=== PATIENT | male | born 1955 | race Caucasian/White ===

== ENCOUNTER 2024-03-05 11:16 | Inpatient (IN) | payer OTHER, SELFPAY ==
[2024-03-05] VITALS (23 sets, daily range): BP systolic 133–186; BP diastolic 62–80; PULSE 64–80; TEMP 36.5–37.9; O2SAT 91–99; BMI 24.4
--- NOTE | 2024-03-05 11:49 | CT_ITS ---
[address] [address] Patient Name: ENZO VIEIRA MRN: [id number] date: 1955 Sex: M Assigned Patient Location: ER Current Patient Location: ER Accession/Order Number: [id number] Exam Date: 03/05/2024 13:08 Report Date: 03/05/2024 13:49 At the request of: ELSA TELLO Procedure: CT abdomen pelvis w con EXAMINATION: CT abdomen pelvis w con HISTORY: epigastric pain COMPARISON: No relevant comparison available. TECHNIQUE: CT images were created with IV contrast. Axial, Coronal, and Sagittal images. Dose reduction techniques were achieved by using automated exposure control and/or adjustment of mA and/or kV according to patient size and/or use of iterative reconstruction technique. FINDINGS: LUNG BASES: No visible pulmonary or pleural disease. LIVER: No enlargement, atrophy, abnormal density, or significant focal lesion. BILIARY: The gallbladder is contracted. Calcified gallbladder wall PANCREAS: Asymmetric enlargement of the pancreatic head with peripancreatic mesenteric stranding and free fluid with dilation of the common bile duct and air in the proximal pancreatic duct SPLEEN: No enlargement or focal lesion. ADRENALS: No mass or enlargement. KIDNEYS: No mass, obstruction, or calcification. BOWEL/MESENTERY: Nonobstructive bowel gas pattern. Normal appendix. Wall thickening of the duodenum adjacent to the pancreatic head AORTA/VASCULAR: No aortic aneurysm. Moderate soft and calcific atherosclerotic plaque RETROPERITONEUM: No mass or adenopathy. LYMPH NODES: No adenopathy. URINARY BLADDER: No visible focal wall thickening, lesion, or calculus. PELVIC ORGANS: The prostate gland is mildly enlarged measuring 5 cm transversely ABDOMINAL WALL: No mass or hernia. BONES: No bony lesion or fracture. OTHER: Negative. CT/CT abdomen pelvis w con IMPRESSION: Acute pancreatitis without evidence of pancreatic necrosis. Likely secondary inflammatory changes of the adjacent duodenum Small amount of air in the pancreatic duct Dilation of the common bile duct up to 8.8 mm Electronically authenticated by: DEDRICK CORTES Date: 03/05/2024 13:49
[2024-03-05] MEDS: DICYCLOMINE HCL 20 MG/2 ML VIAL IM (12:14)
[2024-03-05] MEDS: FAMOTIDINE/PF 20 MG/2 ML VIAL IV (12:14)
[2024-03-05] MEDS: ONDANSETRON PF 4 MG/2 ML VIAL IV (12:14)
[2024-03-05 12:17] LABS: Basophils Percent Auto 0.9 % (0.2-2.0); Hematocrit 43.8 % (42.0-54.0); Hemoglobin 15.1 g/dL (14.0-18.0); Lymphocytes Absolute Auto 0.9 10^3/uL (1.2-3.8); Lymphocytes Percent Auto 19.6 % (20.5-60.0); Mean Corpuscular HGB Conc 34.5 g/dL (29.9-35.2); Mean Corpuscular Hemoglobin 33.3 pg (25.9-34.0); Mean Corpuscular Volume 96.5 fL (80.0-94.0); Mean Platelet Volume 9.2 fL (9.5-13.5); Monocytes Absolute Auto 0.3 10^3/uL (0.3-0.8); Monocytes Percent Auto 5.9 % (1.7-12.0); Neutrophils Absolute Auto 3.2 10^3/uL (1.4-6.5); Neutrophils Percent Auto 73.6 % (43.0-75.0); Platelet Count 223 10^3/uL (150-450); Red Blood Count 4.54 10^6/uL (4.70-6.10); Red Cell Distribution Width 12.4 % (11.0-15.0); White Blood Count 4.4 10^3/uL (4.0-11.0)
--- NOTE | 2024-03-05 12:21 | ED_ITS ---
HPI HPI - General Adult General Chief complaint: Abdominal Pain Stated complaint: ABDOMINAL PAIN Time Seen by Provider: 03/05/24 11:18 Source: patient Mode of arrival: walk-in Limitations: no limitations History of Present Illness HPI narrative: 68-year-old male to the emergency department chief complaint of abdominal pain that began last evening. Patient reports that he [facility] [place] [facility] for dinner. He woke up in the night with cramping upper abdominal pain. Is now a sharp pain located in the epigastric region. He reports that it comes and goes. Is associate with nausea without vomiting. He has never had issues like this before. He denies any chest pain or shortness of breath. He denies any fever, sweats, chills. No diarrhea or blood in the stool. No dark tarry stools. He has a history of hernia surgery, no other intra-abdominal surgeries. Related Data Home Medications ?Medication ?Instructions ?Recorded ?Confirmed No Known Home Medications 03/05/24 03/05/24 Allergies Allergy/AdvReac Type Severity Reaction Status Date / Time No Known Drug Allergies Allergy Verified 03/05/24 11:30 Opioid HPI Opioid Management Most Recent Opioid Data: Last Pain Scale 5 03/05/24 15:14 03/05/24 Last ED Pain Assessment 03/05/24 15:14 Review of Systems ROS Status of ROS 10 or more systems reviewed and unremark able except as noted in history and below [facility] Surgical History (Updated 03/05/24 @ 11:32 by Chencho Murphy) Hx of hernia repair ?Z98.890 - Other specified postprocedural states (ICD-10) ?Z87.19 - Personal history of other diseases of the digestive system (ICD-10) Social History Little interest or pleasure in doing things: not at all Feeling down, depressed, or hopeless: not at all Exam Narrative Exam Narrative: VITALS: I have reviewed the triage vital signs. GENERAL: Well developed, well appearing adult in no acute distress. NEURO: Alert and oriented. Moves all extremities. Face is symmetric and expressive. EYES: PERRL. No scleral icterus or conjunctival injection. No discharge. HENT: Normocephalic, atraumatic. Hearing is grossly intact. Nares grossly patent and without discharge. Mucous membranes moist. NECK: No JVD. Patient moves neck without restriction. CARDIO: Rhythm regular. Normal rate. No murmur, rub, or gallop. Pulses equal bilaterally in the upper and lower extremity. No lower extremity edema. PULM: Lungs clear to auscultation in all moreno. No wheezes, rales, or rhonchi. No conversational dyspnea. No splinting, stridor, or accessory muscle use. GI/: Mild epigastric tenderness. Normoactive bowel sounds. EXTREMITIES: Symmetric muscle bulk. No joint swelling. No clubbing, cyanosis, or deformity. SKIN: Warm and dry. Normal turgor. No rash or lesions appreciated. PSYCH: Mood, affect, and interaction is appropriate to the setting. Constitutional Vital Signs, click to edit/add: Last Vital Signs Temp 97.7 F 03/05/24 11:21 Pulse 68 03/05/24 15:15 Resp 17 03/05/24 15:15 BP 178/80 H 03/05/24 13:25 Pulse Ox 95 03/05/24 14:15 O2 Del Method Room Air 03/05/24 13:25 Course Vital Signs Vital signs: Vital Signs Temperature 97.7 F 03/05/24 11:21 Pulse Rate 64 03/05/24 11:21 Respiratory Rate 20 03/05/24 11:21 Blood Pressure 180/70 H 03/05/24 11:21 Pulse Oximetry 96 03/05/24 11:21 Oxygen Delivery Method Room Air 03/05/24 11:21 Temperature 97.7 F 03/05/24 11:21 Pulse Rate 68 03/05/24 15:15 Respiratory Rate 17 03/05/24 15:15 Blood Pressure 178/80 H 03/05/24 13:25 Pulse Oximetry 95 03/05/24 14:15 Oxygen Delivery Method Room Air 03/05/24 13:25 Medical Decision Making [facility] Narrative Medical decision making narrative: Well-appearing 68-year-old male to the emergency department chief complaint of epigastric pain after eating [place] salad last night. Vital stable, the rigoberto ent is afebrile. He has some mild tenderness on exam. Will obtain basic labs, EKG, lipase, CT scan abdomen pelvis. Zofran, Pepcid, Bentyl for symptom control. Patient agrees with this plan. No leukocytosis. He does have an elevated lipase as well as liver enzymes and bilirubin. CT imaging reviewed as below. Question of dilated common bile duct. I discussed with Dr. Muñiz the on-call general surgeon. He recommended I given a dose of IV antibiotic, obtain an ultrasound and admit to the hospitalist. He reports he will see the patient tomorrow. I discussed with the hospitalist Dr. Green. He accepts the patient to his service. A dose of Zosyn was given. Ultrasound was ordered Medical Records Medical records reviewed: Yes I reviewed the patient's medical records Lab Data Lab results reviewed: Yes I reviewed the patient's lab results Labs: Lab Results 03/05/24 Range/Units 12:00 WBC 4.4 (4.0-11.0) 10^3/uL RBC 4.54 L (4.70-6.10) 10^6/uL Hgb 15.1 (14.0-18.0) g/dL Hct 43.8 (42.0-54.0) % MCV 96.5 H (80.0-94.0) fL MCH 33.3 (25.9-34.0) pg MCHC 34.5 (29.9-35.2) g/dL RDW 12.4 (11.0-15.0) % Plt Count 223 (150-450) 10^3/uL MPV 9.2 L (9.5-13.5) fL Neut % (Auto) 73.6 (43.0-75.0) % Lymph % (Auto) 19.6 L (20.5-60.0) % [place] % (Auto) 5.9 (1.7-12.0) % Eos % (Auto) 0.0 L (0.9-7.0) % Baso % (Auto) 0.9 (0.2-2.0) % Neut # (Auto) 3.2 (1.4-6.5) 10^3/uL Lymph # (Auto) 0.9 L (1.2-3.8) 10^3/uL [place] # (Auto) 0.3 (0.3-0.8) 10^3/uL Eos # (Auto) 0.0 (0.0-0.7) 10^3/uL Baso # (Auto) 0.0 (0.0-0.1) 10^3/uL Abs Immat Gran (auto) 0.00 (0.00-0.03) 10^3/uL Imm/Tot Granulo (auto) 0.0 (0.0-0.5) % Sodium 145 (136-145) mmol/L Potassium 4.3 (3.5-5.1) mmol/L Chloride 110 H (98-107) mmol/L Carbon Dioxide 25.7 (21.0-32.0) mmol/L Anion Gap 13.6 BUN 16.0 (7.0-18.0) mg/dL Creatinine 1.15 (0.70-1.30) mg/dL Est GFR ( Amer) >60 (>=60 mL/min/1.73m^2) Est GFR (Non-Af Amer) >60 (>=60 mL/min/1.73m^2) BUN/Creatinine Ratio 13.9 Glucose 113 H (74-106) mg/dL Calcium 9.5 (8.5-10.1) mg/dL Total Bilirubin 3.2 H (0.2-1.0) mg/dL AST 188 H (15-37) U/L ALT 177 H (16-63) U/L Alkaline Phosphatase 172 H (46-116) U/L Troponin I High Sens 9.6 (4.0-76.1) pg/mL Total Protein 7.3 (6.4-8.2) g/dL Albumin 3.5 (3.4-5.0) g/dL Globulin 3.8 g/dL Albumin/Globulin Ratio 0.9 Lipase 3549.0 H* (16.0-77.0) U/L ECG Data Attestation: ?I have reviewed the pertinent ECG results. Discharge Plan Discharge Chief Complaint: Abdominal Pain Clinical Impression: Pancreatitis Patient Disposition: Admitted As Inpatient Time of Disposition Decision: 15:37 Condition: Good
--- NOTE | 2024-03-05 12:22 | ECG_ITS ---
The 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
[2024-03-05 12:43] LABS: Alanine Aminotransferase 177 U/L (16-63); Albumin Globulin Ratio 0.9; Albumin Level 3.5 g/dL (3.4-5.0); Alkaline Phosphatase 172 U/L (46-116); Anion Gap 13.6; Aspartate Amino Transferase 188 U/L (15-37); BUN Creatinine Ratio 13.9; Bilirubin Total 3.2 mg/dL (0.2-1.0); Calcium 9.5 mg/dL (8.5-10.1); Carbon Dioxide 25.7 mmol/L (21.0-32.0); Chloride 110 mmol/L (98-107); Estimated GFR (African America >60 (>=60 mL/min/1.73m^2); Estimated GFR (Non-African Ame >60 (>=60 mL/min/1.73m^2); Globulin 3.8 g/dL; Glucose 113 mg/dL (74-106); Potassium 4.3 mmol/L (3.5-5.1); Sodium 145 mmol/L (136-145); Total Protein 7.3 g/dL (6.4-8.2)
[2024-03-05 12:46] LABS: Troponin I High Sensitivity 9.6 pg/mL (4.0-76.1)
[2024-03-05] MEDS: LACTATED RINGER'S SOLUTION 1,000 ML 1000 ML IV ×2 (13:23→15:41)
--- NOTE | 2024-03-05 14:26 | US_ITS ---
The [address] [address] Patient Name: ENZO VIEIRA MRN: [id number] date: 1955 Sex: M Assigned Patient Location: ED.MAIN Current Patient Location: ED.MAIN Accession/Order Number: [id number] Exam Date: 03/05/2024 14:30 Report Date: 03/05/2024 15:38 At the request of: ELSA TELLO Procedure: US right upper quadrant EXAM: US right upper quadrant HISTORY: abn ct, epigastric pain COMPARISON: None. TECHNIQUE: A scale, color and Doppler FINDINGS: The liver is normal in size, contour and echotexture measuring 13.1 cm in length. Identified in the right hepatic lobe is an area of hyperechogenicity measuring 1 cm. The visualized pancreas is mildly heterogeneous in echotexture. The pancreatic head is poorly visualized due to bowel gas. The gallbladder is contracted and poorly visualized. The gallbladder wall is thickened and calcified measuring up to 5.4 mm. The common bile duct measures 5.4 mm. Negative sonographic Hinojosa sign The right kidney is normal measuring 8.8 x 4.8 x 4.4 cm US/US right upper quadrant IMPRESSION: No bladder wall is thick, this could be related to nondistention Electronically authenticated by: DEDRICK CORTES Date: 03/05/2024 15:38
[2024-03-05] MEDS: PIPERACILLIN SODIUM/TAZOBACTAM 4.5 GM in 0.9 % SODIUM CHLORIDE 50 ML IV (15:07)
--- NOTE | 2024-03-05 17:05 | PM.HP ---
HPI H&P: HPI History of Present Illness Chief complaint: ABDOMINAL PAIN, PANCREATITIS Narrative: 68 y o male with no sig PMHX presented to ED with epigastric abdominal pain that woke him up from sleep around 2 am. He reports feeling nauseous and had few episodes of vomiting. Pain is sharp, epigastric, persistent since onset with periods of worsening pain. Pain at the time of evaluation had improved and was 5/10. Patient denies constipation, diarrhea, and has no urinary complaints. Work up in ED was c/w acute pancreatitis with epigastric pain, pancreatic inflammation on CT and elevated lipase> 3000. Patient also had dilated CBD, mild transaminitis, elevated bilirubin and ALPO4 but no definitive stones in hepatobiliary ducts. Case was discussed with general surgery receptionist telephone operator who recommended US Liver/GB and IV abx for suspected cholecystitis. Patient drinks alcohol occasionally and is currently not on any medications. Opioid HPI Opioid Management Most Recent Pain and Opioid Data: Last Pain Scale 5 03/05/24 15:14 03/05/24 Last Pain Assessment 03/05/24 16:00 Last ED Pain Assessment 03/05/24 15:14 Last ORT Total Score 0 03/05/24 16:05 03/05/24 Last ORT Risk Category Low Risk 03/05/24 16:05 03/05/24 Review of Systems ROS Status of ROS 10 or more systems reviewed and unremarkable except as noted in history and below [facility] Surgical History Hx of hernia repair ?Z98.890 - Other specified postprocedural states (ICD-10) ?Z87.19 - Personal history of other diseases of the digestive system (ICD-10) Social History Within the past year, how often did you have a drink containing alcohol: monthly or less Within the past year, how many standard drinks containing alcohol did you have on a typical day: 1 or 2 Within the past year, how often did you have six or more drinks on one occasion: never Total score: 0 Score interpretation: A score less than 4 is consistent with normal alcohol consumption. Smoking status: Current every day smoker Non-prescribed substance use: denies use Highest level of school completed/degree received: high school graduate Little interest or pleasure in doing things: not at all Feeling down, depressed, or hopeless: not at all Do you think of yourself as: straight/heterosexual Gender Identity: male Meds Home Medications and Allergies Home Medications ?Medication ?Instructions ?Recorded ?Confirmed ?Type No Known Home Medications 03/05/24 03/05/24 History Allergies Allergy/AdvReac Type Severity Reaction Status Date / Time No Known Drug Allergies Allergy Verified 03/05/24 11:30 Exam Constitutional Vital Signs, click to edit/add: Last Vital Signs Temp 98.0 F 03/05/24 16:05 Pulse 66 03/05/24 16:05 Resp 16 03/05/24 16:05 BP 186/76 H 03/05/24 16:05 Pulse Ox 93 L 03/05/24 16:05 O2 Del Method Room Air 03/05/24 16:05 Documenting provider has reviewed patient's vital signs: yes Common normals: no apparent distress and oriented x3 General appearance: cooperative HENMT Common normals: normocephalic and head/scalp atraumatic Head and scalp: normocephalic and atraumatic Eye Common normals: conjunctivae normal and no scleral icterus Conjunctiva: conjunctiva(e) normal Respiratory Common normals: normal respiratory effort and clear to auscultation bilaterally Effort & inspection: able to speak in complete sentences Auscultation: clear to auscultation bilaterally Cardio Common normals: regular rate, S1 normal heart sound and S2 normal heart sound Rate: regular rate Heart sounds: S1 normal and S2 normal GI Common normals: Normal to inspection, nondistended, normoactive bowel sounds present, soft to palpation, non-tender and no hepatosplenomegaly Palpation: soft and no hepatosplenomegaly Extremity Common normals: no clubbing, cyanosis or edema Neuro Common normals: oriented x3, moves all extremities and no focal motor deficits Psych Common normals: mental status grossly normal, denies hallucinations, denies homicidal ideation and denies suicidal ideation Results Labs Labs: Short CBC 03/05/24 Range/Units 12:00 WBC 4.4 (4.0-11.0) 10^3/uL Hgb 15.1 (14.0-18.0) g/dL Hct 43.8 (42.0-54.0) % Plt Count 223 (150-450) 10^3/uL BMP 03/05/24 12:00 Sodium 145 Potassium 4.3 Chloride 110 H Carbon Dioxide 25.7 BUN 16.0 Creatinine 1.15 Glucose 113 H Calcium 9.5 Liver Function 03/05/24 Range/Units 12:00 Total Bilirubin 3.2 H (0.2-1.0) mg/dL AST 188 H (15-37) U/L ALT 177 H (16-63) U/L Alkaline Phosphatase 172 H (46-116) U/L Albumin 3.5 (3.4-5.0) g/dL Assessment and Plan Assessment and Plan (1) Acute pancreatitis: Qualifiers: Pancreatitis type: biliary Acute pancreatitis complication: no infection or necrosis Qualified Code(s): K85.10 - Biliary acute pancreatitis without necrosis or infection (2) Transaminitis: (3) Hyperbilirubinemia: (4) Common bile duct dilatation: (5) Elevated blood pressure reading without diagnosis of hypertension: Plan Patient presented with acute pancreatitis. Likely due to GB pathology. On IV zosyn for suspect cholecystitis. Awaiting US - if unclear, will need MRCP. C/w supportive care, IV fluids, zofran as needed and combination of oral/IV narcotics. Full liquid diet. Advance as tolerated. Surgery on consult. BP elevated, no hx of HTN. Monitor for now as this could reactive due to pain/acute illness. IV hydralazine as needed. If persistent elevation, might require PO medications.
[2024-03-05] MEDS: HYDRALAZINE HCL 20 MG/ML VIAL 10 MG IVP (17:10)
[2024-03-05] MEDS: LACTATED RINGER'S SOLUTION 1,000 ML 999 ML IV (17:10)
[2024-03-05 17:12] LABS: Glucometer 86 mg/dL (74-106)
[2024-03-05] MEDS: PANTOPRAZOLE SODIUM 40 MG VIAL IV (18:04)
[2024-03-05] MEDS: OXYCODONE HCL 5 MG TABLET PO (18:10)
[2024-03-05] MEDS: 0.9 % SODIUM CHLORIDE 1,000 ML 200 ML IV (18:24)
[2024-03-05 19:27] LABS: Glucometer 105 mg/dL (74-106)
[2024-03-05] MEDS: ENOXAPARIN SODIUM 40 MG/0.4 ML SYRINGE SUBQ (21:10)
[2024-03-05] MEDS: ACETAMINOPHEN 325 MG TABLET 650 MG PO (21:12)
[2024-03-05] MEDS: PIPERACILLIN SODIUM/TAZOBACTAM 3.375 GM in 0.9 % SODIUM CHLORIDE 50 ML IV (21:15)
[2024-03-06] VITALS (22 sets, daily range): BP systolic 136–177; BP diastolic 68–92; PULSE 54–90; TEMP 36.7–37.2; O2SAT 90–94
[2024-03-06] MEDS: 0.9 % SODIUM CHLORIDE 1,000 ML 200 ML IV (03:34)
[2024-03-06] MEDS: ACETAMINOPHEN 325 MG TABLET 650 MG PO ×2 (05:28→12:35)
[2024-03-06] MEDS: PIPERACILLIN SODIUM/TAZOBACTAM 3.375 GM in 0.9 % SODIUM CHLORIDE 50 ML IV ×3 (05:29→21:11)
[2024-03-06 05:35] LABS: Basophils Absolute Auto 0.1 10^3/uL (0.0-0.1); Basophils Percent Auto 0.8 % (0.2-2.0); Hematocrit 36.4 % (42.0-54.0); Hemoglobin 12.2 g/dL (14.0-18.0); Immature Granulocytes Abs Auto 0.01 10^3/uL (0.00-0.03); Immature Granulocytes Pct Auto 0.2 % (0.0-0.5); Lymphocytes Absolute Auto 1.3 10^3/uL (1.2-3.8); Mean Corpuscular HGB Conc 33.5 g/dL (29.9-35.2); Mean Corpuscular Hemoglobin 33.1 pg (25.9-34.0); Mean Corpuscular Volume 98.6 fL (80.0-94.0); Monocytes Absolute Auto 0.3 10^3/uL (0.3-0.8); Neutrophils Absolute Auto 4.4 10^3/uL (1.4-6.5); Platelet Count 152 10^3/uL (150-450); Red Blood Count 3.69 10^6/uL (4.70-6.10); Red Cell Distribution Width 12.5 % (11.0-15.0)
[2024-03-06 05:59] LABS: Alanine Aminotransferase 97 U/L (16-63); Albumin Globulin Ratio 0.8; Albumin Level 2.5 g/dL (3.4-5.0); Alkaline Phosphatase 131 U/L (46-116); Anion Gap 11.7; Aspartate Amino Transferase 82 U/L (15-37); BUN Creatinine Ratio 9.8; Calcium 7.7 mg/dL (8.5-10.1); Carbon Dioxide 23.3 mmol/L (21.0-32.0); Chloride 110 mmol/L (98-107); Estimated GFR (African America >60 (>=60 mL/min/1.73m^2); Estimated GFR (Non-African Ame >60 (>=60 mL/min/1.73m^2); Globulin 3.1 g/dL; Glucose 76 mg/dL (74-106); Sodium 141 mmol/L (136-145); Total Protein 5.6 g/dL (6.4-8.2)
--- NOTE | 2024-03-06 06:55 | P.GSCN_ITS ---
History of Present Illness Consult details Consult date: 03/06/24 Reason for consult: other Requesting physician: Hernandez Valdez Narrative: Ludwin Reyes is a 68-year-old male who presented to the ED yesterday with complaints of epigastric abdominal pain associate with nausea and back pain. He was found to have acute pancreatitis by CT scan and blood testing. He had hyperbilirubinemia as well. His bilirubin is elevated at 3.2 and his lipase was over 3000. He rated his pain as an 8 out of 10 when he presented to the ED. The pain began again and abruptly at 2 AM waking him from sleep. He has never experienced this pain. He denies any melena hematochezia or any family history of cancer. 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 He smokes tobacco daily. He states he is going to quit. He denies any chest pain shortness of breath. CT scan of the abdomen and pelvis showed pancreatitis and slightly dilated common bile duct with no evidence of stone. Ultrasound of the gallbladder showed no stones but mild thickening of the gallbladder wall. He had negative Hinojosa sign denies any fevers chills jaundice or melvi colored stools. He drinks alcohol sparingly. Maybe 1-2 beers a month. He currently rates his pain as a 0 out of 10. He complains that he has chronic back pain. Review of Systems ROS Status of ROS 10 or more systems reviewed and unremark able except as noted in history and below [facility] History Hx of hernia repair ?Z98.890 - Other specified postprocedural states (ICD-10) ?Z87.19 - Personal history of other diseases of the digestive system (ICD-10) Family History Mother Family history of cancer Father Family history of hypertension Social History Within the past year, how often did you have a drink containing alcohol: monthly or less Within the past year, how many standard drinks containing alcohol did you have on a typical day: 1 or 2 Within the past year, how often did you have six or more drinks on one occasion: never Total score: 0 Score interpretation: A score less than 4 is consistent with normal alcohol consumption. 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 Known occupational exposures/hazards: No Highest level of school completed/degree received: high school graduate Do you want help with school or training: No Are you now , , , , never or living with a partner: In a typical week, how many times do you talk on the telephone with family, friends, or neighbors: 3 or more times per week How often do you get together with friends or relatives: 3 or more times per week How often do you attend congregational or congregational services: never Do you belong to any clubs or organizations such as congregational groups unions, fra[employer] or athletic groups, or school groups: no Total score: 2 Score interpretation: A score of greater than or equal to 2 indicates the lowest level of social isolation. Little interest or pleasure in doing things: not at all Feeling down, depressed, or hopeless: not at all Feel stressed/tense/nervous/anxious/difficulty sleeping: not at all Do you think of yourself as: straight/heterosexual Gender Identity: male Meds Home Medications and Allergies Home Medications ?Medication ?Instructions ?Recorded ?Confirmed ?Type No Known Home Medications 03/05/24 03/05/24 History Allergies Allergy/AdvReac Type Severity Reaction Status Date / Time No Known Drug Allergies Allergy Verified 03/05/24 11:30 Exam Constitutional Vital Signs, click to edit/add: Last Vital Signs Temp 98.9 F 03/06/24 03:43 Pulse 74 03/06/24 05:40 Resp 18 03/06/24 03:48 BP 148/72 H 03/06/24 03:43 Pulse Ox 92 L 03/06/24 03:43 O2 Del Method Room Air 03/06/24 03:43 Documenting provider has reviewed patient's vital signs: yes Common normals: no apparent distress, average body habitus, oriented x3, healthy appearing, alert and well nourished HENAL Common normals: head/scalp atraumatic Eye Common normals: no scleral icterus GI Common normals: Normal to inspection, nondistended, normoactive bowel sounds present, soft to palpation, non-tender, no hepatosplenomegaly and no masses Neuro Common normals: oriented x3, CN's II-XII intact bilaterally, moves all extremities, no focal motor deficits and no sensory deficits noted Results Labs Labs: Abnormal lab results 03/05/24 03/06/24 Range/Units 12:00 04:56 RBC 4.54 L 3.69 L (4.70-6.10) 10^6/uL Hgb 12.2 L (14.0-18.0) g/dL Hct 36.4 L (42.0-54.0) % MCV 96.5 H 98.6 H (80.0-94.0) fL MPV 9.2 L (9.5-13.5) fL Lymph % (Auto) 19.6 L (20.5-60.0) % Eos % (Auto) 0.0 L 0.0 L (0.9-7.0) % Lymph # (Auto) 0.9 L (1.2-3.8) 10^3/uL Chloride 110 H 110 H (98-107) mmol/L Glucose 113 H (74-106) mg/dL Calcium 7.7 L (8.5-10.1) mg/dL Total Bilirubin 3.2 H (0.2-1.0) mg/dL AST 188 H 82 H (15-37) U/L ALT 177 H 97 H (16-63) U/L Alkaline Phosphatase 172 H 131 H (46-116) U/L Total Protein 5.6 L (6.4-8.2) g/dL Albumin 2.5 L (3.4-5.0) g/dL Lipase 3549.0 H* 1102.0 H* (16.0-77.0) U/L Diabetes panel 03/05/24 03/06/24 Range/Units 12:00 04:56 Sodium 145 141 (136-145) mmol/L Potassium 4.3 4.0 (3.5-5.1) mmol/L Chloride 110 H 110 H (98-107) mmol/L Carbon Dioxide 25.7 23.3 (21.0-32.0) mmol/L BUN 16.0 9.0 (7.0-18.0) mg/dL Creatinine 1.15 0.92 (0.70-1.30) mg/dL Glucose 113 H 76 (74-106) mg/dL Calcium 9.5 7.7 L (8.5-10.1) mg/dL AST 188 H 82 H (15-37) U/L ALT 177 H 97 H (16-63) U/L Alkaline Phosphatase 172 H 131 H (46-116) U/L Total Protein 7.3 5.6 L (6.4-8.2) g/dL Albumin 3.5 2.5 L (3.4-5.0) g/dL Calcium panel 03/05/24 03/06/24 Range/Units 12:00 04:56 Calcium 9.5 7.7 L (8.5-10.1) mg/dL Albumin 3.5 2.5 L (3.4-5.0) g/dL Pituitary panel 03/05/24 03/06/24 Range/Units 12:00 04:56 Sodium 145 141 (136-145) mmol/L Potassium 4.3 4.0 (3.5-5.1) mmol/L Chloride 110 H 110 H (98-107) mmol/L Carbon Dioxide 25.7 23.3 (21.0-32.0) mmol/L BUN 16.0 9.0 (7.0-18.0) mg/dL Creatinine 1.15 0.92 (0.70-1.30) mg/dL Glucose 113 H 76 (74-106) mg/dL Calcium 9.5 7.7 L (8.5-10.1) mg/dL Adrenal panel 03/05/24 03/06/24 Range/Units 12:00 04:56 Sodium 145 141 (136-145) mmol/L Potassium 4.3 4.0 (3.5-5.1) mmol/L Chloride 110 H 110 H (98-107) mmol/L Carbon Dioxide 25.7 23.3 (21.0-32.0) mmol/L BUN 16.0 9.0 (7.0-18.0) mg/dL Creatinine 1.15 0.92 (0.70-1.30) mg/dL Glucose 113 H 76 (74-106) mg/dL Calcium 9.5 7.7 L (8.5-10.1) mg/dL Total Bilirubin 3.2 H 1.0 (0.2-1.0) mg/dL AST 188 H 82 H (15-37) U/L ALT 177 H 97 H (16-63) U/L Alkaline Phosphatase 172 H 131 H (46-116) U/L Total Protein 7.3 5.6 L (6.4-8.2) g/dL Albumin 3.5 2.5 L (3.4-5.0) g/dL All other labs normal. Imaging Abdomen CT scan report/results: report reviewed Abdominal ultrasound report/results: report reviewed Assessment and Plan Assessment and Plan (1) Acute pancreatitis: Qualifiers: Pancreatitis type: biliary Acute pancreatitis complication: no infection or necrosis Qualified Code(s): K85.10 - Biliary acute pancreatitis without necrosis or infection (2) Transaminitis: (3) Hyperbilirubinemia: (4) Common bile duct dilatation: (5) Elevated blood pressure reading without diagnosis of hypertension: Plan Clear liquid diet only; continue IV fluids and antibiotics and anticipate needing robotic cholecystectomy probably on Monday as long as serum lipase trends to normal. Serum bilirubin is normal today and LFTs are trending downward. Most likely he may have passed a small stone that is not appearing on CT scan or ultrasound. Risks benefits and alternatives to robotic cholecystectomy may include infection, bleeding, bile duct injury, blood clots to legs or lungs, pneumonia, heart attack, stroke, and/or . He voiced understanding and wished to proceed. We will check him on a day-to-day basis.
[2024-03-06] MEDS: PANTOPRAZOLE SODIUM 40 MG VIAL IV (08:42)
--- NOTE | 2024-03-06 09:08 | PM.IMPN1 ---
Progress Note: A&P Assessment and Plan (1) Acute pancreatitis: Qualifiers: Pancreatitis type: biliary Acute pancreatitis complication: no infection or necrosis Qualified Code(s): K85.10 - Biliary acute pancreatitis without necrosis or infection (2) Transaminitis: (3) Hyperbilirubinemia: (4) Common bile duct dilatation: (5) Elevated blood pressure reading without diagnosis of hypertension: Plan Acute biliary pancreatitis, improving clinically. Lipase, LFTs all trending down. Patient denies nausea, abdominal pain. Pain is well controlled. Change IVF ot 0.45 NS and decrease rate to 125 /hr. US RUQ - no stone/normal CBD, and no evidence of cholecystitis. likely passed the stone. C/w Zosyn. Clear liquid diet as per Surgery. Patient tentatively scheduled for Lap Chol on Monday provided he continues to improve clinically. BP is now better and at goal. Internal Medicine - PN: Subj Subjective Interval history: Seen and examined. Doing well. No events. Denies pain, nausea or vomiting. Patient seen by General Surgery. Exam Constitutional Vital Signs, click to edit/add: Last Vital Signs Temp 98.7 F 03/06/24 08:00 Pulse 79 03/06/24 08:49 Resp 16 03/06/24 08:00 BP 136/68 03/06/24 08:00 Pulse Ox 90 L 03/06/24 08:00 O2 Del Method Room Air 03/06/24 08:00 Documenting provider has reviewed patient's vital signs: yes Common normals: no apparent distress and oriented x3 General appearance: cooperative Respiratory Common normals: normal respiratory effort and clear to auscultation bilaterally Effort & inspection: able to speak in complete sentences Auscultation: clear to auscultation bilaterally Cardio Common normals: regular rate, S1 normal heart sound and S2 normal heart sound Rate: regular rate Heart sounds: S1 normal and S2 normal GI Common normals: Normal to inspection, nondistended, normoactive bowel sounds present, soft to palpation, non-tender and no hepatosplenomegaly Palpation: soft and no hepatosplenomegaly Internal Medicine - PN: Obj Da Labs Labs: Laboratory Results - last 24 hr 03/05/24 03/05/24 03/05/24 12:00 17:10 19:26 WBC 4.4 RBC 4.54 L Hgb 15.1 Hct 43.8 MCV 96.5 H MCH 33.3 MCHC 34.5 RDW 12.4 Plt Count 223 MPV 9.2 L Neut % (Auto) 73.6 Lymph % (Auto) 19.6 L [place] % (Auto) 5.9 Eos % (Auto) 0.0 L Baso % (Auto) 0.9 Neut # (Auto) 3.2 Lymph # (Auto) 0.9 L [place] # (Auto) 0.3 Eos # (Auto) 0.0 Baso # (Auto) 0.0 Abs Immat Gran (auto) 0.00 Imm/Tot Granulo (auto) 0.0 Sodium 145 Potassium 4.3 Chloride 110 H Carbon Dioxide 25.7 Anion Gap 13.6 BUN 16.0 Creatinine 1.15 Est GFR ( Amer) >60 Est GFR (Non-Af Amer) >60 BUN/Creatinine Ratio 13.9 Glucose 113 H Calcium 9.5 Total Bilirubin 3.2 H AST 188 H ALT 177 H Alkaline Phosphatase 172 H Troponin I High Sens 9.6 Total Protein 7.3 Albumin 3.5 Globulin 3.8 Albumin/Globulin Ratio 0.9 Lipase 3549.0 H* POC Glucose 86 105 03/06/24 04:56 WBC 6.0 RBC 3.69 L Hgb 12.2 L Hct 36.4 L MCV 98.6 H MCH 33.1 MCHC 33.5 RDW 12.5 Plt Count 152 MPV 10.0 Neut % (Auto) 73.0 Lymph % (Auto) 21.0 [place] % (Auto) 5.0 Eos % (Auto) 0.0 L Baso % (Auto) 0.8 Neut # (Auto) 4.4 Lymph # (Auto) 1.3 [place] # (Auto) 0.3 Eos # (Auto) 0.0 Baso # (Auto) 0.1 Abs Immat Gran (auto) 0.01 Imm/Tot Granulo (auto) 0.2 Sodium 141 Potassium 4.0 Chloride 110 H Carbon Dioxide 23.3 Anion Gap 11.7 BUN 9.0 Creatinine 0.92 Est GFR ( Amer) >60 Est GFR (Non-Af Amer) >60 BUN/Creatinine Ratio 9.8 Glucose 76 Calcium 7.7 L Total Bilirubin 1.0 AST 82 H ALT 97 H Alkaline Phosphatase 131 H Troponin I High Sens Total Protein 5.6 L Albumin 2.5 L Globulin 3.1 Albumin/Globulin Ratio 0.8 Lipase 1102.0 H* POC Glucose
[2024-03-06] MEDS: 0.9 % SODIUM CHLORIDE 1,000 ML 125 ML IV (09:10)
--- NOTE | 2024-03-06 09:33 | CM.NOTE ---
Rounds made with Dr. Green. Discussed findings and treatment plan. Mr. Reyes verbalizes understanding.
--- NOTE | 2024-03-06 13:09 | ECG_ITS ---
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
--- NOTE | 2024-03-06 14:15 | SWNOTE1 ---
SW met with pt to discuss dc needs. Pt lives at home with his . Pt is independent at home and has no concerns about discharge. No anticipated discharge needs. SW to follow as needed.
--- NOTE | 2024-03-06 14:16 | SWNOTE1 ---
Important Message from [employer] reviewed and discussed with patient. Pt. verbalized understanding and signed the form. Original given to patient and copy placed in patient?s chart.
[2024-03-06] MEDS: OXYCODONE HCL 5 MG TABLET PO ×2 (14:40→21:22)
[2024-03-06] MEDS: SODIUM CHLORIDE 0.45 % 1,000 ML 125 ML IV (17:13)
[2024-03-06] MEDS: ENOXAPARIN SODIUM 40 MG/0.4 ML SYRINGE SUBQ (21:10)
[2024-03-06] MEDS: LIDOCAINE 5% PATCH 1 PATCH TOPICAL (22:42)
[2024-03-07] VITALS (54 sets, daily range): BP systolic 139–179; BP diastolic 72–91; PULSE 57–110; TEMP 36.6–37.1; O2SAT 91–94
[2024-03-07] MEDS: SODIUM CHLORIDE 0.45 % 1,000 ML 125 ML IV ×2 (01:12→09:07)
[2024-03-07] MEDS: OXYCODONE HCL 5 MG TABLET PO ×2 (03:39→21:18)
[2024-03-07] MEDS: PIPERACILLIN SODIUM/TAZOBACTAM 3.375 GM in 0.9 % SODIUM CHLORIDE 50 ML IV ×3 (05:10→21:17)
[2024-03-07 06:37] LABS: Alanine Aminotransferase 70 U/L (16-63); Albumin Globulin Ratio 0.8; Albumin Level 2.8 g/dL (3.4-5.0); Alkaline Phosphatase 132 U/L (46-116); Anion Gap 14.8; Aspartate Amino Transferase 50 U/L (15-37); Bilirubin Direct 0.3 mg/dL (0.0-0.2); Bilirubin Total 0.9 mg/dL (0.2-1.0); Calcium 7.9 mg/dL (8.5-10.1); Carbon Dioxide 20.9 mmol/L (21.0-32.0); Chloride 104 mmol/L (98-107); Estimated GFR (African America >60 (>=60 mL/min/1.73m^2); Estimated GFR (Non-African Ame >60 (>=60 mL/min/1.73m^2); Globulin 3.5 g/dL; Glucose 75 mg/dL (74-106); Potassium 3.7 mmol/L (3.5-5.1); Sodium 136 mmol/L (136-145); Total Protein 6.3 g/dL (6.4-8.2)
[2024-03-07] MEDS: HYDRALAZINE HCL 20 MG/ML VIAL 10 MG IVP ×2 (07:59→13:13)
[2024-03-07] MEDS: PANTOPRAZOLE SODIUM 40 MG VIAL IV (08:02)
[2024-03-07 08:08] LABS: Basophils Percent Auto 0.6 % (0.2-2.0); Hematocrit 40.4 % (42.0-54.0); Hemoglobin 13.7 g/dL (14.0-18.0); Immature Granulocytes Abs Auto 0.02 10^3/uL (0.00-0.03); Immature Granulocytes Pct Auto 0.3 % (0.0-0.5); Lymphocytes Absolute Auto 1.4 10^3/uL (1.2-3.8); Lymphocytes Percent Auto 19.3 % (20.5-60.0); Mean Corpuscular HGB Conc 33.9 g/dL (29.9-35.2); Mean Corpuscular Hemoglobin 32.9 pg (25.9-34.0); Mean Corpuscular Volume 96.9 fL (80.0-94.0); Mean Platelet Volume 9.7 fL (9.5-13.5); Monocytes Absolute Auto 0.4 10^3/uL (0.3-0.8); Monocytes Percent Auto 5.1 % (1.7-12.0); Neutrophils Absolute Auto 5.4 10^3/uL (1.4-6.5); Neutrophils Percent Auto 74.7 % (43.0-75.0); Platelet Count 175 10^3/uL (150-450); Red Blood Count 4.17 10^6/uL (4.70-6.10); Red Cell Distribution Width 12.4 % (11.0-15.0); White Blood Count 7.3 10^3/uL (4.0-11.0)
--- NOTE | 2024-03-07 10:13 | P.IMPN_ITS ---
Progress Note: A&P Assessment and Plan (1) Acute pancreatitis: Qualifiers: Pancreatitis type: biliary Acute pancreatitis complication: no infection or necrosis Qualified Code(s): K85.10 - Biliary acute pancreatitis without necrosis or infection (2) Transaminitis: (3) Hyperbilirubinemia: (4) Common bile duct dilatation: (5) Elevated blood pressure reading without diagnosis of hypertension: Plan Clinically improving. No active symptoms to offer. LFTs, lipase trending down. C/w Zosyn and Clear liquid diet as per Surgery. BP consistently elevated, likely has undiagnosed HTN. Will start on Amlodipine. Already on IV hydralazine as neeed. NPO after MN for possibe lap raz tomorrow. Internal Medicine - PN: Subj Subjective Interval history: Seen and examined. Doing well. No acute events. Exam Constitutional Vital Signs, click to edit/add: Last Vital Signs Temp 98.2 F 03/07/24 07:29 Pulse 77 03/07/24 08:00 Resp 18 03/07/24 07:41 BP 169/75 H 03/07/24 09:54 Pulse Ox 93 L 03/07/24 07:29 O2 Del Method Room Air 03/07/24 07:29 Documenting provider has reviewed patient's vital signs: yes Common normals: no apparent distress and oriented x3 General appearance: cooperative Respiratory Common normals: normal respiratory effort and clear to auscultation bilaterally Effort & inspection: able to speak in complete sentences Auscultation: clear to auscultation bilaterally Cardio Common normals: regular rate, S1 normal heart sound and S2 normal heart sound Rate: regular rate Heart sounds: S1 normal and S2 normal GI Common normals: Normal to inspection, nondistended, normoactive bowel sounds present, soft to palpation, non-tender and no hepatosplenomegaly Palpation: soft and no hepatosplenomegaly Internal Medicine - PN: Obj Da Labs Labs: Laboratory Results - last 24 hr 03/07/24 03/07/24 05:50 07:40 WBC 7.3 RBC 4.17 L Hgb 13.7 L Hct 40.4 L MCV 96.9 H MCH 32.9 MCHC 33.9 RDW 12.4 Plt Count 175 MPV 9.7 Neut % (Auto) 74.7 Lymph % (Auto) 19.3 L [place] % (Auto) 5.1 Eos % (Auto) 0.0 L Baso % (Auto) 0.6 Neut # (Auto) 5.4 Lymph # (Auto) 1.4 [place] # (Auto) 0.4 Eos # (Auto) 0.0 Baso # (Auto) 0.0 Abs Immat Gran (auto) 0.02 Imm/Tot Granulo (auto) 0.3 Sodium 136 Potassium 3.7 Chloride 104 Carbon Dioxide 20.9 L Anion Gap 14.8 BUN 6.0 L Creatinine 0.86 Est GFR ( Amer) >60 Est GFR (Non-Af Amer) >60 BUN/Creatinine Ratio 7.0 Glucose 75 Calcium 7.9 L Total Bilirubin 0.9 Direct Bilirubin 0.3 H AST 50 H ALT 70 H Alkaline Phosphatase 132 H Total Protein 6.3 L Albumin 2.8 L Globulin 3.5 Albumin/Globulin Ratio 0.8 Lipase 90.0 H
--- NOTE | 2024-03-07 10:13 | CM.NOTE ---
Rounds made with Dr. Green, pt denies any abdominal pain today. Discussed with pt lab results this AM and possible OR tomorrow. Dr. Muñiz will follow pt for further recommendation.
[2024-03-07] MEDS: AMLODIPINE BESYLATE 5 MG TABLET 10 MG PO (11:02)
[2024-03-07] MEDS: SODIUM CHLORIDE 0.45 % 1,000 ML 75 ML IV (17:46)
[2024-03-07] MEDS: DOCUSATE SODIUM 100 MG CAPSULE PO (21:18)
[2024-03-07] MEDS: ENOXAPARIN SODIUM 40 MG/0.4 ML SYRINGE SUBQ (21:18)
[2024-03-07] MEDS: LIDOCAINE 5% PATCH 1 PATCH TOPICAL (21:19)
[2024-03-08] VITALS (16 sets, daily range): BP systolic 113–148; BP diastolic 54–87; PULSE 72–88; TEMP 36.3–36.6; O2SAT 85–97
[2024-03-08 06:14] LABS: Basophils Percent Auto 0.7 % (0.2-2.0); Eosinophils Percent Auto 0.2 % (0.9-7.0); Hematocrit 34.7 % (42.0-54.0); Hemoglobin 11.9 g/dL (14.0-18.0); Immature Granulocytes Abs Auto 0.02 10^3/uL (0.00-0.03); Immature Granulocytes Pct Auto 0.4 % (0.0-0.5); Lymphocytes Absolute Auto 1.2 10^3/uL (1.2-3.8); Lymphocytes Percent Auto 21.1 % (20.5-60.0); Mean Corpuscular HGB Conc 34.3 g/dL (29.9-35.2); Mean Corpuscular Hemoglobin 33.2 pg (25.9-34.0); Mean Corpuscular Volume 96.9 fL (80.0-94.0); Mean Platelet Volume 9.5 fL (9.5-13.5); Monocytes Absolute Auto 0.4 10^3/uL (0.3-0.8); Monocytes Percent Auto 6.5 % (1.7-12.0); Neutrophils Percent Auto 71.1 % (43.0-75.0); Platelet Count 159 10^3/uL (150-450); Red Blood Count 3.58 10^6/uL (4.70-6.10); Red Cell Distribution Width 12.4 % (11.0-15.0); White Blood Count 5.7 10^3/uL (4.0-11.0)
[2024-03-08 06:26] LABS: Alanine Aminotransferase 47 U/L (16-63); Albumin Globulin Ratio 0.7; Albumin Level 2.5 g/dL (3.4-5.0); Alkaline Phosphatase 106 U/L (46-116); Anion Gap 18.2; Aspartate Amino Transferase 29 U/L (15-37); BUN Creatinine Ratio 9.9; Calcium 8.2 mg/dL (8.5-10.1); Carbon Dioxide 19.4 mmol/L (21.0-32.0); Chloride 105 mmol/L (98-107); Estimated GFR (African America >60 (>=60 mL/min/1.73m^2); Estimated GFR (Non-African Ame >60 (>=60 mL/min/1.73m^2); Globulin 3.4 g/dL; Glucose 63 mg/dL (74-106); Potassium 3.6 mmol/L (3.5-5.1); Sodium 139 mmol/L (136-145); Total Protein 5.9 g/dL (6.4-8.2)
[2024-03-08] MEDS: LACTATED RINGER'S SOLUTION 1,000 ML 50 ML IV (06:34)
[2024-03-08] MEDS: PIPERACILLIN SODIUM/TAZOBACTAM 3.375 GM in 0.9 % SODIUM CHLORIDE 50 ML IV (06:38)
[2024-03-08] MEDS: DEXTROSE 50 %-WATER 25 GM/50 ML SYRINGE 25 ML IV (07:06)
[2024-03-08] MEDS: INDOCYANINE GREEN 25 MG VIAL INJ (07:17)
[2024-03-08 07:27] LABS: Glucometer 128 mg/dL (74-106)
--- NOTE | 2024-03-08 07:43 | P.GSPRC_ITS ---
Date of procedure: 03/08/24 Indications for Procedure: Gallstone pancreatitis Pre-op diagnosis: Gallstone pancreatitis Post-op diagnosis: same as pre-op Procedure: Da Surekha cholecystectomy with ICG Findings: Acute chronic cholecystitis with cholelithiasis Anesthesia: AMBER Surgeon: Gurmeet Muñiz Procedure Summary: After again explaining the risks and benefits of the procedure in the preoperative care unit consent was obtained. ?The patient was taken back to the operative room and placed on the operative room table. General endotracheal anesthesia was induced and preoperative antibiotics were given. ?Appropriate time-out was performed. ?Right arm was?tucked at the side. ?Then the bed was p ositioned appropriately. ?The abdomen was prepped and draped in normal sterile fashion. Veress needle was placed in the left upper quadrant at Damon's point to obtain a pneumoperitoneum due to previous umbilical hernia repair and not knowing if mesh was underneath to perform open Osorio technique. Upon entering the abdomen it did not there did not appear to be any mesh. A small incision was made below the previous umbilical incision to the left of the midline and an 8 mm port was placed through under direct visualization. The abdomen was insufflated to 15 mm carbon dioxide pressure. The scope and camera was brought in and then 3 more ports were placed. An 8?mm port was placed in the right lateral position. Two additional?8 mm Davinci ports were placed, 8 cm to the left and one to the right of the umbilicus. ?The patient was then placed in reverse Trendelenburg position and slightly turned to the left. The [employer] TVinci robot was docked. The 4th arm was used to grasp the dome of the gallbladder superiorly. ?The peritoneal attachments were taken down with meticulous dissection laterally and medially from the gallbladder. ?At this point the infundibular gallbladder was retracted laterally and a critical view was obtained. The gallbladder was taken down in retrograde fashion?with the cystic duct inferiorly cystic artery medially and the liver posteriorly. ?Two clips were placed on the patient side and 1 on the specimen side of both the cystic duct and the cystic artery. The cystic artery was taken down first which left only the cystic duct which was dil ated. ?The last structure that attached the gallbladder was the cystic duct. The gallbladder was then removed through the umbilical port using Endo-Catch bag. ?The gallbladder fossa was visualized again to confirm no bleeding and no leak from the cystic duct. The robot was undocked from the patient. The abdomen was deinsufflated.? The umbilical incision fascia was closed with a [id number] 0 Vicryl. The skin was closed at all the incisions with 4 0 Monocryl. All incisions and underlying muscle was anesthetized with local anesthetic. Steri-Strips were then placed o shiloh the incisions. The patient was extubated and had no immediate postoperative complications. Patient was taken to the PACU in stable condition. 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
[2024-03-08] MEDS: LACTATED RINGER'S SOLUTION 1,000 ML 1000 ML IV (08:45)
--- NOTE | 2024-03-08 09:00 | CM.NOTE ---
Rounds made with Dr. Green, pt in OR at this time. Dr. Green will see pt post-op.
[2024-03-08] MEDS: BUPIVACAINE HCL 0.5% PF 50 MG/10 ML VIAL 20 ML INJ (09:11)
[2024-03-08] MEDS: SODIUM CHLORIDE 0.45 % 1,000 ML 75 ML IV (10:18)
[2024-03-08] MEDS: PANTOPRAZOLE SODIUM 40 MG VIAL IV (10:19)
[2024-03-08] MEDS: AMLODIPINE BESYLATE 5 MG TABLET 10 MG PO (10:19)
--- NOTE | 2024-03-08 13:52 | PM.DS1 ---
DS: Providers Provider Date of admission: 03/05/24 15:45 Primary care physician: LUCIANO AMBROSE Admitting clinician: Shaikh Norma Attending physician on admission: Shaikh Norma Consults: 03/05/24 14:54 Consult to General Surgeon Routine Consulting Provider: Gurmeet Muñiz Reason for consultation: GB cholecystitis Physical Therapy Eval and Treat Routine Reason for consultation: Ambulatory dysfunction/weakness Attending physician on discharge: Shaikh Norma Discharging clinician: Shaikh Norma DS: Diagnosis Discharge Diagnosis (1) Acute pancreatitis: Qualifiers: Pancreatitis type: biliary Acute pancreatitis complication: no infection or necrosis Qualified Code(s): K85.10 - Biliary acute pancreatitis without necrosis or infection (2) Transaminitis: (3) Hyperbilirubinemia: (4) Common bile duct dilatation: (5) Elevated blood pressure reading without diagnosis of hypertension: DS: Summary Hospital Course Hospital Course: 68 y o male with no sig PMHX presented to ED with epigastric abdominal pain that woke him up from sleep around 2 am. Work up in ED was c/w acute pancreatitis with epigastric pain, pancreatic inflammation on CT and elevated lipase> 3000. Patient also had dilated CBD, mild transaminitis, elevated bilirubin and ALPO4 but no definitive stones in hepatobiliary ducts. US did not reveal any gallstones. Patient likely had passed gall stone resulting in transaminitis, acute pancreatitis. No evidence of cholecystitis. He was treated for Acute pancreatitis with IVF, anti emetics and kept on clear liquid. He was taken to OR for Lap Dulce on 03/08/24. Patient seen post op and has no complaints to offer. Pt has prior hx of HTN and had stopped taking his medications. He will be discharged on oral amlodipine for it. Patient educated on worrisome signs and symptoms, advised on low fat diet and instrcuted to come to ED if he developed any signs or symptoms concerning for post op infection or recurrence of acute pancreatitis. Patient is stable for discharge medically. Status at Discharge Functional status at discharge: independent ambulation Overall status at discharge: patient is back to baseline Time Spent with Patient Time attestation: Total time spent providing and/or coordinating discharge services: Time spent: greater than 30 minutes Exam Constitutional Vital Signs, click to edit/add: Last Vital Signs Temp 97.9 F 03/08/24 09:22 Pulse 76 03/08/24 11:09 Resp 16 03/08/24 11:09 BP 148/77 H 03/08/24 11:09 Pulse Ox 92 L 03/08/24 13:45 O2 Del Method Room Air 03/08/24 13:45 O2 Flow Rate 1 03/08/24 12:59 Documenting provider has reviewed patient's vital signs: yes Common normals: no apparent distress and oriented x3 General appearance: cooperative Respiratory Common normals: normal respiratory effort and clear to auscultation bilaterally Effort & inspection: able to speak in complete sentences Auscultation: clear to auscultation bilaterally Cardio Common normals: regular rate, S1 normal heart sound and S2 normal heart sound Rate: regular rate Heart sounds: S1 normal and S2 normal GI Common normals: Normal to inspection, nondistended, normoactive bowel sounds present, soft to palpation, non-tender and no hepatosplenomegaly Palpation: soft and no hepatosplenomegaly DS: Data Data Completed and Pending Labs on day of discharge: Labs from last 24 hours 03/08/24 03/08/24 07:26 06:00 WBC 5.7 RBC 3.58 L Hgb 11.9 L Hct 34.7 L MCV 96.9 H MCH 33.2 MCHC 34.3 RDW 12.4 Plt Count 159 MPV 9.5 Neut % (Auto) 71.1 Lymph % (Auto) 21.1 [place] % (Auto) 6.5 Eos % (Auto) 0.2 L Baso % (Auto) 0.7 Neut # (Auto) 4.0 Lymph # (Auto) 1.2 [place] # (Auto) 0.4 Eos # (Auto) 0.0 Baso # (Auto) 0.0 Abs Immat Gran (auto) 0.02 Imm/Tot Granulo (auto) 0.4 Sodium 139 Potassium 3.6 Chloride 105 Carbon Dioxide 19.4 L Anion Gap 18.2 BUN 9.0 Creatinine 0.91 Est GFR ( Amer) >60 Est GFR (Non-Af Amer) >60 BUN/Creatinine Ratio 9.9 Glucose 63 L Calcium 8.2 L Total Bilirubin 1.0 AST 29 ALT 47 Alkaline Phosphatase 106 Total Protein 5.9 L Albumin 2.5 L Globulin 3.4 Albumin/Globulin Ratio 0.7 Lipase 25.0 POC Glucose 128 H Discharge Plan Discharge Disposition: Home, Self-Care Condition: Good Discharge Medications: New amlodipine 10 mg tablet 10 mg PO DAILY Qty: 30 0RF oxycodone-acetaminophen [Percocet] 5-325 mg tablet 1 tab PO Q8H PRN (Reason: pain) 3 Days Qty: 9 0RF ondansetron 4 mg tablet,disintegrating 4 mg PO Q8H PRN (Reason: nausea and vomiting) 3 Days Qty: 9 0RF Activity: increase activity as tolerated Diet: low fat, low cholesterol Print Language: Uzbek Patient Instructions: Pancreatitis (DC), Laparoscopic Cholecystectomy (DC) Forms: Portal Instructions Follow Up Appointments: f/u with PCP in one week f/u with general surgery in 2 weeks
--- NOTE | 2024-03-11 16:16 | CM.DCFOLLOWU ---
Person spoke with:patient How are you feeling? well How is your pain? 2/3, taking it easy Did you understand your discharge instructions? yes Do you have any questions about your discharge instructions? yes Were you given any prescriptions at discharge?yes Were you able to get your prescriptions filled?yes Do you understand how to take your medications as ordered?yes Do you have any questions about your follow up appointment and do you plan to keep your follow up appointment? no questions, follow up reviewed Is there anything else that you would like to discuss?no Questions/Comments/Concerns/Other:n/a
== END 2024-03-08 14:28 | disposition home or self-care (01) | DRG 419 ==
LOC: ER 15:37 → MS 15:49
PROVIDERS: Surgery; Admitting Provider Internal Medicine; Emergency Provider Student in an Organized Health Care Education/Training Program; PCP Nurse Practitioner Family; Visit Provider Internal Medicine
PROC: 0FT44ZZ Resection of Gallbladder, Percutaneous Endoscopic Approach (ICD-10-PCS; principal; 2024-03-08 07:30)
DX: K85.10 Biliary acute pancreatitis without necrosis or infection (principal); R74.01 Elevation of levels of liver transaminase levels; E80.6 Other disorders of bilirubin metabolism; K83.8 Other specified diseases of biliary tract; I10 Essential (primary) hypertension; F17.200 Nicotine dependence, unspecified, uncomplicated; Z98.890 Other specified postprocedural states; Z87.19 Personal history of other diseases of the digestive system
CPT/HCPCS: 36415; 74177; 76705; 80053; 80076; 82248; 82948; 83690; 84484; 85025; 88304; 93005; 94761; 96365; 96372; 96375; 97162; 99285; J0360; J0500; J0665; J1100; J1290; J1650; J1885; J2250; J2405; J2543; J2704; J2710; J3010; Q9967

== ENCOUNTER 2024-03-18 12:54 | Outpatient (OUT) | payer OTHER, SELFPAY ==
--- NOTE | 2024-03-18 13:00 | CT_ITS ---
[address] [address] Patient Name: ENZO VIEIRA MRN: [id number] date: 1955 Sex: M Assigned Patient Location: CT Current Patient Location: Accession/Order Number: [id number] Exam Date: 03/18/2024 13:20 Report Date: 03/19/2024 06:45 At the request of: LUCIANO AMBROSE Procedure: CT lung screening low-dose EXAMINATION: CT lung screening low-dose HISTORY: Nicotine Dependence F17.210 COMPARISON: No relevant comparison available. TECHNIQUE: Axial, Coronal, and Sagittal images were created without the administration of IV contrast material. Dose reduction techniques were achieved by using automated exposure control and/or adjustment of mA and/or kV according to patient size and/or use of iterative reconstruction technique. FINDINGS: LUNGS: 10 x 10 x 6 mm irregular nodular opacity within posterior lateral right lung apex; mass versus pleural scarring. Thin opacity with adjacent fibrous stranding within the left posterior costophrenic angle; nonspecific but most likely representing scarring or atelectasis. Mild emphysematous changes. PLEURA: No mass, effusion, or pneumothorax. VASCULATURE: No abnormality. CELESTE: No mass or pathologic adenopathy. MEDIASTINUM: No mass or pathologic adenopathy. CARDIAC: No enlargement, pericardial thickening, or pericardial effusion. Coronary Artery calcifications: Coronary calcifications are mild. AORTA: No aneurysm or dissection. CHEST WALL: No mass or axillary adenopathy BONES: No bone lesion or fracture. LIMITED ABDOMEN: No suspicious findings. Limited images of the upper abdomen. OTHER: Negative. CT/CT lung screening low-dose IMPRESSION: 1. Lung-RADS Category 4A- Suspicious. Findings for which additional diagnostic testing and/ or tissue sampling is recommended. 3 month LDCT; PET/CT may be used when there is a >= 8 mm solid component. 2. PET imaging is recommended. Alternatively CT chest in 3 months to document stability. Electronically authenticated by: BRUNA FELICIANO Date: 03/19/2024 06:45
== END 2024-03-18 12:55 | disposition home or self-care (01) ==
LOC: CT 12:54
PROVIDERS: PCP Nurse Practitioner Family; Visit Provider Nurse Practitioner Family
DX: R91.8 Other nonspecific abnormal finding of lung field (principal); F17.210 Nicotine dependence, cigarettes, uncomplicated
CPT/HCPCS: 71271

== ENCOUNTER 2024-03-23 06:57 | Emergency (ER) | payer OTHER, SELFPAY ==
[2024-03-23] VITALS (52 sets, daily range): BP systolic 132–152; BP diastolic 72–75; PULSE 76–99; TEMP 36.6; O2SAT 91–96; BMI 23.7
--- NOTE | 2024-03-23 07:16 | ECG_ITS ---
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
--- NOTE | 2024-03-23 07:17 | CT_ITS ---
[address] [address] Patient Name: ENZO VIEIRA MRN: [id number] date: 1955 Sex: M Assigned Patient Location: ER Current Patient Location: Accession/Order Number: [id number] Exam Date: 03/23/2024 07:50 Report Date: 03/23/2024 08:17 At the request of: BIA FUENTES Procedure: CT abdomen pelvis w con EXAMINATION: CT abdomen pelvis w con HISTORY: RUQ abdominal pain, lap raz 2 weeks ago COMPARISON: CT abdomen pelvis 03/05/2024, CT Lung Screening 03/18/2024 TECHNIQUE: Axial, Coronal, and Sagittal images were obtained without and/or with IV contrast as indicated by examination type. Dose reduction techniques were achieved by using automated exposure control and/or adjustment of mA and/or kV according to patient size and/or use of iterative reconstruction technique. FINDINGS: LUNG BASES: Irregular strandy opacities within left lung base. LIVER: No enlargement, atrophy, suspicious density, or significant focal lesion. BILIARY: Abnormal gallbladder wall thickening and trace amount of free fluid. Abnormally dilated common bile duct with mild wall thickening. PANCREAS: No lesion, fluid collection, or abnormal duct dilatation. SPLEEN: No enlargement or focal lesion. ADRENALS: No mass or enlargement. KIDNEYS: No mass, obstruction, or calcification. BOWEL/MESENTERY: Poorly defined margins and edematous appearance of the wall. Mild edema and stranding of the adjacent fat. Mild superficial wall thickening of the hepatic flexure of the colon with mild adjacent edema. AORTA/VASCULAR: Marked atherosclerotic disease. RETROPERITONEUM: Numerous small retroperitoneal lymph nodes. LYMPH NODES: Increased number of small right upper quadrant lymph nodes. URINARY BLADDER: No visible focal wall thickening, lesion, or calculus. PELVIC ORGANS: No visible mass. Pelvic organs appropriate for patient age. ABDOMINAL WALL: Fat filled 2.4 cm periumbilical hernia just left of the umbilicus; no strangulation. BONES: No bony lesion or fracture. OTHER: Negative. CT/CT abdomen pelvis w con IMPRESSION: 1. Right upper quadrant inflammatory changes involving the gallbladder, common bile duct, hepatic flexure of the colon, and the duodenum. I suspect acute cholecystitis affecting the adjacent colon and duodenum. 2. Small fat filled periumbilical hernia without strangulation. 3. Mild lymphadenopathy, likely reactive. Electronically authenticated by: BRUNA FELICIANO Date: 03/23/2024 08:17
--- OUTSIDE RECORDS SUMMARY | 2024-03-23 07:17 | XMS_ITS | CCD ---
Author Organization [facility] Care Team Providers Care Business Computers Teacher Name Role Phone ANNALEE CHINO Attending Unavailable ANNALEE CHINO Consulting Unavailable ANNALEE CHINO Admitting Unavailable Margoth GLASS CUT OFF SUPERVISOR-HOME CARE SPECIALISTAudrey Primary Care [facility] ELIZABETH MARQUEZ Attending Unavailable AUDREY JUSTIN Primary Care Unavailable Gurmeet Muñiz DO Attending Provider NON STAFF Primary Care Unavailable Gurmeet Muñiz Attending Unavailable Gurmeet Muñiz Admitting Unavailable Medications Current Medications Medication Drug Class(es) Dates Sig (Normalized) Sig (Original) acetaminophen 325 mg / oxyCODONE hydrochloride 5 mg oral tablet (3 sources) Opioid Agonist Start: 03-08-2024 take 1 tablet by mouth every eight hours as needed oxyCODONE-acetamino phen (PERCOCET) 5-325 mg per tablet Take 1 tablet by mouth every 8 (eight) hours as needed. 03/08/2024 Active amLODIPine 10 mg oral tablet (4 sources) Dihydropyridine Calcium Channel Malcom Start: 03-08-2024 take 1 tablet by mouth in the morning amLODIPine (NORVASC) 10 mg tablet Take 1 tablet (10 mg total) by mouth in the morning. 03/08/2024 Active [id number] Hfg-Ofkv-Vix-Asb-C (2 sources) Osmotic Laxative, Vitamin C Start: 02-14-2024 [id number] Ccp-Nuaq-Cgf-Asb-C (Plenvu) 140-9-5.2 gram powder in packet, sequential Active 140 ML PO .COMPLEX 1 1 February 13, 2024 11:00pm First does at 4pm the day before the colonoscopy; second dose at 11pm the night before the colonoscopy. 24 hr nicotine 0.875 mg/hr transdermal system (2 sources) Cholinergic Nicotinic Agonist Start: 02-12-2024 apply 1 dose transdermal route every twenty-four hours Nicotine 21 mg/24 hr patch 24 hour Active 1 PATCH TRANSDERML Daily February 11, 2024 11:00pm ondansetron 4 mg disintegrating oral tablet (3 sources) Serotonin-3 Receptor Antagonist Start: 03-08-2024 take 1 tablet by mouth every eight hours as needed ondansetron ODT (ZOFRAN ODT) 4 mg disintegrating tablet Dissolve 1 tablet (4 mg total) on tongue every 8 (eight) hours as needed. 03/08/2024 Active Problems Problem Classification Problem Date Documented Date Episodic/Chronic Administrative/social admission (4 sources) Patient encounter status; Translations: [Tobacco abuse counseling] 02-12-2024 Episodic Biliary tract disease (1 source) Calculus of gallbladder without cholecystitis without obstruction; Translations: [Calculus of gallbladder without cholecystitis without obstruction] Onset: 03-08-2024 Episodic Other screening for suspected conditions (not mental disorders or infectious disease) (20 sources) Encounter for screening for malignant neoplasm of prostate; Translations: [Patient encounter status] Onset: 03-20-2020 02-12-2024 Episodic Pancreatic disorders (not diabetes) (2 sources) Pancreatitis; Translations: [Acute pancreatitis without necrosis or infection, unspecified] 03-12-2024 Episodic Residual codes; unclassified (2 sources) Acquired absence of other specified parts of digestive tract; Translations: [Other postprocedural status] Onset: 03-13-2024 03-12-2024 Episodic Unclassified (1 source) POST-OP VISIT Onset: 03-13-2024 Results Test Name Value Interpretation Reference Range Facility Pathology study report docum entOrdered By: Miguel Beltrán on 03-11-2024 Pathology study Other Basophils Auto (Bld) [#/Vol] on 03-08-2024 Basophils (Bld) [#/Vol] Automated basoph il count 0.0-0.1 Basophils/100 WBC Auto (Bld) on 03-08-2024 Basophils/100 WBC (Bld) Automated basoph il % 0.2-2.0 Eosinophils/100 WBC Auto (Bl d)on 03-08-2024 Eosinophils/100 WBC (Bld) Automated eosinophil % Low 0.9-7.0 Erythrocyte distribution wid th Auto (RBC) [Ratio]on 03-08-2024 Erythrocyte distribution width (RBC) [Ratio] Erythrocyte distribution width [Ratio] by Automated count 11.0-15.0 Estimated glomerular filtrat ion rate (GFR) non- Americanon 03-08-2024 GFR/1.73 sq M.predicted among non-blacks MDRD (S/P/Bld) [Vol rate/Area] Estimated glomerular filtration rate (GFR) non- >=60 mL/min/1.73m 2 Globulin Calc (S) [Mass/Vol] on 03-08-2024 Globulin (S) [Mass/Vol] Serum globulin measurement by calculation (mass/volume) Hematocrit Auto (Bld) [Volum e fraction]on 03-08-2024 Hematocrit (Bld) [Volume fraction] Hematocrit [Volume Fraction] of Blood by Automated count Low 42.0-54.0 Hemoglobin [Mass/volume] in Bloodon 03-08-2024 Hemoglobin (Bld) [Mass/Vol] Hemoglobin [Mass/volume] in Blood Low 14.0-18.0 Elias 03-08-2024 L Specimen: [id number] Received: 03/08/24 Status: CARLOS Johnston Num: [id number] Spec Type: Surgical Subm Dr: Gurmeet Muñiz,DO Tissues: A Gallbladder (GALLBLADDER) Procedures: ALONSO, Gross/Micro L3 Age/ Patient Sex Location Account Attending Physician Guru Reyes 68/M OR [id number] Gurmeet Muñiz DO SPEC NUM: [id number] RECD: 03/08/24 STATUS: CARLOS JOHNSTON NUM: [id number] MISTY: 03/08/[address] [facility] [address]: Gurmeet Muñiz DO ENTERED: 03/08/[address] [facility] [address]: David,Lab SPEC TYPE: Surgical DEPT: STEPHANIE RAVI ENTERED BY: [id number] RECV BY: [id number] ORDERED: HE, Gross/Micro L3 ORDERED: HE, Gross/Micro L3 Pathological Diagnosis Gallbladder, cholecystectomy: - Chronic cholecystitis. - Mucosal erosion with dystrophic calcification deposits consistent with cholelithiasis. Clinical Information Gallstones pancreatitis Gross Description A. Received in formalin labeled gallbladder is a disrupted gallbladder, 4.5 x 2 x 1.5 cm with 0.3 cm cystic duct closed by a white clamp. The serosa is phillip-pink, focally erythematous, smooth and glistening with focal adhesions; the hepatic bed is roughened irregular with three 0.3, 0.5 and 1.5 cm transmural defects. The specimen is opened to reveal mills-phillip to pink and trabecular mucosa with an adherent, thick, mills-phillip material. The wall of the gallbladder ranges from 0.1 to 0.3 cm in thickness with overlying adipose tissue, up to 0.4 cm in thickness. The contents of the specimen jar filtered and no calculi are identified. Disposition Clerk sections are submitted in a single cassette. (1, , BS24- 909 A) GIL Specimen: [id number] Received: 03/08/24 Status: CARLOS Johnston Num: [id number] Spec Type: Surgical Subm Dr: Gurmeet Muñiz,DO Tissues: A Gallbladder (GALLBLADDER) Procedures: Ning GUPTA/Mague L3 Patient: Guru Reyes [id number] (Continued) Specimen: [id number] Received: 03/08/24 (Continued) Signed (signatur e on file) Miguel Beltrán MD 03/11/24 1469 Specimen: [id number] Received: 03/08/24 Status: CARLOS Johnston Num: [id number] Spec Type: Surgical Subm Dr: Gurmeet Muñiz DO Tissues: A Gallbladder (GALLBLADDER) Procedures: Ning GUPTA/Mague L3 Patient: Guru Reyes [id number] (Continued) Specimen: [id number] Received: 03/08/24 (Continued) Microscopic Description Microscopic examination is performed. CPT Codes 24260 Specimen: [id number] Received: 03/08/24 Status: CARLOS Johnston Num: [id number] Spec Type: Surgical Subm Dr: Gurmeet Muñiz,DO Tissues: A Gallbladder (GALLBLADDER) Procedures: ALONSO, Gross/Mague L3 Patient: Guru Reyes [id number] (Continued) Signed (signatur e on file) Miguel Beltrán MD 03/11/241718 Normal [facility] Laboratory - Chemistry and C hemistry - challengeon 03-08-2024 Albumin [Mass/Vol] 2.5 g/dL Low 3.4-5.0 [facility] ALP [Catalytic activity/Vol] 106 U/L 46-116 ALT [Catalytic activity/Vol] 47 U/L 16-63 AST [Catalytic activity/Vol] 29 U/L 15-37 Bilirubin [Mass/Vol] 1.0 mg/dL 0.2-1.0 [facility] Calcium [Mass/Vol] 8.2 mg/dL Low 8.5-10.1 [facility] Chloride [Moles/Vol] 105 mmol/L 98-107 [facility] CO2 [Moles/Vol] 19.4 mmol/L Low 21.0-32.0 [facility] Creatinine [Mass/Vol] 0.91 mg/dL 0.70-1.[address] [facility] GFR/1.73 sq M.predicted MDRD (S/P/Bld) [Vol rate/Area] mL/min/{1.73_m2} >=60 mL/min/1.73m 2 Glucose [Mass/Vol] 63 mg/dL Low 74-106 [facility] Lipase [Catalytic activity/Vol] 25.0 U/L 16.0-77.0 Potassium [Moles/Vol] 3.6 mmol/L 3.5-5.[address] [facility] Protein [Mass/Vol] 5.9 g/dL Low 6.4-8.2 [facility] Sodium [Moles/Vol] 139 mmol/L 136-145 [facility] Urea nitrogen [Mass/Vol] 9.0 mg/dL 7.0-18.0 Urea nitrogen/Creatinine [Mass ratio] 9.9 mg/mg Laboratory - Hematology and Cell countson 03-08-2024 Immature granulocytes/100 WBC (Bld) 0.4 % 0.0-0.5 Leukocytes [#/volume] correc julio for nucleated erythrocytes in Blood by Automated counon 03-08-2024 WBC corrected for nucl RBC Auto (Bld) [#/Vol] Leukocytes [#/volume] corrected for nucleated erythrocytes in Blood by Automated coun 4.0-11.0 Lymphocytes Auto (Bld) [#/Vo l]on 03-08-2024 Lymphocytes (Bld) [#/Vol] Lymphocytes [#/volume] in Blood by Automated count 1.2-3.8 Lymphocytes/100 WBC Auto (Bl d)on 03-08-2024 Lymphocytes/100 WBC (Bld) Lymphocytes/100 leukocytes in Blood by Automated count 20.5-60.0 MCH Auto (RBC) [Entitic mass ]on 03-08-2024 MCH (RBC) [Entitic mass] MCH [Entitic mass] by Automated count 25.9-34.0 MCHC Auto (RBC) [Mass/Vol]on 03-08-2024 MCHC (RBC) [Mass/Vol] MCHC [Mass/volume] by Automated count 29.9-35.2 MCV Auto (RBC) [Entitic vol] on 03-08-2024 MCV (RBC) [Entitic vol] MCV [Entitic volume] by Automated count High 80.0-94.0 Monocytes Auto (Bld) [#/Vol] on 03-08-2024 Monocytes (Bld) [#/Vol] Automated blood monocyte count 0.3-0.8 Monocytes/100 WBC Auto (Bld) on 03-08-2024 Monocytes/100 WBC (Bld) Automated monocy te % 1.7-12.0 Neutrophils Auto (Bld) [#/Vo l]on 03-08-2024 Neutrophils (Bld) [#/Vol] Neutrophils [#/volume] in Blood by Automated count 1.4-6.5 Neutrophils/100 WBC Auto (Bl d)on 03-08-2024 Neutrophils/100 WBC (Bld) Automated neutrophil % 43.0-75.0 No Panel InformationOrdered By: Chloe Gipson on 03-08-2024 [facility] Information[facility]-08 Eosinophils # (Auto) 0.0 10 3/uL 0.0-0.[address] [facility] Immature Granulocyte # (Auto) 0.02 10 3/uL 0.00-0.03 Platelet mean volume Auto (B ld) [Entitic vol]on 03-08-2024 Platelet mean volume (Bld) [Entitic vol] Platelet mean volume [Entitic volume] in Blood by Automated count 9.5-13.5 Platelets Auto (Bld) [#/Vol] on 03-08-2024 Platelets (Bld) [#/Vol] Platelets [#/volume] in Blood by Automated count 150-450 RBC Auto (Bld) [#/Vol]on RBC (Bld) [#/Vol] Erythrocytes [#/volume] in Blood by Automated count Low 4.70-6.10 Serum or plasma albumin/glob ulin mass ratioon 03-08-2024 Albumin/Globulin [Mass ratio] Serum or plasma albumin/globulin mass ratio Serum or plasma anion gap de terminationon 03-08-2024 Anion gap [Moles/Vol] Serum or plasma anion gap determination Basophils Auto (Bld) [#/Vol] on 03-07-2024 Basophils (Bld) [#/Vol] Automated basoph il count 0.0-0.1 Basophils/100 WBC Auto (Bld) on 03-07-2024 Basophils/100 WBC (Bld) Automated basoph il % 0.2-2.0 Eosinophils/100 WBC Auto (Bl d)on 03-07-2024 Eosinophils/100 WBC (Bld) Automated eosinophil % Low 0.9-7.0 Erythrocyte distribution wid th Auto (RBC) [Ratio]on 03-07-2024 Erythrocyte distribution width (RBC) [Ratio] Erythrocyte distribution width [Ratio] by Automated count 11.0-15.0 Estimated glomerular filtrat ion rate (GFR) non- Americanon 03-07-2024 GFR/1.73 sq M.predicted among non-blacks MDRD (S/P/Bld) [Vol rate/Area] Estimated glomerular filtration rate (GFR) non- >=60 mL/min/1.73m 2 Globulin Calc (S) [Mass/Vol] on 03-07-2024 Globulin (S) [Mass/Vol] Serum globulin measurement by calculation (mass/volume) Hematocrit Auto (Bld) [Volum e fraction]on 03-07-2024 Hematocrit (Bld) [Volume fraction] Hematocrit [Volume Fraction] of Blood by Automated count Low 42.0-54.0 Hemoglobin [Mass/volume] in Bloodon 03-07-2024 Hemoglobin (Bld) [Mass/Vol] Hemoglobin [Mass/volume] in Blood Low 14.0-18.0 Laboratory - Chemistry and C hemistry - challengeon 03-07-2024 Albumin [Mass/Vol] 2.8 g/dL Low 3.4-5.0 [facility] ALP [Catalytic activity/Vol] 132 U/L High 46-116 ALT [Catalytic activity/Vol] 70 U/L High 16-63 AST [Catalytic activity/Vol] 50 U/L High 15-37 Bilirubin [Mass/Vol] 0.9 mg/dL 0.2-1.0 [facility] Bilirubin.direct [Mass/Vol] 0.3 mg/dL High 0.0-0.2 Calcium [Mass/Vol] 7.9 mg/dL Low 8.5-10.1 [facility] Chloride [Moles/Vol] 104 mmol/L 98-107 [facility] CO2 [Moles/Vol] 20.9 mmol/L Low 21.0-32.0 [facility] Creatinine [Mass/Vol] 0.86 mg/dL 0.70-1.[address] [facility] GFR/1.73 sq M.predicted MDRD (S/P/Bld) [Vol rate/Area] mL/min/{1.73_m2} >=60 mL/min/1.73m 2 Glucose [Mass/Vol] 75 mg/dL 74-106 [facility] Lipase [Catalytic activity/Vol] 90.0 U/L High 16.0-77.0 Potassium [Moles/Vol] 3.7 mmol/L 3.5-5.[address] [facility] Protein [Mass/Vol] 6.3 g/dL Low 6.4-8.2 [facility] Sodium [Moles/Vol] 136 mmol/L 136-145 [facility] Urea nitrogen [Mass/Vol] 6.0 mg/dL Low 7.0-18.0 Urea nitrogen/Creatinine [Mass ratio] 7.0 mg/mg Laboratory - Hematology and Cell countson 03-07-2024 Immature granulocytes/100 WBC (Bld) 0.3 % 0.0-0.5 Leukocytes [#/volume] correc julio for nucleated erythrocytes in Blood by Automated counon 03-07-2024 WBC corrected for nucl RBC Auto (Bld) [#/Vol] Leukocytes [#/volume] corrected for nucleated erythrocytes in Blood by Automated coun 4.0-11.0 Lymphocytes Auto (Bld) [#/Vo l]on 03-07-2024 Lymphocytes (Bld) [#/Vol] Lymphocytes [#/volume] in Blood by Automated count 1.2-3.8 Lymphocytes/100 WBC Auto (Bl d)on 03-07-2024 Lymphocytes/100 WBC (Bld) Lymphocytes/100 leukocytes in Blood by Automated count Low 20.5-60.0 MCH Auto (RBC) [Entitic mass ]on 03-07-2024 MCH (RBC) [Entitic mass] MCH [Entitic mass] by Automated count 25.9-34.0 MCHC Auto (RBC) [Mass/Vol]on 03-07-2024 MCHC (RBC) [Mass/Vol] MCHC [Mass/volume] by Automated count 29.9-35.2 MCV Auto (RBC) [Entitic vol] on 03-07-2024 MCV (RBC) [Entitic vol] MCV [Entitic volume] by Automated count High 80.0-94.0 Monocytes Auto (Bld) [#/Vol] on 03-07-2024 Monocytes (Bld) [#/Vol] Automated blood monocyte count 0.3-0.8 Monocytes/100 WBC Auto (Bld) on 03-07-2024 Monocytes/100 WBC (Bld) Automated monocy te % 1.7-12.0 Neutrophils Auto (Bld) [#/Vo l]on 03-07-2024 Neutrophils (Bld) [#/Vol] Neutrophils [#/volume] in Blood by Automated count 1.4-6.5 Neutrophils/100 WBC Auto (Bl d)on 03-07-2024 Neutrophils/100 WBC (Bld) Automated neutrophil % 43.0-75.0 No Panel Informationon 03-07 Eosinophils # (Auto) 0.0 10 3/uL 0.0-0.7 [facility] Immature Granulocyte # (Auto) 0.02 10 3/uL 0.00-0.03 Platelet mean volume Auto (B ld) [Entitic vol]on 03-07-2024 Platelet mean volume (Bld) [Entitic vol] Platelet mean volume [Entitic volume] in Blood by Automated count 9.5-13.5 Platelets Auto (Bld) [#/Vol] on 03-07-2024 Platelets (Bld) [#/Vol] Platelets [#/volume] in Blood by Automated count 150-450 RBC Auto (Bld) [#/Vol]on RBC (Bld) [#/Vol] Erythrocytes [#/volume] in Blood by Automated count Low 4.70-6.10 Serum or plasma albumin/glob ulin mass ratioon 03-07-2024 Albumin/Globulin [Mass ratio] Serum or plasma albumin/globulin mass ratio Serum or plasma anion gap de terminationon 03-07-2024 Anion gap [Moles/Vol] Serum or plasma anion gap determination Basophils Auto (Bld) [#/Vol] on 03-06-2024 Basophils (Bld) [#/Vol] Automated basoph il count 0.0-0.1 Basophils/100 WBC Auto (Bld) on 03-06-2024 Basophils/100 WBC (Bld) Automated basoph il % 0.2-2.0 Eosinophils/100 WBC Auto (Bl d)on 03-06-2024 Eosinophils/100 WBC (Bld) Automated eosinophil % Low 0.9-7.0 Erythrocyte distribution wid th Auto (RBC) [Ratio]on 03-06-2024 Erythrocyte distribution width (RBC) [Ratio] Erythrocyte distribution width [Ratio] by Automated count 11.0-15.0 Estimated glomerular filtrat ion rate (GFR) non- Americanon 03-06-2024 GFR/1.73 sq M.predicted among non-blacks MDRD (S/P/Bld) [Vol rate/Area] Estimated glomerular filtration rate (GFR) non- >=60 mL/min/1.73m 2 Globulin Calc (S) [Mass/Vol] on 03-06-2024 Globulin (S) [Mass/Vol] Serum globulin measurement by calculation (mass/volume) Hematocrit Auto (Bld) [Volum e fraction]on 03-06-2024 Hematocrit (Bld) [Volume fraction] Hematocrit [Volume Fraction] of Blood by Automated count Low 42.0-54.0 Hemoglobin [Mass/volume] in Bloodon 03-06-2024 Hemoglobin (Bld) [Mass/Vol] Hemoglobin [Mass/volume] in Blood Low 14.0-18.0 Laboratory - Chemistry and C hemistry - challengeon 03-06-2024 Albumin [Mass/Vol] 2.5 g/dL Low 3.4-5.0 [facility] ALP [Catalytic activity/Vol] 131 U/L High 46-116 ALT [Catalytic activity/Vol] 97 U/L High 16-63 AST [Catalytic activity/Vol] 82 U/L High 15-37 Bilirubin [Mass/Vol] 1.0 mg/dL 0.2-1.0 [facility] Calcium [Mass/Vol] 7.7 mg/dL Low 8.5-10.1 [facility] Chloride [Moles/Vol] 110 mmol/L High 98-107 [facility] CO2 [Moles/Vol] 23.3 mmol/L 21.0-32.0 [facility] Creatinine [Mass/Vol] 0.92 mg/dL 0.70-1.[address] [facility] GFR/1.73 sq M.predicted MDRD (S/P/Bld) [Vol rate/Area] mL/min/{1.73_m2} >=60 mL/min/1.73m 2 Glucose [Mass/Vol] 76 mg/dL 74-106 [facility] Lipase [Catalytic activity/Vol] 1102.0 U/L Critically high 16.0-77.0 Comment on above: RESULTS CALLED TO SAEED VICENTE RN @BY Thea Headley at 0634 Potassium [Moles/Vol] 4.0 mmol/L 3.5-5.[address] [facility] Protein [Mass/Vol] 5.6 g/dL Low 6.4-8.2 [facility] Sodium [Moles/Vol] 141 mmol/L 136-145 [facility] Urea nitrogen [Mass/Vol] 9.0 mg/dL 7.0-18.0 Urea nitrogen/Creatinine [Mass ratio] 9.8 mg/mg Laboratory - Hematology and Cell countson 03-06-2024 Immature granulocytes/100 WBC (Bld) 0.2 % 0.0-0.5 Leukocytes [#/volume] correc julio for nucleated erythrocytes in Blood by Automated counon 03-06-2024 WBC corrected for nucl RBC Auto (Bld) [#/Vol] Leukocytes [#/volume] corrected for nucleated erythrocytes in Blood by Automated coun 4.0-11.0 Lymphocytes Auto (Bld) [#/Vo l]on 03-06-2024 Lymphocytes (Bld) [#/Vol] Lymphocytes [#/volume] in Blood by Automated count 1.2-3.8 Lymphocytes/100 WBC Auto (Bl d)on 03-06-2024 Lymphocytes/100 WBC (Bld) Lymphocytes/100 leukocytes in Blood by Automated count 20.5-60.0 MCH Auto (RBC) [Entitic mass ]on 03-06-2024 MCH (RBC) [Entitic mass] MCH [Entitic mass] by Automated count 25.9-34.0 MCHC Auto (RBC) [Mass/Vol]on 03-06-2024 MCHC (RBC) [Mass/Vol] MCHC [Mass/volume] by Automated count 29.9-35.2 MCV Auto (RBC) [Entitic vol] on 03-06-2024 MCV (RBC) [Entitic vol] MCV [Entitic volume] by Automated count High 80.0-94.0 Monocytes Auto (Bld) [#/Vol] on 03-06-2024 Monocytes (Bld) [#/Vol] Automated blood monocyte count 0.3-0.8 Monocytes/100 WBC Auto (Bld) on 03-06-2024 Monocytes/100 WBC (Bld) Automated monocy te % 1.7-12.0 Neutrophils Auto (Bld) [#/Vo l]on 03-06-2024 Neutrophils (Bld) [#/Vol] Neutrophils [#/volume] in Blood by Automated count 1.4-6.5 Neutrophils/100 WBC Auto (Bl d)on 03-06-2024 Neutrophils/100 WBC (Bld) Automated neutrophil % 43.0-75.0 No Panel Informationon 03-06 Eosinophils # (Auto) 0.0 10 3/uL 0.0-0.[address] [facility] Immature Granulocyte # (Auto) 0.01 10 3/uL 0.00-0.03 Platelet mean volume Auto (B ld) [Entitic vol]on 03-06-2024 Platelet mean volume (Bld) [Entitic vol] Platelet mean volume [Entitic volume] in Blood by Automated count 9.5-13.5 Platelets Auto (Bld) [#/Vol] on 03-06-2024 Platelets (Bld) [#/Vol] Platelets [#/volume] in Blood by Automated count 150-450 RBC Auto (Bld) [#/Vol]on RBC (Bld) [#/Vol] Erythrocytes [#/volume] in Blood by Automated count Low 4.70-6.10 Serum or plasma albumin/glob ulin mass ratioon 03-06-2024 Albumin/Globulin [Mass ratio] Serum or plasma albumin/globulin mass ratio Serum or plasma anion gap de terminationon 03-06-2024 Anion gap [Moles/Vol] Serum or plasma anion gap determination Basophils Auto (Bld) [#/Vol] on 03-05-2024 Basophils (Bld) [#/Vol] Automated basoph il count 0.0-0.1 Basophils/100 WBC Auto (Bld) on 03-05-2024 Basophils/100 WBC (Bld) Automated basoph il % 0.2-2.0 Eosinophils/100 WBC Auto (Bl d)on 03-05-2024 Eosinophils/100 WBC (Bld) Automated eosinophil % Low 0.9-7.0 Erythrocyte distribution wid th Auto (RBC) [Ratio]on 03-05-2024 Erythrocyte distribution width (RBC) [Ratio] Erythrocyte distribution width [Ratio] by Automated count 11.0-15.0 Estimated glomerular filtrat ion rate (GFR) non- Americanon 03-05-2024 GFR/1.73 sq M.predicted among non-blacks MDRD (S/P/Bld) [Vol rate/Area] Estimated glomerular filtration rate (GFR) non- >=60 mL/min/1.73m 2 Globulin Calc (S) [Mass/Vol] on 03-05-2024 Globulin (S) [Mass/Vol] Serum globulin measurement by calculation (mass/volume) Hematocrit Auto (Bld) [Volum e fraction]on 03-05-2024 Hematocrit (Bld) [Volume fraction] Hematocrit [Volume Fraction] of Blood by Automated count 42.0-54.0 Hemoglobin [Mass/volume] in Bloodon 03-05-2024 Hemoglobin (Bld) [Mass/Vol] Hemoglobin [Mass/volume] in Blood 14.0-18.0 Laboratory - Chemistry and C hemistry - challengeon 03-05-2024 Albumin [Mass/Vol] 3.5 g/dL 3.4-5.0 [facility] ALP [Catalytic activity/Vol] 172 U/L High 46-116 ALT [Catalytic activity/Vol] 177 U/L High 16-63 AST [Catalytic activity/Vol] 188 U/L High 15-37 Bilirubin [Mass/Vol] 3.2 mg/dL High 0.2-1.0 [facility] Calcium [Mass/Vol] 9.5 mg/dL 8.5-10.1 [facility] Chloride [Moles/Vol] 110 mmol/L High 98-107 [facility] CO2 [Moles/Vol] 25.7 mmol/L 21.0-32.0 [facility] Creatinine [Mass/Vol] 1.15 mg/dL 0.70-1.[address] [facility] GFR/1.73 sq M.predicted MDRD (S/P/Bld) [Vol rate/Area] mL/min/{1.73_m2} >=60 mL/min/1.73m 2 Glucose [Mass/Vol] 113 mg/dL High 74-106 [facility] Potassium [Moles/Vol] 4.3 mmol/L 3.5-5.[address] [facility] Protein [Mass/Vol] 7.3 g/dL 6.4-8.2 [facility] Sodium [Moles/Vol] 145 mmol/L 136-145 [facility] Urea nitrogen [Mass/Vol] 16.0 mg/dL 7.0-18.0 Urea nitrogen/Creatinine [Mass ratio] 13.9 mg/mg Laboratory - Hematology and Cell countson 03-05-2024 Immature granulocytes/100 WBC (Bld) 0.0 % 0.0-0.5 Leukocytes [#/volume] correc julio for nucleated erythrocytes in Blood by Automated counon 03-05-2024 WBC corrected for nucl RBC Auto (Bld) [#/Vol] Leukocytes [#/volume] corrected for nucleated erythrocytes in Blood by Automated coun 4.0-11.0 Lymphocytes Auto (Bld) [#/Vo l]on 03-05-2024 Lymphocytes (Bld) [#/Vol] Lymphocytes [#/volume] in Blood by Automated count Low 1.2-3.8 Lymphocytes/100 WBC Auto (Bl d)on 03-05-2024 Lymphocytes/100 WBC (Bld) Lymphocytes/100 leukocytes in Blood by Automated count Low 20.5-60.0 MCH Auto (RBC) [Entitic mass ]on 03-05-2024 MCH (RBC) [Entitic mass] MCH [Entitic mass] by Automated count 25.9-34.0 MCHC Auto (RBC) [Mass/Vol]on 03-05-2024 MCHC (RBC) [Mass/Vol] MCHC [Mass/volume] by Automated count 29.9-35.2 MCV Auto (RBC) [Entitic vol] on 03-05-2024 MCV (RBC) [Entitic vol] MCV [Entitic volume] by Automated count High 80.0-94.0 Monocytes Auto (Bld) [#/Vol] on 03-05-2024 Monocytes (Bld) [#/Vol] Automated blood monocyte count 0.3-0.8 Monocytes/100 WBC Auto (Bld) on 03-05-2024 Monocytes/100 WBC (Bld) Automated monocy te % 1.7-12.0 Neutrophils Auto (Bld) [#/Vo l]on 03-05-2024 Neutrophils (Bld) [#/Vol] Neutrophils [#/volume] in Blood by Automated count 1.4-6.5 Neutrophils/100 WBC Auto (Bl d)on 03-05-2024 Neutrophils/100 WBC (Bld) Automated neutrophil % 43.0-75.0 No Panel Informationon 03-05 Eosinophils # (Auto) 0.0 10 3/uL 0.0-0.[address] [facility] Immature Granulocyte # (Auto) 0.00 10 3/uL 0.00-0.03 Platelet mean volume Auto (B ld) [Entitic vol]on 03-05-2024 Platelet mean volume (Bld) [Entitic vol] Platelet mean volume [Entitic volume] in Blood by Automated count Low 9.5-13.5 Platelets Auto (Bld) [#/Vol] on 03-05-2024 Platelets (Bld) [#/Vol] Platelets [#/volume] in Blood by Automated count 150-450 RBC Auto (Bld) [#/Vol]on RBC (Bld) [#/Vol] Erythrocytes [#/volume] in Blood by Automated count Low 4.70-6.10 Serum or plasma albumin/glob ulin mass ratioon 03-05-2024 Albumin/Globulin [Mass ratio] Serum or plasma albumin/globulin mass ratio Serum or plasma anion gap de terminationon 03-05-2024 Anion gap [Moles/Vol] Serum or plasma anion gap determination LIPID PROFILEon 03-14-2020 CHOL-HDL RATIO NORM SEE BELOW Normal [facility] Comment on above: Result Comment: 3.3 - 4.4 LOW RISK 4.4 - 7.1 AVERAGE RISK 7.1 - 11.0 MODERATE RISK >11.0 HIGH RISK Performed By: #### L IPID, PSASC, CMP #### [facility] [address] [place] [address] Lynne Lynn Cholesterol [Mass/Vol] 186 mg/dL Normal <=200 Th [facility] Comment on above: Performed By: #### L IPID, PSASC, CMP #### [facility] [address] [place] [address] Lynne Lynn Cholesterol in HDL [Mass/Vol] 56 mg/dL Normal [facility] Comment on above: Performed By: #### L IPID, PSASC, CMP #### [facility] [address] [place], [place] [id number] Lynne Lynn Cholesterol in HDL [Mass/Vol] > or = 60 mg/dl - LOW CARDIOVASCULAR RISK <40 mg/dl - HIGH CARDIOVASCULAR RISK Normal [facility] Comment on above: Performed By: #### L IPID, PSASC, CMP #### [facility] [address] [place], [place] [id number] Lynne Lynn Cholesterol in LDL [Mass/Vol] 119.8 mg/dL Normal [facility] Comment on above: Performed By: #### L IPID, PSASC, CMP #### [facility] [address] [place], [place] [id number] Lynne Lynn Cholesterol in LDL [Mass/Vol] SEE BELOW Normal [facility] Comment on above: Result Comment: <100 mg/dl OPTIMAL 100 - 129 mg/dl NEAR OR ABOVE OPTIMAL 130 - 159 mg/dl BORDERLINE HIGH 160 - 189 mg/dl HIGH >190 mg/dl VERY HIGH Performed By: #### L IPID, PSASC, CMP #### [facility] [address] [id number] Lynne Lynn Cholesterol.total/Dulce sterol in HDL [Mass ratio] 3.3 {ratio} Normal [facility] Comment on above: Performed By: #### L IPID, PSASC, CMP #### [facility] [address] [id number] Lynne Lynn Triglyceride [Mass/Vol] 51 mg/dL Normal <=150 T [facility] Comment on above: Performed By: #### L IPID, PSASC, CMP #### [facility] [address] [address] Lynne Lynn VLDL CALC 10.2 mg/dL Normal [facility] Comment on above: Performed By: #### L IPID, PSASC, CMP #### [facility] [address] [address] Lynne Bailey PROF 14(COMP METB)on 020 Albumin [Mass/Vol] 3.8 g/dL Normal 3.5-5.0 [facility] Comment on above: Performed By: #### L IPSTELLA, PSASC, CMP #### [facility] [address] [place], [place] [id number] Lynne Lynn Albumin/Globulin [Mass ratio] 0.9 {ratio} Normal [facility] Comment on above: Performed By: #### L IPID, PSASC, CMP #### [facility] [address] [address] Lynne Lynn ALP [Catalytic activity/Vol] 67 U/L Normal 38-126 [facility] Comment on above: Performed By: #### L IPID, PSASC, CMP #### [facility] [address] [address] Lynne Lynn ALT [Catalytic activity/Vol] 29 U/L Normal 21-72 [facility] Comment on above: Performed By: #### L IPID, PSASC, CMP #### [facility] [address] [place], [place] [address] Lynne Lynn Anion gap [Moles/Vol] 11.9 mmol/L Normal Th [facility] Comment on above: Performed By: #### L IPSTELLA PSASC, CMP #### [facility] [address] [address] Lynne Lynn AST [Catalytic activity/Vol] 19 U/L Normal 17-59 [facility] Comment on above: Performed By: #### L IPSTELLA PSASC, CMP #### [facility] [address] [address] Lynne Lynn Bilirubin Ql (U) 0.6 mg/dL Normal 0.2-1.3 [facility] Comment on above: Performed By: #### L IPSTELLA PSASC, CMP #### [facility] [address] [place] [address] Lynne Lynn Calcium [Mass/Vol] 9.3 mg/dL Normal 8.4-10.2 [facility] Comment on above: Performed By: #### L IPSTELLA PSASC, CMP #### [facility] [address] [place] [address] Lynne Lynn Chloride [Moles/Vol] 105 mmol/L Normal 98-107 [facility] Comment on above: Performed By: #### L IPSTELLA PSASC, CMP #### [facility] [address] [place] [address] Lynne Lynn CO2 [Moles/Vol] 28.6 mmol/L Normal 22.0-30.0 [facility] Comment on above: Performed By: #### L IPID PSASC, CMP #### [facility] [address] [place] [address] Lynne Lynn Creatinine [Mass/Vol] 0.87 mg/dL Normal 0.66-1.25 [facility] Comment on above: Performed By: #### L IPID PSASC, CMP #### [facility] [address] [id number] Lynne Lynn EGFR-AF ZIMBABWEAN 107 mL/min/1.73m2 Normal >=60 T [facility] Comment on above: Performed By: #### L IPID PSASC, CMP #### [facility] [address] [address] Lynne Lynn EGFR-NON AF ZIMBABWEAN 88 mL/min/1.73m2 Normal >=60 [facility] Comment on above: Performed By: #### L IPID, PSASC, CMP #### [facility] [address] [address] Lynne Lynn Globulin (S) [Mass/Vol] 3.9 g/dL Normal T [facility] Comment on above: Performed By: #### L IPID, PSASC, CMP #### [facility] [address] [place] [address] Lynne Lynn Glucose [Mass/Vol] 86 mg/dL Normal 74-106 [facility] Comment on above: Performed By: #### L IPID, PSASC, CMP #### [facility] [address] [place] [address] Lynne Lynn Potassium [Moles/Vol] 4.7 mmol/L Normal 3.4-5.0 [facility] Comment on above: Performed By: #### L IPID, PSASC, CMP #### [facility] [address] [place] [address] Lynne Lynn Protein [Mass/Vol] 7.7 g/dL Normal 6.1-8.2 [facility] Comment on above: Performed By: #### L IPID, PSASC, CMP #### [facility] [address] [place] [address] Lynne Lynn Sodium [Moles/Vol] 141 mmol/L Normal 137-145 [facility] Comment on above: Performed By: #### L IPID, PSASC, CMP #### [facility] [address] [place] [address] Lynne Lynn Urea nitrogen [Mass/Vol] 17.0 mg/dL Normal 9.0-20.0 [facility] Comment on above: Performed By: #### L IPID, PSASC, CMP #### [facility] [address] [address] Lynne Lynn Urea nitrogen/Creatinine [Mass ratio] 19.5 mg/mg Normal [facility] Comment on above: Performed By: #### L IPID, PSASC, CMP #### [facility] [address] [place], [place] [address] Lynne Bailey Vital Signs Date Time Vital Sign Value Performing Clinician Lisa niño 03-13-2024 11:59-0500 Body height 177.8 cm Elizabeth Wardoll [employer] SUPERVISOR[employer] PR[employer] CONSULTANT [facility] 03-13-2024 11:59-0500 Body mass index (BMI) [Ratio] 23.76 kg/m2 Elizabethluis Marquez [employer] SUPERVISOR[employer] PR[employer] CONSULTANT Work Phone: [facility] 03-13-2024 11:59-0500 Body weight 75.12 kg Elizabeth Marquez [employer] SUPERVISOR[employer] PR[employer] CONSULTANT Work Phone: [facility] 03-12-2024 09:13-0500 Body height 177.8 cm Gurmeet Muñiz DO Work Phone: 03-12-2024 09:13-0500 Body mass index (BMI) [Ratio] 24.3 kg/m2 Gurmeet Muñiz DO Work Phone: 03-12-2024 09:13-0500 Body temperature 97.3 [degF] Gurmeet Muñiz DO Work Phone: 03-12-2024 09:13-0500 Body weight 76.88 kg Gurmeet Muñiz DO Work Phone: 03-12-2024 09:13-0500 Diastolic blood pressure 74 mm[Hg] Gurmeet Muñiz DO Work Phone: 03-12-2024 09:13-0500 Heart rate 76 /min Gurmeet Muñiz DO Work Phone: 03-12-2024 09:13-0500 SaO2% (BldA) [Mass fraction] 98 % Gurmeet Muñiz DO Work Phone: 03-12-2024 09:13-0500 Systolic blood pressure 122 mm[Hg] Gurmeet Muñiz DO Work Phone: 02-12-2024 11:22-0400 Body height 177.8 cm [facility] 02-12-2024 11:22-0400 Body mass index (BMI) [Ratio] 24 kg/m2 02-12-2024 11:22-0400 Body temperature 96.9 [degF] [facility] 02-12-2024 11:22-0400 Body weight 76.2 kg [facility] 02-12-2024 11:22-0400 Diastolic blood pressure 72 mm[Hg] 02-12-2024 11:22-0400 Heart rate 60 /min [facility] 02-12-2024 11:22-0400 SaO2% (BldA) [Mass fraction] 98 % 02-12-2024 11:22-0400 Systolic blood pressure 124 mm[Hg] Encounters Encounter Date Encounter Type Care Provider Facility Start: 03-18-2024 End: 03-18-2024 Orders Only Not In System Ref Prov [facility] Start: 03-13-2024 End: 03-13-2024 Postop follow up visit related to original px Elizabeth Marquez [employer] SUPERVISOR[employer] PRODUCT CONSULTANT Work Phone: [facility] Comment on above: Status post laparosc opic cholecystectomy (Primary Dx) Start: 03-13-2024 End: 03-13-2024 Orders Only Not In System Ref Prov [facility] Start: 03-12-2024 End: 03-12-2024 ambulatory Gurmeet Muñiz DO Work Phone: [facility] Work Phone: Start: 03-12-2024 End: 03-12-2024 Patient encounter procedure Gurmeet Muñiz DO Work Phone: [facility] Work Phone: Start: 03-08-2024 End: 03-08-2024 ambulatory NON STAFF [facility] Work Phone: Start: 03-08-2024 End: 03-08-2024 Departed Referred Gurmeet Muñiz DO Work Phone: [facility] Work Phone: Start: 03-08-2024 Non-patient / Non-visit Ventura Muñiz DO Work Phone: [facility] Work Phone: Start: 03-07-2024 Non-patient / Non-visit Ventura Muñiz DO Work Phone: [facility] Work Phone: Start: 03-06-2024 Non-patient / Non-visit Ventura Muñiz DO Work Phone: [facility] Work Phone: Start: 03-05-2024 Non-patient / Non-visit Ventura Muñiz DO Work Phone: [facility] Work Phone: Start: 02-12-2024 End: 02-12-2024 ambulatory [facility] Work Phone: Start: 02-12-2024 End: 02-12-2024 Patient encounter procedure [facility] Work Phone: Start: 03-20-2020 Encounter for genera l adult medical examination without abnormal findings ANNALEE CHINO [facility] Start: 03-14-2020 End: 03-15-2020 Patient encounter procedure ANNALEE CHINO Facility:[facility]1 Encounter for genera l adult medical examination without abnormal findings ANNALEE HCINO [facility] Procedures Date Procedure Procedure Detail Performing Clinician Start: 03-08-2024 Level i surg patholo gy gross examination only Not In System Ref Prov Start: 03-08-2024 MULTIPLE LABS Not In Sy stem Ref Prov Start: 03-14-2020 [object Object] CIRO CHINO Comment on above: Performed By: #### L IPID, PSASC, CMP #### [facility] [address] [address] Lynne Bailey History of cholecystectomy Status post laparoscopic cholecystectomy Elizabeth Marquez [employer] SUPERVISOR-[employer] PR[employer] CONSULTANT Work Phone: History of cholecystectomy Hx laparoscopic cholecystectomy Gurmeet Muñiz DO Work Phone: Plan of Treatment Date Care Activity Detail Author Start: 03-13-2025 Adult BMI Screening Adult BMI Screening [facility] Start: 03-13-2025 Tobacco Screening Tobacco Screening [facility] Start: 04-15-2024 End: 04-15-2024 Patient encounter procedure 04/15/2024 12:00 PM EST Office Visit [facility] [address] [place] [id number] Elizabeth Marquez, GL[employer] SUPERVISOR-[employer] PRODUCT CONSULTANT [address], [place] [id number] [facility] Start: 02-12-2024 Patient referral [facility] Work Phone: Start: 12-31-2023 Influenza vaccination Influenza Vaccine [facility] Start: 10-01-2020 Abdominal aortic aneurysm screening Abdominal Aortic Aneurysm (AAA) Screen [facility] Start: 10-01-2020 Fall Risk Screening Fall Risk Screening [facility] Start: 10-01-2005 Administration of varicella zoster vaccine Zoster (Shingles) Vaccine (1 of 2) [facility] Start: 10-01-1974 DTaP,Tdap and Td Vaccines (1 - Tdap) DTaP,Tdap and Td Vaccines (1 - Tdap) [facility] Start: 1967 Depression Screening Depression Screening [facility] Comprehensive metabo lic 2000 panel - Serum or Plasma Patient referral [facility] Work Phone: [facility] Payers Date Payer Category Payer Self-pay [id number] 2022 Medicare HMO [facility] [id number] 2022 Medicare [id number] 1959 Unknown [id number] 1955 Unknown [id number] 1955 Unknown [id number] Unknown [id number] Social History Date Type Detail Facility Start: 02-12-2024 End: 02-12-2024 Tobacco smoking status [facility] Current Heavy tobacco smoker Start: 1955 Sex Assigned At Male F [facility] Start: 03-13-2024 Tobacco smoking stat us [facility] Ex-smoker [facility] History of tobacco use Current smoker [facility] History of tobacco use Cigarette Smoker P [facility] Start: 03-13-2024 Alcoholic beverage intake Not Asked [facility] Start: 10-10-2018 End: 03-13-2024 History of Social function [facility] Start: 10-10-2018 End: 03-13-2024 Tobacco use panel [facility] Childcare Unknown [facility] Start: 03-13-2024 Alcohol Comment [facility] Start: 06-03-1956 Sex assigned at Not on file P [facility] Start: 12-04-2014 End: 03-12-2024 Sex Male (finding) [facility] History of Present illness Narrative 03-13-2024 RAMIN Link - 03/13/2024 12:15 PM EST Note Date & Type Note Facility 03-13-2024 History of Present illness Narrative Images from the original note were not included. Subjective Ludwin Reyes is a 68 y.o. male status post robotic assisted laparoscopic cholecystectomy on 03/08/2024. He is doing well. He denies any further right upper quadrant pain. He reports a little bit of pain that started today at his lower incision site. He denies any fever or chills. He is tolerating oral intake. He has not had a bowel movement since surgery. He is asking about returning to work. 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 He does not have to do any heavy lifting. Objective There were no vitals filed for this visit. Physical Exam Constitutional: General: He is not in acute distress. Appearance: Normal appearance. He is not ill-appearing. Abdominal: General: There is no distension. Palpations: Abdomen is soft. Tenderness: There is no abdominal tenderness. Skin: General: Skin is warm and dry. Coloration: Skin is not jaundiced. Findings: Bruising present. No erythema. Comments: Lap sites clean, dry and intact. Bruising present just below umbilicus around laparoscopic site with small seroma/hematoma. No signs of infection. Assessment Ludwin Reyes is a 68 y.o.male postop laparoscopic cholecystectomy. Plan Light activity until cleared by physician. Recommend adequate water intake and MiraLax once daily until he is having regular bowel movements. Follow-up in 1 month. Status post laparoscopic cholecystectomy [Z90.49] RAMIN LINK [facility] [place] This note was created with the assistance of a speech recognition program. While intending to generate a timely document that accurately reflects the content of the visit, no guarantee can be provided that every grammatical or spelling mistake has been or will be identified or corrected. Thank you for your understanding. RAMIN Link 03/13/24 1232 documented in this encounter [facility] Evaluation note 02-12-2024 Note Date & Type Note Facility 02-12-2024 Evaluation note Diagnosis Onset Date Resolution Encounter for smoking cessation counseling acute January 11:01am Medicare annual wellness visit, initial acute February 11 11:01am Screening for colon cancer acute February 11 11:01am Screening for deficiency anemia acute February 11 11:01am Screening for lung cancer acute February 11 11:01am Screening for metabolic disorder acute February 11 11:01am Screening for other and unspecified cardiovascular conditions acute February 11 11:01am Screening for prostate cancer acute February 11 11:01am [facility] Work Phone: Evaluation note 02-12-2024 Note Date & Type Note Facility 02-12-2024 Evaluation note Diagnosis Onset Date Resolution Encounter for smoking cessation counseling acute January 11:01am Medicare annual wellness visit, initial acute February 11 11:01am Screening for colon cancer acute February 11 11:01am Screening for deficiency anemia acute February 11 11:01am Screening for lung cancer acute February 12, 2024 11:01am Screening for metabolic disorder acute February 11 11:01am Screening for other and unspecified cardiovascular conditions acute r 2023 11:01am Screening for prostate cancer acute February 11 11:01am Hx laparoscopic cholecystectomy acute March 12, 2 024 9:02am Pancreatitis acute March 9:02am [facility] Work Phone: Evaluation note Note Date & Type Note Facility Evaluation note Diagnosis Onset Date Medicare annual wellness visit, initial acute Screening for colon cancer a cute Screening for deficiency anemia acute Screening for metabolic disorder acute Screening for other and unsp ecified cardiovascular conditions acute Screening for prostate cancer acute [facility] Work Phone: Evaluation note Note Date & Type Note Facility Evaluation note Diagnosis Status post laparoscopic cholecystectomy- Primary Other postprocedural status documented in this encounter [facility] Discharge instructions Note Date & Type Note Facility Hospital Discharge instructions Ambulatory OrdersReferral to Gastroenterology Time Frame: 02/12/24, Location: None [facility] Work Phone: Instructions Note Date & Type Note Facility Instructions Not on filedocumented in this en counter [facility] Instructions Note Date & Type Note Facility Instructions Not on filedocumented in this en counter [facility] Summary Purpose Family History No Family History Records Found Relationship Condition Age at Onset Recorded Date/T gabriela mother Malignant neoplasm of colon Unknown father Multiple myeloma Unknown brother Muscular dystrophy Unknown Advance Directives No Advanced Directives Records Found Advance Directive Response Recorded Date/ Time Advance Directives No February 12, 2024 10:59am Advance Directive Response Recorded Date/ Time Advance Directives No February 12, 2024 9:59am Chief Complaint and Reason for Visit Chief Complaint Establish Care/WELLN ESS Reason for Visit Medicare annual well ness visit, initial Screening for colon cancer Screening for deficiency anemia Screening for metabolic disorder Screening for other and unspecified cardiovascular conditions Screening for prostate cancer Chief Complaint Admit Date Establish Care/WELLNESS February 11 11:01am Amb Documentation March 08, 2024 2 :11pm CC Adult Risk Stratification March 2:21pm Reason for Visit Admit Date Encounter for smoking cessation counselniya [place] February 12, 2024 11:01am Medicare annual wellness visit, initial February 12, 2024 11:01am Screening for colon cancer February 12, 2024 11:01am Screening for deficiency anemia February 12, 2024 11:01am Screening for lung cancer February 12, 2024 11:01am Screening for metabolic disorder February 12, 2024 11:01am Screening for other and unsp ecified cardiovascular conditions February 12, 2024 11:01am Screening for prostate cancer February [id number] 11:01am Chief Complaint Admit Date Establish Care/WELLNESS February 11 11:01am Amb Documentation March 08, 2024 2 :11pm CC Adult Risk Stratification March 2:21pm hospital follow up March 12 9:02am Reason for Visit Admit Date Encounter for smoking cessation counseli ludwig February 12, 2024 11:01am Medicare annual wellness visit, initial February 12, 2024 11:01am Screening for colon cancer February 12, 2024 11:01am Screening for deficiency anemia February 12, 2024 11:01am Screening for lung cancer February 12, 2024 11:01am Screening for metabolic disorder February 12, 2024 11:01am Screening for other and unsp ecified cardiovascular conditions February 12, 2024 11:01am Screening for prostate cancer February [id number] 11:01am Hx laparoscopic cholecystectomy March 12, 2024 9:02am Pancreatitis March 12, 2024 9:02am Additional Source Comments (unrecognized sect ion and content) No Status Records FoundNo Status Records FoundNo Status Records Found INFORMATION SOURCE (unrecogn ized section and content) DATE CREATED AUTHOR 03/20/2020 [facility] DATE CREATED AUTHOR AUTHOR'S ORGANIZ ATION 03/15/2024 [facility] DATE CREATED AUTHOR AUTHOR'S ORGANIZ ATION 03/20/2024 [facility] Care Teams (unrecognized sec tion and content) Team Status: Active Member Role Status Dates Audrey Justin APRN HOME CARE SPECIALIST-C Primary Care Provider Active Team Status: Inactive Member Role Status Dates Audrey Justin APRN HOME CARE SPECIALIST-C Primary Care Provider, Attending Provider Active Start: February 12, 2024 End: February 12, 2024 Business Computers Teacher Relationship Specialty Start Date End Date Audrey Justin APRN-NP [address] [place] [id number] PCP - General Nurse Practitioner 03/12/24 [employer] Teacher Relationship Specialty Start Date End Date Audrey Justin APRN-NP [address] [place] [address] PCP - General Nurse Practitioner 03/12/24 Team Status: Active Member Role Status Dates Audrey Justin APRN HOME CARE SPECIALIST-C Primary Care Provider, Attending Provider Active Start: March 05, 2024 Team Status: Active Member Role Status Dates Audrey Justin APRN HOME CARE SPECIALIST-C Primary Care Provider Active Start: March Shaikh Norma MD Attending Provider Active Sta rt: March 06, 2024 Team Status: Active Member Role Status Dates Audrey Justin APRN HOME CARE SPECIALIST-C Primary Care Provider Active Start: March Shaikh Norma MD Attending Provider Active Sta rt: March 07, 2024 Team Status: Active Member Role Status Dates Audrey Justin APRN HOME CARE SPECIALIST-C Primary Care Provider Active Start: March Shaikh Norma MD Attending Provider Active Sta rt: March 08, 2024 Team Status: Inactive Member Role Status Dates Gurmeet Muñiz DO Attending Provider Active Start: March 08, 2024 End: March 08, 2024 Team Status: Active Member Role Status Dates Ana Valdez CMA Attending Provider Active Start: March 08, 2024 Team Status: Active Member Role Status Dates Audrey Justin APRN HOME CARE SPECIALIST-C Attending Provider Act shaan Start: March 08, 2024 Team Status: Inactive Member Role Status Dates Audrey Justin APRN HOME CARE SPECIALIST-C Primary Care Provider, Attending Provider Active Start: March 12, 2024 End: March 12, 2024 Goals (unrecognized section and content) Goals may be documented in a n alternate sectionNot on filedocumented as of this encounterNot on filedocumented as of this encounterGoals may be documented in an alternate sectionGoals may be documented in an alternate sectionNot on filedocumented as of this encounter Reason for Visit (unrecogniz ed section and content) Reason Comments POST-OP VISIT [facility] 05/08/23, PT ASKED TO BE SEEN SOONER IN HOPES OF BEING RELEASED BACK TO WORK FOR RECORDS PERTAINING TO PATIENTS WHO ARE OR HAVE BEEN ENROLLED IN A CHEMICAL DEPENDENCY/SUBSTANCEABUSE PROGRAM, SOME INFORMATION MAY BE OMITTED. This clinical summary was aggregated from multiple sources. Caution should be exercised in using it in the provision of clinical care. This summary normalizes information from multiple sources, and as a consequence, information in this document may materially change the coding, format and clinical context of patient data. In addition, data may be omitted in some cases. CLINICAL DECISIONS SHOULD BE BASED ON THE PRIMARY CLINICAL RECORDS. [facility] provides no warranty or guarantee of the accuracy or completeness of information in this document.
--- NOTE | 2024-03-23 07:18 | ED_ITS ---
HPI - Abdominal Pain General Chief Complaint: Abdominal Pain Stated Complaint: ABDOMINAL PAIN, BACK PAIN, Time Seen by Provider: 03/23/24 07:05 Source: patient Mode of arrival: walk-in History of Present Illness HPI narrative: 68-year-old male presents to the emergency department for abdominal pain. 2 weeks ago he had a laparoscopic cholecystectomy and yesterday he started to develop right upper quadrant pain. It was worse today. No fever vomiting constipation or diarrhea. It appears that he had pancreatitis prior to his cholecystectomy. The pain is moderate to severe and continuous. He took a Percocet and it seems to have helped. Related Data Previous Rx's ?Medication ?Instructions ?Recorded amlodipine 10 mg tablet 10 mg PO DAILY #30 tabs 03/08/24 ondansetron 4 mg disintegrating 4 mg PO Q8H PRN nausea and 03/08/24 tablet vomiting 3 days #9 tabs oxycodone-acetaminophen 5 mg-325 1 tab PO Q8H PRN pain 3 days #9 03/08/24 mg tablet (Percocet) tabs Allergies Allergy/AdvReac Type Severity Reaction Status Date / Time No Known Drug Allergies Allergy Verified 03/08/24 06:55 Review of Systems ROS Narrative A ten point review of systems is negative except as noted above. [facility] Medical History (Updated 03/23/24 @ 12:12 by Guru Johnson MD) Elevated blood pressure reading without diagnosis of hypertension ?R03.0 - Elevated blood-pressure reading, without diagnosis of hypertension (ICD-10) Surgical History Hx of hernia repair ?Z98.890 - Other specified postprocedural states (ICD-10) ?Z87.19 - Personal history of other diseases of the digestive system (ICD-10) Family History Mother Family history of cancer Father Family history of hypertension Social History Within the past year, how often did you have a drink containing alcohol: monthly or less Within the past year, how many standard drinks containing alcohol did you have on a typical day: 1 or 2 Within the past year, how often did you have six or more drinks on one occasion: never Total score: 0 Score interpretation: A score less than 4 is consistent with normal alcohol consumption. 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 Known occupational exposures/hazards: No Highest level of school completed/degree received: high school graduate Do you want help with school or training: No Are you now , , , , never or living with a partner: In a typical week, how many times do you talk on the telephone with family, friends, or neighbors: 3 or more times per week How often do you get together with friends or relatives: 3 or more times per week How often do you attend spiritism or druze services: never Do you belong to any clubs or organizations such as spiritism groups unions, fraternal or athletic groups, or school groups: no Total score: 2 Score interpretation: A score of greater than or equal to 2 indicates the lowest level of social isolation. Little interest or pleasure in doing things: not at all Feeling down, depressed, or hopeless: not at all Feel stressed/tense/nervous/anxious/difficulty sleeping: not at all Do you think of yourself as: straight/heterosexual Gender Identity: male Exam Narrative Exam Narrative: Nurses note and vital signs reviewed and patient is not hypoxic. General: The patient appears in no apparent distress. Patient is resting on cart. Skin: Warm, dry, no pallor noted. There is no rash noted. Head: Normocephalic, atraumatic Eye: Normal conjunctiva, no drainage Ears, Nose, Mouth, and Throat: oral mucosa is moist. Nares patent. Cardiovascular: Regular Rate and Rhythm Respiratory: Patient is in no distress, no accessory muscle use, lungs are clear to auscultation, no wheezing, rales or rhonchi Back: non-tender GI: Normal bowel sounds, diffusely tender to palpation, more tenderness in the right upper quadrant. No mass or distention. Musculoskeletal: The patient has no evidence of calf tenderness, no pitting edema, symmetrical pulses noted bilaterally Neurological: A&O, normal speech Psychiatric: Cooperative Constitutional Vital Signs, click to edit/add: Last Vital Signs Temp 98 F 03/23/24 07:00 Pulse 99 H 03/23/24 07:00 Resp 18 03/23/24 07:00 BP 143/72 H 03/23/24 07:00 Pulse Ox 96 03/23/24 07:00 O2 Del Method Room Air 03/23/24 07:00 Course Vital Signs Vital signs: Vital Signs Temperature 98 F 03/23/24 07:00 Pulse Rate 99 H 03/23/24 07:00 Respiratory Rate 18 03/23/24 07:00 Blood Pressure 143/72 H 03/23/24 07:00 Pulse Oximetry 96 03/23/24 07:00 Oxygen Delivery Method Room Air 03/23/24 07:00 Temperature 98 F 03/23/24 07:00 Pulse Rate 99 H 03/23/24 07:00 Respiratory Rate 18 03/23/24 07:00 Blood Pressure 143/72 H 03/23/24 07:00 Pulse Oximetry 96 03/23/24 07:00 Oxygen Delivery Method Room Air 03/23/24 07:00 MDM - Abdominal Pain MDM Narrative Medical decision making narrative: The patient has amylase and lipase quite elevated at 3530 700. Total bilirubin is 2.7. WBC normal. CAT scan read by radiologist suspects that he has acute cholecystitis but the patient had his gallbladder taken out 15 days ago. He has inflammatory changes in the area of the gallbladder and my concern is for a retained stone. I have spoken to the hospitalist and magazine repairer at [facility] and they accept the patient. The patient is agreeable and stable for transfer. Treatment diagnosis and disposition were discussed thoroughly with the patient. Differential Diagnosis Differential diagnosis: Likely abdominal pain, calculus of kidney, constipation, gastroenteritis, pancreatitis and small bowel obstruction Medical Records Attestation: I reviewed the patient's medical records. Lab Data Attestation: I reviewed the patient's lab results. Labs: Lab Results 03/23/24 Range/Units 07:30 WBC 7.6 (4.0-11.0) 10^3/uL RBC 3.87 L (4.70-6.10) 10^6/uL Hgb 12.8 L (14.0-18.0) g/dL Hct 37.9 L (42.0-54.0) % MCV 97.9 H (80.0-94.0) fL MCH 33.1 (25.9-34.0) pg MCHC 33.8 (29.9-35.2) g/dL RDW 12.6 (11.0-15.0) % Plt Count 474 H (150-450) 10^3/uL MPV 9.2 L (9.5-13.5) fL Seg Neuts % (Manual) 90.0 H (43.0-75.0) Lymphocytes % (Manual) 6.0 L (20.5-60.0) % Monocytes % (Manual) 1.0 L (1.7-12.0) % Eosinophils % (Manual) 1.0 (0.9-7.0) % Basophils % (Manual) 2.0 (0.2-2.0) % Neutrophils # (Manual) 6.84 H (1.4-6.5) 10^3/uL Lymphocytes # (Manual) 0.45 L (1.20-3.80) 10^3/uL Monocytes # (Manual) 0.07 L (0.30-0.80) 10^3/uL Eosinophils # (Manual) 0.07 (0.00-0.70) 10^3/uL Basophils # (Manual) 0.15 H (0.00-0.10) 10^3/uL Anisocytosis 1+ Sodium 138 (136-145) mmol/L Potassium 3.8 (3.5-5.1) mmol/L Chloride 104 (98-107) mmol/L Carbon Dioxide 23.8 (21.0-32.0) mmol/L Anion Gap 14.0 BUN 14.0 (7.0-18.0) mg/dL Creatinine 0.90 (0.70-1.30) mg/dL Est GFR ( Amer) >60 (>=60 mL/min/1.73m^2) Est GFR (Non-Af Amer) >60 (>=60 mL/min/1.73m^2) BUN/Creatinine Ratio 15.6 Glucose 143 H (74-106) mg/dL Calcium 9.2 (8.5-10.1) mg/dL Total Bilirubin 2.7 H (0.2-1.0) mg/dL Direct Bilirubin 2.4 H* (0.0-0.2) mg/dL AST 237 H (15-37) U/L ALT 157 H (16-63) U/L Alkaline Phosphatase 885 H (46-116) U/L Total Protein 7.1 (6.4-8.2) g/dL Albumin 2.4 L (3.4-5.0) g/dL Globulin 4.7 g/dL Albumin/Globulin Ratio 0.5 Amylase 3548 H* (25-115) U/L Lipase 3680.0 H* (16.0-77.0) U/L Imaging Data CT scan - abdomen: Radiologist's impression: ITS Impressions Abdomen/Pelvis CT 03/23/24 07:17 IMPRESSION: 1. Right upper quadrant inflammatory changes involving the gallbladder, common bile duct, hepatic flexure of the colon, and the duodenum. I suspect acute cholecystitis affecting the adjacent colon and duodenum. 2. Small fat filled periumbilical hernia without strangulation. 3. Mild lymphadenopathy, likely reactive. Electronically authenticated by: BRUNA FELICIANO Date: 03/23/2024 08:17 ECG Data Attestation: I personally reviewed and interpreted this ECG as follows: (EKG on my interpretation shows bigeminy) Discharge Plan Discharge Chief Complaint: Abdominal Pain Clinical Impression: Pancreatitis, Elevated bilirubin, Abdominal pain Patient Disposition: [facility] Time of Disposition Decision: 12:12 Discharge Location: [facility] Condition: Fair Mode of Transportation: EMS
[2024-03-23 07:40] LABS: Hematocrit 37.9 % (42.0-54.0); Hemoglobin 12.8 g/dL (14.0-18.0); Mean Corpuscular HGB Conc 33.8 g/dL (29.9-35.2); Mean Corpuscular Hemoglobin 33.1 pg (25.9-34.0); Mean Corpuscular Volume 97.9 fL (80.0-94.0); Mean Platelet Volume 9.2 fL (9.5-13.5); Platelet Count 474 10^3/uL (150-450); Red Blood Count 3.87 10^6/uL (4.70-6.10); Red Cell Distribution Width 12.6 % (11.0-15.0); White Blood Count 7.6 10^3/uL (4.0-11.0)
[2024-03-23 07:46] LABS: BUN Creatinine Ratio 15.6; Calcium 9.2 mg/dL (8.5-10.1); Carbon Dioxide 23.8 mmol/L (21.0-32.0); Chloride 104 mmol/L (98-107); Estimated GFR (African America >60 (>=60 mL/min/1.73m^2); Estimated GFR (Non-African Ame >60 (>=60 mL/min/1.73m^2); Glucose 143 mg/dL (74-106); Potassium 3.8 mmol/L (3.5-5.1); Sodium 138 mmol/L (136-145)
[2024-03-23 07:56] LABS: Alanine Aminotransferase 157 U/L (16-63); Albumin Globulin Ratio 0.5; Albumin Level 2.4 g/dL (3.4-5.0); Alkaline Phosphatase 885 U/L (46-116); Aspartate Amino Transferase 237 U/L (15-37); Bilirubin Total 2.7 mg/dL (0.2-1.0); Globulin 4.7 g/dL; Total Protein 7.1 g/dL (6.4-8.2)
[2024-03-23 08:11] LABS: Anisocytosis 1+; Basophils Abs Manual 0.15 10^3/uL (0.00-0.10); Eosinophils Absolute Manual 0.07 10^3/uL (0.00-0.70); Lymphocytes Absolute Manual 0.45 10^3/uL (1.20-3.80); Monocytes Absolute Manual 0.07 10^3/uL (0.30-0.80); Segmented Neut Absolute Manual 6.84 10^3/uL (1.4-6.5)
[2024-03-23 08:22] LABS: Amylase 3548 U/L (25-115); Bilirubin Direct 2.4 mg/dL (0.0-0.2)
[2024-03-23] MEDS: MORPHINE SULFATE 4 MG/ML VIAL IV ×3 (08:30→15:46)
[2024-03-23] MEDS: 0.9 % SODIUM CHLORIDE 1,000 ML 125 ML IV (12:08)
== END 2024-03-23 16:35 | disposition short-term general hospital (02) ==
PROVIDERS: Emergency Provider Emergency Medicine; PCP Nurse Practitioner Family
DX: K85.90 Acute pancreatitis without necrosis or infection, unspecified (principal); R10.11 Right upper quadrant pain; Z90.49 Acquired absence of other specified parts of digestive tract; F17.200 Nicotine dependence, unspecified, uncomplicated; K42.9 Umbilical hernia without obstruction or gangrene; R79.89 Other specified abnormal findings of blood chemistry
CPT/HCPCS: 36415; 74177; 80048; 80076; 82150; 83690; 85007; 85027; 93005; 96374; 96376; 99285; J2270; Q9967

== ENCOUNTER 2025-02-17 09:25 | Outpatient (OUT) | payer OTHER, SELFPAY ==
--- OUTSIDE RECORDS SUMMARY | 2025-02-17 09:43 | XMS_ITS | CCD ---
Author Organization [facility] CliniSynj Care Team Providers Care [employer] Manager Name Role Phone ANNALEE CHINO Attending Unavailable ANNALEE CHINO Consulting Unavailable ANNALEE CIHNO Admitting Unavailable CHRISTIANA MARQUEZ Attending Unavailable AUDREY JUSTIN Primary Care Unavailable Gurmeet Muñiz DO Attending Provider NON STAFF Primary Care Provider UnavailAudrey Rendon APRN Primary Care Provider Audrey Justin APRN Attending Provider Emma Mcdermott MD Attending Provider EVA NINO Referring Unavailable DEANGELO MONTERO Attending Unavailable ENIX, NEDA Referring Unavailable ENIX, NEDA Referring Unavailable PIRKL, DAYO Referring Unavailable SHERLEY, PINEDA Admitting Unavailable BIA FUENTES Referring Unavailable DYLON GUZMAN Attending Unavailable CHRISTOFER CROOKS Referring Unavailable Margoth LARA-NAVAL AIRCREWMAN MECHANICALAudrey Primary Care [facility] er Audrey Justin APRN Primary Care Provider Audrey Justin APRN Attending Provider [phone] Emma Mcdermott MD Attending Provider Gallito Kern DO Attending Provider [phone] Audrey Justin APRN Primary Care Provider Emma Mcdermott MD Attending Provider Emma Mcdermott MD Other Provider Audrey Justin Primary Care Unavailable [place], Gallito P Admitting Unavailable Samsa, Gallito P Attending Unavailable NON STAFF Primary Care Unavailable Gurmeet Muñiz Admitting Unavailable Gurmeet Muñiz Attending Unavailable Audrey Justin Admitting Unavailable Audrey Justin Primary Care Unavailable Audrey Justin Attending Unavailable Audrey Justin Primary Care Unavailable Asaad, Imad Admitting Unavailable Asaad, Imad Attending Unavailable Audrey Justin Primary Care Unavailable Asaad, Imad Admitting Unavailable Asaad, Imad Attending Unavailable Ethel Torres CMA Attending Provider UnavailAudrey Rendon APRN Attending Provider Medications Current Medications Medication Drug Class(es) Dates Sig (Normalized) Sig (Original) acetaminophen 325 mg / oxyCODONE hydrochloride 5 mg oral tablet (3 sources) Opioid Agonist Start: 03-08-2024 take 1 tablet by mouth every eight hours as needed oxyCODONE-acetami nophen (PERCOCET) 5-325 mg per tablet Take 1 tablet by mouth every 8 (eight) hours as needed. 03/08/2024 Active Nicotine 14 mg/24 hr patch 24 hour (4 sources) Start: 07-29-2024 apply 1 dose transdermal route every twenty-four hours at bedtime Nicotine 14 mg/24 hr patch 24 hour Active 1 PATCH TRANSDERML Daily July 29, 2024 12:00am On in AM, off @ HS Start: 05-13-2024 End: 07-29-2024 apply 1 dose transdermal route every twenty-four hours Nicotine 14 mg/24 hr patch 24 hour Discontinued 1 PATCH TRANSDERML Daily May 13, 2024 1:00am July 29, 2024 11:48am Start: 05-13-2024 apply 1 dose transde rmal route every twenty-four hours Nicotine 14 mg/24 hr patch 24 hour Active 1 PATCH TRANSDERML Daily May 13, 2024 1:00am Start: 05-13-2024 apply 1 dose transde rmal route every twenty-four hours Nicotine 14 mg/24 hr patch 24 hour Active 1 PATCH TRANSDERML Daily May 13, 2024 12:00am ondansetron 4 mg disintegrating oral tablet (3 sources) Serotonin-3 Receptor Antagonist Start: 03-08-2024 take 1 tablet by mouth every eight hours as needed ondansetron ODT (ZOFRAN ODT) 4 mg disintegrating tablet Dissolve 1 tablet (4 mg total) on tongue every 8 (eight) hours as needed. 03/08/2024 Active Completed/Discontinued Medications Medication Drug Class(es) Dates Sig (Normalized) Sig (Original) amLODIPine 10 mg oral tablet (20 sources) Dihydropyridine Calcium Channel Malcom Start: 03-08-2024 End: 02-17-2025 take 1 tablet by mouth once daily Amlodipine 10 mg tablet Discontinued 10 MG PO Daily 90 90 1 April 05, 2024 12:45pm November 18, 2024 2:57pm Hypertension Essential (primary) hypertension [id number] Fpr-Ebby-Mup-Asb- C (9 sources) Osmotic Laxative, Vitamin C Start: 02-14-2024 End: 04-11-2024 [id number] Fhh-Qqmi-Ijw-Asb-C (Plenvu) 140-9-5.2 gram powder in packet, sequential Discontinued 140 ML PO .COMPLEX 1 February 14, 2024 12:00am April 11, 2024 4:11pm Bowel prep First does at 4pm the day before the colonoscopy; second dose at 11pm the night before the colonoscopy. Start: 02-14-2024 End: 04-11-2024 [id number] Fjc-Dwuw-Guz-Asb -C (Plenvu) 140-9-5.2 gram powder in packet, sequential Discontinued 140 ML PO .COMPLEX 1 February 14, 2024 12:00am April 11, 2024 4:11pm First does at 4pm the day before the colonoscopy; second dose at 11pm the night before the colonoscopy. Start: 02-14-2024 End: 04-11-2024 [id number] Mrf-Xilu-Hdm-Asb -C (Plenvu) 140-9-5.2 gram powder in packet, sequential Discontinued 140 ML PO .COMPLEX 1 February 13, 2024 11:00pm April 11, 2024 3:11pm First does at 4pm the day before the colonoscopy; second dose at 11pm the night before the colonoscopy. Start: 02-14-2024 [id number] Torres y-Vzpu-Zyy-Asb-C (Plenvu) 140-9-5.2 gram powder in packet, sequential Active 140 ML PO .COMPLEX 1 February 13, 2024 11:00pm First does at 4pm the day before the colonoscopy; second dose at 11pm the night before the colonoscopy. 24 hr nicotine 0.292 mg/hr transdermal system (16 sources) Cholinergic Nicotinic Agonist Start: 07-29-2024 End: 11-25-2024 Nicotine 7 mg/24 hr patch 24 hour Discontinued 1 PATCH TRANSDERML Daily July 29, 2024 12:00am November 25, 2024 11:50am Cigarette nicotine dependence without complication Nicotine dependence, cigarettes, uncomplicated On in AM, off @ HS; Begin after completing 14mg patches Start: 05-13-2024 End: 11-25-2024 apply 1 dose transdermal route every twenty-four hours at bedtime Nicotine 14 mg/24 hr patch 24 hour Discontinued 1 PATCH TRANSDERML Daily July 29, 2024 12:00am November 25, 2024 11:50am Cigarette nicotine dependence without complication Nicotine dependence, cigarettes, uncomplicated On in AM, off @ HS Start: 02-12-2024 End: 05-13-2024 apply 1 dose transdermal route every twenty-four hours Nicotine 21 mg/24 hr patch 24 hour Discontinued 1 PATCH TRANSDERML Daily February 12, 2024 12:00am May 13, 2024 11:39am Encounter for smoking cessation counseling Tobacco abuse counseling Problems Active Problems Problem Classification Problem Date Documented Date Episodic/Chronic Abdominal pain (2 sources) Unspecified abdominal pain; Translations: [Unspecified abdominal pain] Onset: 03-23-2024 Episodic Administrative/social admission (13 sources) Patient encounter status; Translations: [Tobacco abuse counseling] 02-12-2024 Episodic Biliary tract disease (15 sources) Gallstone; Translations: [Calculus of gallbladder without cholecystitis without obstruction] Onset: 03-08-2024 04-07-2024 Episodic Chronic obstructive pulmonary disease and bronchiectasis (16 sources) Paraseptal emphysema; Translations: [Other emphysema] 04-11-2024 Chronic Essential hypertension (15 sources) Hypertensive disorder; Translations: [Essential (primary) hypertension] 03-12-2024 Chronic Other ear and sense organ disorders (3 sources) Decreased hearing ; Translations: [Unspecified hearing loss, bilateral] Chronic Other lower respiratory disease (17 sources) Solitary nodule of lung; Translations: [Solitary pulmonary nodule] 03-21-2024 Episodic Other screening for suspected conditions (not mental disorders or infectious disease) (20 sources) Encounter for screening for malignant neoplasm of prostate; Translations: [Patient encounter status] Onset: 03-20-2020 02-12-2024 Episodic Pancreatic disorders (not diabetes) (14 sources) Pancreatitis; Translations: [Acute pancreatitis without necrosis or infection, unspecified] Onset: 03-23-2024 03-12-2024 Episodic Residual codes; unclassified (5 sources) Acquired absence of other specified parts of digestive tract; Translations: [Other postprocedural status] Onset: 03-13-2024 03-12-2024 Episodic Substance-related disorders (15 sources) Tobacco dependence caused by cigarettes; Translations: [Nicotine dependence, cigarettes, uncomplicated] 04-11-2024 Chronic Unclassified (1 source) POST-OP VISIT Onset: 03-13-2024 Unclassified (2 sources) H91.93 - Unspecified hearing loss, bilateral Unclassified (2 sources) J43.8 - Other emphysema,R91.1 - Solitary pulmonary nodule Past or Other Problems Problem Classification Problem Date Documented Da te Episodic/Chronic Other lower respiratory disease (11 sources) Solitary pulmonary nodule; Translations: [Solitary pulmonary nodule] Onset: 07-25-2024 04-05-2024 Episodic Results Test Name Value Interpretation Reference Range Facility CT chest wo ammyon 07-25-2024 CT chest wo [facility] [place] [address] CT Scan Report Signed Patient: Ludwin Reyes MR#: [id number] : 1955 Acct:[id number] Age/Sex: 68 / M ADM Date: 07/25/24 Loc: [facility] Room: Type: [facility] Attending Dr: Gallito Kern DO Copies to: Gallito Kern DO Ordering Provider: Gallito Kern DO Date of Service: 07/25/24 CT/CT chest wo con: 3 month F/U for 1cm RUL nodule CT CHEST WITHOUT CONTRAST COMPARISON: 03/18/[address] 05/06/2024 CLINICAL DATA: Follow-up right upper lobe nodule. Current smoker with over 50 years of tobacco use. Spiral axial unenhanced images were obtained through the chest. Images were reviewed using both narrow and wide window settings. This CT exam was performed using one or more following dose reduction techniques: Automated exposure control, adjustment of the mA and/or kV according to patient size, or use of iterative reconstruction technique. The heart is within normal limits for size. No pericardial effusion is present. There is minimal coronary disease. There is a small amount of plaque at the thoracic aorta and proximal great vessels. No aneurysm is noted. Similar small mediastinal lymph nodes are seen. There is mild endplate spurring at the spine. Scarring is again visualized at the lung apices. There is also minor scarring or atelectasis at the lung bases, greater on the left. There is no additional consolidation, pleural effusion or pneumothorax. The tiny somewhat nodular focus the paramediastinal right apex adjacent to the right subclavian artery is unchanged. The elongate pleural based density at the lateral right apex (axial image 13) is also stable. There is an additional potential tiny nodular density at the posterior right upper lobe (axial image 24) which is also similar. No developing pulmonary nodularity is seen. Limited imaging through the upper abdomen shows no contributory findings. CT/CT chest wo con IMPRESSION: SCARRING AND/OR ATELECTASIS. TINY RIGHT UPPER LOBE NODULAR DENSITIES, SIMILAR TO THE PREVIOUS EXAMS. Impression dictated by: Lynn Ca M.D.07/25/2024 1:44 PM Dictation Location: [place] [address] Transcribed By: [facility] 07/25/24 1344 Dictated By: Lynn Ca MD 07/25/24 1333 Signed By: 07/25/24 1344 Normal [facility] Elias 05-10-2024 L -- ---- Specimen: [id number] Received: 05/10/24 Status: CARLOS Johnston Num: [id number] Spec Type: Surgical Subm Dr: Emma Mcdermott MD Tissues: A Colon Biopsy (CECAL POLYP) B Colon Biopsy (ASCENDING COLON POLYP) C Colon Biopsy (DESCENDING COLON POLYP) Procedures: , Gross/Micro L4/3 ---- Age/ Patient Sex Location Account Attending Physician ---- Ludwin Reyes /[facility] [id number] Emma Mcdermott MD ---- SPEC NUM: [id number] RECD: 05/10/24 STATUS: CARLOS JOHNSTON NUM: [id number] MISTY: 05/10/241204 [facility] DR: Emma Mcdermott MD ENTERED: 05/10/[address] [facility] [address]: YIMI TYPE: Surgical DEPT: S ENTERED BY: [id number] RECV BY: [id number] ORDERED: , Gross/Micro L4/3 ORDERED: , Gross/Micro L4/3 Pathological Diagnosis A. Colon, cecum, polypectomy: - Tubular adenoma. B. Colon, ascending, polypectomy: - Fragments of tubular adenoma. C. Colon, descending, polypectomy: - Fragments of tubulovillous adenoma. Clinical Information Screen, colon polyps. Gross Description Part A is received in formalin labeled with the patients name, date of , and cecal polyp is a phillip-mills, focally erythematous, friable, 0.5 cm in greatest dimension polypoid fragment. The specimen is inked black at the apparent point of attachment, bisected, and entirely submitted in a single cassette. (1, ns, [id number] A) Part B is received in formalin labeled with the patients name, date of , and ascending polyp are phillip-mills, focally erythematous, friable polypoid fragments, 1.8 x 1 x 0.3 cm in aggregate. The specimen is filtered and entirely submitted in a single cassette. (1, ns, ---- Specimen: [id number] Received: 05/10/24 Status: CARLOS Johnston Num: [id number] Spec Type: Surgical Subm Dr: Emma Mcdermott MD Tissues: A Colon Biopsy (CECAL POLYP) B Colon Biopsy (ASCENDING COLON POLYP) C Colon Biopsy (DESCENDING COLON POLYP) Procedures: HE/6, Gross/Micro L4/3 ---- Patient: Ludwin Reyes [id number] ([facility]) ---- Specimen: Received: 05/10/24 (Continued) Gross Description (Continued) Signed (signature on file) Miguel Beltrán MD 05/13/24 1343 ---- Specimen: Received: 05/10/24 Status: CARLOS Johnston Num: [id number] Spec Type: Surgical Subm Dr: Emma Mcdermott MD Tissues: A Colon Biopsy (CECAL POLYP) B Colon Biopsy (ASCENDING COLON POLYP) C Colon Biopsy (DESCENDING COLON POLYP) Procedures: HE/6, Gross/Micro L4/3 ---- Patient: Ludwin Reyes [id number] (Continued) ---- Specimen: Received: 05/10/24 (Continued) Gross Description (Continued) B) Part C is received in formalin labeled with the patients name, date of , and descending polyp are phillip-mills, focally erythematous, friable polypoid fragments, 1 x 0.6 x 0.2 cm in aggregate. The specimen is filtered and entirely submitted in a single cassette. (1, ns, [id number] C) Microscopic Description A-C: Microscopic examination is performed. CPT Codes 28752 x3 ---- ---- Specimen: [id number] Received: 05/10/24 Status: CARLOS Johnston Num: [id number] Spec Type: Surgical Subm Dr: Emma Mcdermott MD Tissues: A Colon Biopsy (CECAL POLYP) B Colon Biopsy (ASCENDING COLON POLYP) C Colon Biopsy (DESCENDING COLON POLYP) Procedures: HE/Gallito, Gross/Micro L4/3 ---- Patient: Ludwin Reyes [id number] (Continued) ---- Signed (signature on file) Miguel Beltrán MD 05/13/24 1343 Normal [facility] Follow-Upon 05-08-2024 Follow-Up [id number] Ludwin Reyes 1955 M Date Provider Department Center 05/08/20241946-MIGUEL VILLAGOMEZ MP GI Medical Pavi No family history on file Level of Service:NOCHG RI NO CHARGE PLACEHOLDER Normal [facility] HEPATIC FUNCTION PANELon Albumin [Mass/Vol] 4.2 g/dL Normal 3.5-5.7 [facility] Comment on above: Performed By: #### L AB20 #### [facility] ([facility]) [address] [place] [address] ALP [Catalytic activity/Vol] 82 U/L Normal 34-104 [facility] Comment on above: Performed By: #### L AB20 #### [facility] ([facility]) [address] [place] [address] ALT [Catalytic activity/Vol] 11 U/L Normal 7-52 [facility] Comment on above: Performed By: #### L AB20 #### [facility] ([facility]) [address] [place] [address] AST [Catalytic activity/Vol] 16 U/L Normal 13-39 [facility] Comment on above: Performed By: #### L AB20 #### [facility] ([facility]) [address] [place] [address] Bilirubin [Mass/Vol] 0.6 mg/dL Normal 0.3-1.0 [facility] Comment on above: Performed By: #### L AB20 #### [facility] [address] [place] [address] Magnesium [Mass/Vol] 0.1 mg/dL Normal 0-0.2 [facility] Comment on above: Performed By: #### L AB20 #### [facility] ([facility]) [address] [place] [address] Protein [Mass/Vol] 7.6 g/dL Normal 6.0-8.3 [facility] Comment on above: Performed By: #### L AB20 #### [facility] ([facility]) [address] [place] [address] Labon 05-08-2024 Lab [id number] Ludwin Reyes 1955 M Date Provider Department Center 05/08/2024 2244-[facility] MP LAB RESOURCE MP DRAW Medical Pavi No family history on file Normal [facility] Orders Onlyon 05-08-2024 Orders Only [id number] Ludwin Reyes 1955 M Date Provider Department Center 05/08/2024 1947-MIGUEL VILLAGOMEZ MP GI Medical Pavi No family history on file Normal [facility] Glucose Glucometer (BldC) [M ass/Vol]Ordered By: Audrey Justin on 05-06-2024 Glucose [Mass/Vol] Capillary blood glucose measurement by glucometer (mass/volume) [facility] Comment on above: Random Glucose Refer ence Range is dependent on time and content of last meal. Glucose of more than 200 mg/dL in a nonstressed, ambulatory subject supports the diagnosis of Diabetes Mellitus. Glucose Poct Glucometerson 0 05-06-2024 Glucose [Mass/Vol] 93 mg/dL Normal [facility] Comment on above: Result Comment: [place] Glucose Reference Range is dependent on time and content of last meal. Glucose of more than 200 mg/dL in a nonstressed, ambulatory subject supports the diagnosis of Diabetes Mellitus. PERFORMED BY: [facility] [address] [place] [address] PATHOLOGIST [employer] RG CHENG M.D. Performed By: #### G LUPAVITHRA #### Point of Care testing , PET tumor init tx strat sb-m ton 05-06-2024 PET tumor init tx strat sb-mt [facility] [place] [address] [place] [address] Nuclear Medicine Report Signed Patient: Ludwin Reyes MR#: [id number] : 1955 Acct:[id number] Age/Sex: 68 / M ADM Date: 05/06/24 Loc: Room: Type: [facility] Attending Dr: Audrey Justin APRN, [employer] MECHANICAL-C Copies to: Audrey Justin APRN, CNP Mark A Buehler, II, MD Ordering Provider: Audrey Justin APRN, CNP Date of Service: 05/06/24 PET/PET tumor init tx strat sb-mt: R91.1 - Solitary pulmonary nodule PET tumor init tx strat sb-mt 05/06/2024 11:00 AM SIGNS AND SYMPTOMS: Pulmonary nodule, follow-up PROTOCOL: PET images were obtained from skull base to mid thigh after intravenous radiotracer administration. Low-dose CT images were performed from skull base to mid thigh. After attenuation correction of PET images, fused PET CT images were generated and reconstructed in axial, sagittal, and coronal planes. COMPARISON: 03/18/2024 RADIOPHARMACEUTICAL: 12.87 mCi of intravenous fluorine 18 FDG. BLOOD GLUCOSE: 93 mg/dL. FINDINGS: There is a 4 mm mildly FDG avid pleural-based nodule medially and inferiorly in the right upper lobe near the apex with a maximum SUV of 1.7. This is nonspecific possibly representing a subcentimeter metastatic focus or inflammatory process. An area of pleural-based scarring is noted in the right lung apex without significant radiotracer accumulation. There is pleural-based scarring in the left posterior costophrenic sulcus without significant radiotracer accumulation. This is similar to the prior exam. No additional foci of abnormal radiotracer accumulation noted to suggest malignancy. Physiologic radiotracer accumulation is noted in the brain, myocardium, liver, spleen, kidneys, bladder, and bowel. PET/PET tumor init tx strat sb-mt IMPRESSION: There is a 4 mm mildly FDG avid pleural-based nodule medially and inferiorly in the right upper lobe near the apex with a maximum SUV of 1.7. This is nonspecific possibly representing a subcentimeter metastatic focus or inflammatory process. An area of pleural-based scarring is noted in the right lung apex without significant radiotracer accumulation. There is pleural-based scarring in the left posterior costophrenic sulcus without significant radiotracer accumulation. This is similar to the prior exam. Impression dictated by: Crow Muir M.D.05/06/2024 4:28 PM Dictation Location: [facility]-23 Transcribed By: MATTY 05/06/24 162 Dictated By: Crow Muir II, MD 05/06/241621 Signed By: 05/06/241627 Normal [facility] CBCon 03-26-2024 Erythrocyte distribution width (RBC) [Ratio] 12.3 % Normal 11.5-15.0 [facility] Comment on above: Performed By: #### L AB99 #### [facility] ([facility]) [address] [place] [address] ERYTHROCYTE MEAN CORPUSCULAR HEMOGLOBIN CONCENTRATION (G/DL) BY AUTOMATED 33.6 g/dL Normal 32.0-35.0 [facility] Comment on above: Performed By: #### L AB99 #### [facility] ([facility]) [address] [place] [address] Hematocrit (Bld) [Volume fraction] 36.3 % Low 39.0-55.0 [facility] Comment on above: Performed By: #### L [id number] #### [facility] ([facility]) [address] [place] [address] Hemoglobin (Bld) [Mass/Vol] 12.2 g/dL Low 13.0-17.0 [facility] Comment on above: Performed By: #### L [id number] #### [facility] ([facility]) [address] [place] [address] MCH (RBC) [Entitic mass] 32.3 pg Normal 27.0-33.0 [facility] Comment on above: Performed By: #### L [id number] #### [facility] ([facility]) [address] [place] [address] MCV (RBC) [Entitic vol] 96.0 fL Normal 82.0-98.0 [facility] Comment on above: Performed By: #### L [id number] #### [facility] ([facility]) [address] [place] [address] PLATELETS (10*3/UL) IN BLOOD AUTOMATED COUNT 439 10*3/uL High 150-400 [facility] Comment on above: Performed By: #### L AB99 #### [facility] ([facility]) [address] [place] [address] RBC (Bld) [#/Vol] 3.78 10*6/uL Low 4.20-5.70 [facility] Comment on above: Performed By: #### L AB99 #### [facility] ([facility]) [address] [place] [address] WBC (Bld) [#/Vol] 4.94 10*3/uL Normal 4.00-10.60 [facility] Comment on above: Performed By: #### L AB99 #### [facility] ([facility]) [address] [place] [address] COMPREHENSIVE METABOLIC PANE Elias 03-26-2024 Albumin [Mass/Vol] 3.1 g/dL Low 3.5-5.7 [facility] Comment on above: Performed By: #### L AB99 #### [facility] ([facility]) [address] [place] [address] ALP [Catalytic activity/Vol] 535 U/L High 34-104 [facility] Comment on above: Performed By: #### L [id number] #### [facility] ([facility]) [address] [place] [address] ALT [Catalytic activity/Vol] 42 U/L Normal 7-52 [facility] Comment on above: Performed By: #### L AB99 #### [facility] [address] [place] [address] Anion gap [Moles/Vol] 12 mmol/L Normal 7-20 [facility] Comment on above: Performed By: #### L AB99 #### [facility] ([facility]) [address] [place] [address] AST [Catalytic activity/Vol] 27 U/L Normal 13-39 [facility] Comment on above: Performed By: #### L AB99 #### [facility] ([facility]) [address] [place] [address] Bilirubin [Mass/Vol] 0.9 mg/dL Normal 0.3-1.0 [facility] Comment on above: Performed By: #### L AB99 #### [facility] ([facility]) [address] [place] [address] Calcium [Mass/Vol] 8.6 mg/dL Normal 8.6-10.3 [facility] Comment on above: Performed By: #### L AB99 #### [facility] ([facility]) [address] [place] [address] Chloride [Moles/Vol] 102 mmol/L Normal 98-107 [facility] Comment on above: Performed By: #### L [id number] #### [facility] ([facility]) [address] [place] [address] CO2 [Moles/Vol] 24 mmol/L Normal 21-31 [facility] Comment on above: Performed By: #### L [id number] #### [facility] ([facility]) [address] [place] [address] Creatinine [Mass/Vol] 0.65 mg/dL Low 0.70-1.30 [facility] Comment on above: Performed By: #### L [id number] #### [facility] ([facility]) [address] [place] [address] GLOMERULAR FILTRATION RATE ML/MIN/1.73 SQ M.PREDICTED 102.6 mL/min/1.73m*2 Normal >60.0 [facility] Comment on above: Result Comment: The [facility]???s estimated glomerular filtration rate (eGFR) will no longer include consideration of race in its calculation. The National Kidney Foundation???s eGFR Task Force developed new recommendations for the estimation of the glomerular filtration rate in the [place] They recommend immediate implementation of the new equation refit without the race variable in all laboratories because the calculation does not include race. In addition to not including race in the calculation and reporting, it included diversity in its development, and has acceptable performance characteristics and potential consequences that do not disproportionately affect any one group of individuals. Performed By: #### L [id number] #### [facility] ([facility]) [address] [place] [address] Glucose [Mass/Vol] 117 mg/dL High 70-100 [facility] Comment on above: Performed By: #### L [id number] #### [facility] ([facility]) [address] [place] [address] Potassium [Moles/Vol] 4.3 mmol/L Normal 3.5-5.1 [facility] Comment on above: Performed By: #### L [id number] #### [facility] ([facility]) [address] [place] [address] Protein [Mass/Vol] 6.8 g/dL Normal 6.0-8.3 [facility] Comment on above: Performed By: #### L [id number] #### [facility] ([facility] [address] [place] [address] Sodium [Moles/Vol] 134 mmol/L Low 136-145 [facility] Comment on above: Performed By: #### L [id number] #### [facility] ([facility]) [address] [place] [address] Urea nitrogen [Mass/Vol] 12 mg/dL Normal 7-25 [facility] Comment on above: Performed By: #### L [id number] #### [facility] ([facility]) [address] [place] [address] UREA NITROGEN/CREATININE (MASS RATIO) IN SER/PLAS 18.5 Normal [facility] Comment on above: Performed By: #### L [id number] #### [facility] ([facility]) [address] [place] [address] 30on 03-25-2024 30 Daily Case Managemen t Update Multidisciplinary rounds have been completed. Barriers to Discharge: Per GI, plan for ERCP today for assessment of choledocholithiasis. NPO. IVF, pain management. Patient is from home with . Diet: Dietary Orders (From admission, onward) Start Ordered 03/25/24 0001 Diet NPO Diet effective midnight Comments: Sips with medications Question: Reason for NPO: Answer: Operation/Procedure 03/24/24 1144 Physician Expected Discharge Date: 03/26/2024 Discharge Delays: PT Six Click Score: 24 OT Six Click Score: PT Recommendations: OT Recommendations: Is expected discharge disposition appropriate for patient?: Yes New Consults: Normal [facility] BASIC METABOLIC PANELon 03-02 Anion gap [Moles/Vol] 13 mmol/L Normal 7-20 [facility] Comment on above: Performed By: #### L [id number] ####[facility] ([facility])[address] [place] [address] Calcium [Mass/Vol] 8.3 mg/dL Low 8.6-10.3 [facility] Comment on above: Performed By: #### L [id number] ####[facility] ([facility])[address] [place] [address] Chloride [Moles/Vol] 101 mmol/L Normal 98-107 [facility] Comment on above: Performed By: #### L [id number] ####[facility] ([facility]AKER)[address] [place] [address] CO2 [Moles/Vol] 22 mmol/L Normal 21-31 [facility] Comment on above: Performed By: #### L [id number] ####[facility] ([facility]ER)[address] [place] [address] Creatinine [Mass/Vol] 0.61 mg/dL Low 0.70-1.30 [facility] Comment on above: Performed By: #### L [id number] ####[facility] ([facility] [place] [address] GLOMERULAR FILTRATION RATE ML/MIN/1.73 SQ M.PREDICTED 104.6 mL/min/1.73m*2 Normal >60.0 [facility] Comment on above: Result Comment: The [facility]???s estimated glomerular filtration rate (eGFR) will no longer include consideration of race in its calculation. The National Kidney Foundation???s eGFR Task Force developed new recommendations for the estimation of the glomerular filtration rate in the [place] They recommend immediate implementation of the new equation refit without the race variable in all laboratories because the calculation does not include race. In addition to not including race in the calculation and reporting, it included diversity in its development, and has acceptable performance characteristics and potential consequences that do not disproportionately affect any one group of individuals. Performed By: #### L [id number] ####[facility] ([facility])[address] [place] [address] Glucose [Mass/Vol] 133 mg/dL High 70-100 [facility] Comment on above: Performed By: #### L [id number] ####[facility] ([facility])[address] [place] [address] Potassium [Moles/Vol] 4.3 mmol/L Normal 3.5-5.1 [facility] Comment on above: Performed By: #### L [id number] ####[facility] ([facility])[address] [place] [address] Sodium [Moles/Vol] 132 mmol/L Low 136-145 [facility] Comment on above: Performed By: #### L [id number] ####[facility] ([facility]ER)[address] [place] [address] Urea nitrogen [Mass/Vol] 10 mg/dL Normal 7-25 [facility] Comment on above: Performed By: #### L [id number] ####[facility] ([facility])[address] [place] [address] UREA NITROGEN/CREATININE (MASS RATIO) IN SER/PLAS 16.4 Normal [facility] Comment on above: Performed By: #### L [id number] ####[facility] ([facility] [place] [address] BILIRUBIN, DIRECTon 03-25-20 Magnesium [Mass/Vol] 0.3 mg/dL High 0-0.2 [facility] Comment on above: Performed By: #### L [id number] ####[facility] ([facility])[address] [place] [address] CBCon 03-25-2024 Erythrocyte distribution width (RBC) [Ratio] 12.6 % Normal 11.5-15.0 [facility] Comment on above: Performed By: #### L [id number] #### [facility] ([facility]) [address] [place] [address] ERYTHROCYTE MEAN CORPUSCULAR HEMOGLOBIN CONCENTRATION (G/DL) BY AUTOMATED 33.3 g/dL Normal 32.0-35.0 [facility] Comment on above: Performed By: #### L [id number] #### [facility] ([facility]) [address] [place] [address] Hematocrit (Bld) [Volume fraction] 33.0 % Low 39.0-55.0 [facility] Comment on above: Performed By: #### L [id number] #### [facility] ([facility] [address] [place] [address] Hemoglobin (Bld) [Mass/Vol] 11.0 g/dL Low 13.0-17.0 [facility] Comment on above: Performed By: #### L [id number] #### [facility] ([facility]) [address] [place] [address] MCH (RBC) [Entitic mass] 32.1 pg Normal 27.0-33.0 [facility] Comment on above: Performed By: #### L [id number] #### [facility] ([facility]) [address] [place] [address] MCV (RBC) [Entitic vol] 96.2 fL Normal 82.0-98.0 [facility] Comment on above: Performed By: #### L [id number] #### [facility] ([facility]) [address] [place] [address] PLATELETS (10*3/UL) IN BLOOD AUTOMATED COUNT 368 10*3/uL Normal 150-400 [facility] Comment on above: Performed By: #### L [id number] #### [facility] ([facility]) [address] [place] [address] RBC (Bld) [#/Vol] 3.43 10*6/uL Low 4.20-5.70 [facility] Comment on above: Performed By: #### L [id number] #### [facility] ([facility]) [address] [place] [address] WBC (Bld) [#/Vol] 3.88 10*3/uL Low 4.00-10.60 [facility] Comment on above: Performed By: #### L [id number] #### [facility] ([facility]) [address] [place] [address] COMPREHENSIVE METABOLIC PANE Elias 03-25-2024 Albumin [Mass/Vol] 2.9 g/dL Low 3.5-5.7 [facility] Comment on above: Performed By: #### L [id number] ####[facility] ([facility])[address] [place] [address] ALP [Catalytic activity/Vol] 532 U/L High 34-104 [facility] Comment on above: Performed By: #### L [id number] ####[facility] ([facility])[address] [place] [address] ALT [Catalytic activity/Vol] 49 U/L Normal 7-52 [facility] Comment on above: Performed By: #### L [id number] ####[facility] ([facility])[address] [place] [address] Anion gap [Moles/Vol] 11 mmol/L Normal 7-20 [facility] Comment on above: Performed By: #### L [id number] ####[facility] ([facility] [place] [address] AST [Catalytic activity/Vol] 40 U/L High 13-39 [facility] Comment on above: Performed By: #### L [id number] ####[facility] ([facility] [place] [address] Bilirubin [Mass/Vol] 1.0 mg/dL Normal 0.3-1.0 [facility] Comment on above: Performed By: #### L [id number] ####[facility] ([facility] [place] [address] Calcium [Mass/Vol] 8.0 mg/dL Low 8.6-10.3 [facility] Comment on above: Performed By: #### L [id number] ####[facility] ([facility] [place] [address] Chloride [Moles/Vol] 106 mmol/L Normal 98-107 [facility] Comment on above: Performed By: #### L [id number] ####[facility] ([facility] [place] [address] CO2 [Moles/Vol] 23 mmol/L Normal 21-31 [facility] Comment on above: Performed By: #### L [id number] ####[facility] ([facility] [place] [address] Creatinine [Mass/Vol] 0.59 mg/dL Low 0.70-1.30 [facility] Comment on above: Performed By: #### L [id number] ####[facility] ([facility])[address] [place] [address] GLOMERULAR FILTRATION RATE ML/MIN/1.73 SQ M.PREDICTED 105.7 mL/min/1.73m*2 Normal >60.0 [facility] Comment on above: Result Comment: The [facility]???s estimated glomerular filtration rate (eGFR) will no longer include consideration of race in its calculation. The National Kidney Foundation???s eGFR Task Force developed new recommendations for the estimation of the glomerular filtration rate in the [place] They recommend immediate implementation of the new equation refit without the race variable in all laboratories because the calculation does not include race. In addition to not including race in the calculation and reporting, it included diversity in its development, and has acceptable performance characteristics and potential consequences that do not disproportionately affect any one group of individuals. Performed By: #### L [id number] ####[facility] ([facility])[address] [place] [address] Glucose [Mass/Vol] 89 mg/dL Normal 70-100 [facility] Comment on above: Performed By: #### L [id number] ####[facility] ([facility])[address] [place] [address] Potassium [Moles/Vol] 3.8 mmol/L Normal 3.5-5.1 [facility] Comment on above: Performed By: #### L [id number] ####[facility] ([facility])[address] [place] [address] Protein [Mass/Vol] 6.0 g/dL Normal 6.0-8.3 [facility] Comment on above: Performed By: #### L [id number] ####[facility] ([facility])[address] [place] [address] Sodium [Moles/Vol] 136 mmol/L Normal 136-145 [facility] Comment on above: Performed By: #### L [id number] ####[facility] ([facility])[address] [place] [address] Urea nitrogen [Mass/Vol] 8 mg/dL Normal 7-25 [facility] Comment on above: Performed By: #### L [id number] ####[facility] ([facility])[address] [place] [address] UREA NITROGEN/CREATININE (MASS RATIO) IN SER/PLAS 13.6 Normal [facility] Comment on above: Performed By: #### L [id number] ####[facility] ([facility])[address] [place] [address] HPon 03-25-2024 HP H&P reviewed. The patient was examined and there are no changes to the H&P. The patient with abnormal liver function test concern for choledocholithiasis. CT scan of abdomen revealed acute pancreatitis and inflammatory changes involving the common bile duct with plans for endoscopic ultrasound to assess the common bile duct for possible ERCP for common bile duct stone removal. Normal [facility] LIPASEon 03-25-2024 LIPASE (U/L) IN SER/PLAS 48 U/L Normal [facility] Comment on above: Performed By: #### L [id number] #### [facility] ([facility]) [address] [place] [address] MAGNESIUMon 03-25-2024 Magnesium [Mass/Vol] 2.0 mg/dL Normal 1.9-2.7 [facility] Comment on above: Performed By: #### L [id number] ####[facility] ([facility])[address] [place] [address] Magnesium [Mass/Vol] 1.7 mg/dL Low 1.9-2.7 [facility] Comment on above: Performed By: #### L [id number] ####[facility] ([facility])[address] [place] [address] NURSNOTEon 03-25-2024 NURSNOTE Cbd stone, diverticulum Normal [facility] PROTIME-INRon 03-25-2024 INR IN PPP BY COAGULATION ASSAY 1.07 Normal 0.90-1.10 [facility] Comment on above: Result Comment: ACCC P RECOMMENDED INR FOR WARFARIN THERAPY CONDITION INR PROPHYLAXIS OF VENOUS THROMBOSIS 2-3 (HIGH-RISK SURGERY) TREATMENT OF VENOUS THROMBOSIS 2-3 TREATMENT OF PULMONARY EMBOLISM 2-3 PREVENTION OF SYSTEMIC EMBOLISM: 2-3 ACUTE MYOCARDIAL INFARCTION TISSUE HEART VALVES VALVULAR HEART DISEASE ATRIAL FIBRILLATION RECURRENT SYSTEMIC EMBOLISM MECHANICAL HEART VALVE 2.5-3.5 FROM: ORAL ANTICOAGULANTS. MECHANISM OF ACTION, CLINICAL EFFECTIVENESS, AND OPTIMAL THERAPEUTIC RANGE. CHEST 1995;108:231S-246S. Performed By: #### L [id number] #### [facility] [address] [place] [address] PROTHROMBIN TIME (PT) IN PPP BY COAGULATION ASSAY 13.9 Seconds Normal 12.3-14.8 [facility] Comment on above: Performed By: #### L [id number] #### [facility] ([facility]) [address] [place] [address] 30on 03-24-2024 30 The patient is Moderately Stable - Low risk of patient condition declining or worsening The patient's goals for the shift include comfort The clinical goals for the shift include comfort Problem: Pain - Adult Goal: Verbalizes/displays adequate comfort level or baseline comfort level Outcome: Progressing Problem: Safety - Adult Goal: Free from fall injury Outcome: Progressing Problem: Discharge Planning Goal: Discharge to home or other facility with appropriate resources Outcome: Progressing Problem: Chronic Conditions and Co-morbidities Goal: Patient's chronic conditions and co-morbidity symptoms are monitored and maintained or improved Outcome: Progressing Normal [facility] CBCon 03-24-2024 Erythrocyte distribution width (RBC) [Ratio] 12.9 % Normal 11.5-15.0 [facility] Comment on above: Performed By: #### L [id number] #### [facility] ([facility] [address] [place] [address] ERYTHROCYTE MEAN CORPUSCULAR HEMOGLOBIN CONCENTRATION (G/DL) BY AUTOMATED 32.6 g/dL Normal 32.0-35.0 [facility] Comment on above: Performed By: #### L [id number] #### [facility] ([employer]) [address] [place] [address] Hematocrit (Bld) [Volume fraction] 31.9 % Low 39.0-55.0 [facility] Comment on above: Performed By: #### L [id number] #### [facility] ([facility]) [address] [place] [address] Hemoglobin (Bld) [Mass/Vol] 10.4 g/dL Low 13.0-17.0 [facility] Comment on above: Performed By: #### L [id number] #### [facility] ([facility]) [address] [place] [address] MCH (RBC) [Entitic mass] 32.7 pg Normal 27.0-33.0 [facility] Comment on above: Performed By: #### L [id number] #### [facility] ([facility]) [address] [place] [address] MCV (RBC) [Entitic vol] 100.3 fL High 82.0-98.0 [facility] Comment on above: Performed By: #### L [id number] #### [facility] ([facility]) [address] [place] [address] PLATELETS (10*3/UL) IN BLOOD AUTOMATED COUNT 349 10*3/uL Normal 150-400 [facility] Comment on above: Performed By: #### L [id number] #### [facility] ([facility]) [address] [place] [address] RBC (Bld) [#/Vol] 3.18 10*6/uL Low 4.20-5.70 [facility] Comment on above: Performed By: #### L [id number] #### [facility] ([facility]) [address] [place] [address] WBC (Bld) [#/Vol] 5.65 10*3/uL Normal 4.00-10.60 [facility] Comment on above: Performed By: #### L [id number] #### [facility] ([facility]) [address] [place] [address] COMPREHENSIVE METABOLIC PANE Elias 03-24-2024 Albumin [Mass/Vol] 2.8 g/dL Low 3.5-5.7 [facility] Comment on above: Performed By: #### L [id number] ####[facility] ([facility]ER)[address] [place] [address] ALP [Catalytic activity/Vol] 566 U/L High 34-104 [facility] Comment on above: Performed By: #### L [id number] ####[facility] ([facility]ER)[address] [place] [address] ALT [Catalytic activity/Vol] 72 U/L High 7-52 [facility] Comment on above: Performed By: #### L [id number] ####[facility] ([facility]ER)[address] [place] [address] Anion gap [Moles/Vol] 9 mmol/L Normal 7-20 [facility] Comment on above: Performed By: #### L [id number] ####[facility] ([facility]ER)[address] [place] [address] AST [Catalytic activity/Vol] 75 U/L High 13-39 [facility] Comment on above: Performed By: #### L [id number] ####[facility] ([facility]ER)[address] [place] [address] Bilirubin [Mass/Vol] 1.6 mg/dL High 0.3-1.0 [facility] Comment on above: Performed By: #### L [id number] ####[facility] ([facility]ER)[address] [place] [address] Calcium [Mass/Vol] 8.0 mg/dL Low 8.6-10.3 [facility] Comment on above: Performed By: #### L [id number] ####[facility] ([facility]ER)[address] [place] [address] Chloride [Moles/Vol] 106 mmol/L Normal 98-107 [facility] Comment on above: Performed By: #### L [id number] ####[facility] ([facility]ER)[address] [place] [address] CO2 [Moles/Vol] 23 mmol/L Normal 21-31 [facility] Comment on above: Performed By: #### L [id number] ####[facility] ([facility])[address] [place] [address] Creatinine [Mass/Vol] 0.61 mg/dL Low 0.70-1.30 [facility] Comment on above: Performed By: #### L [id number] ####[facility] ([facility])[address] [place] [address] GLOMERULAR FILTRATION RATE ML/MIN/1.73 SQ M.PREDICTED 104.6 mL/min/1.73m*2 Normal >60.0 [facility] Comment on above: Result Comment: The [facility]???s estimated glomerular filtration rate (eGFR) will no longer include consideration of race in its calculation. The National Kidney Foundation???s eGFR Task Force developed new recommendations for the estimation of the glomerular filtration rate in the [place] They recommend immediate implementation of the new equation refit without the race variable in all laboratories because the calculation does not include race. In addition to not including race in the calculation and reporting, it included diversity in its development, and has acceptable performance characteristics and potential consequences that do not disproportionately affect any one group of individuals. Performed By: #### L [id number] ####[facility] ([facility])[address] [place] [address] Glucose [Mass/Vol] 82 mg/dL Normal 70-100 [facility] Comment on above: Performed By: #### L [id number] ####[facility] ([facility])[address] [place] [address] Potassium [Moles/Vol] 4.0 mmol/L Normal 3.5-5.1 [facility] Comment on above: Performed By: #### L [id number] ####[facility] ([facility])[address] [place] [address] Protein [Mass/Vol] 5.9 g/dL Low 6.0-8.3 [facility] Comment on above: Performed By: #### L [id number] ####[facility] ([facility])[address] [place] [address] Sodium [Moles/Vol] 134 mmol/L Low 136-145 [facility] Comment on above: Performed By: #### L [id number] ####[facility] ([facility])[address] [place] [address] Urea nitrogen [Mass/Vol] 13 mg/dL Normal - [facility] Comment on above: Performed By: #### L [id number] ####[facility] ([facility])[address] [place] [address] UREA NITROGEN/CREATININE (MASS RATIO) IN SER/PLAS 21.3 Normal [facility] Comment on above: Performed By: #### L [id number] ####[facility] ([facility])[address] [place] [address] LIPASEon 03-24-2024 LIPASE (U/L) IN SER/PLAS 168 U/L High [facility] Comment on above: Performed By: #### L [id number] #### [facility] ([facility]) [address] [place] [address] 30on 03-23-2024 30 The patient is Moderately Stable - Low risk of patient condition declining or worsening The patient's goals for the shift include comfort The clinical goals for the shift include vss, comfort Problem: Pain - Adult Goal: Verbalizes/displays adequate comfort level or baseline comfort level Outcome: Progressing Problem: Safety - Adult Goal: Free from fall injury Outcome: Progressing Problem: Discharge Planning Goal: Discharge to home or other facility with appropriate resources Outcome: Progressing Problem: Chronic Conditions and Co-morbidities Goal: Patient's chronic conditions and co-morbidity symptoms are monitored and maintained or improved Outcome: Progressing Normal [facility] 30 The patient is Moderately Stable - Low risk of patient condition declining or worsening The patient's goals for the shift include The clinical goals for the shift include Normal [facility] Anisocytosis LM Ql (Bld)on 05-23-2023 Anisocytosis Ql (Bld) Anisocytosis [Presence] in Blood by Light microscopy [facility] BASIC METABOLIC PANELon 03-02 Anion gap [Moles/Vol] 11 mmol/L Normal 7-20 [facility] Comment on above: Performed By: #### L [id number] #### [facility] ([facility]) [address] [place] [address] Calcium [Mass/Vol] 8.5 mg/dL Low 8.6-10.3 [facility] Comment on above: Performed By: #### L [id number] #### [facility] ([facility]) [address] [place] [address] Chloride [Moles/Vol] 107 mmol/L Normal 98-107 [facility] Comment on above: Performed By: #### L [id number] #### [facility] ([facility]) [address] [place] [address] CO2 [Moles/Vol] 23 mmol/L Normal 21-31 [facility] Comment on above: Performed By: #### L [id number] #### [facility] ([facility]) [address] [place] [address] Creatinine [Mass/Vol] 0.69 mg/dL Low 0.70-1.30 [facility] Comment on above: Performed By: #### L [id number] #### [facility] ([facility]) [address] [place] [address] GLOMERULAR FILTRATION RATE ML/MIN/1.73 SQ M.PREDICTED 100.8 mL/min/1.73m*2 Normal >60.0 [facility] Comment on above: Result Comment: The [facility]???s estimated glomerular filtration rate (eGFR) will no longer include consideration of race in its calculation. The National Kidney Foundation???s eGFR Task Force developed new recommendations for the estimation of the glomerular filtration rate in the [place] They recommend immediate implementation of the new equation refit without the race variable in all laboratories because the calculation does not include race. In addition to not including race in the calculation and reporting, it included diversity in its development, and has acceptable performance characteristics and potential consequences that do not disproportionately affect any one group of individuals. Performed By: #### L [id number] #### [facility] ([facility]) [address] [place] [address] Glucose [Mass/Vol] 89 mg/dL Normal 70-100 [facility] Comment on above: Performed By: #### L [id number] #### [facility] ([facility]) [address] [place] [address] Potassium [Moles/Vol] 4.0 mmol/L Normal 3.5-5.1 [facility] Comment on above: Performed By: #### L [id number] #### [facility] ([facility]) [address] [place] [address] Sodium [Moles/Vol] 137 mmol/L Normal 136-145 [facility] Comment on above: Performed By: #### L [id number] #### [facility] ([facility]) [address] [place] [address] Urea nitrogen [Mass/Vol] 14 mg/dL Normal 7-25 [facility] Comment on above: Performed By: #### L [id number] #### [facility] ([facility]) [address] [place] [address] UREA NITROGEN/CREATININE (MASS RATIO) IN SER/PLAS 20.3 [facility] Comment on above: Performed By: #### L [id number] #### [facility] ([facility]) [address] [place] [address] BLOOD CULTUREon 03-23-2024 Bacteria identified Cx Nom (Bld) No growth at 5 days [facility] Comment on above: Performed By: #### L [id number] ####[facility] ([facility])[address] [place] [address] Order Comment: From a different site than #1., Blood Basophils/100 WBC Manual cnt (Bld)on 03-23-2024 Basophils/100 WBC (Bld) Basophils/100 leukocytes in Blood by Manual count 0.2-2.0 [facility] CBC WITH AUTO DIFFERENTIALon 03-23-2024 Basophils (Bld) [#/Vol] 0.04 10*3/uL Normal 0.00-0.20 [facility] Comment on above: Performed By: #### L [id number] #### [facility] ([facility]) [address] [place] [address] Basophils/100 WBC (Bld) 0.6 % Normal 0.0-1.0 [facility] Comment on above: Performed By: #### L [id number] #### [facility] ([facility]) [address] [place] [address] Eosinophils (Bld) [#/Vol] 0.02 10*3/uL Normal 0.00-0.50 [facility] Comment on above: Performed By: #### L [id number] #### [facility] ([facility]) [address] [place] [address] Eosinophils/100 WBC (Bld) 0.3 % Normal 0.0-6.0 [facility] Comment on above: Performed By: #### L [id number] #### [facility] ([facility]) [address] [place] [address] Erythrocyte distribution width (RBC) [Ratio] 12.9 % Normal 11.5-15.0 [facility] Comment on above: Performed By: #### L [id number] #### [facility] [address] [place] [address] ERYTHROCYTE MEAN CORPUSCULAR HEMOGLOBIN CONCENTRATION (G/DL) BY AUTOMATED 32.9 g/dL Normal 32.0-35.0 [facility] Comment on above: Performed By: #### L [id number] #### [facility] ([facility]) [address] [place] [address] Hematocrit (Bld) [Volume fraction] 38.3 % Low 39.0-55.0 [facility] Comment on above: Performed By: #### L [id number] #### [facility] ([facility]) [address] [place] [address] Hemoglobin (Bld) [Mass/Vol] 12.6 g/dL Low 13.0-17.0 [facility] Comment on above: Performed By: #### L [id number] #### [facility] ([facility]) [address] [place] [address] Immature granulocytes (Bld) [#/Vol] 0.03 10*3/uL Normal 0.00-0.20 [facility] Comment on above: Performed By: #### L [id number] #### [facility] [address] [place] [address] Immature granulocytes/100 WBC (Bld) 0.5 % Normal 0.0-1.0 [facility] Comment on above: Performed By: #### L [id number] #### [facility] ([facility]) [address] [place] [address] Lymphocytes (Bld) [#/Vol] 1.09 10*3/uL Low 1.20-4.00 [facility] Comment on above: Performed By: #### L [id number] #### [facility] ([facility]) [address] [place] [address] Lymphocytes/100 WBC (Bld) 16.9 % Low 20.0-45.0 [facility] Comment on above: Performed By: #### L [id number] #### [facility] ([facility]) [address] [place] [address] MCH (RBC) [Entitic mass] 33.0 pg Normal 27.0-33.0 [facility] Comment on above: Performed By: #### L [id number] #### [facility] [address] [place] [address] MCV (RBC) [Entitic vol] 100.3 fL High 82.0-98.0 [facility] Comment on above: Performed By: #### L [id number] #### [facility] [address] [place] [address] Monocytes (Bld) [#/Vol] 0.33 10*3/uL Normal 0.10-1.00 [facility] Comment on above: Performed By: #### L [id number] #### [facility] [address] [place] [address] Monocytes/100 WBC (Bld) 5.1 % Normal 5.0-12.0 [facility] Comment on above: Performed By: #### L [id number] #### [facility] ([facility]) [address] [place] [address] Neutrophils (Bld) [#/Vol] 4.94 10*3/uL Normal 1.60-7.60 [facility] Comment on above: Performed By: #### L [id number] #### [facility] ([facility]) [address] [place] [address] Neutrophils/100 WBC (Bld) 76.6 % High 40.0-72.0 [facility] Comment on above: Performed By: #### L [id number] #### [facility] ([facility]) [address] [place] [address] NRBC (PER 100 WBCS) BY AUTOMATED COUNT 0.0 % Normal 0 [facility] Comment on above: Performed By: #### L [id number] #### [facility] ([facility]) [address] [place] [address] PLATELETS (10*3/UL) IN BLOOD AUTOMATED COUNT 419 10*3/uL High 150-400 [facility] Comment on above: Performed By: #### L [id number] #### [facility] ([facility]) [address] [place] [address] RBC (Bld) [#/Vol] 3.82 10*6/uL Low 4.20-5.70 [facility] Comment on above: Performed By: #### L [id number] #### [facility] ([facility]) [address] [place] [address] WBC (Bld) [#/Vol] 6.45 10*3/uL Normal 4.00-10.60 [facility] Comment on above: Performed By: #### L [id number] #### [facility] ([facility]) [address] [place] [address] Eosinophils/100 WBC Manual c nt (Bld)on 03-23-2024 Eosinophils/100 WBC (Bld) Eosinophils/100 leukocytes in Blood by Manual count 0.9-7.0 [facility] Erythrocyte distribution wid th Auto (RBC) [Ratio]on 03-23-2024 Erythrocyte distribution width (RBC) [Ratio] Erythrocyte distribution width [Ratio] by Automated count 11.0-15.0 [facility] Estimated glomerular filtrat ion rate (GFR) non- Americanon 03-23-2024 GFR/1.73 sq M.predicted among non-blacks MDRD (S/P/Bld) [Vol rate/Area] Estimated glomerular filtration rate (GFR) non- >=60 mL/min/1.73m 2 [facility] Globulin Calc (S) [Mass/Vol] on 03-23-2024 Globulin (S) [Mass/Vol] Serum globulin measurement by calculation (mass/volume) [facility] HEPATIC FUNCTION PANELon Albumin [Mass/Vol] 3.1 g/dL Low 3.5-5.7 [facility] Comment on above: Performed By: #### L [id number] #### [facility] ([facility]) [address] [place] [address] ALP [Catalytic activity/Vol] 721 U/L High 34-104 [facility] Comment on above: Performed By: #### L [id number] #### [facility] ([facility]) [address] [place] [address] ALT [Catalytic activity/Vol] 106 U/L High 7-52 [facility] Comment on above: Performed By: #### L [id number] #### [facility] ([facility]) [address] [place] [address] AST [Catalytic activity/Vol] 132 U/L High 13-39 [facility] Comment on above: Performed By: #### L [id number] #### [facility] ([facility]) [address] [place] [address] Bilirubin [Mass/Vol] 2.9 mg/dL High 0.3-1.0 [facility] Comment on above: Performed By: #### L [id number] #### [facility] ([facility]) [address] [place] [address] Magnesium [Mass/Vol] 2.0 mg/dL High 0-0.2 [facility] Comment on above: Performed By: #### L [id number] #### [facility] ([facility]) [address] [place] [address] Protein [Mass/Vol] 6.5 g/dL Normal 6.0-8.3 [facility] Comment on above: Performed By: #### L [id number] #### [facility] ([facility]) [address] [place] [address] Hematocrit Auto (Bld) [Volum e fraction]on 03-23-2024 Hematocrit (Bld) [Volume fraction] Hematocrit [Volume Fraction] of Blood by Automated count Low 42.0-54.0 [facility] Hemoglobin [Mass/volume] in Bloodon 03-23-2024 Hemoglobin (Bld) [Mass/Vol] Hemoglobin [Mass/volume] in Blood Low 14.0-18.0 [facility] LACTIC ACID, PLASMAon 2023 LACTATE (MMOL/L) IN SER/PLAS 0.6 mmol/L Normal 0.5-2.2 [facility] Comment on above: Performed By: #### L [id number] #### [facility] ([facility]) [address] [place] [address] LIPASEon 03-23-2024 LIPASE (U/L) IN SER/PLAS 587 U/L High 11-82 [facility] Comment on above: Performed By: #### L [id number] #### [facility] ([facility]) [address] [place] [address] Laboratory - Chemistry and C hemistry - challengeon 03-23-2024 Albumin [Mass/Vol] 2.4 g/dL Low 3.4-5.0 [facility] ALP [Catalytic activity/Vol] 885 U/L High 46-116 [facility] ALT [Catalytic activity/Vol] 157 U/L High 16-63 [facility] Amylase [Catalytic activity/Vol] 3548 U/L Critically high 25-115 [facility] Comment on above: RESULTS CALLED TO WILLIAM WILD RN AT 0821 AST [Catalytic activity/Vol] 237 U/L High 15-37 [facility] Bilirubin [Mass/Vol] 2.7 mg/dL High 0.2-1.0 [facility] Bilirubin.direct [Mass/Vol] 2.4 mg/dL Critically high 0.0-0.2 [facility] Comment on above: RESULTS CALLED TO WILLIAM WILD RN AT 0821 Calcium [Mass/Vol] 9.2 mg/dL 8.5-10.1 [facility] Chloride [Moles/Vol] 104 mmol/L 98-107 [facility] CO2 [Moles/Vol] 23.8 mmol/L 21.0-32.0 [facility] Creatinine [Mass/Vol] 0.90 mg/dL 0.70-1.30 [facility] GFR/1.73 sq M.predicted MDRD (S/P/Bld) [Vol rate/Area] mL/min/{1.73_m2} >=60 mL/min/1.73m 2 [facility] Glucose [Mass/Vol] 143 mg/dL High 74-106 [facility] Lipase [Catalytic activity/Vol] 3680.0 U/L Critically high 16.0-77.0 [facility] Comment on above: RESULTS CALLED TO WILLIAM WILD RN AT 0821 Potassium [Moles/Vol] 3.8 mmol/L 3.5-5.1 [facility] Protein [Mass/Vol] 7.1 g/dL 6.4-8.2 [facility] Sodium [Moles/Vol] 138 mmol/L 136-145 [facility] Urea nitrogen [Mass/Vol] 14.0 mg/dL 7.0-18.0 [facility] Urea nitrogen/Creatinine [Mass ratio] 15.6 mg/mg [facility] Laboratory - Hematology and Cell countson 03-23-2024 Lymphocytes/100 WBC (Bld) 6.0 % Low 20.5-60.0 [facility] Monocytes/100 WBC (Bld) 1.0 % Low 1.7-12.0 [facility] Leukocytes [#/volume] correc julio for nucleated erythrocytes in Blood by Automated counon 03-23-2024 WBC corrected for nucl RBC Auto (Bld) [#/Vol] Leukocytes [#/volume] corrected for nucleated erythrocytes in Blood by Automated coun 4.0-11.0 [facility] MAGNESIUMon 03-23-2024 Magnesium [Mass/Vol] 1.9 mg/dL Normal 1.9-2.7 [facility] Comment on above: Performed By: #### L [id number] #### [facility] ([facility]) [address] [place] [address] MCH Auto (RBC) [Entitic mass ]on 03-23-2024 MCH (RBC) [Entitic mass] MCH [Entitic mass] by Automated count 25.9-34.0 [facility] MCHC Auto (RBC) [Mass/Vol]on 03-23-2024 MCHC (RBC) [Mass/Vol] MCHC [Mass/volume] by Automated count 29.9-35.2 [facility] MCV Auto (RBC) [Entitic vol] on 03-23-2024 MCV (RBC) [Entitic vol] MCV [Entitic volume] by Automated count High 80.0-94.0 [facility] No Panel Informationon 03-23 Absolute Basophils (Manual) 0.15 10 3/uL High 0.00-0.10 [facility] Eosinophils # (Manual) 0.07 10 3/uL 0.00-0.70 [facility] Lymphocytes # (Manual) 0.45 10 3/uL Low 1.20-3.80 [facility] Monocytes # (Manual) 0.07 10 3/uL Low 0.30-0.80 [facility] Segmented Neutrophils # (Manual) 6.84 10 3/uL High 1.4-6.5 [facility] PHOSPHORUSon 03-23-2024 Magnesium [Mass/Vol] 3.9 mg/dL Normal 2.5-5.0 [facility] Comment on above: Performed By: #### L [id number] #### [facility] ([facility]) [address] [place] [address] PROTIME-INRon 03-23-2024 INR IN PPP BY COAGULATION ASSAY 1.07 Normal 0.90-1.10 [facility] Comment on above: Result Comment: ACCC P RECOMMENDED INR FOR WARFARIN THERAPY CONDITION INR PROPHYLAXIS OF VENOUS THROMBOSIS 2-3 (HIGH-RISK SURGERY) TREATMENT OF VENOUS THROMBOSIS 2-3 TREATMENT OF PULMONARY EMBOLISM 2-3 PREVENTION OF SYSTEMIC EMBOLISM: 2-3 ACUTE MYOCARDIAL INFARCTION TISSUE HEART VALVES VALVULAR HEART DISEASE ATRIAL FIBRILLATION RECURRENT SYSTEMIC EMBOLISM MECHANICAL HEART VALVE 2.5-3.5 FROM: ORAL ANTICOAGULANTS. MECHANISM OF ACTION, CLINICAL EFFECTIVENESS, AND OPTIMAL THERAPEUTIC RANGE. CHEST 1995;108:231S-246S. Performed By: #### L [id number] ####[facility] ([facility])[address] [place] [address] PROTHROMBIN TIME (PT) IN PPP BY COAGULATION ASSAY 13.9 Seconds Normal 12.3-14.8 [facility] Comment on above: Performed By: #### L [id number] ####[facility] ([facility])[address] [place] [address] Platelet mean volume Auto (B ld) [Entitic vol]on 03-23-2024 Platelet mean volume (Bld) [Entitic vol] Platelet mean volume [Entitic volume] in Blood by Automated count Low 9.5-13.5 [facility] Platelets Auto (Bld) [#/Vol] on 03-23-2024 Platelets (Bld) [#/Vol] Platelets [#/volume] in Blood by Automated count High 150-450 [facility] RBC Auto (Bld) [#/Vol]on RBC (Bld) [#/Vol] Erythrocytes [#/volume] in Blood by Automated count Low 4.70-6.10 [facility] Segmented neutrophils/100 WB C Manual cnt (Bld)on 03-23-2024 Segmented neutrophils/100 WBC (Bld) Manual blood segmented neutrophils/100 leukocytes High 43.0-75.0 [facility] Serum or plasma albumin/glob ulin mass ratioon 03-23-2024 Albumin/Globulin [Mass ratio] Serum or plasma albumin/globulin mass ratio [facility] Serum or plasma anion gap de terminationon 03-23-2024 Anion gap [Moles/Vol] Serum or plasma an ion gap determination [facility] TROPONIN Ion 03-23-2024 Troponin I.cardiac [Mass/Vol] 0.02 ng/mL Normal 0.00-0.04 [facility] Comment on above: Performed By: #### L [id number] #### [facility] ([facility]) [address] [place] [address] Pathology study report docum entOrdered By: iMguel Beltrán on 03-11-2024 Pathology study [facility] Other Basophils Auto (Bld) [#/Vol] on 03-08-2024 Basophils (Bld) [#/Vol] Automated basophil count 0.0-0.1 [facility] Basophils/100 WBC Auto (Bld) on 03-08-2024 Basophils/100 WBC (Bld) Automated basophil % 0.2-2.0 [facility] Eosinophils/100 WBC Auto (Bl d)on 03-08-2024 Eosinophils/100 WBC (Bld) Automated eosinophil % Low 0.9-7.0 [facility] Erythrocyte distribution wid th Auto (RBC) [Ratio]on 03-08-2024 Erythrocyte distribution width (RBC) [Ratio] Erythrocyte distribution width [Ratio] by Automated count 11.0-15.0 [facility] Estimated glomerular filtrat ion rate (GFR) non- Americanon 03-08-2024 GFR/1.73 sq M.predicted among non-blacks MDRD (S/P/Bld) [Vol rate/Area] Estimated glomerular filtration rate (GFR) non- >=60 mL/min/1.73m 2 [facility] Globulin Calc (S) [Mass/Vol] on 03-08-2024 Globulin (S) [Mass/Vol] Serum globulin measurement by calculation (mass/volume) [facility] Hematocrit Auto (Bld) [Volum e fraction]on 03-08-2024 Hematocrit (Bld) [Volume fraction] Hematocrit [Volume Fraction] of Blood by Automated count Low 42.0-54.0 [facility] Hemoglobin [Mass/volume] in Bloodon 03-08-2024 Hemoglobin (Bld) [Mass/Vol] Hemoglobin [Mass/volume] in Blood Low 14.0-18.0 [facility] Elias 03-08-2024 L -- ---- Specimen: [id number] Received: 03/08/24 Status: CARLOS Johnston Num: [id number] Spec Type: Surgical Subm Dr: Gurmeet Muñiz DO Tissues: A Gallbladder (GALLBLADDER) Procedures: Ning GUPTA/Mague L3 ---- Age/ Patient Sex Location Account Attending Physician ---- Bia Reyes 68/M [place] [id number] Gurmeet Muñiz DO ---- SPEC NUM: [id number] RECD: 03/08/24 STATUS: CARLOS JOHNSTON NUM: [id number] MISTY: 03/08/[address] [facility] DR: Gurmeet Muñiz DO ENTERED: 03/08/[address]: David,Lab SPEC TYPE: Surgical DEPT: STEPHANIE RAVI ENTERED BY: [id number] RECV BY: [id number] ORDERED: HE, Gross/Micro L3 ORDERED: HE, Gross/Micro [...] jar filtered and no calculi are identified. Fisheries Inspector sections are submitted in a single cassette. (1, , [id number]) GIL ---- Specimen: [id number] Received: 03/08/24 Status: CARLOS Johnston Num: [id number] Spec Type: Surgical Subm Dr: Gurmeet Muñiz DO Tissues: A Gallbladder (GALLBLADDER) Procedures: Ning GUPTA/Mague L3 ---- Patient: Bia Reyes [id number] (Continued) ---- Specimen: [id number] Received: 03/08/24 (Continued) Signed (signature on file) Miguel Beltrán MD 03/11/24 1719 ---- Specimen: [id number] Received: 03/08/24 Status: CARLOS Johnston Num: [id number] Spec Type: Surgical Subm Dr: Gurmeet Muñiz DO Tissues: A Gallbladder (GALLBLADDER) Procedures: Diamond GUPTA L3 ---- Patient: Bia Reyes [id number] (Continued) ---- Specimen: [id number] Received: 03/08/24 (Continued) Microscopic Description Microscopic examination is performed. CPT Codes 46722 ---- ---- Specimen: [id number] Received: 03/08/24 Status: CARLOS Johnston Num: [id number] Spec Type: Surgical Subm Dr: Gurmeet Muñiz DO Tissues: A Gallbladder (GALLBLADDER) Procedures: Diamond GUPTA ---- Patient: Bia Reyes [id number] (Continued) ---- Signed (signature on file) Miguel Beltrán MD 03/11/24 0939 Normal [facility] Laboratory - Chemistry and C hemistry - challengeon 03-08-2024 Albumin [Mass/Vol] 2.5 g/dL Low 3.4-5.0 [facility] ALP [Catalytic activity/Vol] 106 U/L 46-116 [facility] ALT [Catalytic activity/Vol] 47 U/L 16-63 [facility] AST [Catalytic activity/Vol] 29 U/L 15-37 [facility] Bilirubin [Mass/Vol] 1.0 mg/dL 0.2-1.0 [facility] Calcium [Mass/Vol] 8.2 mg/dL Low 8.5-10.1 [facility] Chloride [Moles/Vol] 105 mmol/L 98-107 [facility] CO2 [Moles/Vol] 19.4 mmol/L Low 21.0-32.0 [facility] Creatinine [Mass/Vol] 0.91 mg/dL 0.70-1.30 [facility] GFR/1.73 sq M.predicted MDRD (S/P/Bld) [Vol rate/Area] mL/min/{1.73_m2} >=60 mL/min/1.73m 2 [facility] Glucose [Mass/Vol] 63 mg/dL Low 74-106 [facility] Lipase [Catalytic activity/Vol] 25.0 U/L 16.0-77.0 [facility] Potassium [Moles/Vol] 3.6 mmol/L 3.5-5.1 [facility] Protein [Mass/Vol] 5.9 g/dL Low 6.4-8.2 [facility] Sodium [Moles/Vol] 139 mmol/L 136-145 [facility] Urea nitrogen [Mass/Vol] 9.0 mg/dL 7.0-18.0 [facility] Urea nitrogen/Creatinine [Mass ratio] 9.9 mg/mg [facility] Laboratory - Hematology and Cell countson 03-08-2024 Immature granulocytes/100 WBC (Bld) 0.4 % 0.0-0.5 [facility] Leukocytes [#/volume] correc julio for nucleated erythrocytes in Blood by Automated counon 03-08-2024 WBC corrected for nucl RBC Auto (Bld) [#/Vol] Leukocytes [#/volume] corrected for nucleated erythrocytes in Blood by Automated coun 4.0-11.0 [facility] Lymphocytes Auto (Bld) [#/Vo l]on 03-08-2024 Lymphocytes (Bld) [#/Vol] Lymphocytes [#/volume] in Blood by Automated count 1.2-3.8 [facility] Lymphocytes/100 WBC Auto (Bl d)on 03-08-2024 Lymphocytes/100 WBC (Bld) Lymphocytes/100 leukocytes in Blood by Automated count 20.5-60.0 [facility] MCH Auto (RBC) [Entitic mass ]on 03-08-2024 MCH (RBC) [Entitic mass] MCH [Entitic mass] by Automated count 25.9-34.0 [facility] MCHC Auto (RBC) [Mass/Vol]on 03-08-2024 MCHC (RBC) [Mass/Vol] MCHC [Mass/volume] by Automated count 29.9-35.2 [facility] MCV Auto (RBC) [Entitic vol] on 03-08-2024 MCV (RBC) [Entitic vol] MCV [Entitic volume] by Automated count High 80.0-94.0 [facility] Monocytes Auto (Bld) [#/Vol] on 03-08-2024 Monocytes (Bld) [#/Vol] Automated blood monocyte count 0.3-0.8 [facility] Monocytes/100 WBC Auto (Bld) on 03-08-2024 Monocytes/100 WBC (Bld) Automated monocyte % 1.7-12.0 [facility] Neutrophils Auto (Bld) [#/Vo l]on 03-08-2024 Neutrophils (Bld) [#/Vol] Neutrophils [#/volume] in Blood by Automated count 1.4-6.5 [facility] Neutrophils/100 WBC Auto (Bl d)on 03-08-2024 Neutrophils/100 WBC (Bld) Automated neutrophil % 43.0-75.0 [facility] No Panel InformationOrdered By: Chloe Gipson on 03-08-2024 [employer] No Panel Informationon 03-08 Eosinophils # (Auto) 0.0 10 3/uL 0.0-0.7 [facility] Immature Granulocyte # (Auto) 0.02 10 3/uL 0.00-0.03 [facility] Platelet mean volume Auto (B ld) [Entitic vol]on 03-08-2024 Platelet mean volume (Bld) [Entitic vol] Platelet mean volume [Entitic volume] in Blood by Automated count 9.5-13.5 [facility] Platelets Auto (Bld) [#/Vol] on 03-08-2024 Platelets (Bld) [#/Vol] Platelets [#/volume] in Blood by Automated count 150-450 [facility] RBC Auto (Bld) [#/Vol]on RBC (Bld) [#/Vol] Erythrocytes [#/volume] in Blood by Automated count Low 4.70-6.10 [facility] Serum or plasma albumin/glob ulin mass ratioon 03-08-2024 Albumin/Globulin [Mass ratio] Serum or plasma albumin/globulin mass ratio [facility] Serum or plasma anion gap de terminationon 03-08-2024 Anion gap [Moles/Vol] Serum or plasma an ion gap determination [facility] Basophils Auto (Bld) [#/Vol] on 03-07-2024 Basophils (Bld) [#/Vol] Automated basophil count 0.0-0.1 [facility] Basophils/100 WBC Auto (Bld) on 03-07-2024 Basophils/100 WBC (Bld) Automated basophil % 0.2-2.0 [facility] Eosinophils/100 WBC Auto (Bl d)on 03-07-2024 Eosinophils/100 WBC (Bld) Automated eosinophil % Low 0.9-7.0 [facility] Erythrocyte distribution wid th Auto (RBC) [Ratio]on 03-07-2024 Erythrocyte distribution width (RBC) [Ratio] Erythrocyte distribution width [Ratio] by Automated count 11.0-15.0 [facility] Estimated glomerular filtrat ion rate (GFR) non- Americanon 03-07-2024 GFR/1.73 sq M.predicted among non-blacks MDRD (S/P/Bld) [Vol rate/Area] Estimated glomerular filtration rate (GFR) non- >=60 mL/min/1.73m 2 [facility] Globulin Calc (S) [Mass/Vol] on 03-07-2024 Globulin (S) [Mass/Vol] Serum globulin measurement by calculation (mass/volume) [facility] Hematocrit Auto (Bld) [Volum e fraction]on 03-07-2024 Hematocrit (Bld) [Volume fraction] Hematocrit [Volume Fraction] of Blood by Automated count Low 42.0-54.0 [facility] Hemoglobin [Mass/volume] in Bloodon 03-07-2024 Hemoglobin (Bld) [Mass/Vol] Hemoglobin [Mass/volume] in Blood Low 14.0-18.0 [facility] Laboratory - Chemistry and C hemistry - challengeon 03-07-2024 Albumin [Mass/Vol] 2.8 g/dL Low 3.4-5.0 [facility] ALP [Catalytic activity/Vol] 132 U/L High 46-116 [facility] ALT [Catalytic activity/Vol] 70 U/L High 16-63 [facility] AST [Catalytic activity/Vol] 50 U/L High 15-37 [facility] Bilirubin [Mass/Vol] 0.9 mg/dL 0.2-1.0 [facility] Bilirubin.direct [Mass/Vol] 0.3 mg/dL High 0.0-0.2 [facility] Calcium [Mass/Vol] 7.9 mg/dL Low 8.5-10.1 [facility] Chloride [Moles/Vol] 104 mmol/L 98-107 [facility] CO2 [Moles/Vol] 20.9 mmol/L Low 21.0-32.0 [facility] Creatinine [Mass/Vol] 0.86 mg/dL 0.70-1.30 [facility] GFR/1.73 sq M.predicted MDRD (S/P/Bld) [Vol rate/Area] mL/min/{1.73_m2} >=60 mL/min/1.73m 2 [facility] Glucose [Mass/Vol] 75 mg/dL 74-106 [facility] Lipase [Catalytic activity/Vol] 90.0 U/L High 16.0-77.0 [facility] Potassium [Moles/Vol] 3.7 mmol/L 3.5-5.1 [facility] Protein [Mass/Vol] 6.3 g/dL Low 6.4-8.2 [facility] Sodium [Moles/Vol] 136 mmol/L 136-145 [facility] Urea nitrogen [Mass/Vol] 6.0 mg/dL Low 7.0-18.0 [facility] Urea nitrogen/Creatinine [Mass ratio] 7.0 mg/mg [facility] Laboratory - Hematology and Cell countson 03-07-2024 Immature granulocytes/100 WBC (Bld) 0.3 % 0.0-0.5 [facility] Leukocytes [#/volume] correc julio for nucleated erythrocytes in Blood by Automated counon 03-07-2024 WBC corrected for nucl RBC Auto (Bld) [#/Vol] Leukocytes [#/volume] corrected for nucleated erythrocytes in Blood by Automated coun 4.0-11.0 [facility] Lymphocytes Auto (Bld) [#/Vo l]on 03-07-2024 Lymphocytes (Bld) [#/Vol] Lymphocytes [#/volume] in Blood by Automated count 1.2-3.8 [facility] Lymphocytes/100 WBC Auto (Bl d)on 03-07-2024 Lymphocytes/100 WBC (Bld) Lymphocytes/100 leukocytes in Blood by Automated count Low 20.5-60.0 [facility] MCH Auto (RBC) [Entitic mass ]on 03-07-2024 MCH (RBC) [Entitic mass] MCH [Entitic mass] by Automated count 25.9-34.0 [facility] MCHC Auto (RBC) [Mass/Vol]on 03-07-2024 MCHC (RBC) [Mass/Vol] MCHC [Mass/volume] by Automated count 29.9-35.2 [facility] MCV Auto (RBC) [Entitic vol] on 03-07-2024 MCV (RBC) [Entitic vol] MCV [Entitic volume] by Automated count High 80.0-94.0 [facility] Monocytes Auto (Bld) [#/Vol] on 03-07-2024 Monocytes (Bld) [#/Vol] Automated blood monocyte count 0.3-0.8 [facility] Monocytes/100 WBC Auto (Bld) on 03-07-2024 Monocytes/100 WBC (Bld) Automated monocyte % 1.7-12.0 [facility] Neutrophils Auto (Bld) [#/Vo l]on 03-07-2024 Neutrophils (Bld) [#/Vol] Neutrophils [#/volume] in Blood by Automated count 1.4-6.5 [facility] Neutrophils/100 WBC Auto (Bl d)on 03-07-2024 Neutrophils/100 WBC (Bld) Automated neutrophil % 43.0-75.0 [facility] No Panel Informationon 03-07 Eosinophils # (Auto) 0.0 10 3/uL 0.0-0.7 [facility] Immature Granulocyte # (Auto) 0.02 10 3/uL 0.00-0.03 [facility] Platelet mean volume Auto (B ld) [Entitic vol]on 03-07-2024 Platelet mean volume (Bld) [Entitic vol] Platelet mean volume [Entitic volume] in Blood by Automated count 9.5-13.5 [facility] Platelets Auto (Bld) [#/Vol] on 03-07-2024 Platelets (Bld) [#/Vol] Platelets [#/volume] in Blood by Automated count 150-450 [facility] RBC Auto (Bld) [#/Vol]on RBC (Bld) [#/Vol] Erythrocytes [#/volume] in Blood by Automated count Low 4.70-6.10 [facility] Serum or plasma albumin/glob ulin mass ratioon 03-07-2024 Albumin/Globulin [Mass ratio] Serum or plasma albumin/globulin mass ratio [facility] Serum or plasma anion gap de terminationon 03-07-2024 Anion gap [Moles/Vol] Serum or plasma an ion gap determination [facility] Basophils Auto (Bld) [#/Vol] on 03-06-2024 Basophils (Bld) [#/Vol] Automated basophil count 0.0-0.1 [facility] Basophils/100 WBC Auto (Bld) on 03-06-2024 Basophils/100 WBC (Bld) Automated basophil % 0.2-2.0 [facility] Eosinophils/100 WBC Auto (Bl d)on 03-06-2024 Eosinophils/100 WBC (Bld) Automated eosinophil % Low 0.9-7.0 [facility] Erythrocyte distribution wid th Auto (RBC) [Ratio]on 03-06-2024 Erythrocyte distribution width (RBC) [Ratio] Erythrocyte distribution width [Ratio] by Automated count 11.0-15.0 [facility] Estimated glomerular filtrat ion rate (GFR) non- Americanon 03-06-2024 GFR/1.73 sq M.predicted among non-blacks MDRD (S/P/Bld) [Vol rate/Area] Estimated glomerular filtration rate (GFR) non- >=60 mL/min/1.73m 2 [facility] Globulin Calc (S) [Mass/Vol] on 03-06-2024 Globulin (S) [Mass/Vol] Serum globulin measurement by calculation (mass/volume) [facility] Hematocrit Auto (Bld) [Volum e fraction]on 03-06-2024 Hematocrit (Bld) [Volume fraction] Hematocrit [Volume Fraction] of Blood by Automated count Low 42.0-54.0 [facility] Hemoglobin [Mass/volume] in Bloodon 03-06-2024 Hemoglobin (Bld) [Mass/Vol] Hemoglobin [Mass/volume] in Blood Low 14.0-18.0 [facility] Laboratory - Chemistry and C hemistry - challengeon 03-06-2024 Albumin [Mass/Vol] 2.5 g/dL Low 3.4-5.0 [facility] ALP [Catalytic activity/Vol] 131 U/L High 46-116 [facility] ALT [Catalytic activity/Vol] 97 U/L High 16-63 [facility] AST [Catalytic activity/Vol] 82 U/L High 15-37 [facility] Bilirubin [Mass/Vol] 1.0 mg/dL 0.2-1.0 [facility] Calcium [Mass/Vol] 7.7 mg/dL Low 8.5-10.1 [facility] Chloride [Moles/Vol] 110 mmol/L High 98-107 [facility] CO2 [Moles/Vol] 23.3 mmol/L 21.0-32.0 [facility] Creatinine [Mass/Vol] 0.92 mg/dL 0.70-1.30 [facility] GFR/1.73 sq M.predicted MDRD (S/P/Bld) [Vol rate/Area] mL/min/{1.73_m2} >=60 mL/min/1.73m 2 [facility] Glucose [Mass/Vol] 76 mg/dL 74-106 [facility] Lipase [Catalytic activity/Vol] 1102.0 U/L Critically high 16.0-77.0 [facility] Comment on above: RESULTS CALLED TO SAEED VICENTE RN @BY Thea Headley at 0634 Potassium [Moles/Vol] 4.0 mmol/L 3.5-5.1 [facility] Protein [Mass/Vol] 5.6 g/dL Low 6.4-8.2 [facility] Sodium [Moles/Vol] 141 mmol/L 136-145 [facility] Urea nitrogen [Mass/Vol] 9.0 mg/dL 7.0-18.0 [facility] Urea nitrogen/Creatinine [Mass ratio] 9.8 mg/mg [facility] Laboratory - Hematology and Cell countson 03-06-2024 Immature granulocytes/100 WBC (Bld) 0.2 % 0.0-0.5 [facility] Leukocytes [#/volume] correc julio for nucleated erythrocytes in Blood by Automated counon 03-06-2024 WBC corrected for nucl RBC Auto (Bld) [#/Vol] Leukocytes [#/volume] corrected for nucleated erythrocytes in Blood by Automated coun 4.0-11.0 [facility] Lymphocytes Auto (Bld) [#/Vo l]on 03-06-2024 Lymphocytes (Bld) [#/Vol] Lymphocytes [#/volume] in Blood by Automated count 1.2-3.8 [facility] Lymphocytes/100 WBC Auto (Bl d)on 03-06-2024 Lymphocytes/100 WBC (Bld) Lymphocytes/100 leukocytes in Blood by Automated count 20.5-60.0 [facility] MCH Auto (RBC) [Entitic mass ]on 03-06-2024 MCH (RBC) [Entitic mass] MCH [Entitic mass] by Automated count 25.9-34.0 [facility] MCHC Auto (RBC) [Mass/Vol]on 03-06-2024 MCHC (RBC) [Mass/Vol] MCHC [Mass/volume] by Automated count 29.9-35.2 [facility] MCV Auto (RBC) [Entitic vol] on 03-06-2024 MCV (RBC) [Entitic vol] MCV [Entitic volume] by Automated count High 80.0-94.0 [facility] Monocytes Auto (Bld) [#/Vol] on 03-06-2024 Monocytes (Bld) [#/Vol] Automated blood monocyte count 0.3-0.8 [facility] Monocytes/100 WBC Auto (Bld) on 03-06-2024 Monocytes/100 WBC (Bld) Automated monocyte % 1.7-12.0 [facility] Neutrophils Auto (Bld) [#/Vo l]on 03-06-2024 Neutrophils (Bld) [#/Vol] Neutrophils [#/volume] in Blood by Automated count 1.4-6.5 [facility] Neutrophils/100 WBC Auto (Bl d)on 03-06-2024 Neutrophils/100 WBC (Bld) Automated neutrophil % 43.0-75.0 [facility] No Panel Informationon 03-06 Eosinophils # (Auto) 0.0 10 3/uL 0.0-0.7 [facility] Immature Granulocyte # (Auto) 0.01 10 3/uL 0.00-0.03 [facility] Platelet mean volume Auto (B ld) [Entitic vol]on 03-06-2024 Platelet mean volume (Bld) [Entitic vol] Platelet mean volume [Entitic volume] in Blood by Automated count 9.5-13.5 [facility] Platelets Auto (Bld) [#/Vol] on 03-06-2024 Platelets (Bld) [#/Vol] Platelets [#/volume] in Blood by Automated count 150-450 [facility] RBC Auto (Bld) [#/Vol]on RBC (Bld) [#/Vol] Erythrocytes [#/volume] in Blood by Automated count Low 4.70-6.10 [facility] Serum or plasma albumin/glob ulin mass ratioon 03-06-2024 Albumin/Globulin [Mass ratio] Serum or plasma albumin/globulin mass ratio [facility] Serum or plasma anion gap de terminationon 03-06-2024 Anion gap [Moles/Vol] Serum or plasma an ion gap determination [facility] Basophils Auto (Bld) [#/Vol] on 03-05-2024 Basophils (Bld) [#/Vol] Automated basophil count 0.0-0.1 [facility] Basophils/100 WBC Auto (Bld) on 03-05-2024 Basophils/100 WBC (Bld) Automated basophil % 0.2-2.0 [facility] Eosinophils/100 WBC Auto (Bl d)on 03-05-2024 Eosinophils/100 WBC (Bld) Automated eosinophil % Low 0.9-7.0 [facility] Erythrocyte distribution wid th Auto (RBC) [Ratio]on 03-05-2024 Erythrocyte distribution width (RBC) [Ratio] Erythrocyte distribution width [Ratio] by Automated count 11.0-15.0 [facility] Estimated glomerular filtrat ion rate (GFR) non- Americanon 03-05-2024 GFR/1.73 sq M.predicted among non-blacks MDRD (S/P/Bld) [Vol rate/Area] Estimated glomerular filtration rate (GFR) non- >=60 mL/min/1.73m 2 [facility] Globulin Calc (S) [Mass/Vol] on 03-05-2024 Globulin (S) [Mass/Vol] Serum globulin measurement by calculation (mass/volume) [facility] Hematocrit Auto (Bld) [Volum e fraction]on 03-05-2024 Hematocrit (Bld) [Volume fraction] Hematocrit [Volume Fraction] of Blood by Automated count 42.0-54.0 [facility] Hemoglobin [Mass/volume] in Bloodon 03-05-2024 Hemoglobin (Bld) [Mass/Vol] Hemoglobin [Mass/volume] in Blood 14.0-18.0 [facility] Laboratory - Chemistry and C hemistry - challengeon 03-05-2024 Albumin [Mass/Vol] 3.5 g/dL 3.4-5.0 [facility] ALP [Catalytic activity/Vol] 172 U/L High 46-116 [facility] ALT [Catalytic activity/Vol] 177 U/L High 16-63 [facility] AST [Catalytic activity/Vol] 188 U/L High 15-37 [facility] Bilirubin [Mass/Vol] 3.2 mg/dL High 0.2-1.0 [facility] Calcium [Mass/Vol] 9.5 mg/dL 8.5-10.1 [facility] Chloride [Moles/Vol] 110 mmol/L High 98-107 [facility] CO2 [Moles/Vol] 25.7 mmol/L 21.0-32.0 [facility] Creatinine [Mass/Vol] 1.15 mg/dL 0.70-1.30 [facility] GFR/1.73 sq M.predicted MDRD (S/P/Bld) [Vol rate/Area] mL/min/{1.73_m2} >=60 mL/min/1.73m 2 [facility] Glucose [Mass/Vol] 113 mg/dL High 74-106 [facility] Lipase [Catalytic activity/Vol] 3549.0 U/L Critically high 16.0-77.0 [facility] Comment on above: RESULTS CALLED TO HERB ADORNORN)-ER Potassium [Moles/Vol] 4.3 mmol/L 3.5-5.1 [facility] Protein [Mass/Vol] 7.3 g/dL 6.4-8.2 [facility] Sodium [Moles/Vol] 145 mmol/L 136-145 [facility] Urea nitrogen [Mass/Vol] 16.0 mg/dL 7.0-18.0 [facility] Urea nitrogen/Creatinine [Mass ratio] 13.9 mg/mg [facility] Laboratory - Hematology and Cell countson 03-05-2024 Immature granulocytes/100 WBC (Bld) 0.0 % 0.0-0.5 [facility] Leukocytes [#/volume] correc julio for nucleated erythrocytes in Blood by Automated counon 03-05-2024 WBC corrected for nucl RBC Auto (Bld) [#/Vol] Leukocytes [#/volume] corrected for nucleated erythrocytes in Blood by Automated coun 4.0-11.0 [facility] Lymphocytes Auto (Bld) [#/Vo l]on 03-05-2024 Lymphocytes (Bld) [#/Vol] Lymphocytes [#/volume] in Blood by Automated count Low 1.2-3.8 [facility] Lymphocytes/100 WBC Auto (Bl d)on 03-05-2024 Lymphocytes/100 WBC (Bld) Lymphocytes/100 leukocytes in Blood by Automated count Low 20.5-60.0 [facility] MCH Auto (RBC) [Entitic mass ]on 03-05-2024 MCH (RBC) [Entitic mass] MCH [Entitic mass] by Automated count 25.9-34.0 [facility] MCHC Auto (RBC) [Mass/Vol]on 03-05-2024 MCHC (RBC) [Mass/Vol] MCHC [Mass/volume] by Automated count 29.9-35.2 [facility] MCV Auto (RBC) [Entitic vol] on 03-05-2024 MCV (RBC) [Entitic vol] MCV [Entitic volume] by Automated count High 80.0-94.0 [facility] Monocytes Auto (Bld) [#/Vol] on 03-05-2024 Monocytes (Bld) [#/Vol] Automated blood monocyte count 0.3-0.8 [facility] Monocytes/100 WBC Auto (Bld) on 03-05-2024 Monocytes/100 WBC (Bld) Automated monocyte % 1.7-12.0 [facility] Neutrophils Auto (Bld) [#/Vo l]on 03-05-2024 Neutrophils (Bld) [#/Vol] Neutrophils [#/volume] in Blood by Automated count 1.4-6.5 [facility] Neutrophils/100 WBC Auto (Bl d)on 03-05-2024 Neutrophils/100 WBC (Bld) Automated neutrophil % 43.0-75.0 [facility] No Panel Informationon 03-05 Eosinophils # (Auto) 0.0 10 3/uL 0.0-0.7 [facility] Immature Granulocyte # (Auto) 0.00 10 3/uL 0.00-0.03 [facility] Troponin I High Sensitivity 9.6 pg/mL 4.0-76.1 [facility] Comment on above: CUT-OFF POINTS HAVE BEEN ESTABLISHED BASED ON THE FOURTHUNIVERSAL DEFINITION OF MYOCARDIAL INFARCTION. THE UPPERREFERENCE LIMIT (URL) OF TROPONIN, DEFINED THE 99THPERCENTILE OF cTnI DISTRIBUTION IN A REFERENCE POPULATION,HAS BEEN CONFIRMED THE DECISION THRESHOLD FOR MIDIAGNOSIS.99TH PERCENTILE = 76.2 PG/MLNOTE: HIGH-SENSITIVITY TROPONIN ASSAY IS NOT INTENDED TO BEUSED IN ISOLATION BUT SHOULD BE INTERPRETED IN CONJUNCTIONWITH OTHER DIAGNOSTIC AND CLINICAL INFORMATION. Platelet mean volume Auto (B ld) [Entitic vol]on 03-05-2024 Platelet mean volume (Bld) [Entitic vol] Platelet mean volume [Entitic volume] in Blood by Automated count Low 9.5-13.5 [facility] Platelets Auto (Bld) [#/Vol] on 03-05-2024 Platelets (Bld) [#/Vol] Platelets [#/volume] in Blood by Automated count 150-450 [facility] RBC Auto (Bld) [#/Vol]on RBC (Bld) [#/Vol] Erythrocytes [#/volume] in Blood by Automated count Low 4.70-6.10 [facility] Serum or plasma albumin/glob ulin mass ratioon 03-05-2024 Albumin/Globulin [Mass ratio] Serum or plasma albumin/globulin mass ratio [facility] Serum or plasma anion gap de terminationon 03-05-2024 Anion gap [Moles/Vol] Serum or plasma an ion gap determination [facility] LIPID PROFILEon 03-14-2020 CHOL-HDL RATIO NORM SEE BELOW Normal [facility] Comment on above: Result Comment: 3.3 - 4.4 LOW RISK 4.4 - 7.1 AVERAGE RISK 7.1 - 11.0 MODERATE RISK >11.0 HIGH RISK Performed By: #### L IPID, PSASC, CMP #### [facility] [address] [place], [place] [address] Lynne Lynn Cholesterol [Mass/Vol] 186 mg/dL Normal <=200 [facility] Comment on above: Performed By: #### L IPID, PSASC, CMP #### [facility] [address] [place] [id number] Lynne Lynn Cholesterol in HDL [Mass/Vol] 56 mg/dL Normal [facility] Comment on above: Performed By: #### L IPID, PSASC, CMP #### [facility] [address] [place], [place] [address] Lynne Lynn Cholesterol in HDL [Mass/Vol] > or = 60 mg/dl - LOW CARDIOVASCULAR RISK <40 mg/dl - HIGH CARDIOVASCULAR RISK Normal [facility] Comment on above: Performed By: #### L IPID, PSASC, CMP #### [facility] [address] [place], [place] [address] Lynne Lynn Cholesterol in LDL [Mass/Vol] 119.8 mg/dL Normal [facility] Comment on above: Performed By: #### L IPID, PSASC, CMP #### [facility] [address] [place], [place] [address] Lynne Lynn Cholesterol in LDL [Mass/Vol] SEE BELOW Normal [facility] Comment on above: Result Comment: <100 mg/dl OPTIMAL 100 - 129 mg/dl NEAR OR ABOVE OPTIMAL 130 - 159 mg/dl BORDERLINE HIGH 160 - 189 mg/dl HIGH >190 mg/dl VERY HIGH Performed By: #### L ROBERTO TORRES, CMP #### [facility] [address] [place], [place] [address] Lynne Lynn Cholesterol.total/Chol esterol in HDL [Mass ratio] 3.3 {ratio} Normal [facility] Comment on above: Performed By: #### L MELISSA PSASC, CMP #### [facility] [address] [place], [place] [address] Lynne Lynn Triglyceride [Mass/Vol] 51 mg/dL Normal <=150 [facility] Comment on above: Performed By: #### L MELISSA PSASC, CMP #### [facility] [address] [place], [place] [phone] Lynne Lynn VLDL CALC 10.2 mg/dL Normal [facility] Comment on above: Performed By: #### L MELISSA PSASC, CMP #### [facility] [address] [place] [id number] Lynne Lynn PROF 14(COMP METB)on 020 Albumin [Mass/Vol] 3.8 g/dL Normal 3.5-5.0 [facility] Comment on above: Performed By: #### L MELISSA PSASC, CMP #### [facility] [address] [place], [place] [phone] Lynne Lynn Albumin/Globulin [Mass ratio] 0.9 {ratio} Normal [facility] Comment on above: Performed By: #### L IPSTELLA PSASC, CMP #### [facility] [address] [place], [place] [address] Lynne Lynn ALP [Catalytic activity/Vol] 67 U/L Normal 38-126 [facility] Comment on above: Performed By: #### L IPSTELLA, PSASC, CMP #### [facility] [address] [place] [id number] Lynne Lynn ALT [Catalytic activity/Vol] 29 U/L Normal 21-72 [facility] Comment on above: Performed By: #### L IPID, PSASC, CMP #### [facility] [address] [place] [address] Lynne Lynn Anion gap [Moles/Vol] 11.9 mmol/L Normal [facility] Comment on above: Performed By: #### L IPID, PSASC, CMP #### [facility] [address] [place] [address] Lynne Lynn AST [Catalytic activity/Vol] 19 U/L Normal 17-59 [facility] Comment on above: Performed By: #### L IPID, PSASC, CMP #### [facility] [address] [place] [address] Lynne Lynn Bilirubin Ql (U) 0.6 mg/dL Normal 0.2-1.3 [facility] Comment on above: Performed By: #### L IPID, PSASC, CMP #### [facility] [address] [place] [address] Lynne Lynn Calcium [Mass/Vol] 9.3 mg/dL Normal 8.4-10.2 [facility] Comment on above: Performed By: #### L IPID, PSASC, CMP #### [facility] [address] [place] [address] Lynne Lynn Chloride [Moles/Vol] 105 mmol/L Normal 98-107 [facility] Comment on above: Performed By: #### L IPID, PSASC, CMP #### [facility] [address] [place] [address] Lynne Lynn CO2 [Moles/Vol] 28.6 mmol/L Normal 22.0-30.0 [facility] Comment on above: Performed By: #### L IPID, PSASC, CMP #### [facility] [address] [place] [address] Lynne Lynn Creatinine [Mass/Vol] 0.87 mg/dL Normal 0.66-1.25 [facility] Comment on above: Performed By: #### L IPID, PSASC, CMP #### [facility] [address] [place], [place] [phone] Lynne Lynn EGFR-AF MONGOLIAN 107 mL/min/1.73m2 Normal >=60 [facility] Comment on above: Performed By: #### L MELISSA PSASC, CMP #### [facility] [address] [place] [address] Lynne Lynn EGFR-NON AF MONGOLIAN 88 mL/min/1.73m2 Normal >=60 [facility] Comment on above: Performed By: #### L IPSTELLA PSASC, CMP #### [facility] [address] [place] [address] Lynne Lynn Globulin (S) [Mass/Vol] 3.9 g/dL Normal [facility] Comment on above: Performed By: #### L MELISSA PSASC, CMP #### [facility] [address] [place] [address] Lynne Lynn Glucose [Mass/Vol] 86 mg/dL Normal 74-106 [facility] Comment on above: Performed By: #### L IPSTELLA PSASC, CMP #### [facility] [address] [place] [address] Lynne Lynn Potassium [Moles/Vol] 4.7 mmol/L Normal 3.4-5.0 [facility] Comment on above: Performed By: #### L MELSISA PSASC, CMP #### [facility] [address] [place] [address] Lynne Lynn Protein [Mass/Vol] 7.7 g/dL Normal 6.1-8.2 [facility] Comment on above: Performed By: #### L IPSTELLA PSASC, CMP #### [facility] [address] [place] [address] Lynne Lynn Sodium [Moles/Vol] 141 mmol/L Normal 137-145 [facility] Comment on above: Performed By: #### L IPSTELLA PSASC, CMP #### [facility] [address] [place] [address] Lynne Lynn Urea nitrogen [Mass/Vol] 17.0 mg/dL Normal 9.0-20.0 [facility] Comment on above: Performed By: #### L IPID PSASC, CMP #### [facility] [address] [place], [place] [address] Lynne Bailey Urea nitrogen/Creatinine [Mass ratio] 19.5 mg/mg Normal [facility] Comment on above: Performed By: #### L IPID, PSASC, CMP #### [facility] [address] [place], [place] [address] Lynne Bailey Vital Signs Date Time Vital Sign Value Performing Clinician Lisa niño 02-17-2025 08:25-0400 Body height 177.8 cm Audrey Justin APRN Work Phone: [facility] 02-17-2025 08:25-0400 Body mass index (BMI) [Ratio] 24.8 kg/m2 Audrey Justin APRN Work Phone: [facility] 02-17-2025 08:25-0400 Body temperature 96.8 [degF] Audrey Justin APRN Work Phone: [facility] 02-17-2025 08:25-0400 Body weight 78.64 kg Audrey Justin APRN Work Phone: [facility] 02-17-2025 08:25-0400 Diastolic blood pressure 82 mm[Hg] Audrey Justin APRN Work Phone: [facility] 02-17-2025 08:25-0400 Heart rate 68 /min Audrey Justin APRN Work Phone: [facility] 02-17-2025 08:25-0400 SaO2% (BldA) [Mass fraction] 95 % Audrey Justin APRN Work Phone: [facility] 02-17-2025 08:25-0400 Systolic blood pressure 122 mm[Hg] Audrey Justin APRN Work Phone: [facility] 11-25-2024 12:47-0400 Diastolic blood pressure 79 mm[Hg] Audrey Justin APRN Work Phone: [facility] 11-25-2024 12:47-0400 Heart rate 60 /min Audrey Leonisachelenar APPLICATION SUPPORT ADMINISTRATOR Work Phone: [facility] 11-25-2024 12:47-0400 Respiratory rate 16 /min Audrey Leonisacacher APPLICATION SUPPORT ADMINISTRATOR Work Phone: [facility] 11-25-2024 12:47-0400 SaO2% (BldA) [Mass fraction] 98 % Audrey Leonisacacher APPLICATION SUPPORT ADMINISTRATOR Work Phone: [facility] 11-25-2024 12:47-0400 Systolic blood pressure 129 mm[Hg] Audrey Kayleyacher APPLICATION SUPPORT ADMINISTRATOR Work Phone: [facility] 11-25-2024 12:17-0400 Diastolic blood pressure 50 mm[Hg] Audrey Kayleyacher APPLICATION SUPPORT ADMINISTRATOR Work Phone: [facility] 11-25-2024 12:17-0400 Heart rate 64 /min Audrey Leonisachelenar APPLICATION SUPPORT ADMINISTRATOR Work Phone: [facility] 11-25-2024 12:17-0400 Respiratory rate 16 /min Audrey Leonisacacher APPLICATION SUPPORT ADMINISTRATOR Work Phone: [facility] 11-25-2024 12:17-0400 SaO2% (BldA) [Mass fraction] 97 % Audrey Leonclintonr APPLICATION SUPPORT ADMINISTRATOR Work Phone: [facility] 11-25-2024 12:17-0400 Systolic blood pressure 91 mm[Hg] Audrey Leonisacacher APPLICATION SUPPORT ADMINISTRATOR Work Phone: [facility] 11-25-2024 11:45-0400 Body height 177.8 cm Audrey Margoth APPLICATION SUPPORT ADMINISTRATOR Work Phone: [facility] 11-25-2024 11:45-0400 Body weight 76.65 kg Adurey Leonisachelenaflower APPLICATION SUPPORT ADMINISTRATOR Work Phone: [facility] 07-29-2024 11:36-0400 Body height 177.8 cm Audrey Leonani LARA Work Phone: [facility] 07-29-2024 11:36-0400 Body mass index (BMI) [Ratio] 25.2 kg/m2 Audrey Teresaflower APPLICATION SUPPORT ADMINISTRATOR Work Phone: [facility] 07-29-2024 11:36-0400 Body weight 79.83 kg Audrey Leonisachelenaflower APPLICATION SUPPORT ADMINISTRATOR Work Phone: [facility] 07-29-2024 11:36-0400 Diastolic blood pressure 74 mm[Hg] Audrey Teresaflower MEDINAN Work Phone: [facility] 07-29-2024 11:36-0400 Heart rate 62 /min Audrey Leonani LARA Work Phone: [facility] 07-29-2024 11:36-0400 Respiratory rate 20 /min Audrey Leonisachelenaflower APPLICATION SUPPORT ADMINISTRATOR Work Phone: [facility] 07-29-2024 11:36-0400 SaO2% (BldA) [Mass fraction] 97 % Audrey Zaldivarleandra MEDINAN Work Phone: [facility] 07-29-2024 11:36-0400 Systolic blood pressure 166 mm[Hg] Audrey Leonani LARA Work Phone: [facility] 05-16-2024 09:56-0500 Body height 177.8 cm Gurmeet Muñiz DO Work Phone: [facility] 05-16-2024 09:56-0500 Body mass index (BMI) [Ratio] 24 kg/m2 Gurmeet Muñiz DO Work Phone: [facility] 05-16-2024 09:56-0500 Body temperature 97.6 [degF] Gurmeet Muñiz DO Work Phone: [facility] 05-16-2024 09:56-0500 Body weight 76.2 kg Gurmeet Zunigaillis DO Work Phone: [facility] 05-16-2024 09:56-0500 Diastolic blood pressure 71 mm[Hg] Gurmeet Grillis DO Work Phone: [facility] 05-16-2024 09:56-0500 Heart rate 64 /min Gurmeet Efrainillis DO Work Phone: [facility] 05-16-2024 09:56-0500 Respiratory rate 20 /min Gurmeet Efrainillis DO Work Phone: [facility] 05-16-2024 09:56-0500 SaO2% (BldA) [Mass fraction] 97 % Gurmeet Zunigaillis DO Work Phone: [facility] 05-16-2024 09:56-0500 Systolic blood pressure 150 mm[Hg] Gurmeet Zunigaillis DO Work Phone: [facility] 05-10-2024 12:52-0500 Diastolic blood pressure 83 mm[Hg] Gurmeet Zunigaillis DO Work Phone: [facility] 05-10-2024 12:52-0500 Heart rate 78 /min Gurmeet Zunigaillis DO Work Phone: [facility] 05-10-2024 12:52-0500 Respiratory rate 18 /min Gurmeet Zunigaillis DO Work Phone: [facility] 05-10-2024 12:52-0500 SaO2% (BldA) [Mass fraction] 98 % Gurmeet Zunigaillis DO Work Phone: [facility] 05-10-2024 12:52-0500 Systolic blood pressure 148 mm[Hg] Gurmeet Efrainillis DO Work Phone: [facility] 05-10-2024 10:35-0500 Body height 177.8 cm Gurmeet Zunigaillis DO Work Phone: [facility] 05-10-2024 10:35-0500 Body weight 74.84 kg Gurmeet Coulters DO Work Phone: [facility] 04-11-2024 15:08-0500 Body height 177.8 cm Gurmeet Coulters DO Work Phone: [facility] 04-11-2024 15:08-0500 Body mass index (BMI) [Ratio] 22.5 kg/m2 Gurmeet Coulters DO Work Phone: [facility] 04-11-2024 15:08-0500 Body weight 71.21 kg Gurmeet Coulters DO Work Phone: [facility] 04-11-2024 15:08-0500 Diastolic blood pressure 72 mm[Hg] Gurmeet Coulters DO Work Phone: [facility] 04-11-2024 15:08-0500 Heart rate 78 /min Gurmeet Coulters DO Work Phone: [facility] 04-11-2024 15:08-0500 Respiratory rate 20 /min Gurmeet Zunigabryns DO Work Phone: [facility] 04-11-2024 15:08-0500 SaO2% (BldA) [Mass fraction] 96 % Gurmeet Coulters DO Work Phone: [facility] 04-11-2024 15:08-0500 Systolic blood pressure 112 mm[Hg] Gurmeet Coulters DO Work Phone: [facility] 04-05-2024 11:34-0500 Body height 177.8 cm Gurmeet Coulters DO Work Phone: [facility] 04-05-2024 11:34-0500 Body mass index (BMI) [Ratio] 23 kg/m2 Gurmeet Coulters DO Work Phone: [facility] 04-05-2024 11:34-0500 Body temperature 97.5 [degF] Gurmeet Coulters DO Work Phone: [facility] 04-05-2024 11:34-0500 Body weight 72.74 kg Gurmeet Grillis DO Work Phone: [facility] 04-05-2024 11:34-0500 Diastolic blood pressure 66 mm[Hg] Gurmeet Muñiz DO Work Phone: [facility] 04-05-2024 11:34-0500 Heart rate 97 /min Gurmeet Muñiz DO Work Phone: [facility] 04-05-2024 11:34-0500 SaO2% (BldA) [Mass fraction] 100 % Gurmeet Muñiz DO Work Phone: [facility] 04-05-2024 11:34-0500 Systolic blood pressure 114 mm[Hg] Gurmeet Muñzi DO Work Phone: [facility] 03-13-2024 11:59-0500 Body height 177.8 cm Christiana Marquez APPLICATION SUPPORT ADMINISTRATOR-DATA ENTRY MANAGER Work Phone: [facility] 03-13-2024 11:59-0500 Body mass index (BMI) [Ratio] 23.76 kg/m2 Christiana Marquez APPLICATION SUPPORT ADMINISTRATOR-DATA ENTRY MANAGER [facility] 03-13-2024 11:59-0500 Body weight 75.12 kg Christiana Marquez APPLICATION SUPPORT ADMINISTRATOR-DATA ENTRY MANAGER [facility] [employer] [facility] 03-12-2024 09:13-0500 Body height 177.8 cm Gurmeet Muñiz DO Work Phone: [facility] 03-12-2024 09:13-0500 Body mass index (BMI) [Ratio] 24.3 kg/m2 Gurmeet Muñiz DO Work Phone: [facility] 03-12-2024 09:13-0500 Body temperature 97.3 [degF] Gurmeet Zunigaamelia DO Work Phone: [facility] 03-12-2024 09:13-0500 Body weight 76.88 kg Gurmeet Coultermarty DO Work Phone: [facility] 03-12-2024 09:13-0500 Diastolic blood pressure 74 mm[Hg] Gurmeet Muñiz DO Work Phone: [facility] 03-12-2024 09:13-0500 Heart rate 76 /min Gurmeet Muñiz DO Work Phone: [facility] 03-12-2024 09:13-0500 SaO2% (BldA) [Mass fraction] 98 % Gurmeet Muñiz DO Work Phone: [facility] 03-12-2024 09:13-0500 Systolic blood pressure 122 mm[Hg] Gurmeet Muñiz DO Work Phone: [facility] 02-12-2024 11:22-0400 Body height 177.8 cm [facility] 02-12-2024 11:22-0400 Body mass index (BMI) [Ratio] 24 kg/m2 [facility] 02-12-2024 11:22-0400 Body temperature 96.9 [degF] [facility] 02-12-2024 11:22-0400 Body weight 76.2 kg [facility] 02-12-2024 11:22-0400 Diastolic blood pressure 72 mm[Hg] [facility] 02-12-2024 11:22-0400 Heart rate 60 /min [facility] 02-12-2024 11:22-0400 SaO2% (BldA) [Mass fraction] 98 % [facility] 02-12-2024 11:22-0400 Systolic blood pressure 124 mm[Hg] [facility] Encounters Encounter Date Encounter Type Care Provider Facility Start: 02-17-2025 End: 02-17-2025 ambulatory Audrey Justin APRN Work Phone: -[facility] Start: 02-17-2025 End: 02-17-2025 Patient encounter procedure Audrey Justin APRN [facility] Work Phone: Start: 11-25-2024 Non-patient / Non-visit Ethel crenshaw [facility] Work Phone: Start: 11-25-2024 End: 11-25-2024 ambulatory Audrey Justin Facility:[facility] Start: 11-25-2024 Non-patient / Non-visit Emma Sheridan [facility] Work Phone: Start: 07-29-2024 End: 07-29-2024 ambulatory Audrey Margoth APPLICATION SUPPORT ADMINISTRATOR Work Phone: [facility] Work Phone: Start: 07-29-2024 End: 07-29-2024 Patient encounter procedure Audrey Margoth APPLICATION SUPPORT ADMINISTRATOR Work Phone: [facility] Work Phone: Start: 07-25-2024 End: 07-25-2024 Patient encounter procedure Audrey Margoth APPLICATION SUPPORT ADMINISTRATOR Work Phone: [facility] [address] Work Phone: Start: 07-25-2024 End: 07-25-2024 ambulatory Audrey Margoth APPLICATION SUPPORT ADMINISTRATOR Work Phone: [facility] Work Phone: Start: 05-16-2024 End: 05-16-2024 ambulatory NON STAFF [facility] Work Phone: Start: 05-16-2024 End: 05-16-2024 Patient encounter procedure Gurmeet Muñiz DO Work Phone: [facility] Work Phone: Start: 05-10-2024 Non-patient / Non-visit Ventura Muñiz DO Work Phone: [facility] Gastroenterol Work Phone: Start: 05-10-2024 End: 05-10-2024 Admission to same day surgery center Gurmeet Muñiz DO Work Phone: [facility] Work Phone: Start: 05-10-2024 End: 05-10-2024 ambulatory NON STAFF [facility] Work Phone: Start: 05-08-2024 ambulatory EVA [facility] Start: 05-06-2024 End: 05-06-2024 Patient encounter procedure Gurmeet Muñiz DO Work Phone: [facility] Work Phone: Start: 05-06-2024 End: 05-06-2024 ambulatory NON STAFF [facility] Work Phone: Start: 04-11-2024 End: 04-11-2024 Patient encounter procedure Gurmeet Muñiz DO Work Phone[facility] Work Phone: Start: 04-05-2024 End: 04-05-2024 Patient encounter procedure Gurmeet Muñiz DO Work Phone[facility] Work Phone: Start: 04-02-2024 Non-patient / Non-visit Ventura Coulters DO Work Phone: [facility] Work Phone: Start: 04-01-2024 Non-patient / Non-visit Ventura Coulters DO Work Phone: [facility] Work Phone: Start: 03-25-2024 Evaluation and manag ement of inpatient DAYO RAYMONDKL [facility] Start: 03-25-2024 Evaluation and manag ement of inpatient NEDACAROLYN FERNANDEZIX [facility] Start: 03-25-2024 Evaluation and manag ement of inpatient EVA [facility] Start: 03-25-2024 Evaluation and manag ement of inpatient CHRISTOFER VALERIY [facility] Start: 03-24-2024 Non-patient / Non-visit Ventura Coulters DO Work Phone: [facility] Work Phone: Start: 03-23-2024 End: 03-26-2024 Evaluation and management of inpatient PINEDA [facility] Start: 03-23-2024 Non-patient / Non-visit Ventura Muñiz DO Work Phone: [facility] Work Phone: Start: 03-18-2024 End: 03-18-2024 Orders Only Not In System Ref Prov [facility] Start: 03-13-2024 End: 03-13-2024 Postop follow up visit related to original px Christiana Marquez APPLICATION SUPPORT ADMINISTRATOR-DATA ENTRY MANAGER Work Phone: [facility] General Surgery Comment on above: Status post laparosc opic cholecystectomy (Primary Dx) Start: 03-13-2024 End: 03-13-2024 ambulatory CHRISTIANA MARQUEZ [facility] Start: 03-12-2024 End: 03-12-2024 ambulatory Gurmeet Muñiz DO Work Phone: [facility] Work Phone: Start: 03-12-2024 End: 03-12-2024 Patient encounter procedure Gurmeet Muñiz DO Work Phone: [facility] Work Phone: Start: 03-08-2024 End: 03-08-2024 ambulatory NON STAFF [facility] Work Phone: Start: 03-08-2024 End: 03-08-2024 Departed Referred Gurmeet Muñiz DO Work Phone: [facility] [place] Work Phone: Start: 03-08-2024 Non-patient / Non-visit Ventura Muñiz DO Work Phone: [facility] Work Phone: Start: 03-07-2024 Non-patient / Non-visit Ventura Muñiz DO Work Phone: [facility] Work Phone: Start: 03-06-2024 Non-patient / Non-visit Ventura Muñiz DO Work Phone: [facility] Work Phone: Start: 03-05-2024 Non-patient / Non-visit Ventura Muñiz DO Work Phone: [facility] Work Phone: Start: 02-12-2024 End: 02-12-2024 ambulatory [facility] Work Phone: Start: 02-12-2024 End: 02-12-2024 Patient encounter procedure [facility] Work Phone: Start: 03-20-2020 Encounter for genera l adult medical examination without abnormal findings ANNALEE CHINO [facility] Start: 03-14-2020 End: 03-15-2020 Patient encounter procedure ANNALEE CHINO Facility: Encounter for genera l adult medical examination without abnormal findings ANNALEE [facility] Procedures Date Procedure Procedure Detail Performing Clinician Start: 07-25-2024 CT of chest without contrast Audrey Justin APRN Work Phone: Start: 05-10-2024 Screening colonoscopy Jeromy raj Muñiz DO Work Phone: Start: 05-06-2024 Positron emission tomography with computed tomography Gurmeet Muñiz DO Work Phone: Start: 03-08-2024 Level i surg patholo gy gross examination only Not In System Ref Prov Start: 03-08-2024 MULTIPLE LABS Not In Sy stem Ref Prov Start: 03-14-2020 [object Object] CIRO CHINO Comment on above: Performed By: #### L IPID, PSASC, CMP #### [facility] [address] [address] Lynne Bailey History of cholecystectomy Hx laparoscopic cholecystectomy Gurmeet Grillis DO Work Phone: History of cholecystectomy Status post laparoscopic cholecystectomy Christiana Marquez APPLICATION SUPPORT ADMINISTRATOR-DATA ENTRY MANAGER Work Phone: Plan of Treatment Date Care Activity Detail Author Start: 03-13-2025 Adult BMI Screening Adult BMI Screening [facility] Start: 03-13-2025 Tobacco Screening Tobacco Screening [facility] Start: 11-25-2024 [facility] Start: 05-10-2024 [facility] Start: 04-15-2024 End: 04-15-2024 Patient encounter procedure 04/15/2024 12:00 PM EST Office Visit [facility] General Surgery [address] [place] [id number] Christiana Marquez, APPLICATION SUPPORT ADMINISTRATOR-DATA ENTRY MANAGER [address] [facility] [place] [address] [facility] General Surgery Start: 02-12-2024 Patient referral [facility] Work Phone: Start: 12-31-2023 Influenza vaccination Influenza Vaccine [facility] Start: 10-01-2020 Abdominal aortic aneurysm screening Abdominal Aortic Aneurysm (AAA) Screen [facility] Start: 10-01-2020 Fall Risk Screening Fall Risk Screening [facility] Start: 10-01-2005 Administration of varicella zoster vaccine Zoster (Shingles) Vaccine (1 of 2) [facility] Start: 10-01-1974 DTaP,Tdap and Td Vaccines (1 - Tdap) DTaP,Tdap and Td Vaccines (1 - Tdap) [facility] Start: 1967 Depression Screening Depression Screening [facility] Comprehensive metabo lic 2000 panel - Serum or Plasma [facility] Comprehensive metabo lic 2000 panel - Serum or Plasma [facility] CT Chest WO contrast [facility] Chest WO contrast [facility] CT Unspecified body region [facility] Patient Education [facility] Work Phone: Patient referral [facility] Work Phone: [facility] Payers Date Payer Category Payer Self-pay [id number] [address] [facility] [id number] 2022 Medicare [id number] 1959 Unknown [id number] 1955 Unknown [id number] 3 1955 Unknown [id number] 86 Unknown [id number] 1 Unknown [id number] 1 Unknown [id number] 1 Unknown [id number] 1 Unknown [id number] 1 Social History Date Type Detail Facility Start: 02-12-2024 End: 02-12-2024 Tobacco smoking status NHIS Current Heavy tobacco smoker [facility] Start: 1955 Sex Assigned At Male [facility] Start: 03-09-2024 End: 07-29-2024 Sex Male (finding) [facility] Start: 04-11-2024 End: 11-25-2024 Tobacco smoking status TNIS Current some day smoker [facility] Start: 05-16-2024 End: 05-16-2024 Tobacco smoking status NHIS Ex-smoker (finding) [facility] History of tobacco use Current smoker [employer] [facility] History of tobacco use Cigarette Smoker [facility] [employer] [facility] Start: 03-13-2024 Alcoholic beverage intake Not Asked [employer] [facility] Start: 10-10-2018 End: 03-13-2024 History of Social function [employer] [facility] Start: 10-10-2018 End: 03-13-2024 Tobacco use panel [employer] [facility] Childcare Unknown [facility] [facility] Start: 03-13-2024 Alcohol Comment [facility] Start: 1955 Sex assigned at Not on file [facility] [employer] [facility] Goals Date Patient Goal Desired Activity /State Clinical Notes 02-12-2024 to 07-25-2024 Note Date & Type Note Facility 07-25-2024 Radiology Diagnostic study note [facility] [place] [address] CT Scan Report Signed Patient: Ludwin Reyes MR#: [id number] : 1955 Acct:[id number] Age/Sex: 68 / M ADM Date: 5 Loc: [facility] Room: Type: [facility] Attending Dr: Gallito Kern DO Copies to: Gallito Kern DO~ Ordering Provider: Gallito Kern DO Date of Service: 07/25/24 CT/CT chest wo con: 3 month F/U for 1cm RUL nodule CT CHEST WITHOUT CONTRAST COMPARISON: 03/18/[address] 05/06/2024 CLINICAL DATA: Follow-up right upper lobe nodule. Current smoker with over 50 years of tobacco use. Spiral axial unenhanced images were obtained through the chest. Images were reviewed using both narrow and wide window settings. This CT exam was performedusing one or more following dose reduction techniques: Automated exposure control, adjustment of the mA and/or kV according to patient size, or use of iterative reconstruction technique. The heart is within normal limits for size. No pericardial effusion is present. There is minimal coronary disease. There is a small amount of plaque at the thoracic aorta and proximal great vessels. No aneurysm is noted. Similar smallmediastinal lymph nodes are seen. There is mild endplate spurring at the spine. Scarring is again visualized at the lung apices. There is also minor scarring or atelectasis at the lung bases, greater on the left. There is no additional consolidation, pleural effusion or pneumothorax. The tiny somewhat nodular focus the paramediastinal right apex adjacent to the right subclavian artery is unchanged. The elongate pleural based density at the lateral right apex (axial image 13) is also stable. There is an additional potential tiny nodular densityat the posterior right upper lobe (axial image 24) which is also similar. No developing pulmonary nodularity is seen. Limited imaging through the upper abdomen shows no contributory findings. CT/CT chest wo con IMPRESSION: SCARRING AND/OR ATELECTASIS. TINY RIGHT UPPER LOBE NODULAR DENSITIES, SIMILAR TO THE PREVIOUS EXAMS. Impression dictated by: Lynn Ca M.D.07/25/2024 1:44 PM Dictation Location: [place] [address] Transcribed By: [facility] 07/25/24 1344 Dictated By: Lynn Ca MD 07/25/24 1333 Signed By: 07/25/24 1344 [facility] Work Phone: 05-16-2024 Evaluation note Diagnosis Onset Date Resolution Cigarette nicotine dependence without complication acute May 16 9:53am Paraseptal emphysema acute 2024 9:53am Solitary pulmonary nodule acute May 16 9:53am [facility] Work Phone: 1(348) 754-559401-16-2025 Evaluation note* Diagnosis Onset Date Resolution Status Admit Date Cigarette nicotine dependenc e without complication acute May 9:53am Paraseptal emphysema acute 2024 9:53am Solitary pulmonary nodule acute May 16, 2024 9:53am Cigarette nicotine dependenc e without complication acute July 29, 2024 11:31am Paraseptal emphysema acute 2024 11:31am Solitary pulmonary nodule acute July 29, 2024 11:31am [facility] Work Phone: 1(831) 525-452501-10-[address] [address] Colonoscopy Procedure Report Signed Patient: Ludwin Reyes MR#: [id number] : 1955 Acct:[id number] Age/Sex: 68 / M Adm Date: 5 Loc: Room: Type: [facility] Attending Dr: Emma Mcdermott MD Copies to: MD Audrey Triana, APPLICATION SUPPORT ADMINISTRATOR, DATA ENTRY MANAGER~ Colonoscopy Date/Provider 05/10/2024 Emma Mcdermott MD Colonoscopy Findings: Procedure: Colonoscopy with endoscopic mucosal resection with tattoo injection Indication: 68-year-old man with family history of colon cancer(mother) here forscreening colonoscopy Pre-operative diagnosis: family history of colon cancer(mother) Post-operative diagnosis: Colonic polyps s/p EMR Sedation: propofol per anesthesia dept O2 oximetry, hemodynamic monitoring was performed pre, during, and post procedure. Patient was identified, H&P completed, patient was given full explanation of the procedure as well as associatedrisks and written consent wasobtained prior to procedure. Patient expressed complete understanding of the procedure as well as alternatives to the procedure and to anesthesia and agreed to proceed with the procedure as indicated. Patient was immediately reassessed prior to IV sedation. Under IV sedation, patient was placed in the left lateral decubitus position. Digital rectal exam was performed and normal. Colonoscope was inserted and passed proximally to the cecum, which was identified by the ileocecal valve, appendiceal orifice and cecal floor. Colonoscope was slowly withdrawnwith the findings as below. [place] bowel prep score was good. Findings: Cecum: A 5 mm polyp removed using cold snare Ascending colon: A 3 cm polyp raised using blue eye submucosal injection the removed piecemeal using hot snare then 3 clips were placed at the polypectomy site to prevent post polypectomy bleeding then the area on the opposite wall of the polypectomy site was tattooed using black eye submucosal injection Hepatic flexure: Normal. Transverse colon: Normal. Splenic flexure: Normal. Descending colon: An 8 mm polyp removed using cold snare Sigmoid colon: Normal. Rectum: Normal. Retroflexed views: Rectum did not show internal hemorrhoids. Biopsy taken: No Complications: None EBL: None Recommendations: -Repeat colonoscopy in 6 months -Follow up pathology Following a period of recovery, patient was seen and given full explanation of the procedure. Patient tolerated the procedure well and will be discharged in satisfactory, stable condition. Emma Mcdermott M.D. Documented By: Emma Mcdermott MD 05/10/24 1151 Signed By: 05/10/24 1221 [facility]01-10-2025 [place] [address] Gastroenterology H&P Signed Patient: Ludwin Reyes MR#: [id number] : 1955 Acct:[id number] Age/Sex: 68 / M Adm Date: Loc: Room: Type: [facility] Attending Dr: Emma Mcdermott MD Copies to: MD Audrey Triana APRN, DATA ENTRY MANAGER~ Date of Service: 05/10/2024 HISTORY & PHYSICAL: Patient's history with special attention to the cardiovascular, pulmonary systems and the current problem was reviewed with the patient immediately prior to the procedure. Present medications and doses reviewed in the EMR. Allergies and pertinent laboratory tests were also re viewedat this time in the EMR. The physical examination, as below, was then performed. Indication, assessment and HPI: 68-year-old man with family history of colon cancer(mother) here for screening colonoscopy Family history of GI malignancy? Yes PHYSICAL EXAMINATION General appearance: NAD Skin: No jaundice Head: NC/AT Eyes: Anicteric Neck: Supple Lungs: Normal respiratory effort, no use of accessory muscles Abdomen: nondistended Neuro: Ox3. REVIEW OF SYSTEMS Constitutional: Denies malaise, fevers Cardiovascular: Denies chest pain, palpitations Respiratory: Denies shortness of breath, wheezing Gastrointestinal: As per HPI Genitourinary: Denies dysuria, polyuria Musculoskeletal: Denies joint swelling, joint stiffness Neurological: Denies confusion, numbness, tingling Endocrine: Denies fatigue Written informed consent obtained from the patient. Risks (including but not limited to perforation, infection, bloating, bleeding, need for emergent surgeryand loss of life), benefits and alternatives explained and questions answered. The patient verbalized understanding. Based on history patient is an appropriate candidate for the procedure. Emma Mcdermott M.D. Documented By: Emma Mcdermott MD 05/10/24 115 Signed By: 05/10/24 1151 [facility]01-06-2025 Nuclear medicine Diagnostic study [facility] [place] [address] [place] [address] Nuclear Medicine Report Signed Patient: Ludwin Reyes MR#: [id number] : 1955 Acct:[id number] Age/Sex: 68 / M ADM Date: 5 Loc: Room: Type: [facility] Attending Dr: Audrey Justin APRN [employer]C Copies to: Audrey Justin APRN, CNP Mark A Buehler, II, MD~ Ordering Provider: Audrey Justin APRN, CNP Date of Service: 05/06/24 PET/PET tumor init tx strat sb-mt: R91.1 - Solitary pulmonary nodule PET tumor init tx strat sb-mt 05/06/2024 11:00 AM SIGNS AND SYMPTOMS: Pulmonary nodule, follow-up PROTOCOL: PET images were obtained from skull base to mid thigh after intravenous radiotracer administration. Low-dose CT images were performed from skull base to mid thigh. After attenuation correction of PET images, fused PET CT images were generated and reconstructed in axial, sagittal, and coronal planes. COMPARISON: 03/18/2024 RADIOPHARMACEUTICAL: 12.87 mCi of intravenous fluorine 18 FDG. BLOOD GLUCOSE: 93 mg/dL. FINDINGS: There is a 4 mm mildly FDG avid pleural-based nodule medially and inferiorly in the right upper lobe near the apex with a maximum SUV of 1.7. This is nonspecific possibly representing a subcentimetermetastatic focus or inflammatory process. An area of pleural-based scarring is noted in the right lung apex without significant radiotracer accumulation. There is pleural-based scarring in the left posterior costophrenic sulcus without significant radiotracer accumulation. This is similar to the prior exam. No additional foci of abnormal radiotracer accumulation noted to suggest malignancy. Physiologic radiotracer accumulation is noted in the brain, myocardium, liver, spleen, kidneys, bladder, and bowel. PET/PET tumor init tx strat sb-mt IMPRESSION: There is a 4 mm mildly FDG avid pleural-based nodule medially and inferiorly in the right upper lobe near the apex with a maximum SUV of 1.7. This is nonspecific possibly representing a subcentimetermetastatic focus or inflammatory process. An area of pleural-based scarring is noted in the right lung apex without significant radiotracer accumulation. There is pleural-based scarring in the left posterior costophrenic sulcus without significant radiotracer accumulation. This is similar to the prior exam. Impression dictated by: Crow Muir M.D.05/06/2024 4:28 PM Dictation Location: [place] [address] Transcribed By: MATTY 05/06/24 162 Dictated By: Crow Muir II, MD 05/06/24 162 Signed By: 05/06/24 1628 [facility] Work Phone: [phone] 759-391611-26-2024 NoteHospital Medicine Discharge Summary Final Discharge Diagnosis: Acute pancreatitis Transaminitis-improving Hyperbilirubinemia Hypertension Nicotine use Recent cholecystectomy x 2 weeks ago Admission Diagnosis: Calculus of common bile duct with obstruction [K80.51] Abdominal pain [R10.9] Hospital course: 68 y.o. male who came from home with past medical history of hypertension and nicotine use presents as a direct admission from [facility] with a chief complaint of right upper quadrant abdominal pain. Patient reports that he had his gallbladder taken out 2 weeks ago and was feeling great after the procedure. Reports that last night he was at a football game when he started to feel some indigestion. He states that he went to bed last night and woke up with excruciating right upper quadrant abdominal pain. He states associated diaphoresis but denies nausea, vomiting, diarrhea, chest pain, shortness of breath. At [place], labs were completed showing WBC 7.6, RBC 3.87, hemoglobin 12.8, hematocrit 37.9, sodium 138, potassium 3.8, chloride 104, BUN 14, creatinine 0.9, total bilirubin 2.7, direct bilirubin 2.4, AST 237, ALT 157, alkaline phosphatase 85, lipase 3680. CT abdomen/pelvis was completed showing right upper quadrant inflammatory changes involving the common bile duct, small fat filled periumbilical hernia without strangulation, mild lymphadenopathy, likely reactive. Patient thought to have a retained stone after cholecystectomy so GI team was contacted to [facility] for further evaluation. GI was consulted and the patient underwent ERCP on 03/25 with removal of single CBD stone with balloon sweep following biliary sphincterotomy. The patient tolerated this well and was able to advance his diet to regular without N/V or abdominal pain. He was cleared for discharge with instructions to follow up with PCP and GI outpatient. Surgical, Invasive or Diagnostic Procedures Done During Admission: ERCP Consultations During Admission: Gastroenterology Dear Dr. Charles primary care provider on file., Ludwin is advised to follow up with you within 1-2 weeks. Items to follow up in ambulatory setting: Follow-up serial BMPs and Follow-up serial LFTs Follow-up with: Gastroenterology Scheduled appointments: No future appointments. Your medication list CONTINUE taking these medications Instructions Last Dose Given Next Dose Due amLODIPine 10 mg tablet Commonly known as: Norvasc Ludwin has No Known Allergies. Disposition: Home or Self Care () Discharge Condition: Stable Code Status: Full Code Diagnostic Results Hematology: Results from last 7 days Lab Units 03/26/24 0546 03/25/24 0559 03/24/24 0543 03/23/24 1825 WBC AUTO 10*3/uL 4.94 3.88* < > 6.45 HEMOGLOBIN g/dL 12.2* 11.0* < > 12.6* HEMATOCRIT % 36.3* 33.0* < > 38.3* MCV fL 96.0 96.2 < > 100.3* PLATELETS AUTO 10*3/uL 439* 368 < > 419* INR -- 1.07 -- 1.07 < > = values in this interval not displayed. Chemistry: Results from last 7 days Lab Units 03/26/24 0546 03/25/24 2328 03/25/24 0559 03/24/24 0543 03/23/24 1825 SODIUM mmol/L 134* 132* 136 < > 137 POTASSIUM mmol/L 4.3 4.3 3.8 < > 4.0 CHLORIDE mmol/L 102 101 106 < > 107 CO2 mmol/L 24 22 23 < > 23 BUN mg/dL 12 10 8 < > 14 CREATININE mg/dL 0.65* 0.61* 0.59* < > 0.69* GLUCOSE mg/dL 117* 133* 89 < > 89 MAGNESIUM mg/dL -- 2.0 1.7* -- 1.9 CALCIUM mg/dL 8.6 8.3* 8.0* < > 8.5* PHOSPHORUS mg/dL -- -- -- -- 3.9 < > = values in this interval not displayed. Results from last 7 days Lab Units 03/26/24 0546 03/25/24 0559 03/24/24 0543 03/23/24 1825 AST U/L 27 40* 75* 132* ALT U/L 42 49 72* 106* ALK PHOS U/L 535* 532* 566* 721* BILIRUBIN TOTAL mg/dL 0.9 1.0 1.6* 2.9* BILIRUBIN DIRECT mg/dL -- 0.3* -- 2.0* LIPASE U/L -- 48 168* 587* Test Results Pending At Discharge: Pending Labs Order Current Status Blood culture, peripheral #1 Preliminary result Blood culture, peripheral #2 Preliminary result Diet at the time of discharge: low fat, low cholesterol diet Nutrition Screen Activity: Patient currently has no discharge activity orders Objective Blood pressure 133/70, pulse 77, temperature 36.3 ???C (97.3 ???F), temperature source Oral, resp. rate 17, height 1.778 m (5' 10 ), weight 72.7 kg (160 lb 4.4 oz), SpO2 93%. General: Alert and oriented x3. Cardiology: Normal rate, regular rhythm. Lungs: Clear to auscultation, no wheezes, rales or rhonchi, symmetric air entry. Abdomen: Soft, non tender, non distended. Extremities: No pitting edema. Total time for discharge - review of data, exam, discussion with providers and care-team, med-rec and orders, arranging follow up, counseling of patient and/or family and documentation was 30 minutes. Signed Dylon Guzman MD [facility] Medicine 03/26/2024 1:48 PM CC: No primary care provider on file.[facility] 03-26-2024 NoteGastroenterology/Hepatology Progress Note IDENTIFYING DATA PATIENT: Ludwin Reyes ADMIT DATE: 03/23/2024 TIME OF EVALUATION: 03/26/2024 10:37 AM Reason for Consult: CBD obstruction, needs ERCP Admitting Physician: Dylon Guzman MD SUBJECTIVE/INTERVAL HISTORY Ludwin Reyes's overnight events were reviewed. ERCP was performed yesterday with removal of one CBD stone with balloon sweep after biliary sphincterotomy was performed. Today patient reports resolution of abdominal pain. Denies nausea and vomiting, remains NPO. LFTs are stable with AST 27, ALT 42, TB 0.9, and ALP 535 from 532. OBJECTIVE MEDICATIONS SCHEDULED: amLODIPine, 10 mg, oral, Daily metoprolol tartrate, 5 mg, intravenous, Once nicotine, 1 patch, transdermal, Daily PRNs: ondansetron ODT, 4 mg, q8h PRN Or ondansetron, 4 mg, q6h PRN oxyCODONE, 10 mg, q6h PRN oxyCODONE, 5 mg, q6h PRN sennosides-docusate sodium, 1 tablet, Daily PRN sodium chloride, 10 mL, q8h PRN Physical VITALS: BP 133/70 (BP Location: Left arm, Patient Position: Lying) Pulse 77 Temp 36.3 ???C (97.3 ???F) (Oral) Resp 17 Ht 1.778 m (5' 10 ) Wt 72.7 kg (160 lb 4.4 oz) SpO2 93% BMI 23.00 kg/m??? GEN: Alert and oriented x3, NAD CV: Regular rate and rhythm PULM: Breathing comfortably ABD: Soft, non-tender, non-distended NEURO: Moves all visualized extremities spontaneously LABS AND IMAGING CBC: Results from last 7 days Lab Units 03/26/24 0546 03/25/24 0559 03/24/24 0543 WBC AUTO 10*3/uL 4.94 3.88* 5.65 RBC AUTO 10*6/uL 3.78* 3.43* 3.18* HEMOGLOBIN g/dL 12.2* 11.0* 10.4* HEMATOCRIT % 36.3* 33.0* 31.9* MCV fL 96.0 96.2 100.3* RDW % 12.3 12.6 12.9 PLATELETS AUTO 10*3/uL 439* 368 349 PT/INR Results from last 7 days Lab Units 03/25/24 0559 03/23/24 1825 PROTIME Seconds 13.9 13.9 INR 1.07 1.07 BMP: Results from last 7 days Lab Units 03/26/24 0546 03/25/248 03/25/24 0559 SODIUM mmol/L 134* 132* 136 POTASSIUM mmol/L 4.3 4.3 3.8 CHLORIDE mmol/L 102 101 106 BUN mg/dL 12 10 8 CREATININE mg/dL 0.65* 0.61* 0.59* EGFR mL/min/1.73m*2 102.6 104.6 105.7 GLUCOSE mg/dL 117* 133* 89 LFTs: Results from last 7 days Lab Units 03/26/24 0546 03/25/24 0559 03/24/24 0543 03/23/24 1825 BILIRUBIN TOTAL mg/dL 0.9 1.0 1.6* 2.9* BILIRUBIN DIRECT mg/dL -- 0.3* -- 2.0* ALK PHOS U/L 535* 532* 566* 721* AST U/L 27 40* 75* 132* ALT U/L 42 49 72* 106* ALBUMIN g/dL 3.1* 2.9* 2.8* 3.1* TOTAL PROTEIN g/dL 6.8 6.0 5.9* 6.5 B12/Folate/Iron studies: No results found for: VOGESIOB18 , FOLATE , IRON , TIBC , UIBC , IRONSAT , FERRITIN Viral Hepatitis No results found for: HEPAIGM , HAV , HEPBSAG , HEPBSAB , HEPBEAB , HEPBIGM , HEPBCAB , HEPBCOREAB , HBVNAT , HCVSCR , HEPCAB , HCVNAT , HCVPCR , HCVTMA Liver workup No results found for: SALBADOR , SMOOTHMUSCAB , CERULOPLSM , [id number] , TTGA , IGA , TSH , FREET4 , AFP Pancreatitis Lab Results Component Value Date LIPASE 48 03/25/2024 CALCIUM 8.6 03/26/2024 IMAGING: CT imaging of the abdomen and pelvis revealed inflammatory changes involving the common bile duct, a small fat-filled periumbilical hernia without evidence of strangulation, and mild lymphadenopathy likely reactive in nature. ASSESSMENT AND PLAN Ludwin Reyes is a 68 y.o. male with a past medical history of hypertension and nicotine use presents as a direct admission from [facility] with a chief complaint of right upper quadrant abdominal pain. The patient reports that he underwent a cholecystectomy two weeks ago and initially felt well after the procedure. He describes the onset of symptoms last night while attending a football game, where he experienced indigestion that he initially attributed to dietary causes. He went to bed but woke up with excruciating right upper quadrant abdominal pain and dark colored urine. He denies nausea, vomiting, diarrhea, chest pain, fever, chills or shortness of breath. At [place], laboratory studies showed WBC 7.6, RBC 3.87, hemoglobin 12.8, hematocrit 37.9, sodium 138, potassium 3.8, chloride 104, BUN 14, creatinine 0.9, total bilirubin 2.7, direct bilirubin 2.4, AST 237, ALT 157, alkaline phosphatase 85, and lipase 3680. CT imaging of the abdomen and pelvis revealed inflammatory changes involving the common bile duct, a small fat-filled periumbilical hernia without evidence of strangulation, and mild lymphadenopathy likely reactive in nature. GI was consulted due to concerns about pancreatitis and potential choledocholithiasis. On admission to [facility], the patient's liver function tests (LFTs) showed a decrease in AST (75 from 132), ALT (72 from 106), and alkaline phosphatase (566 from 721). The total bilirubin improved from 2.9 to 1.6. Lipase was elevated at 587. The patient reports some improvement in pain, describing it as dull in the right upper quadrant (RUQ) with (more content not included)... [facility]11-25-2024 NotePatient: Ludwin Reyes Procedure Summary Date: 03/25/24 Room / Location: [facility] Endoscopy Anesthesia Start: 1421 Anesthesia Stop: 1533 Procedure: ENDOSCOPIC RETROGRADE CHOLANGIOPANCREATOGRAPHY Diagnosis: Calculus of common bile duct with obstruction Scheduled Providers: Deangelo Montero MD; NEERAJ Knox; Eva Nino MD Responsible Provider: Deangelo Montero MD Anesthesia Type: general ASA Status: 3 Anesthesia Type: general Vitals Value Taken Time BP 133/62 03/25/24 1535 Temp 36.1 ???C (97 ???F) 03/25/24 1535 Pulse 93 03/25/24 1535 Resp 94 03/25/24 1535 SpO2 96 03/25/24 1551 Anesthesia Post Evaluation Patient location during evaluation: PACU Patient participation: complete - patient participated Level of consciousness: awake Pain score: 1 Pain management: adequate Airway patency: patent Cardiovascular status: acceptable Respiratory status: acceptable Patient is hemodynamically stable and is able to be discharged from PACU per anesthesia protocol. No notable events documented.[facility]11-25-2024 Note Patient: Ludwin Reyes Procedure Summary Date: 03/25/24 Room / Location: [facility] Endoscopy Anesthesia Start: 1421 Anesthesia Stop: 1533 Procedure: ENDOSCOPIC RETROGRADE CHOLANGIOPANCREATOGRAPHY Diagnosis: Calculus of common bile duct with obstruction Scheduled Providers: Deangelo Montero MD; NEERAJ Knox; Eva Nino MD Responsible Provider: Deangelo Montero MD Anesthesia Type: general ASA Status: 3 Anesthesia Post [facility] Patient Monitor: direct observation Transport: uneventful Patient condition is: stable Comments: Patient arousable, VSS, SV well, report to RN, pants/underwear at [facility]UnWilson [facility]11-25-2024 NoteAirway Date/Time: 03/25/2024 2:32 PM Urgency: elective Airway not difficult General Information and Staff Patient location during procedure: OR Anesthesiologist: Deangelo Montero MD Resident/TEACHER MUSIC/CAA: NEERAJ Stovall Performed: other anesthesia staff Learner assisted: Jesu Cade Divorce Mediator Student Indications and Patient Condition Indications for airway management: anesthesia Spontaneous Ventilation: absent Sedation level: deep Preoxygenated: yes Patient position: sniffing Mask difficulty assessment: 1 - vent by mask Final Airway Details Final airway type: endotracheal airway Successful airway: ETT Cuffed: yes Successful intubation technique: video laryngoscopy Facilitating devices/methods: intubating stylet Endotracheal tube insertion site: oral Blade: Arriaga Blade size: #3 ETT size (mm): 7.5 Cormack-Lehane Classification: grade I - full view of glottis Placement verified by: chest auscultation and capnometry Measured from: lips Number of attempts at approach: 1 Number of other approaches attempted: 0 Additional Comments Edentulous, hard bite block placedPro[facility]ica [facility]11-25-2024 NotePatient: Ludwin Reyes Procedure Information Date/Time: 03/25/24 1430 Scheduled providers: Deangelo Montero MD; NEERAJ Knox; Eva Nino MD Procedure: ENDOSCOPIC RETROGRADE CHOLANGIOPANCREATOGRAPHY Location: [facility] Endoscopy Relevant Problems Anesthesia (within normal limits) Cardio > 4 METS denies chest pain/SOB (+) Primary hypertension Endo (within normal limits) /Renal (within normal limits) Neuro/Psych (within normal limits) Pulmonary Long standing nicotine use, COPD Clinical information reviewed: Tobacco Allergies Meds Med Hx Surg Hx Fam Hx Soc Hx Physical Exam Airway Mallampati: II TM distance: >3 FB Neck ROM: full Cardiovascular - normal exam Dental (+) edentulous Pulmonary (+) rhonchi Abdominal Anesthesia Plan ASA 3 general The patient is a current smoker. Patient was previously instructed to abstain from smoking on day of procedure. Patient did not smoke on day of procedure. intravenous induction Anesthetic plan and risks discussed with patient. Plan discussed with NEERAJ. Additional [facility]sPro[facility]11-[facility]-2024 Note Hospital Medicine Daily Progress Note - 03/25/2024 10:13 AM; Room: [address] [place] [address] Admission: 03/23/2024 5:11 PM; Length of stay: 2 days THE HOSPITALIST TEAM PREFERS TO USE Mtime CHAT FOR NON-URGENT COMMUNICATION 7AM-7PM. IF I DO NOT RESPOND WITHIN 20 MINUTES OR URGENT MATTERS, PLEASE CALL THROUGH THE RENTAL SALES AGENT. FROM 7PM-7AM, PLEASE PAGE [phone](COVR). Code Status: Full Code Barriers to Discharge: ERCP today Expected Discharge Date: 03/26 Discharge Destination: home Overview Patient is seen for evaluation and management of abdominal pain . Subjective Patient resting in chair, he states his pain is less frequent, tolerated oral liquid diet yesterday. No nausea or vomiting. Physical Exam Visit Vitals BP 139/71 Pulse 81 Temp 36.7 ???C (98.1 ???F) Resp 18 Intake/Output Summary (Last 24 hours) at 03/25/2024 1013 Last data filed at 03/25/2024 0900 Gross per 24 hour Intake 800 ml Output -- Net 800 ml Physical Exam Vitals and nursing note reviewed. HENT: Nose: Nose normal. Mouth/Throat: Mouth: Mucous membranes are moist. Eyes: Pupils: Pupils are equal, round, and reactive to light. Cardiovascular: Rate and Rhythm: Normal rate and regular rhythm. Pulses: Normal pulses. Pulmonary: Effort: Pulmonary effort is normal. Abdominal: Palpations: Abdomen is soft. Tenderness: There is abdominal tenderness (RUQ). Musculoskeletal: General: Normal range of motion. Cervical back: Normal range of motion. Skin: General: Skin is warm. Capillary Refill: Capillary refill takes less than 2 seconds. Neurological: Mental Status: He is alert and oriented to person, place, and time. Estimated body mass index is 24.04 kg/m??? as calculated from the following: Height as of this encounter: 1.778 m (5' 10 ). Weight as of this encounter: 76 kg (167 lb 8.8 oz). Active Inpatient Problems Principal Problem: Calculus of common bile duct with obstruction Active Problems: Pancreatitis Transaminitis Hyperbilirubinemia Primary hypertension Nicotine use Assessment and Plan Acute pancreatitis Transaminitis-improving Hyperbilirubinemia Hypertension Nicotine use Recent cholecystectomy x [address] abdomen/pelvis completed at [facility] shows right upper quadrant inflammatory changes involving the common bile duct, small fat filled periumbilical hernia without strangulation, mild lymphadenopathy, likely reactive. -Patient s/p cholecystectomy 2 weeks ago at [facility] -Concerned for retained stone causing transaminiti, hyperbilirubinemia and pancreatitis -IV fluids -Pain management -Continue ABX as ordered -okay for clear liquid diet today -N.p.o. afor ERCP today -Hold DVT prophylaxis until after procedure -Continue home medications -Nicotine patch -GI following Malnutrition Attestation: Comment: VTE Prophylaxis: Will start AFTER PROCEDURE Scheduled Meds amLODIPine, 10 mg, oral, Daily cefTRIAXone, 1 g, intravenous, q24h magnesium sulfate, 1 g, intravenous, q1h nicotine, 1 patch, transdermal, Daily sodium chloride, 100 mL/hr, Last Rate: 100 mL/hr (03/25/24 0501) Pertinent Investigations Hematology: Results from last 7 days Lab Units 03/25/24 0559 03/24/24 0543 03/23/24 1825 WBC AUTO 10*3/uL 3.88* 5.65 6.45 HEMOGLOBIN g/dL 11.0* 10.4* 12.6* HEMATOCRIT % 33.0* 31.9* 38.3* MCV fL 96.2 100.3* 100.3* PLATELETS AUTO 10*3/uL 368 349 419* INR 1.07 -- 1.07 Chemistry: Results from last 7 days Lab Units 03/25/24 0559 03/24/24 0543 03/23/24 1825 SODIUM mmol/L 136 134* 137 POTASSIUM mmol/L 3.8 4.0 4.0 CHLORIDE mmol/L 106 106 107 CO2 mmol/L 23 23 23 BUN mg/dL 8 13 14 CREATININE mg/dL 0.59* 0.61* 0.69* GLUCOSE mg/dL 89 82 89 MAGNESIUM mg/dL 1.7* -- 1.9 CALCIUM mg/dL 8.0* 8.0* 8.5* PHOSPHORUS mg/dL -- -- 3.9 Results from last 7 days Lab Units 03/25/24 0559 03/24/24 0543 03/23/24 1825 AST U/L 40* 75* 132* ALT U/L 49 72* 106* ALK PHOS U/L 532* 566* 721* BILIRUBIN TOTAL mg/dL 1.0 1.6* 2.9* BILIRUBIN DIRECT mg/dL 0.3* -- 2.0* LIPASE U/L 48 168* 587* Historical Values: (Includes values prior to this admission) No results found for: PREALBUMIN , TSH , T3FREE , FREET4 , CORTISOL , FEV1 , LVV1LLI , DLCO , RVSP , HDL , LDL No results found for: [id number] , IRON , TIBC , C3 , C4 , SALBADOR , CANCA , ASO , PSA , CEA , CA125 , CA199 , AFP , CA153 Imaging CT transfer of outside films This order has been auto-finalized and does not contain a result. ECG 12 lead Sinus rhythm with frequent Premature ventricular complexes Otherwise normal ECG No previous ECGs available Confirmed by Maksim De La Cruz ([id number]) on 03/25/2024 7:11:34 AM Discharge Planning Expected Discharge Disposition: Home or Self Care (01) Signed TANNA CARCAMO [facility] Medicine 03/25/2024 10:13 [facility]11-25-2024 Note03/25/24 0946 Admission Assessment Questions Verify insurance with patient Yes Do you understand medical disease or what brought you into the hospital? Yes Who is your current PCP? Audrey Justin Can I schedule a follow up appointment for you at the time of discharge? Yes Do you understand why you are taking your current medications? Yes Are you taking your medications as prescribed? Yes Did patient provide teach back? No Pharmacy Bedside Delivery Status Not Interested (Uses [facility] in [place]) Does the patient have a caser assigned to them through their insurance? No Living Arrangement (Current/Prior to Hospitalization) Home self care (From home with ) Does the patient have history of HHC or SNF? No Assistive Device Not applicable Patient's goal for discharge Plan is to discharge home Was patient reminded that goal for discharge is 11am? Yes Does the patient have transportation at discharge? Yes () Type of Residence Private residence Is PT/OT appropriate? No Is PT/OT ordered? No Is SW consult appropriate? No Is SW consult ordered? No Do you understand the benefits of MyChart? Yes Were you able to send link and activate MyChart? [facility]11-24-2024 NoteHospital Medicine Daily Progress Note - 03/24/2024 9:42 AM; Room: [address] [place] [address] Admission: 03/23/2024 5:11 PM; Length of stay: 1 days THE HOSPITALIST TEAM PREFERS TO USE Mtime CHAT FOR NON-URGENT COMMUNICATION 7AM-7PM. IF I DO NOT RESPOND WITHIN 20 MINUTES OR URGENT MATTERS, PLEASE CALL THROUGH THE RENTAL SALES AGENT. FROM 7PM-7AM, PLEASE PAGE [phone](COVR). Code Status: Full Code Barriers to Discharge: GI plan pancreatitis Expected Discharge Date: pending clinical progress Discharge Destination: home Overview Patient is seen for evaluation and management of abdominal pain . Subjective Patient resting in bed he remains with RUQ abdominal pain, no n/v/d fever or chills. Physical Exam Visit Vitals BP 120/66 Pulse 89 Temp 36.7 ???C (98.1 ???F) Resp 14 Intake/Output Summary (Last 24 hours) at 03/24/2024 0942 Last data filed at 03/23/2024 1908 Gross per 24 hour Intake 50 ml Output -- Net 50 ml Physical Exam Vitals and nursing note reviewed. HENT: Nose: Nose normal. Mouth/Throat: Mouth: Mucous membranes are moist. Eyes: Pupils: Pupils are equal, round, and reactive to light. Cardiovascular: Rate and Rhythm: Normal rate and regular rhythm. Pulses: Normal pulses. Pulmonary: Effort: Pulmonary effort is normal. Abdominal: Palpations: Abdomen is soft. Tenderness: There is abdominal tenderness (RUQ). Musculoskeletal: General: Normal range of motion. Cervical back: Normal range of motion. Skin: General: Skin is warm. Capillary Refill: Capillary refill takes less than 2 seconds. Neurological: Mental Status: He is alert and oriented to person, place, and time. Estimated body mass index is 24.23 kg/m??? as calculated from the following: Height as of this encounter: 1.778 m (5' 10 ). Weight as of this encounter: 76.6 kg (168 lb 14 oz). Active Inpatient Problems Principal Problem: Calculus of common bile duct with obstruction Active Problems: Pancreatitis Transaminitis Hyperbilirubinemia Primary hypertension Nicotine use Assessment and Plan Acute pancreatitis Transaminitis-improving Hyperbilirubinemia Hypertension Nicotine use Recent cholecystectomy x [address] abdomen/pelvis completed at [facility] shows right upper quadrant inflammatory changes involving the common bile duct, small fat filled periumbilical hernia without strangulation, mild lymphadenopathy, likely reactive. -Patient s/p cholecystectomy 2 weeks ago at [facility] -Concerned for retained stone causing transaminiti, hyperbilirubinemia and pancreatitis -IV fluids -Pain management -Continue ABX as ordered -okay for clear liquid diet today -N.p.o. at midnight for ERCP tomorrow -Hold DVT prophylaxis until after procedure -Continue home medications -Nicotine patch -GI following Malnutrition Attestation: Comment: VTE Prophylaxis: Will start AFTER PROCEDURE Scheduled Meds amLODIPine, 10 mg, oral, Daily cefTRIAXone, 1 g, intravenous, q24h nicotine, 1 patch, transdermal, Daily sodium chloride, 100 mL/hr, Last Rate: 100 mL/hr (03/24/24 0632) Pertinent Investigations Hematology: Results from last 7 days Lab Units 03/24/24 0543 03/23/24 1825 WBC AUTO 10*3/uL 5.65 6.45 HEMOGLOBIN g/dL 10.4* 12.6* HEMATOCRIT % 31.9* 38.3* MCV fL 100.3* 100.3* PLATELETS AUTO 10*3/uL 349 419* INR -- 1.07 Chemistry: Results from last 7 days Lab Units 03/24/24 0543 03/23/24 1825 SODIUM mmol/L 134* 137 POTASSIUM mmol/L 4.0 4.0 CHLORIDE mmol/L 106 107 CO2 mmol/L 23 23 BUN mg/dL 13 14 CREATININE mg/dL 0.61* 0.69* GLUCOSE mg/dL 82 89 MAGNESIUM mg/dL -- 1.9 CALCIUM mg/dL 8.0* 8.5* PHOSPHORUS mg/dL -- 3.9 Results from last 7 days Lab Units 03/24/24 0543 03/23/24 1825 AST U/L 75* 132* ALT U/L 72* 106* ALK PHOS U/L 566* 721* BILIRUBIN TOTAL mg/dL 1.6* 2.9* BILIRUBIN DIRECT mg/dL -- 2.0* LIPASE U/L -- 587* Historical Values: (Includes values prior to this admission) No results found for: PREALBUMIN , TSH , T3FREE , FREET4 , CORTISOL , FEV1 , BJE8RIE , DLCO , RVSP , HDL , LDL No results found for: KXNXJLRE01 , IRON , TIBC , C3 , C4 , [place] , CANCA , ASO , PSA , CEA , CA125 , CA199 , AFP , CA153 Imaging No image results found. Discharge Planning Expected Discharge Disposition: Home or Self Care (01) Signed TANNA CARCAMO [facility] Medicine 03/24/2024 9:42 [facility]11[facility]24-[facility] Initial Gastroenterology/Hepatology Consultation Note IDENTIFYING DATA PATIENT: Ludwin Reyes ADMIT DATE: 03/23/2024 TIME OF EVALUATION: 03/24/2024 8:34 AM Reason for Consult: CBD obstruction, needs ERCP, accepted by Dr. Nino HISTORY OF PRESENT ILLNESS Ludwin Reyes is a 68 y.o. male with a past medical history of hypertension and nicotine use presents as a direct admission from [facility] with a chief complaint of right upper quadrant abdominal pain. The patient reports that he underwent a cholecystectomy two weeks ago and initially felt well after the procedure. He describes the onset of symptoms last night while attending a football game, where he experienced indigestion that he initially attributed to dietary causes. He went to bed but woke up with excruciating right upper quadrant abdominal pain and dark colored urine. He denies nausea, vomiting, diarrhea, chest pain, fever, chills or shortness of breath. At [place], laboratory studies showed WBC 7.6, RBC 3.87, hemoglobin 12.8, hematocrit 37.9, sodium 138, potassium 3.8, chloride 104, BUN 14, creatinine 0.9, total bilirubin 2.7, direct bilirubin 2.4, AST 237, ALT 157, alkaline phosphatase 85, and lipase 3680. CT imaging of the abdomen and pelvis revealed inflammatory changes involving the common bile duct, a small fat-filled periumbilical hernia without evidence of strangulation, and mild lymphadenopathy likely reactive in nature. GI was consulted due to concerns about pancreatitis and potential choledocholithiasis. On admission to [facility], the patient's liver function tests (LFTs) showed a decrease in AST (75 from 132), ALT (72 from 106), and alkaline phosphatase (566 from 721). The total bilirubin improved from 2.9 to 1.6, and lipase was elevated at 587. The patient reports some improvement in pain, describing it as dull in the right upper quadrant (RUQ) with a pain score of 3. The pain is worsened by movement. The patient smokes cigarettes but denies alcohol use. PAST MEDICAL, SURGICAL, FAMILY, and SOCIAL HISTORY Past Medical History: Diagnosis Date Hypertension History reviewed. No pertinent surgical history. No family history on file. Social History: Social History Tobacco Use Smoking status: Some Days Current packs/day: 0.25 Average packs/day: 0.3 packs/day for 0.1 years Types: Cigarettes Start date: 03/02/2024 Smokeless tobacco: Never Vaping Use Vaping status: Never Used Substance Use Topics Alcohol use: Not Currently Drug use: Never MEDICATIONS Allergies: No Known Allergies Home Medications: Prior to Admission medications Not on File Current Medications: amLODIPine, 10 mg, oral, Daily cefTRIAXone, 1 g, intravenous, q24h nicotine, 1 patch, transdermal, Daily PRNs: naloxone, 0.2 mg, PRN Or naloxone, 0.2 mg, PRN Or naloxone, 0.2 mg, PRN ondansetron ODT, 4 mg, q8h PRN Or ondansetron, 4 mg, q6h PRN oxyCODONE, 10 mg, q6h PRN oxyCODONE, 5 mg, q6h PRN sennosides-docusate sodium, 1 tablet, Daily PRN sodium chloride, 10 mL, q8h PRN REVIEW OF SYSTEMS See HPI, otherwise ROS negative as below CONSTITUTIONAL: negative HEENT: negative RESPIRATORY: negative CARDIOVASCULAR: negative GASTROINTESTINAL: as in HPI GENITOURINARY: negative INTEGUMENT/BREAST: negative HEMATOLOGIC/LYMPHATIC: negative ALLERGIC/IMMUNOLOGIC: negative ENDOCRINE: negative MUSCULOSKELETAL: negative NEUROLOGICAL: negative BEHAVIOR/PSYCH: negative OBJECTIVE DATA Vitals: BP 120/66 Pulse 89 Temp 36.7 ???C (98.1 ???F) Resp 14 Ht 1.778 m (5' 10 ) Wt 76.6 kg (168 lb 14 oz) SpO2 94% BMI 24.23 kg/m??? GEN: Alert and oriented x3, NAD HEENT: Atraumatic, normocephalic, no jaundice CV: No edema visualized PULM: Respirations even and unlabored ABD: Soft, non-distended, generalized pain to palpation, no rigidity or guarding NEURO: Moves all 4 extremities spontaneously, answers questions appropriately LABS AND IMAGING CBC: Lab Results Component Value Date WBC 5.65 03/24/2024 RBC 3.18 (L) 03/24/2024 HGB 10.4 (L) 03/24/2024 HCT 31.9 (L) 03/24/2024 MCV 100.3 (H) 03/24/2024 RDW 12.9 03/24/2024 PLT 349 03/24/2024 CMP: Lab Results Component Value Date NA 134 (L) 03/24/2024 K 4.0 03/24/2024 CL 106 03/24/2024 CO2 23 03/24/2024 BUN 13 03/24/2024 PROT 5.9 (L) 03/24/2024 Lipase: No components found for: LIP Amylase: No components found for: ETHEL Ionized Calcium: No components found for: IONCA Magnesium: Lab Results Component Value Date MG 1.9 03/23/2024 Phosphorus: No components found for: PO4 PT/INR: Lab Results Component Value Date INR 1.07 03/23/2024 TSH: No results found for: TSH VITAMIN B12: No components found for: B12 FOLATE: No results found for: FOLATE IRON: No components found for: FE Iron Saturation: No components found for: PERCENTFESAT TIBC: No results foun (more content not included)...[facility]11-24-2024 [facility] Teaching GI Service Initial Gastroenterology/Hepatology Consultation Note IDENTIFYING DATA PATIENT: Ludwin Reyes ADMIT DATE: 03/23/2024 TIME OF EVALUATION: 03/24/2024 8:34 AM Reason for Consult: CBD obstruction, needs ERCP, accepted by Dr. Nino HISTORY OF PRESENT ILLNESS Ludwin Reyes is a 68 y.o. male with a past medical history of hypertension and nicotine use presents as a direct admission from [facility] with a chief complaint of right upper quadrant abdominal pain. The patient reports that he underwent a cholecystectomy two weeks ago and initially felt well after the procedure. He describes the onset of symptoms last night while attending a football game, where he experienced indigestion that he initially attributed to dietary causes. He went to bed but woke up with excruciating right upper quadrant abdominal pain and dark colored urine. He denies nausea, vomiting, diarrhea, chest pain, fever, chills or shortness of breath. At [place], laboratory studies showed WBC 7.6, RBC 3.87, hemoglobin 12.8, hematocrit 37.9, sodium 138, potassium 3.8, chloride 104, BUN 14, creatinine 0.9, total bilirubin 2.7, direct bilirubin 2.4, AST 237, ALT 157, alkaline phosphatase 85, and lipase 3680. CT imaging of the abdomen and pelvis revealed inflammatory changes involving the common bile duct, a small fat-filled periumbilical hernia without evidence of strangulation, and mild lymphadenopathy likely reactive in nature. GI was consulted due to concerns about pancreatitis and potential choledocholithiasis. On admission to [facility], the patient's liver function tests (LFTs) showed a decrease in AST (75 from 132), ALT (72 from 106), and alkaline phosphatase (566 from 721). The total bilirubin improved from 2.9 to 1.6, and lipase was elevated at 587. The patient reports some improvement in pain, describing it as dull in the right upper quadrant (RUQ) with a pain score of 3. The pain is worsened by movement. The patient smokes cigarettes but denies alcohol use. PAST MEDICAL, SURGICAL, FAMILY, and SOCIAL HISTORY Past Medical History: Diagnosis Date Hypertension History reviewed. No pertinent surgical history. No family history on file. Social History: Social History Tobacco Use Smoking status: Some Days Current packs/day: 0.25 Average packs/day: 0.3 packs/day for 0.1 years Types: Cigarettes Start date: 03/02/2024 Smokeless tobacco: Never Vaping Use Vaping status: Never Used Substance Use Topics Alcohol use: Not Currently Drug use: Never MEDICATIONS Allergies: No Known Allergies Home Medications: Prior to Admission medications Not on File Current Medications: amLODIPine, 10 mg, oral, Daily cefTRIAXone, 1 g, intravenous, q24h nicotine, 1 patch, transdermal, Daily PRNs: naloxone, 0.2 mg, PRN Or naloxone, 0.2 mg, PRN Or naloxone, 0.2 mg, PRN ondansetron ODT, 4 mg, q8h PRN Or ondansetron, 4 mg, q6h PRN oxyCODONE, 10 mg, q6h PRN oxyCODONE, 5 mg, q6h PRN sennosides-docusate sodium, 1 tablet, Daily PRN sodium chloride, 10 mL, q8h PRN REVIEW OF SYSTEMS See HPI, otherwise ROS negative as below CONSTITUTIONAL: negative HEENT: negative RESPIRATORY: negative CARDIOVASCULAR: negative GASTROINTESTINAL: as in HPI GENITOURINARY: negative INTEGUMENT/BREAST: negative HEMATOLOGIC/LYMPHATIC: negative ALLERGIC/IMMUNOLOGIC: negative ENDOCRINE: negative MUSCULOSKELETAL: negative NEUROLOGICAL: negative BEHAVIOR/PSYCH: negative OBJECTIVE DATA Vitals: BP 120/66 Pulse 89 Temp 36.7 ???C (98.1 ???F) Resp 14 Ht 1.778 m (5' 10 ) Wt 76.6 kg (168 lb 14 oz) SpO2 94% BMI 24.23 kg/m??? GEN: Alert and oriented x3, NAD HEENT: Atraumatic, normocephalic, no jaundice CV: No edema visualized PULM: Respirations even and unlabored ABD: Soft, non-distended, generalized pain to palpation, no rigidity or guarding NEURO: Moves all 4 extremities spontaneously, answers questions appropriately LABS AND IMAGING CBC: Lab Results Component Value Date WBC 5.65 03/24/2024 RBC 3.18 (L) 03/24/2024 HGB 10.4 (L) 03/24/2024 HCT 31.9 (L) 03/24/2024 MCV 100.3 (H) 03/24/2024 RDW 12.9 03/24/2024 PLT 349 03/24/2024 CMP: Lab Results Component Value Date NA 134 (L) 03/24/2024 K 4.0 03/24/2024 CL 106 03/24/2024 CO2 23 03/24/2024 BUN 13 03/24/2024 PROT 5.9 (L) 03/24/2024 Lipase: No components found for: LIP Amylase: No components found for: ETHEL Ionized Calcium: No components found for: IONCA Magnesium: Lab Results Component Value Date MG 1.9 03/23/2024 Phosphorus: No components found for: PO4 PT/INR: Lab Results Component Value Date INR 1.07 03/23/2024 TSH: No results found for: TSH VITAMIN B12: No components found for: B12 FOLATE: No results found for: FOLATE IRON: No components found for: FE Iron Saturation: No components found for: PERCENTFESAT TIBC: No results foun (more content not included)...[facility]11-23-2024 NoteCase was discussed with the JAN on 03/23/2024. I agree with the history, physical, assessment, and plan of care. I discussed the findings and therapeutic plan. I agree with the documentation, except for any updates below. Pineda Lakhani [facility]-23-2024 NoteHospital Medicine History and Physical 03/23/2024 7:49 PM THE HOSPITALIST TEAM PREFERS TO USE Mtime CHAT FOR NON-URGENT COMMUNICATION 7AM-7PM. IF I DO NOT RESPOND WITHIN 20 MINUTES OR URGENT MATTERS, PLEASE CALL THROUGH THE RENTAL SALES AGENT. FROM 7PM-7AM, PLEASE PAGE [phone](COVR). Chief Complaint Direct admission from [facility] with abdominal pain History of Present Illness Ludwin Reyes is an 68 y.o. male who came from home with past medical history of hypertension and nicotine use presents as a direct admission from [facility] with a chief complaint of right upper quadrant abdominal pain. Patient reports that he had his gallbladder taken out 2 weeks ago and was feeling great after the procedure. Reports that last night he was at a football game when he started to feel some indigestion. He states that he went to bed last night and woke up with excruciating right upper quadrant abdominal pain. He states associated diaphoresis but denies nausea, vomiting, diarrhea, chest pain, shortness of breath. At [place], labs were completed showing WBC 7.6, RBC 3.87, hemoglobin 12.8, hematocrit 37.9, sodium 138, potassium 3.8, chloride 104, BUN 14, creatinine 0.9, total bilirubin 2.7, direct bilirubin 2.4, AST 237, ALT 157, alkaline phosphatase 85, lipase 3680. CT abdomen/pelvis was completed showing right upper quadrant inflammatory changes involving the common bile duct, small fat filled periumbilical hernia without strangulation, mild lymphadenopathy, likely reactive. Patient thought to have a retained stone after cholecystectomy so GI team was contacted to [facility] for further evaluation and they would like patient brought over for possible MRCP/ERCP. Review of System and Physical Exam Temp: [36.6 ???C (97.9 ???F)-36.7 ???C (98.1 ???F)] 36.6 ???C (97.9 ???F) Heart Rate: [81-88] 81 Resp: [14-18] 14 BP: (135-140)/(60-70) 140/70 Physical Exam Vitals reviewed. Constitutional: Appearance: He is normal weight. HENT: Head: Normocephalic. Mouth/Throat: Pharynx: Oropharynx is clear. Eyes: Conjunctiva/sclera: Conjunctivae normal. Cardiovascular: Rate and Rhythm: Normal rate and regular rhythm. Pulses: Normal pulses. Heart sounds: Normal heart sounds. Pulmonary: Effort: Pulmonary effort is normal. Breath sounds: Normal breath sounds. Abdominal: General: Abdomen is flat. Tenderness: There is abdominal tenderness. There is guarding. Musculoskeletal: General: Normal range of motion. Cervical back: Normal range of motion. Skin: General: Skin is warm and dry. Capillary Refill: Capillary refill takes less than 2 seconds. Neurological: General: No focal deficit present. Mental Status: He is alert. Psychiatric: Mood and Affect: Mood normal. Review of Systems Constitutional: Positive for diaphoresis. Negative for appetite change, chills, fatigue and fever. HENT: Negative for congestion and dental problem. Eyes: Negative for pain and itching. Gastrointestinal: Positive for abdominal pain. Negative for constipation, diarrhea, nausea and vomiting. Endocrine: Negative for cold intolerance. Genitourinary: Negative for difficulty urinating and dysuria. Musculoskeletal: Negative for arthralgias and back pain. Skin: Negative for color change and pallor. Neurological: Negative for dizziness, tremors, syncope, facial asymmetry, speech difficulty and weakness. Psychiatric/Behavioral: Negative for agitation and behavioral problems. Problem List Principal Problem: Calculus of common bile duct with obstruction Active Problems: Pancreatitis Transaminitis Hyperbilirubinemia Primary hypertension Nicotine use Assessment and Plan Ludwin Reyes is an 68 y.o. male who came from home with past medical history of hypertension and nicotine use presents as a direct admission from [facility] with a chief complaint of right upper quadrant abdominal pain. #Acute pancreatitis #Transaminitis #Hyperbilirubinemia #Hypertension #Nicotine use -CT abdomen/pelvis completed at [facility] shows right upper quadrant inflammatory changes involving the common bile duct, small fat filled periumbilical hernia without strangulation, mild lymphadenopathy, likely reactive. -Patient s/p cholecystectomy 2 weeks ago at [facility] -Concerned for retained stone causing transaminiti, hyperbilirubinemia and pancreatitis -IV fluids -Pain management -Continue ABX as ordered -N.p.o. at midnight for possible ERCP -Hold DVT prophylaxis until after procedure -Continue home medications -Nicotine patch -GI consult VTE Prophylaxis: Will start AFTER PROCEDURE ----- Focus of this inpatient stay will remain on problems that need acute care setting for care. We will review available studies and will order additional labs, imaging and other studies as appropriate. As needed medicines are ordered as appropr (more content not included)... [facility]11-13-2024 History of Present illness Narrative* Christiana Marquez, MARCO-DATA ENTRY MANAGER - 03/13/2024 12:15 PM EST Images from the original note were not included. Subjective Ludwin Reyes is a 68 y.o. male status post robotic assisted laparoscopic cholecystectomyon 03/08/2024. He is doing well. He denies any further right upper quadrant pain. He reports a little bit of pain that started today at his lower incision site. He denies any fever or chills. He is gabe erating oral intake. He has not had a [...] Status post laparoscopic cholecystectomy [Z90.49] RAMIN LINK [facility] [place] This note was created with the assistance of a speech recognition program. While intending to generate a timely document that accurately reflects the content of the visit, no guarantee can be provided that every grammatical or spelling mistake has been or will be identified or corrected. Thank you for your understanding. RAMIN Link 03/13/24 1232 [facility]* Diagnosis Onset Date Resolution Status Admit Date Hx laparoscopic cholecystectomy acut e March 12, 2024 9:02am Hypertension acute March 9:02am Pancreatitis acute March 9:02am Gallstone acute April 05, 2024 11:31am Hypertension acute March 11:31am Solitary pulmonary nodule on lung CT acute April 05 11:31am Cigarette nicotine dependenc e without complication acute April 112023 3:00pm Paraseptal emphysema acute Dece mber 2023 3:00pm Solitary pulmonary nodule acute April 11, 2024 3:00pm Cigarette nicotine dependenc e without complication acute May 9:53am Paraseptal emphysema acute Lazaro beatris 2024 9:53am Solitary pulmonary nodule acute May 16, 2024 9:53am [facility] Work Phone: 1(735) 242-977210-14-2024 Evaluation note* Diagnosis Onset Date Resolution Status Admit Date Encounter for smoking cessat ion counseling acute February 11 11:01am Medicare annual wellness vis it, initial acute February 11 11:01am Screening for colon cancer acute February 12, 2024 11:01am Screening for deficiency anemia acut e February 12, 2024 11:01am Screening for lung cancer acute February 12, 2024 11:01am Screening for metabolic disorder acu te February 12, 2024 11:01am Screening for other and unspecified cardiovascular conditions acute February 11 11:01am Screening for prostate cancer acute February 12, 2024 11:01am [facility] Work Phone: 1(204) 483-853010-14-2024 Evaluation note* Diagnosis Onset Date Resolution Status Admit Date Encounter for smoking cessat ion counseling acute February 11 11:01am Medicare annual wellness vis it, initial acute February 11 11:01am Screening for colon cancer acute February 12, 2024 11:01am Screening for deficiency anemia acut e February 12, 2024 11:01am Screening for lung cancer acute February 12, 2024 11:01am Screening for metabolic disorder acu te February 12, 2024 11:01am Screening for other and unspecified cardiovascular conditions acute February 11 11:01am Screening for prostate cancer acute February 12, 2024 11:01am Hx laparoscopic cholecystectomy acut e March 12, 2024 9:02am Pancreatitis acute March 9:02am [facility] Work Phone: 1(590) 885-470910-14-2024 Evaluation note* Diagnosis Onset Date Resolution Status Admit Date Encounter for smoking cessat ion counseling acute February 11 11:01am Medicare annual wellness vis it, initial acute February 11 11:01am Screening for colon cancer acute February 12, 2024 11:01am Screening for deficiency anemia acut e February 12, 2024 11:01am Screening for lung cancer acute February 12, 2024 11:01am Screening for metabolic disorder acu te February 12, 2024 11:01am Screening for other and unspecified cardiovascular conditions acute February 11 11:01am Screening for prostate cancer acute February 12, 2024 11:01am Hx laparoscopic cholecystectomy acut e March 12, 2024 9:02am Hypertension acute March 9:02am Pancreatitis acute March 9:02am Gallstone acute April 05, 2024 11:31am Hypertension acute March 11:31am Solitary pulmonary nodule on lung CT acute April 05 11:31am Cigarette nicotine dependenc e without complication acute April 112023 3:00pm Paraseptal emphysema acute Dece mb2023 3:00pm Solitary pulmonary nodule acute April 11, 2024 3:00pm [facility] Work Phone: Evaluation note* Diagnosis Onset Date Resolution Status Medicare annual wellness visit, initial acute Screening for colon cancer a cute Screening for deficiency anemia acute Screening for metabolic disorder acute Screening for other and unsp ecified cardiovascular conditions acute Screening for prostate cancer acute [facility] Work Phone: Evaluation note* Diagnosis Status post laparoscopic cholecystectomy- Primary Other postprocedural status documented [facility] this [facility] assessment information available [facility] Work Phone: Evaluation note* Diagnosis Onset Date Resolution Status Admit Date Cigarette nicotine dependenc e without complication acute January 8:19am Decreased hearing of both ears acute February 17, 2025 8:19am Hypertension acute January 8:19am Paraseptal emphysema acute 2024 8:19am Screening for lung cancer acute February 17, 2025 8:19am Screening for prostate cancer acute February 17, 2025 8:19am Solitary pulmonary nodule acute February 17, 2025 8:19am Solitary pulmonary nodule on lung CT acute February 17 8:19am [facility] Work Phone: History and physical note Author Emma Mcdermott [facility] Note Date/Time May 10, 2024 1 1:51am [facility] [address] [place] [address] Gastroenterology H&P Signed Patient: Ludwin Reyes MR#: [id number] : 1955 Acct:[id number] Age/Sex: 68 / M Adm Date: 5 Loc: Room: Type: [facility] Attending Dr: Emma Mcdermott MD Copies to: MD Audrey Triana APRN, DATA ENTRY MANAGER~ Date of Service: 05/10/2024 HISTORY & PHYSICAL: Patient's history with special attention to the cardiovascular, pulmonary systems and the current problem was reviewed with the patient immediately prior to the procedure. Present medications and doses reviewed in the EMR. Allergies and pertinent laboratory tests were also reviewedat this time in the EMR. The physical examination, as below, was then performed. Indication, assessment and HPI: 68-year-old man with family history of colon cancer(mother) here for screening colonoscopy Family history of GI malignancy? Yes PHYSICAL EXAMINATION General appearance: NAD Skin: No jaundice Head: NC/AT Eyes: Anicteric Neck: Supple Lungs: Normal respiratory effort, no use of accessory muscles Abdomen: nondistended Neuro: Ox3. REVIEW OF SYSTEMS Constitutional: Denies malaise, fevers Cardiovascular: Denies chest pain, palpitations Respiratory: Denies shortness of breath, wheezing Gastrointestinal: As per HPI Genitourinary: Denies dysuria, polyuria Musculoskeletal: Denies joint swelling, joint stiffness Neurological: Denies confusion, numbness, tingling Endocrine: Denies fatigue Written informed consent obtained from the patient. Risks (including but not limited to perforation, infection, bloating, bleeding, need for emergent surgeryand loss of life), benefits and alternatives explained and questions answered. The patient verbalized understanding. Based on history patient is an appropriate candidate for the procedure. Emma Mcdermott M.D. Documented By: Emma Mcdermott MD 05/10/24 1150 Signed By: <Electronically signed by Emma Mcdermott MD> 05/10/24 1151 [facility] Work Phone: Hospital Discharge instructionsAmbulatory Orders* Referral to Gastroenterology Time Frame: 02/12/24, Location: None Selected [facility] Work Phone: Hospital Discharge instructions Additional Instructions DISCHARGE INSTRUCTIONS FOR COLONOSCOPY WHAT TO EXPECT: - You may feel full, gassy or cramping after your procedure. In some cases, this may be from a few hours to a day. Walking may help relieve the discomfort. - If you have polyp(s) removed you may note some minor bloody discharge after your first bowel movements. - You should begin to recover from anesthesia within 1 hour of the procedure, however may feel groggy for the next 24 hours. DO's AND DON'Ts: - Call your doctor right away if you have a hard abdomen, severe pain, are passing lots of bright red blood or clots. - Call your doctor if you develop any rashes, hives or difficulty breathing. - Let your doctor know if you have not had a bowel movement by 3 days after your procedure. - If you take 81 mg aspirin for your heart it is safe to resume this medication. - If you take other blood thinner medications your doctor will instruct you when these can safely be resumed. - Do NOT drive for 24 hours. - Do NOT operate machinery such as power tools, [employer] mowers, [employer], sewing machines, etc. for 24 hours. - Avoid alcoholic beverages and drugs for allergies, nerves, or sleep. - Do NOT stay alone. Do NOT leave your child unattended. - Do NOT make important personal or business decisions or sign any legal documents. - Eat solid foods and drink liquids in smaller amounts than usual until normal appetite returns. If you should experience an upset stomach, liquids high in sugar content (soda, Rick-Aid, non-acid juices) are recommended. - You can resume normal activities tomorrow. FOLLOW UP & RECOMMENDATIONS: -Notify the doctor if you have any problems. -Repeat colonoscopy in 3 years. -Follow up with PCP. -Office number [phone]. [facility] Work Phone: Hospital Discharge instructionsAmbulatory Orders* Referral to Audiology Time Frame: 02/17/25, Location: None Selected * Referral to Pulmonology Time Frame: 02/17/25, Location: None Selected [facility] Work Phone: InstructionsNot on filedocumented in this encounter [facility] SystemInstructionsNot on filedocumented in this encounter [facility] SystemReason for referral (narrative)No reason for referral [facility]: Summary Purpose Family History Relationship Condition Age at Onset Recorded Date/T gabriela mother Malignant neoplasm of colon Unknown father Multiple myeloma Unknown brother Muscular dystrophy Unknown Advance Directives Advance Directive Response Recorded Date/ Time Advance Directives No February 12, 2024 10:59am Advance Directive Response Recorded Date/ Time Advance Directives No February 12, 2024 9:59am Advance Directive Response Recorded Date/ Time Advance Directives No March 7:46am Advance Directive Response Recorded Date/ Time Advance Directives No March 8:46am Chief Complaint and Reason for Visit Chief [...] Admit Date Encounter for smoking cessation counseli ng February 12, 2024 11:01am Medicare annual wellness [...] 2024 9:02am Pancreatitis March 12, 2024 9:02am Chief Complaint Admit Date Establish Care/WELLNESS February 11 11:01am gall stones March 08, 2024 9 :12am Amb Documentation March 08, 2024 2 :11pm CC Adult Risk Stratification March 2:21pm hospital follow up March 12 9:02am Amb Documentation April 01, 2024 9 :37am CC Adult Risk Stratification March 3:17pm [facility] f/u April 05, 2024 1 1:31am Ref: Rohrbacher- Abnormal finding of kendall g April 11, 2024 3:00pm [email or web address] May 06, 2024 10 :30am Reason for Visit Admit Date Encounter for [...] Hx laparoscopic cholecystectomy March 12, 2024 9:02am Hypertension March 12, 2024 9:02am Pancreatitis March 12, 2024 9:02am Gallstone April 05, 2024 1 1:31am Hypertension April 05, 2024 1 1:31am Solitary pulmonary nodule on lung CT Dec emb2023 11:31am Cigarette nicotine dependence without co mplication April 11, 2024 3:00pm Paraseptal emphysema April 11, 2024 3:00pm Solitary pulmonary nodule April 11, 2024 3:00pm Chief Complaint Admit Date Establish Care/WELLNESS February 11 11:01am gall stones March 08, 2024 9 :12am Amb Documentation March 08, 2024 2 :11pm CC Adult Risk Stratification March 2:21pm hospital follow up March 12 9:02am Amb Documentation April 01, 2024 9 :37am CC Adult Risk Stratification March 3:17pm [facility] f/u April 05, 2024 1 1:31am Ref: Kayleyacher- Abnormal finding of kendall g April 11, 2024 3:00pm [email or web address] May 06, 2024 10 :30am Screening May 10, 2024 9 :52am Screening May 10, 2024 1 1:50am Chief Complaint Admit Date gall stones March 08, 2024 9 :12am Amb Documentation March 08, 2024 2 :11pm CC Adult Risk Stratification March 2:21pm hospital follow up March 12 9:02am Amb Documentation April 01, 2024 9 :37am CC Adult Risk Stratification March 3:17pm [facility] f/u April 05, 2024 1 1:31am Ref: Kayleyacher- Abnormal finding of kendall g April 11, 2024 3:00pm [email or web address] May 06, 2024 10 :30am Screening May 10, 2024 9 :52am Screening May 10, 2024 1 1:50am DIRECT RESPONSE CONSULTANT: 3 wk f/u PET Results May 16, 2024 9:53am Reason for Visit Admit Date Hx laparoscopic cholecystectomy March 12, 2024 9:02am Hypertension March 12, 2024 9:02am Pancreatitis March 12, 2024 9:02am Gallstone April 05, 2024 1 1:31am Hypertension April 05, 2024 1 1:31am Solitary pulmonary nodule on lung CT Dec ember 6th, 2024 11:31am Cigarette nicotine dependence without co mplication April 11, 2024 3:00pm Paraseptal emphysema April 11, 2024 3:00pm Solitary pulmonary nodule April 11, 2024 3:00pm Cigarette nicotine dependence without co mplication May 16, 2024 9:53am Paraseptal emphysema May 16, 2024 9:53am Solitary pulmonary nodule May 16, 2024 9:53am Chief Complaint Admit Date [email or web address] May 06, 2024 10 :30am Screening May 10, 2024 9 :52am Screening May 10, 2024 1 1:50am DIRECT RESPONSE CONSULTANT: 3 wk f/u PET Results May 16, 2024 9:53am [email or web address] July 25, 2024 1:0 2pm Reason for Visit Admit Date Cigarette nicotine dependence without co mplication May 16, 2024 9:53am Paraseptal emphysema May 16, 2024 9:53am Solitary pulmonary nodule May 16, 2024 9:53am Chief Complaint Admit Date [email or web address] May 06, 2024 10 :30am Screening May 10, 2024 9 :52am Screening May 10, 2024 1 1:50am DIRECT RESPONSE CONSULTANT: 3 wk f/u PET Results May 16, 2024 9:53am [email or web address] July 25, 2024 1:0 2pm DIRECT RESPONSE CONSULTANT: 3 mo f/u SPN July 29, 2024 11: 31am Reason for Visit Admit Date Cigarette nicotine dependence without co mplication May 16, 2024 9:53am Paraseptal emphysema May 16, 2024 9:53am Solitary pulmonary nodule May 16, 2024 9:53am Cigarette nicotine dependence without co mplication July 29, 2024 11:31am Paraseptal emphysema July 29, 2024 11 :31am Solitary pulmonary nodule July 29 11:31am Chief Complaint Admit Date hx of colon polyps November 25, 2024 11:2 8am Chief Complaint Admit Date hx of colon polyps November 25, 2024 11:2 8am Amb Documentation November 25, 2024 1:07 pm Wellness/Med Refills February 17, 2025 8:19am Reason for Visit Admit Date Cigarette nicotine dependence without co mplication February 17, 2025 8:19am Decreased hearing of both ears January 302024 8:19am Hypertension February 17, 2025 8 :19am Paraseptal emphysema February 17, 2025 8:19am Screening for lung cancer February 17, 2025 8:19am Screening for prostate cancer February 172024 8:19am Solitary pulmonary nodule February 17, 2025 8:19am Solitary pulmonary nodule on lung CT Oct sherry 2024 8:19am Additional Source Comments (unrecognized sect ion and content) No Status Records FoundNo Status Records FoundNo Status Records FoundNo Status Records Found INFORMATION SOURCE (unrecogn ized section and content) DATE CREATED AUTHOR 03/20/2020 [facility] DATE CREATED AUTHOR AUTHOR'S ORGANIZ ATION 03/15/2024 [facility] DATE CREATED AUTHOR AUTHOR'S ORGANIZ ATION 05/14/2024 [facility] DATE CREATED AUTHOR AUTHOR'S ORGANIZ ATION 12/07/2024 [facility] Care Teams (unrecognized sec tion and content) Team Status: Active Member Role Status Dates Audrey Justin APRN [employer]C Primary Care Provider Active Team Status: Inactive Member Role Status Dates Audrey Justin APRN [employer] Primary Care Provider, Attending Provider Active Start: February 12, 2024 End: February 12, 2024 Team Status: Active Member Role Status Dates Audrey Justin APRN [employer] Primary Care Provider, Attending Provider Active Start: March 05, 2024 Team Status: Active Member Role Status Dates Audrey Justin APRN [employer]C Primary Care Provider Active Start: March Shaikh Norma MD Attending Provider Active Sta rt: March 06, 2024 Team Status: Active Member Role Status Dates Audrey Justin APRN [employer] Primary Care Provider Active Start: March Shaikh Norma MD Attending Provider Active Sta rt: March 07, 2024 Team Status: Active Member Role Status Dates Audrey Justin APRN [employer]C Primary Care Provider Active Start: March h2023 Shaikh Norma MD Attending Provider Active Sta rt: March 08, 2024 Team Status: Inactive Member Role Status Dates Gurmeet Muñiz DO Attending Provider Active Start: March 08, 2024 End: March 08, 2024 Team Status: Active Member Role Status Dates Ana Valdez CMA Attending Provider Active Start: March 08, 2024 Team Status: Active Member Role Status Dates Audrey Justin APRN [employer]C Attending Provider Act shaan Start: March 08, 2024 Team Status: Inactive Member Role Status Dates Audrey Justin APRN [employer] Primary Care Provider, Attending Provider Active Start: March 12, 2024 End: March 12, 2024 Team Status: Inactive Member Role Status Dates Gurmeet Muñiz DO Attending Provider Active Start: March 08, 2024 End: March 08, 2024 NON STAFF Primary Care Provider Active Start: March 08, 2024 End: March 08, 2024 Team Status: Active Member Role Status Dates Audrey Justin APRN [employer] Primary Care Provider Active Start: March 232023 Ludwin Fuentes , Attending Provider Active S tart: March 23, 2024 Team Status: Active Member Role Status Dates Audrey Justin APRN [employer] Primary Care Provider Active Start: March 242023 Leonard Villagomez DO Attending Provider Active Sta rt: March 24, 2024 Team Status: Active Member Role Status Dates Audrey Justin APRN [employer] Primary Care Provider Active Start: March Ana Valdez CMA Attending Provider Active Start: April 01, 2024 Team Status: Active Member Role Status Dates Audrey Justin APRN [employer] Primary Care Provider, Attending Provider Active Start: April 02, 2024 Team Status: Inactive Member Role Status Dates Audrey Justin APRN [employer] Primary Care Provider, Attending Provider Active Start: April 05, 2024 End: April 05, 2024 Team Status: Inactive Member Role Status Dates Audrey Justin APRN [employer] Primary Care Provider, Referring Provider Active Start: April 11, 2024 End: April 11, 2024 Gallito Kern DO Attending Provider Active St art: April 11, 2024 End: April 11, 2024 Team Status: Inactive Member Role Status Dates Audrey Justin APRN [employer] Primary Care Provider, Attending Provider Active Start: May 06, 2024 End: May 06, 2024 Team Status: Inactive Member Role Status Dates Audrey Justin APRN [employer] Primary Care Provider Active Start: May End: May 10, 2024 Emma Mcdermott MD Attending Provider Active Start: May 10, 2024 End: May 10, 2024 Team Status: Active Member Role Status Dates Audrey Justin APRN [employer] Primary Care Provider Active Start: May Emma Mcdermott MD Attending Provider, Other Provider Active Start: May 10, 2024 Team Status: Inactive Member Role Status Dates Audrey Justin APRN [employer] Primary Care Provider Active Start: May End: May 16, 2024 Gallito Kern DO Attending Provider Active St art: May 16, 2024 End: May 16, 2024 [employer]ty Services Manager Relationship Specialty Start Date End Date Audrey Justin APRN-[employer] [address] [place] [place] [address] PCP - General Nurse Practitioner 03/12/24 [employer] Manager Relationship Specialty Start Date End Date Audrey Justin APRN-[employer] [address] [place] [place] [address] PCP - General Nurse Practitioner 03/12/24 Team Status: Inactive Member Role Status Dates Audrey Justin APRN [employer] Primary Care Provider Active Start: July 25, 2024 End: July 25, 2024 Gallito Kern DO Attending Provider Active St art: July 25, 2024 End: July 25, 2024 Team Status: Inactive Member Role Status Dates Audrey Justin APRN [employer] Primary Care Provider Active Start: July 29, 2024 End: July 29, 2024 Gallito Kern DO Attending Provider Active St art: July 29, 2024 End: July 29, 2024 Team Status: Active Member Role Status Dates Audrey Justin APRN [employer] Primary Care Provider Active Start: November 25, 2024 Emma Mcdermott MD Attending Provider Active Start: November 25, 2024 Emma Mcdermott MD Other Provider Active Start: Oct Team Status: Active Member Role/Relationship Status Dates Audrey Justin APRN [employer] Primary Care Provider Active Team Status: Active Member Role/Relationship Status Dates Audrey Justin APRN [employer]-[place] Primary Care Provider Active Start: November 25, 2024 Emma Mcdermott MD Attending Provider Active Start: November 25, 2024 Emma Mcdermott MD Other Provider Active Start: Oct Team Status: Active Member Role/Relationship Status Dates Audrey Justin APRN [employer] Primary Care Provider Active Start: November 25, 2024 Ethel Torres CMA Attending Provider Active St art: November 25, 2024 Team Status: Inactive Member Role/Relationship Status Dates Audrey Justin APRN [employer] Primary Care Provider Active Start: January End: February 17, 2025 Audrey Justin APRN [employer] Attending Provider Active Start: February 17, 2025 End: February 17, 2025 Goals (unrecognized section and content) Goals may be documented in a n alternate sectionGoals may be documented in an alternate sectionGoals may be documented in an alternate sectionGoals may be documented in an alternate sectionNot on filedocumented as of this encounterNot on filedocumented as of this encounterNot on filedocumented as of this encounterGoals may be documented in an alternate sectionGoals may be documented in an alternate section Reason for Visit (unrecogniz ed section and content) Reason Comments POST-OP VISIT [facility] 1 05/08/23, PT ASKED TO BE SEEN [...] BE BASED ON THE PRIMARY CLINICAL RECORDS. [facility], [facility]. provides no warranty or guarantee of the accuracy or completeness of information in this document.
[2025-02-17 10:41] LABS: Hematocrit 44.4 % (42.0-54.0); Hemoglobin 15.0 g/dL (14.0-18.0); Immature Granulocytes Abs Auto 0.02 10^3/uL (0.00-0.03); Immature Granulocytes Pct Auto 0.4 % (0.0-0.5); Lymphocytes Absolute Auto 1.7 10^3/uL (1.2-3.8); Mean Corpuscular HGB Conc 33.8 g/dL (29.9-35.2); Mean Corpuscular Hemoglobin 32.8 pg (25.9-34.0); Mean Corpuscular Volume 97.2 fL (80.0-94.0); Platelet Count 235 10^3/uL (150-450); Red Blood Count 4.57 10^6/uL (4.70-6.10); White Blood Count 4.9 10^3/uL (4.0-11.0)
[2025-02-17 10:53] LABS: Alanine Aminotransferase 18 U/L (16-63); Albumin Globulin Ratio 0.9; Albumin Level 3.7 g/dL (3.4-5.0); Alkaline Phosphatase 81 U/L (46-116); Anion Gap 11.5; Aspartate Amino Transferase 19 U/L (15-37); Blood Urea Nitrogen 18.0 mg/dL (7.0-18.0); Calcium 9.3 mg/dL (8.5-10.1); Carbon Dioxide 26.9 mmol/L (21.0-32.0); Chloride 105 mmol/L (98-107); Cholesterol 210 mg/dL (<=200); Estimated GFR (African America >60 (>=60 mL/min/1.73m^2); Estimated GFR (Non-African Ame >60 (>=60 mL/min/1.73m^2); Globulin 4.2 g/dL; Glucose 93 mg/dL (74-106); HDL Cholesterol 66 mg/dL (40-60); Potassium 4.4 mmol/L (3.5-5.1); Sodium 139 mmol/L (136-145); Total Protein 7.9 g/dL (6.4-8.2); Triglycerides 73 mg/dL (<=150); VLDL CHOLESTEROL 14.6 mg/dL
== END 2025-02-17 09:26 | disposition home or self-care (01) ==
LOC: LAB 09:27
PROVIDERS: PCP Nurse Practitioner Family; Visit Provider Nurse Practitioner Family
DX: Z12.5 Encounter for screening for malignant neoplasm of prostate (principal); I10 Essential (primary) hypertension
CPT/HCPCS: 36415; 80053; 80061; 85025; G0103

== ENCOUNTER 2025-03-21 10:30 | Outpatient (OUT) | payer OTHER, SELFPAY ==
--- OUTSIDE RECORDS SUMMARY | 2025-03-07 10:00 | XMS_ITS | Encounter Summary ---
Author Name Vero Perez Address [address] [place] [address] Organization [facility] Address [address] [place] [address] Medications * nicotine 21 mg/24hr patch 24 hr: apply 1 patch topically once daily * ibuprofen 200 mg capsule: take 2-3 tablets by mouth every 8 hours as needed * acetaminophen 500 mg tablet: take 2 tablets by mouth three times a day as needed * amlodipine besylate 10 mg tablet: Allergies Assessment and Plan Patient Currently Located in their home [facility], YES Please indicate how this visit was conducted: Video HISTORY OF PRESENT ILLNESS Dx:I10- Essential (primary) hypertension [facility] PHQ-4 Baseline Assessment collected on: 2025-01-31 <hr><hr> Members Preferred Language: Libyan ASSESSMENT SUMMARY ENZO VIEIRA is a 69 year old man seen today by [facility] for a [facility] Prescriber Visit. Visit Purpose: [facility] is a collaborative care model. Member verbalized understanding to all. 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 Assessment & Plan: Overall assessment of situation: Patient with health goal to quit smoking, patient to start wearingpatches, encouraged 0-522-OTWD-NOW resource as well. Consider chantix or alternative mediation if needed.RNCM follow up scheduled out due to holiday and patient work schedule. Hypertension* mild elevations 140-145, today higher- has not yet taken amlodipine * new BP cuff ordered today * Managed with amlodipine 10mg daily * Lifestyle mods: DASH diet, at least 150min exercise per week, sodium intake <1500mg/day, reduce smoking lung nodule* repeat CT chest - 03/21/25 * no med changes or additions #smoking cessation- on nicotine patches 21mg/d - with itching and some sleep disruption - recommendtaking off patch at nightly- cannot chew gum- reviewed titration <hr>Assessment by 5 M's: 5 M's Assessment and Plan MATTERS MOST: MULTICOMPLEXITY: MOBILITY: MEDICATIONS: MIND: <hr><hr>BODY MEASUREMENTS:* <em>Patient Height in centimeters</em>: 177.80* <em>Patient Weight in kilograms</em>: * <em>Patient Body Mass Index</em>: <hr>VITALS:* <em>BLOOD PRESSURE- Systolic</em>: 152 * *BLOOD PRESSURE- Diastolic*75* <em>Pulse</em>: * <em>Pulse Ox</em>: <em>Recommendations for Patient</em>: Dear Kyaw, It is our team's pleasure to help care for you at [facility]. I really enjoyed meeting you today. Our team has discussed a number of topics with you so far, and I wanted to summarize some of the next steps: * You may take off your nicotine patches at night before you go to sleep to help reduce sleep interruption and skin irritation. Continue to change the location of the patch every application. You can try to reduce to the 14mg dose after 4-6 weeks or as feels comfortable for you. -800-QUIT now is another resource you can use. * I have re-ordered a new BP cuff for you. For your blood pressure, I recommend some lifestyle modifications: DASH diet, at least 150 min exercise per week, limiting sodium intake <1500mg/day, and to reduce smoking- like you have been doing. Let us know if you have not received a new cuff by your next visit. We are here to support you. If, in between your visits with us, you are sick or hurt and can't reach your regular doctor, or you have prescriptions that you need right away, you can call our Care [facility] line 21/11 at [phone], and a [facility] provider will be able to assist you. Warmly,Vero Perez MD <hr>?? Vaccinations (FLU) Confirm: MEMBER HAS INDICATED THEY DO NOT HAVE PLAN, NOR SUPPORT PLANNING FOR FLU VACCINATION: DECLINES FLU VACCINE Device Ordering- Active Clinical Management What equipment does the member need?: Blood Pressure Cuff Do you have any dexterity issues that would limit your ability to put on and secure an upper arm BPcuff?: No Are you interested [facility] sending you an automatic blood pressure cuff, at no cost, to keep?: Yes Have you verified the member's home address and made sure that we are able to deliver there? (Reminder: we NOW CAN ship to PO Boxes!): Yes Current weight more than 270lbs?: No Do you have any dexterity issues that would limit your ability to put on and secure an upper arm BPcuff?: No 2024 APPOINTMENT CPT CODE Please indicate how this visit was conducted: Video Please select the video platform used during the visit: [employer] Video Room Please record the total amount of time you spent on this patient visit- Total time includes time spent on preparation, speaking with the patient, documentation, and post-visit coordination of care - This is limited to time spent ON THE DATE OF SERVICE (e.g. does not include time spent on days prior to or after the date of service) 40 or more minutes Did you review the patient's prescription and non-prescription drugs, vitamins, herbal remedies, and other supplements, AND is the accompanying medication list documented in the medical record?: Yes Has the patient been discharged within the last 30 days?: No
--- OUTSIDE RECORDS SUMMARY | 2025-03-14 08:30 | XMS_ITS | Encounter Summary ---
Author Name Clarita Sarabia Address [address] [place] [address] Organization [facility] Address [address] [place] [address] Medications * nicotine 21 mg/24hr patch 24 hr: apply 1 patch topically once daily * ibuprofen 200 mg capsule: take 2-3 tablets by mouth every 8 hours as needed * acetaminophen 500 mg tablet: take 2 tablets by mouth three times a day as needed * amlodipine besylate 10 mg tablet: Allergies Assessment and Plan [facility] PRO[facility]<hr><hr> Members Preferred Language: Wolof ASSESSMENT SUMMARY ENZO VIEIRA is a 69 year old man seen today by [facility] for a [facility] CHW Visit. Visit Purpose: [facility]'s [facility] Program is a collaborative care model. Member verbalized understanding to all. <hr><hr><hr> Today's Highlights 03/14/25- CHW completed f/u visit via TELE. CHW addressed STARs GAP, pt took BP at time of call andit was 119/83. Pt reports he has his apt scheduled for hearing aides on 05/12/25. 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 Pt declines scheduling eye appt at this time as he does not want to pay for new glasses at this time. CHW completed SDOH assessment, no SDOH needs at this time. CHW informed pt CHW Corinne will be completing next visit as CHW Clarita will be beginning new role. BS, CHW 03/14/25 2025-02-17 - ELISHA, BSN, RN. RNCM initial completed mostly on VIDEO-had to disconnect 3/[address] through due to connection issues. Established goals with patient-ensure BP stable-he does not think his cuff is reading accurately as it has been higher at home than at doctor's office. RNCM sent new cuff to him and advised it should arrive within 7-10 business days and to please start keeping a log of BP's several hours after taking AM Amlodipine and he V/U. He is also actively trying to work on smoking cessation. Goal is to go from 10 cigarettes per day down to 1-2 before summer. He completed PCP visit this morning and had labs drawn, PCP will call with results and also referring to a new Bridge Painter as his previous one left [facility]. PCP also referred to Power Screwdriver Operator for hearing exam. He is in need of an up to date eye exam and likely new glasses prescription states he will call to schedule. 01/31/25 - Pt completed [facility] initial with CHW today. He underwent gallbladder surgery and had astone removed in March, indicating recent hospital visits. Enzo lives with his and granddaughter and is mostly independent with his daily activities and healthcare management. He is a current tobacco user and showed an interest in quitting, which can be addressed in future discussions. Pt still works 3 days a week Monday through Monday usually. Pt had no questions or concerns at this time. CHW scheduled SALES OPERATIONS LEAD visit and 6 week follow up with BS. 2025-01-31 - MARIANELA VERAS <hr>MulticomplexitySDOH DIRECTED- Social Determinants
--- OUTSIDE RECORDS SUMMARY | 2025-03-21 10:33 | XMS_ITS | Clinical Summary ---
Author Organization [facility] Address [address] [place] [address] Care Team Providers Care Reservation Agent Name Role Phone Gita Carranza MD Unavailable Audrey Justin NP Primary Care Provider Social History Tobacco UseTypesPacks/DayYears UsedDateSmoking Tobacco: Never AssessedSex and Gender InformationValueDate RecordedSex Assigned at BirthNot on fileLegal Sex Male07/13/2022 8:06 PM EDTGender IdentityNot on fileSexual OrientationNot on file Plan of Treatment DateTypeDepartmentCare Team (Latest Contact Info)Szmjdsjenhl46/12/2026 10:00 AM ESTClinical Support [facility] [address] [place] [address] Giselle Brown, [facility] [address] [place] [address] Health MaintenanceDue DateLast DoneCommentsCT Xzmmtauxeaho69/03/1956FIT-DNA 1955FIT1955FOBT1955 1792Ngaxcxocqqlrw99/03/1956Pneumococcal Vaccine: 65+ Years (1 of 2 - PCV)10/01/1974COVID-19 Vaccine ( - 2023- season) 2024Influenza Vaccine (#1)2024Medicare Annual Wellness (AWV) olonoscopyolorectal Cancer Screening 11/25/2034 Care Teams Team MemberRelationshipSpecialtyStart DateEnd Date Gita Carranza MD [address] [place] [address] [address] [place] [address] PCP - [facility]05/01/22 Audrey Justin NP [address] [place] [address] PCP - [facility]12/20/24
--- OUTSIDE RECORDS SUMMARY | 2025-03-21 10:33 | XMS_ITS | Clinical Summary ---
Author Organization [facility] Address [address] [place] [address] Care Team Providers Care Ceramic Design Engineer Name Role Phone Audrey Justin NP Primary Care Provider [phone] Allergies No known active allergies Medications MedicationSigDispense QuantityRefillsLast FilledStart DateEnd DateStatus amLODIPine (Norvasc) 10 mg tablet Take 10 mg by mouth in the morning.Active Active Problems ProblemNoted DateDiagnosed DateAbdominal pain03/26/2024alculus of common bile duct with tllmsiwwoyy01/23/5259Eoxkyherrdkk40/23/6041Irjeilswxayfs71/23/2024 Dqbfusrojacspaletf35/23/2024rimary gvpyrmczxxdt11/23/2024Nicotine use03/23/2024 Social History Tobacco UseTypesPacks/DayYears UsedDateSmoking Tobacco: Some DaysCigarettes0.3 1.1Started: 03/02/2024Smokeless Tobacco: Never Tobacco Cessation:Ready to Q uit: Not Asked; Counseling Given: Not Answered Alcohol UseStandard Drinks/WeekCommentsNot Currently0 (1 standard drink = 0.6 oz pure alcohol)[facility] UtilitiesAnswerDate RecordedIn the past 12 months has the electric, gas, oil, or water company threatened to shut off services in your home?03/23/2024Humiliation, Afraid, Rape, and Kick questionnaireAnswerDate RecordedWithin the last year, have you been afraid of your partner or ex-partner?No03/23/2024Emotionally AbusedNot on file03/23/2024hysically Abused Not on file03/23/2024Sexually AbusedNot on file03/23/2024Overall Financial Resource Strain (CARDIA)AnswerDate RecordedHow hard is it for you to pay for the very basics like food, housing, medical care, and heating?Not very hard 03/23/2024TransportationAnswerDate RecordedIn the past 12 months, has lack of transportation kept you from medical appointments or from getting medications?No 03/23/2024Lack of Transportation (Non-Medical)Not on file03/23/2024Housing Stability Vital SignAnswerDate RecordedIn the last 12 months, was there a time when you were not able to pay the mortgage or rent on time?No03/23/2024Number of Times Moved in the Last YearNot on file03/23/2024t any time in the past 12 months, were you homeless or living in a snf (including now)?No03/23/2024 Hunger Vital SignAnswerDate RecordedWithin the past 12 months, you worried that your food would run out before you got the money to buymore.Never true03/23/2024 Ran Out of Food in the Last YearNot on file03/23/2024Sex and Gender Information ValueDate RecordedSex Assigned at XoxmhJtuh39/24/2024 7:22 AM ESTLegal SexMale 03/23/2024 11:50 AM ESTGender NfmmkzgpXfwj01/24/2024 7:22 AM ESTSexual OrientationNot on file Last Filed Vital Signs Vital SignReadingTime TakenCommentsBlood Sjzcztub876/80105/26/2023 3:31 PM EST Bmvxb209803/26/2024 3:31 PM NFYYruaexhuakv90.5 ??C (97.7 ??F)03/26/2024 3:31 PM ESTRespiratory Ickj665903/26/2024 3:31 PM ESTOxygen Bnrawepbmu851%03/26/2024 3:31 PM ESTInhaled Oxygen Concentration--Tqcipt60.7 kg (160 lb 4.4 oz)03/26/2024 4:24 AM JJLScxtsd751.8 cm (5' 10 )03/23/2024 9:52 PM ESTBody Mass Qcohm5565/23/2024 9:52 PM EST Plan of Treatment Health MaintenanceDue DateLast DoneCommentsCT Vzbivdxrqeat80/03/1956olonoscopy 1955olorectal Cancer Mattaxjog37/03/1956FIT-DNA1955FIT1955 FOBT1955Medicare Annual Wellness (AWV)1955Secrxmaiewcop48/03/1956 Depression Czvdxacpl79/03/1968Pneumococcal Vaccine: 50+ Years (1 of 2 - PCV) 10/01/1974Adult Gorolsa6110/01/1977Zoster Vaccines (1 of 2)10/01/2005COVID-19 Vaccine (1 - 2024- season)2024Influenza Vaccine (#1)2024Fall Risk Nhfsiattn38HIB VaccinesAged OutNo longer eligible based on patient's age to complete this topicHPV VaccinesAged OutNo longer eligible based on patient's age to complete this topicIPV VaccinesAged OutNo longer eligible based on patient's age to complete this topicMeningococcal B VaccineAged OutNo longer eligible based on patient's age to complete this topicMeningococcal VaccineAged OutNo longer eligible based on patient's age to complete this topic Rotavirus VaccinesAged OutNo longer eligible based on patient's age to complete this topic Insurance Advance Directives * Full Code (Latest Code Status on File) Date ActivatedDate TdpeptzafarWtidddgp97/23/2024 5:29 PM03/26/2024 6:20 PM Care Teams Team MemberRelationshipSpecialtyStart DateEnd Date Audrey Justin NP [address] [place] [address] PCP - GeneralFamily Cdwzwvbj45/26/24
--- OUTSIDE RECORDS SUMMARY | 2025-03-21 10:33 | XMS_ITS | Clinical Summary ---
Author Organization [employer] s tem Address [id number] [address] [place] [address] Care Team Providers Care Quilt Sewer Name Role Phone Audrey Justin APRN-JIM Primary Care Provid er Allergies No known active allergies Medications MedicationSigDispense QuantityRefillsLast FilledStart DateEnd DateStatus amLODIPine (NORVASC) 10 mg tablet Take 1 tablet (10 mg total) by mouth in the morning.03/08/2024ctive ondansetron ODT (ZOFRAN ODT) 4 mg disintegrating tablet Dissolve 1 tablet (4 mg total) on tongue every 8 (eight) hours as needed. 03/08/2024ctive oxyCODONE-acetaminophen (PERCOCET) 5-325 mg per tablet Take 1 tablet by mouth every 8 (eight) hours as needed.03/08/2024ctive Active Problems No known active problems Family History Medical HistoryRelationNameCommentsCancerFatherMultiple myelomaFatherCancer MotherColon cancerMotherCancerSisterOvarian cancerSisterRelationNameStatus CommentsFatherDeceasedMotherDeceasedSisterAlive Social History Tobacco UseTypesPacks/DayYears UsedDateSmoking Tobacco: FormerCigarettesAlcohol UseStandard Drinks/WeekCommentsNot Asked0 (1 standard drink = 0.6 oz pure alcohol)RARELYChildcareAnswerDate QcefthhsPsecnlwljRssxovu49/12/2019Employment AnswerDate NrkqpohcJojjqmaavgWqlyayx43/12/2019Sex and Gender InformationValue Date RecordedSex Assigned at BirthNot on fileLegal FgcIowm5812/04/2014 11:45 AM EDTGender IdentityNot on fileSexual OrientationNot on file Last Filed Vital Signs Vital SignReadingTime TakenCommentsBlood Pressure--Pulse--Temperature-- Respiratory Rate--Oxygen Saturation--Inhaled Oxygen Concentration--Vhtjxr04.1 kg (165 lb 9.6 oz)03/13/2024 11:59 AM HHSIuvpji018.8 cm (5' 10 )03/13/2024 11:59 AM ESTBody Mass Index23.7603/13/2024 11:59 AM EST Plan of Treatment Health MaintenanceDue DateLast DoneCommentsDepression Kkbqtfysx61/03/1968 DTaP,Tdap and Td Vaccines (1 - Tdap)10/01/1974Zoster (Shingles) Vaccine (1 of 2) 10/01/2005bdominal Aortic Aneurysm (AAA) Zqkomm3110/01/2020Fall Risk Screening 10/01/2020Influenza Ddilyyo8012/30/2024dult BMI Cdzkjcbdm93 Tobacco Deqdcnqqm964RSV ( or age 60+ yrs) (1 - 1-dose 75+ series)10/01/2030 Medical Devices Not on file Insurance * Guarantor: Ludwin ReyesAccount TypeRelation to PatientDate of BirthPhoneBilling AddressPersonal/ZtguudVdbn82/03/1956 [address] [place] [address] Care Teams Team MemberRelationshipSpecialtyStart DateEnd Date Audrey Justin APRN-JIM [address] [facility] [place] [address] PCP - GeneralNurse Ksgmvdfvoond74/12/24
--- NOTE | 2025-03-21 10:34 | CT_ITS ---
The [address] [address] Patient Name: ENZO VIEIRA MRN: [id number] date: 1955 Sex: M Assigned Patient Location: CT Current Patient Location: CT Accession/Order Number: [id number] Exam Date: 03/21/2025 10:35 Report Date: 03/21/2025 11:24 At the request of: LUCIANO AMBROSE Procedure: CT lung screening low-dose LOW-DOSE SCREENING CHEST CT WITHOUT CONTRAST CLINICAL DATA: Current smoker with 50 pack year history. COMPARISON: 03/18/2024 Spiral axial unenhanced low-dose images were obtained through the chest. Images were reviewed using both narrow and wide window settings. This CT exam was performed using one or more following dose reduction techniques: Automated exposure control, adjustment of the mA and/or kV according to patient size, or use of iterative reconstruction technique. The heart is normal size. No pericardial effusion is seen. Coronary artery disease is noted. There is no aortic aneurysm. Small amount of plaque is present at the aortic arch, descending aorta and proximal great vessels. There is minor gynecomastia. No adenopathy is noted. Mild endplate spurring is visualized at the spine. Mild airspace lucencies and subpleural blebs are present. Scarring is again seen, greatest at the right apex. There is no developing consolidation, pleural effusion or pneumothorax. No pulmonary nodularity is present. Limited imaging through the upper abdomen shows no contributory findings. CT/CT lung screening low-dose IMPRESSION: OBSTRUCTIVE LUNG DISEASE AND SCARRING. NO DEVELOPING PULMONARY NODULARITY. Lung RADS category 1 - negative Twelve-month low-dose CT follow-up suggested Impression dictated by: Lynn Ca M.D. 03/21/2025 11:24 AM Dictation Location: [place] [address] Electronically authenticated by: [id number] Y Date: 03/21/2025 11:24
--- OUTSIDE RECORDS SUMMARY | 2025-03-21 10:35 | XMS_ITS | CCD ---
Author Organization [facility] CliniSyga Care Team Providers Care Commercial Baker Helper Name Role Phone ANNAELE CHINO Attending Unavailable ANNALEE CHINO Consulting Unavailable ANNALEE CHINO Admitting Unavailable CHRISTIANA MARQUEZ Attending Unavailable AUDREY [...] Attending Unavailable CHRISTOFER CROOKS Referring Unavailable Margoth LARA-HIGH SCHOOL CHEMISTRY TEACHERAudrey Primary Care [facility] Audrey Justin APRN Primary Care Provider Audrey Justin APRN Attending Provider Emma Mcdermott MD Attending Provider Gallito Kern DO Attending Provider [phone] Audrey Justin APRN Primary Care Provider Emma Mcdermott MD Attending Provider Emma Mcdermott MD Other Provider Audrey Justin Primary Care Unavailable [place], Gallito P Admitting Unavailable Samsa, Gallito P Attending Unavailable NON STAFF Primary Care Unavailable Gurmeet Muñiz Admitting Unavailable Gurmeet Muñiz Attending Unavailable Audrey Jusitn Admitting Unavailable Audrey Justin Primary Care Unavailable Audrey Justin Attending Unavailable Audrey Justin Primary Care Unavailable Asaad, Imad Admitting Unavailable Asaad, Imad Attending Unavailable Audrey Justin Primary Care Unavailable Asaad, Imad Admitting Unavailable Asaad, Imad Attending Unavailable Ehtel Torres CMA Attending Provider UnavailAudrey Rendon APRN Attending Provider Medications Current Medications MedicationDrug Class(es)DatesSig (Normalized)Sig (Original)acetaminophen 325 mg / oxyCODONE hydrochloride 5 mg oral tablet (3 sources)Opioid AgonistStart: 54-96-1490vhsa 1 tablet by mouth every eight hours as neededoxyCODONE-acetaminophen (PERCOCET) 5-325 mg per tablet Take 1 tablet by mouth every 8 (eight) hoursas needed. 03/08/2024 ActiveNicotine 14 mg/24 hr patch 24 hour (4 sources)Start: 64-29-3057zzuer 1 dose transdermal route every twenty-four hours at bedtimeNicotine 14 mg/24 hr patch 24 hour Active 1 PATCH TRANSDERML Daily July 29, 2024 12:00am On in AM, off @ HSStart: 05-13-2024 End: 10-92-4186yrpmz 1 dose transdermal route every twenty-four hoursNicotine 14 mg/24 hr patch 24 hour Discontinued 1 PATCH TRANSDERML Daily May 13, 2024 1:00am July 29, 2024 11:48amStart: 31-77-8908gpjzo 1 dose transdermal route every twenty-four hoursNicotine 14 mg/24 hr patch 24 hour Active 1 PATCH TRANSDERML Daily May 13, 2024 1:00amStart: 81-26-8864mcizq 1 dose transdermal route every twenty-four hoursNicotine 14 mg/24 hr patch 24 hour Active 1 PATCH TRANSDERML Daily May 13, 2024 12:00amondansetron 4 mg disintegrating oral tablet (3 sources)Serotonin-3 Receptor AntagonistStart: 72-95-6133hrbf 1 tablet by mouth every eight hours as neededondansetron ODT (ZOFRAN ODT) 4 mg disintegrating tablet Dissolve 1 tablet (4 mg total) on tongue every 8 (eight) hours as needed. 03/08/2024 Active Completed/Discontinued Medications MedicationDrug Class(es)DatesSig (Normalized)Sig (Original)amLODIPine 10 mg oral tablet (20 sources)Dihydropyridine Calcium Channel BlockerStart: 03-08-2024 End: 09-35-8959wvse 1 tablet by mouth once dailyAmlodipine 10 mg tablet Discontinued 10 MG PO Daily 90 90 1 April 05, 2024 12:45pm November 18, 2024 2:57pm Hypertension Essential (primary) suletkfqgjygTcg6762-Lkr Mmm-Gjes-Aob-Asb-C (9 sources)Osmotic Laxative, Vitamin CStart: 02-14-2024 End: 64-19-7912Lyc8054-Sod Awr-Wqec-Rdc-Asb-C (Plenvu) 140-9-5.2 gram powder in packet, sequential Discontinued 140 ML PO .COMPLEX 1 1 February 14, 2024 12:00am April 11, 2024 4:11pm Bowel prep First does at 4pm the day before the colonoscopy; second dose at 11pm the night before the colonoscopy.Start: 02-14-2024 End: 95-46-0937Asb8100-Sod Sex-Khku-Xjc-Asb-C (Plenvu) 140-9-5.2 gram powder in packet, sequential Discontinued 140 ML PO .COMPLEX 1 February 14, 2024 12:00am April 11, 2024 4:11pm First does at 4pm the daybefore the colonoscopy; second dose at 11pm the night before the colonoscopy.Start: 02-14-2024 End: 27-17-6403Fpa7298-Sod Gwy-Xvzd-Bvo-Asb-C (Plenvu) 140-9-5.2 gram powder in packet, sequential Discontinued 140 ML PO .COMPLEX 1 February 13, 2024 11:00pm April 11, 2024 3:11pm First does at 4pm the daybefore the colonoscopy; second dose at 11pm the night before the colonoscopy.Start: 78-11-5767Ksp6423-Sod Toy-Nvrq-Dyp-Asb-C (Plenvu) 140-9-5.2 gram powder in packet, sequential Active 140 ML PO .COMPLEX 1 February 13, 2024 11:00pm First does at 4pm the day before the colonoscopy; second dose at 11pm the night before the colonoscopy.24 hr nicotine 0.292 mg/hr transdermal system (16 sources)Cholinergic Nicotinic AgonistStart: 07-29-2024 End: 74-43-9108Vvsaehnw 7 mg/24 hr patch 24 hour Discontinued 1 PATCH TRANSDERML Daily July 29, 2024 12:00am November 25, 2024 11:50am Cigarette nicotine dependence without complication Nicotine dependence, cigarettes, uncomplicated On in AM, off @ HS; Begin after completing 14mg patchesStart: 05-13-2024 End: 63-18-2417bygqc 1 dose transdermal route every twenty-four hours at bedtime Nicotine 14 mg/24 hr patch 24 hour Discontinued 1 PATCH TRANSDERML Daily July 29, 2024 12:00am November 25, 2024 11:50am Cigarette nicotine dependence without complication Nicotine dependence, cigarettes, uncomplicated On in AM, off @ HSStart: 02-12-2024 End: 24-39-9468mtemu 1 dose transdermal route every twenty-four hoursNicotine 21 mg/24 hr patch 24 hour Discontinued 1 PATCH TRANSDERML Daily February 12, 2024 12:00am May 13, 2024 11:39am Encounter for smoking cessation counseling Tobacco abuse counseling Problems Active Problems Problem ClassificationProblemDateDocumented DateEpisodic/ChronicAbdominal pain (2 sources)Unspecified abdominal pain; Translations: [Unspecified abdominal pain]Onset: 50-53-6330NzshxaovUthbdmpdfszidi/social admission (13 sources)Patient encounter status; Translations: [Tobacco abuse counseling] 32-11-8250IcayelmoOdmaied tract disease (15 sources)Gallstone; Translations: [Calculus of gallbladder without cholecystitis without obstruction]Onset: 572783-83-1622JbgpwlaaZfdgkqr obstructive pulmonary disease and bronchiectasis (16 sources)Paraseptal emphysema; Translations: [Other emphysema]04-11-2024 ChronicEssential hypertension (15 sources)Hypertensive disorder; Translations: [Essential (primary) hypertension]70-83-5689NhpkcxdKwvgu ear and sense organ disorders (3 sources)Decreased hearing ; Translations: [Unspecified hearing loss, bilateral]ChronicOther lower respiratory disease (17 sources)Solitary nodule of lung; Translations: [Solitary pulmonary nodule] 03-73-8872RyfygspcQvmgv screening for suspected conditions (not mental disorders or infectious disease) (20 sources)Encounter for screening for malignant neoplasm of prostate; Translations: [Patient encounter status]Onset: 390676-57-4612Bafksyuy Pancreatic disorders (not diabetes) (14 sources)Pancreatitis; Translations: [Acute pancreatitis without necrosis or infection, unspecified]Onset: 599287-61-1697EqflpsiuUdtchdvo codes; unclassified (5 sources)Acquired absence of other specified parts of digestive tract; Translations: [Other postprocedural status]Onset: 311448-52-2511Rctjutpx Substance-related disorders (15 sources)Tobacco dependence caused by cigarettes; Translations: [Nicotine dependence, cigarettes, uncomplicated]06-56-2784CszaqupCxaizpvusmyh (1 source)POST-OP VISITOnset: 80-84-1279Rbecdycegwfs (2 sources)H91.93 - Unspecified hearing loss, bilateralUnclassified (2 sources)J43.8 - Other emphysema,R91.1 - Solitary pulmonary nodule Past or Other Problems Problem ClassificationProblemDateDocumented DateEpisodic/ChronicOther lower respiratory disease (11 sources)Solitary pulmonary nodule; Translations: [Solitary pulmonary nodule] Onset: 785490-05-8792Zzwigepq Results Test NameValueInterpretationReference RangeFacilityCT [facility] wo [facility] [place] [address] CT Scan Report Signed Patient: Ludwin Reyes MR#: [id number] : 1955 Acct:[id number] Age/Sex: 68 / M ADM Date: 07/25/24 Loc: [facility] Room: Type: [facility] Attending Dr: Gallito Kern DO Copies to: Gallito Kern DO Ordering Provider: Gallito P Samsa, DO Date of Service: 07/25/24 CT/CT chest [...] Lynn Ca M.D.07/25/2024 1:44 PM Dictation Location: [place] [address] Transcribed By: [facility] 07/25/24 1344 Dictated By: Lynn Ca MD 07/25/24 1333 Signed By: 07/25/24 1344[facility] Physician GroupLon 05-10-2024L Specimen: [id number] Received: 05/10/24 Status: CARLOS Vickie Num: [id number] Spec Type: Surgical Subm Dr: Emma Mcdermott MD Tissues: A Colon Biopsy (CECAL POLYP) B Colon Biopsy (ASCENDING COLON POLYP) C Colon Biopsy (DESCENDING COLON POLYP) Procedures: HE/6, Gross/Micro L4/3 Age/ Patient Sex Location Account Attending Physician Ludwin Reyes/Jeromy [id number] Emma Mcdermott MD SPEC NUM: [id number] RECD: 05/10/24 STATUS: CARLOS JOHNSTON NUM: [id number] MISTY: 05/10/24 [facility] DR: Emma Mcdermott MD ENTERED: 05/10/[address]: SPEC TYPE: Surgical DEPT: S ENTERED BY: [id number] RECV BY: [id number] ORDERED: HE/6, Gross/Micro L4/3 ORDERED: HE/6, Gross/Micro L4/3 Pathological Diagnosis A. Colon, cecum, [...] submitted in a single cassette. (1, ns, Specimen: [id number] Received: 05/10/24 Status: CARLOS Johnston Num: [id number] Spec Type: Surgical Subm Dr: Emma Mcdermott MD Tissues: A Colon Biopsy (CECAL POLYP) B Colon Biopsy (ASCENDING COLON POLYP) C Colon Biopsy (DESCENDING COLON POLYP) Procedures: HE/6, Gross/Micro L4/3 Patient: Ludwin Reyes W [id number] (Continued) Specimen: [id number] Received: 05/10/24 (Continued) Gross Description (Continued) Signed (signature on file) Miguel Beltrán MD 05/13/24 1343 Specimen: [id number] Received: 05/10/24 Status: CARLOS Vickie Num: [id number] Spec Type: Surgical Subm Dr: Emma Mcdermott MD Tissues: A Colon Biopsy (CECAL POLYP) B Colon Biopsy (ASCENDING COLON POLYP) C Colon Biopsy (DESCENDING COLON POLYP) Procedures: Ning SEYMOUR/Mague L4/3 Patient: AmyLudwin [id number] (Continued) Specimen: [id number] Received: 05/10/24 (Continued) Gross Description (Continued) B) Part C is received in formalin labeled with the patients name, date of , and descending polyp are phillip-mills, focally erythematous, friable polypoid fragments, 1 x 0.6 x 0.2 cm in aggregate. The specimen is filtered and entirely submitted in a single cassette. (1, ns, C) Microscopic Description A-C: Microscopic examination is performed. CPT Codes 92622 x3 Specimen: [id number] Received: 05/10/24 Status: CARLOS Johnston Num: [id number] Spec Type: Surgical Subm Dr: Emma Mcdermott MD Tissues: A Colon Biopsy (CECAL POLYP) B Colon Biopsy (ASCENDING COLON POLYP) C Colon Biopsy (DESCENDING COLON POLYP) Procedures: HE/6, Gross/Micro L4/3 Patient: AmyKyaw srrey Titi [id number] (Continued) Signed (signature on file) Miguel Beltrán MD 05/13/24 1343Normal [facility] Physician GroupFollow-Upon [id number] Ludwin Reyes 1955 M Date Provider Department Center 05/08/2024Evan-MIGUEL VILLAGOMEZ MP GI Medical Pavi No family history on file Level of Service:[facility] [place] NO CHARGE PLACEHOLDERNormalUniversity Mercy Health West HospitalHEPATIC FUNCTION PANELon 49-18-9829Mbkhzqf [Mass/Vol]4.2 g/dL Normal3.5-5.7UnSelect Medical [facility]Health Rehabilitation Hospital - DublinComment on above:Performed By: #### [id number] #### [facility] ([employer]) [address] [facility] [facility] [place], [place] [address]PXS [Catalytic activity/Vol]82 U/UZbzajx10-527UlfplhheuySelect Medical OhioHealth Rehabilitation Hospital - DublinComment on above:Performed By: #### [id number] #### [facility] ([employer]) [address] [place], [place] [address]KLN [Catalytic activity/Vol]11 U/LNormal7-52UnSelect Medical [facility] Rehabilitation Hospital - DublinComment on above:Performed By: #### [id number] #### [facility] ([facility]) [address] [place], [place] [address]WOV [Catalytic activity/Vol]16 U/RYabtwf78-73LbfiokkxurSelect Medical OhioHealth Rehabilitation Hospital - DublinComment on above:Performed By: #### [id number] #### [facility] (BEAKER) [address] [place] [address]Mpywxnmmf [Mass/Vol]0.6 mg/dLNormal0.3-1.0UnSelect Medical [facility] Rehabilitation Hospital - DublinComment on above:Performed By: #### [id number] #### [facility] ([facility]) [address] [place] [address]Dkglkqgko [Mass/Vol]0.1 mg/dLNormal0-0.2UnSelect Medical [facility] Hospital - DublinComment on above:Performed By: #### [id number] #### [facility] ([facility]) [address] [place] [address]Czdkchk [Mass/Vol]7.6 g/dLNormal6.0-8.3UnSelect Medical [facility] Hospital - DublinComment on above:Performed By: #### [id number] #### [facility] ([facility]) [address] [place] [address]Rczor [id number] Ludwin Reyes 1955 M Date Provider Department Center 05/08/2024 2244-[facility] MP LAB RESOURCE MP DRAW Medical Pavi No family history on fileNormalUniversCleveland Clinic Marymount HospitalOrders Onlyon 76-91-6303Kmoutb [id number] Ludwin Reyes 1955 M Date Provider Department Center 05/08/2024 1947-MIGUEL VILLAGOMEZ MP GI Medical Pavi No family history on [facility] HospitalniMetroHealth [facility] Medical CenterGlucose Glucometer (dC) [Mass/Vol]Ordered By: Audrey Justin on 03-83-1876Pbcfkvi [Mass/Vol]Capillary blood glucose measurement by glucometer (mass/volume) Newark HospitalComment on above:Random Glucose Reference Range is dependent on time and content of last meal. Glucose of more than 200 mg/dL in a nonstressed, ambulatory subject supports the diagnosis of Diabetes Mellitus.Glucose Poct Glucometerson 72-19-3445Wsdvkhm [Mass/Vol]93 mg/dLNormal [facility] Physician GroupComment on above:Result Comment: Random Glucose Reference Range is dependent on time and content of last meal. Glucose of more than 200 mg/dL in a nonstressed, ambulatory subject supports the diagnosis of Diabetes Mellitus. PERFORMED BY: [place] [id number] PATHOLOGIST FOOT DOCTOR RG CHENG M.D.Performed By: #### GLULS #### Point of Care testing ,PET tumor init tx strat sb-mton 34-08-8569SMF tumor init tx strat sb-mt [facility] [place] [address] [place], [place] [address] Nuclear Medicine Report Signed Patient: Ludwin Reyes MR#: [id number] : 1955 Acct:[id number] Age/Sex: 68 / M ADM Date: 05/06/24 Loc: Room: Type: [facility] Attending Dr: Audrey Justin APRN HIGH SCHOOL CHEMISTRY TEACHER-C Copies to: Audrey Justin APRN, CNP Mark [...] [place] M.D.05/06/2024 4:28 PM Dictation Location: [place] [address] Transcribed By: [facility] 05/06/24 1628 Dictated By: Crow Muir II, MD 05/06/24 162 Signed By: 05/06/24 1628[facility] Physician GroupCon 11-92-3477Jcbtoualuce distribution width (RBC) [Ratio]12.3 %Nyvgjv34.5-15.0UnSelect Medical [facility] Rehabilitation Hospital - DublinComment on above:Performed By: #### [id number] #### [facility] (BEAKER) [address] [place], [place] [address]TXXHLAQHHSG MEAN CORPUSCULAR HEMOGLOBIN CONCENTRATION (G/DL) BY ZBDSCYBKD89.6 g/bAUbxfqm31.0-35.0UnSelect Medical [facility] Rehabilitation Hospital - DublinComment on above:Performed By: #### [id number] #### [facility] (BEAKER) [address] [place], [place] [address]Bptdkmawab (Bld) [Volume fraction]36.3 %Low39.0-55.0UnSelect Medical [facility]Health Rehabilitation Hospital - DublinComment on above:Performed By: #### [id number] #### [facility] ([facility]ER) [address] [place], [place] [address]Kkgklimsel (Bld) [Mass/Vol]12.2 g/dLLow13.0-17.0UnSelect Medical [facility]Health Rehabilitation Hospital - DublinComment on above:Performed By: #### [id number] #### [facility] ([facility]) [address] [place] [address]CNR (RBC) [Entitic mass]32.3 klNqyvbx51.0-33.0UnSelect Medical [facility] Rehabilitation Hospital - DublinComment on above:Performed By: #### [id number] #### [facility] ([facility]) [address] [place] [address]YNE (RBC) [Entitic vol]96.0 fTXwzyan13.0-98.0UnSelect Medical [facility] Rehabilitation Hospital - DublinComment on above:Performed By: #### [id number] #### [facility] ([facility]) [address] [place] [address]SEITIKHKI (10*3/UL) IN BLOOD AUTOMATED [id number] 10*3/uLHigh 150-400UnSelect Medical [facility] Rehabilitation Hospital - DublinComment on above:Performed By: #### [id number] #### [facility] ([facility]) [address] [place] [address]DPU (Bld) [#/Vol]3.78 10*6/uLLow4.20-5.70UnSelect Medical [facility] Rehabilitation Hospital - DublinComment on above:Performed By: #### [id number] #### [facility] ([facility]) [address] [place] [address]PSB (Bld) [#/Vol]4.94 10*3/uLNormal4.00-10.60UnSelect Medical [facility] Hospital - DublinComment on above:Performed By: #### [id number] #### [facility] ([facility]) [address] [place], [place] [address]VYJKNFDMQXECW METABOLIC PANELon 49-22-6798Xrerpdz [Mass/Vol]3.1 g/dLLow3.5-5.7UnSelect Medical [facility] Hospital - DublinComment on above:Performed By: #### [id number] #### [facility] ([facility]) [address] [place], [place] [address]BTB [Catalytic activity/Vol]535 U/FZqfn04-853HhhzuxyfqkSelect Medical OhioHealth Rehabilitation Hospital - DublinComment on above:Performed By: #### [id number] #### [facility] ([facility]) [address] [place], [place] [address]LWV [Catalytic activity/Vol]42 U/LNormal7-52UnSelect Medical [facility] Hospital - DublinComment on above:Performed By: #### LAB99 #### [facility] ([facility]) [address] [place], [place] [address]Dbbyk gap [Moles/Vol]12 mmol/LNormal7-20UnSelect Medical [facility] Hospital - DublinComment on above:Performed By: #### LAB99 #### [facility] ([facility]) [address] [place], [place] [address]RNZ [Catalytic activity/Vol]27 U/CQwhzlw39-27UvxliwnbrbSelect Medical OhioHealth Rehabilitation Hospital - DublinComment on above:Performed By: #### [id number] #### [facility] ([facility]) [address] [place], [place] [address]Goolrywni [Mass/Vol]0.9 mg/dLNormal0.3-1.0UnSelect Medical [facility] Hospital - DublinComment on above:Performed By: #### LAB99 #### [facility] ([facility]) [address] [place], [place] [address]Fosdsio [Mass/Vol]8.6 mg/dLNormal8.6-10.3UnSelect Medical [facility] Rehabilitation Hospital - DublinComment on above:Performed By: #### LAB99 #### [facility] ([facility]) [address] [place], [place] [address]Zbidczkz [Moles/Vol]102 mmol/IWcrruf49-183OoiphoovnqSelect Medical Ohio[facility] Rehabilitation Hospital - DublinComment on above:Performed By: #### [id number] #### [facility] ([facility]) [address] [place], [place] [address]KK4 [Moles/Vol]24 mmol/BFxokmd69-26HfefjdzxkiSelect Medical OhioHealth Rehabilitation Hospital - DublinComment on above:Performed By: #### [id number] #### [facility] ([facility]) [address] [place] [address]Rjntdbkalm [Mass/Vol]0.65 mg/dLLow0.70-1.30UnSelect Medical [facility] Hospital - DublinComment on above:Performed By: #### LAB99 #### [facility] ([facility]) [address] [place] [address]MKCKULSLUH FILTRATION RATE ML/MIN/1.73 SQ M.UDDNZFNIB925.6 mL/min/1.73m*2Normal>60.0UnSelect Medical [facility] Rehabilitation Hospital - DublinComment on above: Result Comment: [facility]???s estimated glomerular filtration rate (eGFR) will no [...] potential consequences that do not disproportionately affect anyone group of individuals.Performed By: #### [id number] #### [facility] ([facility]) [address] [place] [address]Plhiflx [Mass/Vol]117 mg/oNZuwf23-332MdyfwpfijoSelect Medical Ohio[facility] Rehabilitation Hospital - DublinComment on above:Performed By: #### [id number] #### [facility] ([facility]) [address] [place] [address]Djohdfeii [Moles/Vol]4.3 mmol/LNormal3.5-5.1UnSelect [facility] Hospital - DublinComment on above:Performed By: #### [id number] #### [facility] ([facility]) [address] [place] [address]Vqyghyy [Mass/Vol]6.8 g/dLNormal6.0-8.3UnSelect [facility] - DublinComment on above:Performed By: #### [id number] #### [facility] ([facility]) [address] [place] [address]Jkqqvp [Moles/Vol]134 mmol/INko118-893CxjjadccpbSelect Medical OhioHealth Rehabilitation Hospital - DublinComment on above:Performed By: #### [id number] #### [facility] ([facility]) [address] [place] [address]Xakr nitrogen [Mass/Vol]12 mg/dLNormal7-UnSelect Medical [facility] Hospital - DublinComment on above:Performed By: #### [id number] #### [facility] ([facility]) [address] [place] [address]XGOM NITROGEN/CREATININE (MASS RATIO) IN SER/PLAS18.5Normal [facility] for RehabilitationComment on above:Performed By: #### [id number] #### [facility] ([facility]) [address] [place] [address]fv 91-42-439064Fwthu Case Management Update Multidisciplinary rounds have been completed. Barriers [...] discharge disposition appropriate for patient?: Yes New Consults:NormalUnSelect Medical [facility] Rehabilitation Hospital - DublinBASIC METABOLIC PANELon 91-36-0113Nuizu gap [Moles/Vol]13 mmol/LNormal7-20UnSelect [facility] Hospital - DublinComment on above:Performed By: #### [id number] ####[facility] ([facility])[address] [place] [address]Xiewwqz [Mass/Vol]8.3 mg/dLLow8.6-10.3 [facility] RehabilitationComment on above:Performed By: #### LAB15 ####[facility] ([facility])[address] [place] [address]Zlyydnvb [Moles/Vol]101 mmol/KIovbll99-533QrtsxilseaSelect Medical OhioHealth Rehabilitation Hospital - DublinComment on above:Performed By: #### LAB15 ####[facility] ([facility])[address] [place] [address]YU2 [Moles/Vol]22 mmol/ZEelzsw48-68YicbyicurxSelect Medical OhioHealth Rehabilitation Hospital - DublinComment on above:Performed By: #### LAB15 ####[facility] ([facility])[address] [place] [address]Imgxaflelc [Mass/Vol]0.61 mg/dLLow 0.70-1.30UnSelect Medical [facility] Hospital - DublinComment on above:Performed By: #### [id number] ####[facility] ([facility])[address] [place] [address]AZTNLQWQWP FILTRATION RATE ML/MIN/1.73 SQ M.GPWVYALKX299.6 mL/min/1.73m*2Normal>60.0 [facility] RehabilitationComment on above:Result Comment: [facility]???s estimated glomerular filtration rate (eG FR) will no longer include consideration of race [...] potential consequences that do not disproportionately affect anyone group of individuals. Performed By: #### [id number] ####[facility] ([facility])[address] [place] [address]Wbdtsmn [Mass/Vol]133 mg/zBEfab08-328QozsnmymcfSelect Medical OhioHealth Rehabilitation Hospital - DublinComment on above:Performed By: #### LAB15 ####[facility] ([facility])[address] [place] [address]Mjiddcsgw [Moles/Vol]4.3 mmol/LNormal 3.5-5.1UnSelect Medical [facility] Hospital - DublinComment on above:Performed By: #### LAB15 ####[facility] ([facility])[address] [place] [address]Pxrhqb [Moles/Vol]132 mmol/DQsh987-017KhvougdrrjSelect Medical OhioHealth Rehabilitation Hospital - DublinComment on above:Performed By: #### [id number] ####[facility] ([facility])[address] [place] [address]Fiqx nitrogen [Mass/Vol]10 mg/dLNormal7-UnSelect Medical OhioHealth Rehabilitation Hospital - DublinComment on above:Performed By: #### [id number] ####[facility] ([facility])[address] [place] [address]HGEG NITROGEN/CREATININE (MASS RATIO) IN SER/PLAS16.4NormalUniversCleveland Clinic Marymount HospitalComment on above: Performed By: #### [id number] ####[facility] ([facility])[address] [place] [address]UTNVORTGV, DIRECTon 11-98-7945Zgjojnkmh [Mass/Vol]0.3 mg/dLHigh0-0.2 [facility] for RehabilitationComment on above:Performed By: #### [id number] ####[facility] ([facility])[address] [place] [address]XHImp 03-25-2024 Erythrocyte distribution width (RBC) [Ratio]12.6 %Cmenes03.5-15.0UnSelect Medical Ohio[facility] Rehabilitation Hospital - DublinComment on above:Performed By: #### [id number] #### [facility] ([facility]) [address] [place] [address]CPOLZPFCVZN MEAN CORPUSCULAR HEMOGLOBIN CONCENTRATION (G/DL) BY DFFYCWCJR46.3 g/eCYghrqj15.0-35.0UnSelect Medical [facility] Rehabilitation Hospital - DublinComment on above:Performed By: #### [id number] #### [facility] ([facility]) [address] [place], [place] [address]Jmmlplytwg (Bld) [Volume fraction]33.0 %Low39.0-55.0UnSelect Medical Ohio[facility] Rehabilitation Hospital - DublinComment on above:Performed By: #### [id number] #### [facility] ([facility]) [address] [place] [address]Kycohjwoaf (Bld) [Mass/Vol]11.0 g/dLLow13.0-17.0UnSelect Medical [facility] Rehabilitation Hospital - DublinComment on above:Performed By: #### [id number] #### [facility] ([facility]) [address] [place] [address]VZC (RBC) [Entitic mass]32.1 fbAcejaj82.0-33.0UnSelect Medical [facility] Rehabilitation Hospital - DublinComment on above:Performed By: #### [id number] #### [facility] ([facility]) [address] [place] [address]KEZ (RBC) [Entitic vol]96.2 pSMdwwop22.0-98.0UnSelect Medical [facility] Rehabilitation Hospital - DublinComment on above:Performed By: #### [id number] #### [facility] ([facility]) [address] [place] [address]ZYHWZBTDV (10*3/UL) IN BLOOD AUTOMATED [id number] 10*3/uLNormal 150-400UnSelect Medical [facility] Rehabilitation Hospital - DublinComment on above:Performed By: #### [id number] #### [facility] ([facility]) [address] [place] [address]VJY (Bld) [#/Vol]3.43 10*6/uLLow4.20-5.70UnSelect Medical [facility] Rehabilitation Hospital - DublinComment on above:Performed By: #### [id number] #### [facility] ([facility]) [address] [place] [address]FJK (Bld) [#/Vol]3.88 10*3/uLLow4.00-10.60UnSelect Medical [facility] Rehabilitation Hospital - DublinComment on above:Performed By: #### [id number] #### [facility] ([facility]) [address] [place] [address]ZZKBYSRPEKWUJ METABOLIC PANELon 20-92-5677Yyhasgp [Mass/Vol]2.9 g/dLLow3.5-5.7UnSelect Medical Ohio[facility] Rehabilitation Hospital - DublinComment on above:Performed By: #### [id number] ####[facility] ([facility])[address] [place], [place] [address]NDF [Catalytic activity/Vol]532 U/UOupr41-087WnywmeeuffSelect Medical OhioHealth Rehabilitation Hospital - Dublin Comment on above:Performed By: #### [id number] ####[facility] ([facility])[address] [place], [place] [address]SSL [Catalytic activity/Vol]49 U/LNormal7-52 [facility] for RehabilitationComment on above:Performed By: #### [id number] ####[facility] ([facility])[address] [place], [place] [address]Kylly gap [Moles/Vol]11 mmol/LNormal7-20UnSelect Medical [facility] Rehabilitation Hospital - DublinComment on above:Performed By: #### [id number] ####[facility] ([facility])[address] [place], [place] [address]PKP [Catalytic activity/Vol]40 U/YWgli49-95AfvbhqwiqjSelect Medical OhioHealth Rehabilitation Hospital - DublinComment on above:Performed By: #### [id number] ####[facility] ([facility])[address] [place], [place] [address]Ubaeemxdq [Mass/Vol]1.0 mg/dL Normal0.3-1.0Children[facility] Hospital for RehabilitationComment on above:Performed By: #### [id number] ####[facility] ([facility])[address] [place] [address] Calcium [Mass/Vol]8.0 mg/dLLow8.6-10.3UnSelect Medical OhioHealth Rehabilitation Hospital - DublinComment on above:Performed By: #### [id number] ####[facility] ([facility])[address] [place], [place] [address]Thoeaybb [Moles/Vol]106 mmol/JBrltte40-984WfceooilrdSelect Medical OhioHealth Rehabilitation Hospital - DublinComment on above:Performed By: #### [id number] ####[facility] ([facility])[address] [place], [place] [address]MT8 [Moles/Vol]23 mmol/LNormal 21-31UnSelect Medical OhioHealth Rehabilitation Hospital - DublinComment on above:Performed By: #### [id number] ####[facility] ([facility])[address] [place] [address]Iqfetyikmk [Mass/Vol]0.59 mg/dLLow0.70-1.30UnSelect Medical [facility] Rehabilitation Hospital - DublinComment on above:Performed By: #### [id number] ####[facility] ([facility])[address] [address]SQWYEEXNUS FILTRATION RATE ML/MIN/1.73 SQ M.ODJIPPHKB671.7 mL/min/1.73m*2Normal>60.0UnSelect Medical OhioHealth Rehabilitation Hospital - DublinComment on above: Result Comment: [facility]???s estimated glomerular filtration rate (eGFR) will no [...] potential consequences that do not disproportionately affect anyone group of individuals.Performed By: #### [id number] ####[facility] ([facility])[address] [address]Hmfflmj [Mass/Vol]89 mg/dWLtbqlh60-431ObjrwapzatSelect Medical OhioHealth Rehabilitation Hospital - DublinComment on above:Performed By: #### [id number] ####[facility] ([facility])[address] [place] [address]Wwkrglgeh [Moles/Vol]3.8 mmol/LNormal3.5-5.1UnSelect Medical OhioHealth Rehabilitation Hospital - DublinComment on above:Performed By: #### [id number] ####[facility] ([facility])[address] [place] [address] Protein [Mass/Vol]6.0 g/dLNormal6.0-8.3Un[facility] [place] Comment on above:Performed By: #### [id number] ####[facility] ([facility])[address] [place] [address]Lejzly [Moles/Vol]136 mmol/SIofddl595-203SfzwttvpeeSelect Medical OhioHealth Rehabilitation Hospital - DublinComment on above:Performed By: #### [id number] ####[facility] ([facility])[address] [place] [address]Mwkx nitrogen [Mass/Vol]8 mg/dLNormal7-25UnSelect Medical [facility]Health Rehabilitation Hospital - DublinComment on above:Performed By: #### [id number] ####[facility] ([facility])[address] [place] [address] UREA NITROGEN/CREATININE (MASS RATIO) IN SER/PLAS13.6NormalUniversCleveland Clinic Marymount HospitalComment on above:Performed By: #### [id number] ####[facility] ([facility])[address] [place] [address]PZsg 71-30-2794BOY&P reviewed. The patient was examined and there are no changes to the H&P. The patient with abnormal liver function test concern for choledocholithiasis. CT scan of abdomen revealed acute pancreatitis and inflammatory changes involving the common bile duct with plans for endoscopic ultrasound to assess the common bile duct for possible ERCP for common bile duct stone removal.Normal [facility] Hospital for RehabilitationLIPASEon 17-29-0052YNSPYL (U/L) IN SER/PLAS48 U/SBeojfc03-66YceryhzjqxSelect Medical OhioHealth Rehabilitation Hospital - DublinComment on above:Performed By: #### [id number] #### [facility] ([facility]) [address] [place], [place] [address]PVHXHFCRMxy 43-00-2306Lyovhoojn [Mass/Vol]2.0 mg/dLNormal1.9-2.7 [facility] Hospital for RehabilitationComment on above:Performed By: #### [id number] ####[facility] ([facility])[address] [place], [place] [address]Addfpsvfz [Mass/Vol]1.7 mg/dLLow1.9-2.7UnSelect Medical OhioHealth Rehabilitation Hospital - DublinComment on above:Performed By: #### [id number] ####[facility] ([facility])[address] [place], [place] [address]AAXUQVULjs 56-14-4214YYGBYYDXXje stone, diverticulumNormal [facility] Hospital for RehabilitationPROTIME-INRon 82-33-4210BMG IN PPP BY COAGULATION ASSAY1.71Lfppmr0.90-1.10UnSelect Medical Ohio[facility] Rehabilitation Hospital - DublinComment on above:Result Comment: ACC RECOMMENDED INR FOR WARFARIN THERAPY CONDITION INR PROPHYLAXIS OF VENOUS THROMBOSIS 2-3 (HIGH-RISK SURGERY) TREATMENT OF VENOUS THROMBOSIS 2-3 TREATMENT OF PULMONARY EMBOLISM 2-3 PREVENTION OF SYSTEMIC EMBOLISM: 2-3 ACUTE MYOCARDIAL INFARCTION TISSUE HEART VALVES VALVULAR HEART DISEASE ATRIAL FIBRILLATION RECURRENT SYSTEMIC EMBOLISM MECHANICAL HEART VALVE 2.5-3.5 FROM: ORAL ANTICOAGULANTS. MECHANISM OF ACTION, CLINICAL EFFECTIVENESS, AND OPTIMAL THERAPEUTIC RANGE. CHEST 1995;108:231S-246S.Performed By: #### [id number] #### [facility] ([facility]) [address] [place], [place] [address]KPOTAAWCROP TIME (PT) IN PPP BY COAGULATION ASSAY13.9 Seconds Omkruf93.3-14.8UnSelect Medical Ohio[facility] Rehabilitation Hospital - DublinComment on above:Performed By: #### [id number] #### [facility] ([facility]) [address] [place], [place] [address]gt 45-47-523932Rwz patient is Moderately Stable - Low risk [...] are monitored and maintained or improved Outcome: ProgressingNormalUniversCleveland Clinic Marymount HospitalCBCon 03-24-2024 Erythrocyte distribution width (RBC) [Ratio]12.9 %Yeuthe45.5-15.0UnSelect Medical [facility] Rehabilitation Hospital - DublinComment on above:Performed By: #### [id number] #### [facility] ([facility]) [address] [place] [address]LCGVKJWBVRZ MEAN CORPUSCULAR HEMOGLOBIN CONCENTRATION (G/DL) BY ZXKWAMRLZ89.6 g/qHTvnjbq16.0-35.0UnSelect Medical [facility] Rehabilitation Hospital - DublinComment on above:Performed By: #### [id number] #### [facility] ([facility]) [address] [place] [address]Dvxcglgedw (Bld) [Volume fraction]31.9 %Low39.0-55.0UnSelect Medical [facility] Rehabilitation Hospital - DublinComment on above:Performed By: #### [id number] #### [facility] ([facility]) [address] [place] [address]Ithzplcqbo (Bld) [Mass/Vol]10.4 g/dLLow13.0-17.0UnSelect Medical [facility] Rehabilitation Hospital - DublinComment on above:Performed By: #### [id number] #### [facility] ([facility]) [address] [place] [address]MZB (RBC) [Entitic mass]32.7 flXsznzi01.0-33.0UnSelect Medical [facility] Rehabilitation Hospital - DublinComment on above:Performed By: #### [id number] #### [facility] ([facility]) [address] [place] [place] [address]SIK (RBC) [Entitic vol]100.3 cCRabq01.0-98.0UnSelect Medical [facility] Rehabilitation Hospital - DublinComment on above:Performed By: #### [id number] #### [facility] ([facility]) [address] [place] [address]MXDCIKFAI (10*3/UL) IN BLOOD AUTOMATED [id number] 10*3/uLNormal 150-400UnSelect Medical [facility] Rehabilitation Hospital - DublinComment on above:Performed By: #### [id number] #### [facility] ([facility]) [address] [place] [address]AKV (Bld) [#/Vol]3.18 10*6/uLLow4.20-5.70UnSelect Medical Ohio[facility] Rehabilitation Hospital - DublinComment on above:Performed By: #### [id number] #### [facility] ([facility]) [address] [place] [address]QNF (Bld) [#/Vol]5.65 10*3/uLNormal4.00-10.60UnSelect Medical [facility] Hospital - DublinComment on above:Performed By: #### [id number] #### [facility] ([facility]) [address] [place] [address]JLZSPDCEDUYLP METABOLIC PANELon 64-79-6370Jfgjtpw [Mass/Vol]2.8 g/dLLow3.5-5.7UnSelect Medical Ohio[facility] Rehabilitation Hospital - DublinComment on above:Performed By: #### [id number] ####[facility] ([facility])[address] [place], [place] [address]RPS [Catalytic activity/Vol]566 U/CNbyd83-429WcfynjgvphSelect Medical OhioHealth Rehabilitation Hospital - Dublin Comment on above:Performed By: #### [id number] ####[facility] ([facility])[address] [place], [place] [address]NYO [Catalytic activity/Vol]72 U/LHigh7-52 [facility] for RehabilitationComment on above:Performed By: #### [id number] ####[facility] ([facility])[address] [place], [place] [address]Ibavn gap [Moles/Vol]9 mmol/LNormal7-20[facility] Hospital for RehabilitationComment on above:Performed By: #### [id number] ####[facility] ([facility])[address] [place], [place] [address]FJC [Catalytic activity/Vol]75 U/QLbnn15-19EaoreyfhgqSelect Medical OhioHealth Rehabilitation Hospital - DublinComment on above:Performed By: #### [id number] ####[facility] ([facility])[address] [place], [place] [address]Gemhnciva [Mass/Vol]1.6 mg/dLHigh 0.3-1.0UnSelect Medical [facility] Rehabilitation Hospital - DublinComment on above:Performed By: #### [id number] ####[facility] ([facility])[address] [place], [place] [address]Vtqlunf [Mass/Vol]8.0 mg/dLLow8.6-10.3UnSelect Medical [facility] Rehabilitation Hospital - DublinComment on above:Performed By: #### [id number] ####[facility] ([facility])[address] [place], [place] [address]Spbumkcq [Moles/Vol]106 mmol/QNrzuzw45-278FxymesjpykSelect Medical OhioHealth Rehabilitation Hospital - DublinComment on above:Performed By: #### [id number] ####[facility] ([facility])[address] [place], [place] [address]FQ6 [Moles/Vol]23 mmol/LNormal 21-31UnSelect Medical [facility] Rehabilitation Hospital - DublinComment on above:Performed By: #### [id number] ####[facility] ([facility])[address] [place], [place] [address]Cigrywwoal [Mass/Vol]0.61 mg/dLLow0.70-1.30UnSelect Medical [facility] Rehabilitation Hospital - DublinComment on above:Performed By: #### [id number] ####[facility] ([facility])[address] [place], [place] [address]ELZROIZKVZ FILTRATION RATE ML/MIN/1.73 SQ M.JIXFINGNW111.6 mL/min/1.73m*2Normal>60.0UnSelect Medical [facility] Rehabilitation Hospital - DublinComment on above: Result Comment: [facility]???s estimated glomerular filtration rate (eGFR) will no [...] potential consequences that do not disproportionately affect anyone group of individuals.Performed By: #### [id number] ####[facility] ([facility])[address] [place], [place] [address]Ppswfqb [Mass/Vol]82 mg/yQFqslmg62-170BkqmnioyaoSelect Medical OhioHealth Rehabilitation Hospital - DublinComment on above:Performed By: #### [id number] ####[facility] ([facility])[address] [place], [place] [address]Xlajywcho [Moles/Vol]4.0 mmol/LNormal3.5-5.1UnSelect Medical [facility] Rehabilitation Hospital - DublinComment on above:Performed By: #### [id number] ####[facility] ([facility])[address] [place] [address] Protein [Mass/Vol]5.9 g/dLLow6.0-8.3UnSelect Medical [facility] Rehabilitation Hospital - DublinComment on above:Performed By: #### [id number] ####[facility] ([facility])[address] [place], [place] [address]Txrkht [Moles/Vol]134 mmol/XIkp509-170BxiyvjjpihSelect Medical OhioHealth Rehabilitation Hospital - DublinComment on above:Performed By: #### [id number] ####[facility] ([facility])[address] [place], [place] [address]Bgdx nitrogen [Mass/Vol]13 mg/dLNormal 7-25UnSelect Medical [facility] Rehabilitation Hospital - DublinComment on above:Performed By: #### [id number] ####[facility] ([facility])[address] [place], [place] [address]WWVQ NITROGEN/CREATININE (MASS RATIO) IN SER/PLAS21.3NormalUniversCleveland Clinic Marymount HospitalComment on above:Performed By: #### [id number] ####[facility] ([facility])[address] [place], [place] [address]YHOICCuw 59-46-5750RJESNL (U/L) IN SER/UHYU461 U/EZwzz95-10ReeccuoemaSelect Medical OhioHealth Rehabilitation Hospital - DublinComment on above: Performed By: #### [id number] #### [facility] ([facility]) [address] [place] [address]pj 46-46-187468Fqa patient is Moderately Stable - Low risk [...] are monitored and maintained or improved Outcome: ProgressingNormalUniversity of [facility]30The patient is Moderately Stable - Low risk of patient condition declining or worsening The patient's goals for the shift include The clinical goals for the shift includeNormalUniversCleveland Clinic Marymount HospitalAnisocytosis LM Ql (Bld)on 74-05-5759Ucaickitgzlv Ql (Bld)Anisocytosis [Presence] in Blood by Light microscopyNewark HospitalBASIC METABOLIC PANELon 17-77-5686Fgssc gap [Moles/Vol]11 mmol/LNormal7-20UnSelect Medical [facility] Hospital - DublinComment on above:Performed By: #### [id number] #### [facility] ([facility]) [address] [place], [place] [address]Mgegzhs [Mass/Vol]8.5 mg/dLLow8.6-10.3UnSelect Medical [facility] Rehabilitation Hospital - DublinComment on above:Performed By: #### [id number] #### [facility] ([facility]) [address] [place] [address]Cceboifs [Moles/Vol]107 mmol/PGwnmew79-866TgvjbappglSelect Medical OhioHealth Rehabilitation Hospital - DublinComment on above:Performed By: #### [id number] #### [facility] ([facility]) [address] [place] [address]AX7 [Moles/Vol]23 mmol/SVtmtsi80-72PukogocitjSelect Medical OhioHealth Rehabilitation Hospital - DublinComment on above:Performed By: #### [id number] #### [facility] ([facility]) [address] [place] [address]Gakfqnxuoj [Mass/Vol]0.69 mg/dLLow0.70-1.30UnSelect Medical [facility] Rehabilitation Hospital - DublinComment on above:Performed By: #### [id number] #### [facility] ([facility]) [address] [place] [address]NCLPHOFTSM FILTRATION RATE ML/MIN/1.73 SQ M.VCERCUMFG953.8 mL/min/1.73m*2Normal>60.0UnSelect Medical [facility] Rehabilitation Hospital - DublinComment on above: Result Comment: [facility]???s estimated glomerular filtration rate (eGFR) will no [...] potential consequences that do not disproportionately affect anyone group of individuals.Performed By: #### [id number] #### [facility] ([facility]) [address] [place] [address]Vzwrfmm [Mass/Vol]89 mg/wWIiqywn09-923QzdlelihrvSelect Medical OhioHealth Rehabilitation Hospital - DublinComment on above:Performed By: #### [id number] #### [facility] ([facility]) [address] [place] [address]Mhssactzt [Moles/Vol]4.0 mmol/LNormal3.5-5.1UnSelect Medical [facility] Rehabilitation Hospital - DublinComment on above:Performed By: #### [id number] #### [facility] ([facility]) [address] [place] [address]Ptlhez [Moles/Vol]137 mmol/DNmzytm189-544RpiydgdwkaSelect Medical OhioHealth Rehabilitation Hospital - DublinComment on above:Performed By: #### [id number] #### [facility] ([facility]) [address] [place] [address]Ycxj nitrogen [Mass/Vol]14 mg/dLNormal7-25UnSelect Medical [facility] Hospital - DublinComment on above:Performed By: #### [id number] #### [facility] ([facility]) [address] [place] [place] [address]QPLH NITROGEN/CREATININE (MASS RATIO) IN SER/PLAS20.3Normal [facility] Hospital for RehabilitationComment on above:Performed By: #### [id number] #### [facility] ([facility]) [address] [place] [address]NESJH CULTUREon 56-23-1205Xmbttszg identified Cx Nom (Bld)No growth at 5 daysNormalUniMetroHealth Cleveland Heights Medical CenterComment on above: Performed By: #### [id number] ####[facility] ([facility])[address] [place] [address]Biskk Comment: From a different site than #1., Blood Basophils/100 WBC Manual cnt (Bld)on 88-41-2668Dapxefkmv/100 WBC (Bld) Basophils/100 leukocytes in Blood by Manual count0.2-2.0Newark HospitalCB WITH AUTO DIFFERENTIALon 95-66-5251Ixgbfgpmt (Bld) [#/Vol]0.04 10*3/uLNormal0.00-0.20UnSelect Medical [facility] Rehabilitation Hospital - DublinComment on above: Performed By: #### [id number] #### [facility] ([facility]) [address] [place] [address]Aibgrnlgd/100 WBC (Bld)0.6 %Normal0.0-1.0UnSelect Medical [facility] Rehabilitation Hospital - DublinComment on above:Performed By: #### [id number] #### [facility] ([facility]) [address] [place] [place], [place] [address]Ycnumbpqapf (Bld) [#/Vol]0.02 10*3/uLNormal0.00-0.50UnSelect Medical [facility] Hospital - DublinComment on above:Performed By: #### [id number] #### [facility] ([facility]) [address] [place], [place] [address]Qjxbxhjjjhl/100 WBC (Bld)0.3 %Normal0.0-6.0UnSelect Medical [facility] Rehabilitation Hospital - DublinComment on above:Performed By: #### [id number] #### [facility] ([facility]) [address] [place] [address]Eckxtxerzup distribution width (RBC) [Ratio]12.9 %Normal 11.5-15.0UnSelect Medical [facility] Rehabilitation Hospital - DublinComment on above:Performed By: #### [id number] #### [facility] ([facility]) [address] [place] [address]IZQIADOOVYV MEAN CORPUSCULAR HEMOGLOBIN CONCENTRATION (G/DL) BY WZYZCWVFY20.9 g/jZUlmcsj33.0-35.0UnSelect Medical [facility] Hospital - DublinComment on above:Performed By: #### [id number] #### [facility] ([facility]) [address] [place] [address]Hxwicopqrb (Bld) [Volume fraction]38.3 %Low39.0-55.0UnSelect Medical [facility] Rehabilitation Hospital - DublinComment on above:Performed By: #### [id number] #### [facility] ([facility]) [address] [place] [address]Yjmulphzrl (Bld) [Mass/Vol]12.6 g/dLLow13.0-17.0UnSelect Medical [facility] Hospital - DublinComment on above:Performed By: #### [id number] #### [facility] ([facility]) [address] [place] [address]Bnybikvu granulocytes (Bld) [#/Vol]0.03 10*3/uLNormal0.00-0.20 [facility] for RehabilitationComment on above:Performed By: #### [id number] #### [facility] ([facility]) [address] [place] [address]Dntmwyyw granulocytes/100 WBC (Bld)0.5 %Normal0.0-1.0UnSelect Medical [facility] Rehabilitation Hospital - DublinComment on above:Performed By: #### [id number] #### [facility] ([facility]) [address] [place], [place] [address]Hbawfeoxlie (Bld) [#/Vol]1.09 10*3/uLLow1.20-4.00UnSelect Medical [facility] Rehabilitation Hospital - DublinComment on above:Performed By: #### [id number] #### [facility] ([facility]) [address] [place] [address]Gaoglgslwef/100 WBC (Bld)16.9 %Low20.0-45.0UnSelect Medical [facility] Rehabilitation Hospital - DublinComment on above:Performed By: #### [id number] #### [facility] ([facility]) [address] [place] [place] [address]SWV (RBC) [Entitic mass]33.0 ogTjmbbd09.0-33.0UnSelect Medical [facility] Rehabilitation Hospital - DublinComment on above:Performed By: #### [id number] #### [facility] ([facility]) [address] [place] [place], [place] [address]DLE (RBC) [Entitic vol]100.3 jBKgce04.0-98.0UnSelect Medical [facility] Rehabilitation Hospital - DublinComment on above:Performed By: #### [id number] #### [facility] ([facility]) [address] [place], [place] [address]Okowbhswl (Bld) [#/Vol]0.33 10*3/uLNormal0.10-1.00UnSelect Medical [facility] - DublinComment on above:Performed By: #### [id number] #### [facility] ([facility]) [address] [place], [place] [address]Tcdpuopox/100 WBC (Bld)5.1 %Normal5.0-12.0UnSelect Medical [facility] - DublinComment on above:Performed By: #### [id number] #### [facility] ([facility]) [address] [place], [place] [address]Eqaxgjxjwyo (Bld) [#/Vol]4.94 10*3/uLNormal1.60-7.60UnSelect Medical [facility] - DublinComment on above:Performed By: #### [id number] #### [facility] (BEAK[facility]) [address] [place], [place] [address]Luwnumvkpmu/100 WBC (Bld)76.6 %High40.0-72.0UnSelect Medical [facility] - DublinComment on above:Performed By: #### [id number] #### [facility] ([facility]) [address] [place], [place] [address]SBYE (PER 100 WBCS) BY AUTOMATED COUNT0.0 %Ukytmj1JgnbeaewggSelect Medical [facility] Hospital - DublinComment on above:Performed By: #### [id number] #### [facility] ([facility]) [address] [facility] [place], [place] [address]EYKDBTIFH (10*3/UL) IN BLOOD AUTOMATED [id number] 10*3/uLHigh 150-400UnSelect Medical [facility] - DublinComment on above:Performed By: #### [id number] #### [facility] ([facility]) [address] [facility] [place], [place] [address]NQZ (Bld) [#/Vol]3.82 10*6/uLLow4.20-5.70UnSelect Medical [facility] - DublinComment on above:Performed By: #### [id number] #### [facility] ([facility]) [address] [place], [place] [address]EPS (Bld) [#/Vol]6.45 10*3/uLNormal4.00-10.60UnSelect Medical [facility] - DublinComment on above:Performed By: #### [id number] #### [facility] ([facility]) [address] [place], [place] [address]Iflyimbzthg/100 WBC Manual cnt (Bld)on 54-37-2210Vpdyrmxraun/100 WBC (Bld)Eosinophils/100 leukocytes in Blood by Manual count0.9-7.0[facility] HospitalErythrocyte distribution width Auto (RBC) [Ratio]on 67-44-3835Evuwksuznuh distribution width (RBC) [Ratio]Erythrocyte distribution width [Ratio] by Automated count11.0-15.0[facility] Estimated glomerular filtration rate (GFR) non- Americanon 03-23-2024 GFR/1.73 sq M.predicted among non-blacks MDRD (S/P/Bld) [Vol rate/Area]Estimated glomerular filtration rate (GFR) non->=60 mL/min/1.73m 2 [facility] HospitalGlobulin Calc (S) [Mass/Vol]on 03-23-2024 Globulin (S) [Mass/Vol]Serum globulin measurement by calculation (mass/volume) [facility] HospitalHEPATIC FUNCTION PANELon 53-69-3009Rbnadef [Mass/Vol]3.1 g/dLLow3.5-5.7UnSelect Medical [facility] Hospital - DublinComment on above: Performed By: #### [id number] #### [facility] ([facility]) [address] [place], [place] [address]ZKM [Catalytic activity/Vol]721 U/LHijw81-386NpzvivohdaSelect Medical [facility] Rehabilitation Hospital - DublinComment on above:Performed By: #### [id number] #### [facility] ([facility]) [address] [place], [place] [address]BNH [Catalytic activity/Vol]106 U/LHigh7-52UnSelect Medical [facility] - DublinComment on above:Performed By: #### [id number] #### [facility] ([facility]) [address] [place], [place] [address]BPA [Catalytic activity/Vol]132 U/OWywp09-44OweqziffheSelect Medical [facility] Hospital - DublinComment on above:Performed By: #### [id number] #### [facility] ([facility]) [address] [place], [place] [address]Wezxxvzqu [Mass/Vol]2.9 mg/dLHigh0.3-1.0UnSelect Medical [facility] Hospital - DublinComment on above:Performed By: #### [id number] #### [facility] ([facility]) [address] [place], [place] [address]Dukjnnwxu [Mass/Vol]2.0 mg/dLHigh0-0.2UnSelect Medical [facility] Hospital - DublinComment on above:Performed By: #### [id number] #### [facility] ([facility]) [address] [place], [place] [address]Qklnhkc [Mass/Vol]6.5 g/dLNormal6.0-8.3UnSelect Medical [facility] Hospital - DublinComment on above:Performed By: #### [id number] #### [facility] ([facility]) [address] [place], [place] [address]Fihzwgegce Auto (Bld) [Volume fraction]on 04-19-2331Jqlhxbftda (Bld) [Volume fraction]Hematocrit [Volume Fraction] of Blood by Automated count Low42.0-54.0[facility] HospitalHemoglobin [Mass/volume] in Bloodon 78-69-9664Rzgtwmllcc (Bld) [Mass/Vol]Hemoglobin [Mass/volume] in BloodLow 14.0-18.0[facility] HospitalLACTIC ACID, PLASMAon 03-23-2024 LACTATE (MMOL/L) IN SER/PLAS0.6 mmol/LNormal0.5-2.2[facility] for RehabilitationComment on above:Performed By: #### [id number] #### [facility] ([facility]) [address] [place], [place] [address]EJTWHKrt 36-81-1494BIOTMX (U/L) IN SER/UNAZ052 U/UMwop23-62 [facility] for RehabilitationComment on above:Performed By: #### [id number] #### [facility] ([facility]) [address] [place], [place] [address]Asbxypupcs - Chemistry and Chemistry - challengeon 03-23-2024 Albumin [Mass/Vol]2.4 g/dLLow3.4-5.0[facility] HospitalALP [Catalytic activity/Vol]885 U/GVicw06-399BeclzuxsnNewark HospitalALT [Catalytic activity/Vol]157 U/NFrwk75-74JgmhifwjpNewark HospitalAmylase [Catalytic activity/Vol]3548 U/LCritically gqqd88-713TmldlndpsNewark HospitalComment on above:RESULTS CALLED TO MARINA WILD RN AT [address]AST [Catalytic activity/Vol]237 U/ZDxes32-67FkswtcqxeNewark HospitalBilirubin [Mass/Vol]2.7 mg/dLHigh0.2-1.0[facility] HospitalBilirubin.direct [Mass/Vol]2.4 mg/dLCritically high0.0-0.2FCorey Hospital Comment on above:RESULTS CALLED TO MARINA WILD RN AT 0821Calcium [Mass/Vol]9.2 mg/dL8.5-10.1FCorey HospitalChloride [Moles/Vol]104 mmol/L 98-107New[facility] HospitalCO2 [Moles/Vol]23.8 mmol/L21.0-32.0 [facility] HospitalCreatinine [Mass/Vol]0.90 mg/dL0.70-1.30 [facility] HospitalGFR/1.73 sq M.predicted MDRD (S/P/Bld) [Vol rate/Area]mL/min/{1.73_m2}>=60 mL/min/1.73m 2FCorey Hospital Glucose [Mass/Vol]143 mg/mGAfam15-609YyircvjfvNewark HospitalLipase [Catalytic activity/Vol]3680.0 U/LCritically high16.0-77.0[facility] HospitalComment on above:RESULTS CALLED TO MARINA WILD RN AT 0821Potassium [Moles/Vol]3.8 mmol/L3.5-5.1FCorey HospitalProtein [Mass/Vol] 7.1 g/dL6.4-8.2FSelect Medical Specialty Hospital - Youngstownodium [Moles/Vol]138 mmol/L 136-145New[facility] HospitalUrea nitrogen [Mass/Vol]14.0 mg/dL 7.0-18.0[facility] HospitalUrea nitrogen/Creatinine [Mass ratio] 15.6 mg/mgNewark HospitalLaboratory - Hematology and Cell countson 55-06-1016Reukhckpgwg/100 WBC (Bld)6.0 %Low20.5-60.0[facility] HospitalMonocytes/100 WBC (Bld)1.0 %Low1.7-12.0[facility] HospitalLeukocytes [#/volume] corrected for nucleated erythrocytes in Blood by Automated counon 36-99-3430IBU corrected for nucl RBC Auto (Bld) [#/Vol] Leukocytes [#/volume] corrected for nucleated erythrocytes in Blood by Automated coun4.0-11.0[facility] HospitalMAGNESIUMon 07-78-8014Qzrbmuhub [Mass/Vol]1.9 mg/dLNormal1.9-2.7UnSelect Medical [facility] Hospital - DublinComment on above:Performed By: #### [id number] #### [facility] ([facility]) [address] [place], [place] [address]MTL Auto (RBC) [Entitic mass]on 32-04-1287TPV (RBC) [Entitic mass]MCH [Entitic mass] by Automated count25.9-34.0[facility] HospitalHC Auto (RBC) [Mass/Vol]on 02-54-0117CXWV (RBC) [Mass/Vol]MCHC [Mass/volume] by Automated count29.9-35.2FOhioHealth Shelby HospitalV Auto (RBC) [Entitic vol]on 99-49-3084HOH (RBC) [Entitic vol]MCV [Entitic volume] by Automated tyeivDkxg50.0-94.0[facility] HospitalNo Panel Informationon 39-89-7544Kingrdhr Basophils (Manual)0.15 10 3/uLHigh0.00-0.10 [facility] HospitalEosinophils # (Manual)0.07 10 3/uL0.00-0.70 [facility] HospitalLymphocytes # (Manual)0.45 10 3/uLLow1.20-3.80 [facility] HospitalMonocytes # (Manual)0.07 10 3/uLLow0.30-0.80 [facility] Campusegmented Neutrophils # (Manual)6.84 10 3/uL High1.4-6.5FCorey HospitalPHOSPHORUSon 31-10-4215Vepqsurgz [Mass/Vol]3.9 mg/dLNormal2.5-5.0UnSelect Medical [facility] Hospital - DublinComment on above:Performed By: #### [id number] #### [facility] (BE[facility]ER) [address] [place], [place] [address]TOJZYTJ-HFAsw 49-00-2649AYP IN PPP BY COAGULATION ASSAY1.07 Normal0.90-1.10UnSelect Medical [facility] Hospital - DublinComment on above:Result Comment: ACCCP RECOMMENDED INR FOR WARFARIN THERAPY CONDITION INR PROPHYLAXIS OF VENOUS THROMBOSIS 2-3 (HIGH-RISK SURGERY) TREATMENT OF VENOUS THROMBOSIS 2-3 TREATMENT OF PULMONARY EMBOLISM 2-3 PREVENTION OF SYSTEMIC EMBOLISM: 2-3 ACUTE MYOCARDIAL INFARCTION TISSUE HEART VALVES VALVULAR HEART DISEASE ATRIAL FIBRILLATION RECURRENT SYSTEMIC EMBOLISM MECHANICAL HEART VALVE 2.5-3.5 FROM: ORAL ANTICOAGULANTS. MECHANISM OF ACTION, CLINICAL EFFECTIVENESS, AND OPTIMAL THERAPEUTIC RANGE. CHEST 1995;108:231S-246S.Performed By: #### [id number] ####[facility] (BE[facility]ER)[address] [place], [place] [address]TXUDMCMSLXZ TIME (PT) IN PPP BY COAGULATION ASSAY13.9 QoqcuasQyidlk98.3-14.8UnSelect Medical [facility] Hospital - DublinComment on above:Performed By: #### [id number] ####[facility] (BE[facility]ER)[address] [place], [place] [address]Nducqajq mean volume Auto (Bld) [Entitic vol]on 85-28-2972Lbesdlzo mean volume (Bld) [Entitic vol]Platelet mean volume [Entitic volume] in Blood by Automated countLow9.5-13.5FCorey HospitalPlatelets Auto (Bld) [#/Vol]on 96-85-9081Fuwtpzuso (Bld) [#/Vol] Platelets [#/volume] in Blood by Automated tfsnlLkcc643-065UlahxnpvaNewark HospitalRBC Auto (Bld) [#/Vol]on 64-74-9111TQT (Bld) [#/Vol]Erythrocytes [#/volume] in Blood by Automated countLow4.70-6.10[facility] Campusegmented neutrophils/100 WBC Manual cnt (Bld)on 03-84-4050Omcksruzb neutrophils/100 WBC (Bld)Manual blood segmented neutrophils/100 leukocytesHigh 43.0-75.0[facility] Campuserum or plasma albumin/globulin mass ratioon 28-89-7116Arusqfv/Globulin [Mass ratio]Serum or plasma albumin/globulin mass ratioSumma Health Akron Campuserum or plasma anion gap determinationon 96-11-3086Sonld gap [Moles/Vol]Serum or plasma anion gap determinationNewark HospitalTROPONIN Ion 21-77-7940Ykskefdw I.cardiac [Mass/Vol]0.02 ng/mLNormal0.00-0.04UnSelect Medical [facility] Comment on above:Performed By: #### [id number] #### [facility] ([facility]) [address] [place], [place] [address]Enakilabg study report documentOrdered By: Miguel Beltrán on 26-53-8828Ppslrhvxq studyNewark Hospital Other Basophils Auto (Bld) [#/Vol]on 80-91-9725Pwontuvnm (Bld) [#/Vol]Automated basophil count0.0-0.1FCorey Hospital Basophils/100 WBC Auto (Bld)on 31-04-7697Dudqhuefi/100 WBC (Bld)Automated basophil %0.2-2.0[facility] HospitalEosinophils/100 WBC Auto (Bld) on 83-54-9022Psjepmzrwyi/100 WBC (Bld)Automated eosinophil %Low0.9-7.0[facility] HospitalErythrocyte distribution width Auto (RBC) [Ratio]on 11-21-1826Ehjpzlngldz distribution width (RBC) [Ratio]Erythrocyte distribution width [Ratio] by Automated count11.0-15.0[facility] Estimated glomerular filtration rate (GFR) non- Americanon 03-08-2024 GFR/1.73 sq M.predicted among non-blacks MDRD (S/P/Bld) [Vol rate/Area]Estimated glomerular filtration rate (GFR) non->=60 mL/min/1.73m 2 [facility] HospitalGlobulin Calc (S) [Mass/Vol]on 03-08-2024 Globulin (S) [Mass/Vol]Serum globulin measurement by calculation (mass/volume) [facility] HospitalHematocrit Auto (Bld) [Volume fraction]on 80-31-6331Cvehpfqxrl (Bld) [Volume fraction]Hematocrit [Volume Fraction] of Blood by Automated sgawfZhr48.0-54.0[facility] HospitalHemoglobin [Mass/volume] in Bloodon 35-89-7196Pgebzzjtqn (Bld) [Mass/Vol]Hemoglobin [Mass/volume] in AbpxbZis91.0-18.0Newark HospitalLon 03-08-2024L Specimen: [id number] Received: 03/08/24 Status: CARLOS Johnston Num: [id number] Spec Type: Surgical Subm Dr: Gurmeet Muñiz DO Tissues: A Gallbladder (GALLBLADDER) Procedures: Ning GUPTA/Mague L3 Age/ Patient Sex Location Account Attending Physician Bia Reyes Titi 68/M [place] [id number] Gurmeet Muñiz, SPEC NUM: [id number] RECD: 03/08/24 STATUS: CARLOS JOHNSTON NUM: [id number] MISTY: 03/08/24 [facility] DR: Gurmeet Muñiz DO ENTERED: 03/08/24 [facility] [address]: Lore Hernandez SPEC TYPE: Surgical DEPT: STEPHANIE RAVI ENTERED BY: [id number] RECV BY: [id number] ORDERED: HE, Gross/Micro L3 ORDERED: HE, Gross/Micro [...] jar filtered and no calculi are identified. Hi Teacher sections are submitted in a single cassette. (1, , BS02- 908 A) GIL Specimen: [id number] Received: 03/08/24 Status: CARLOS Johnston Num: [id number] Spec Type: Surgical Subm Dr: Gurmeet Muñiz DO Tissues: A Gallbladder (GALLBLADDER) Procedures: Ning GUPTA/Mague L3 Patient: Bia Reyes [id number] (Continued) Specimen: [id number] Received: 03/08/24 (Continued) Signed (signature on file) Miguel Beltrán MD 03/11/24 1719 Specimen: [id number] Received: 03/08/24 Status: CARLOS Johnston Num: [id number] Spec Type: Surgical Subm Dr: Gurmeet Muñiz DO Tissues: A Gallbladder (GALLBLADDER) Procedures: Diamond GUPTA L3 Patient: Bia Reyes [id number] (Continued) Specimen: [id number] Received: 03/08/24 (Continued) Microscopic Description Microscopic examination is performed. CPT Codes 74406 Specimen: [id number] Received: 03/08/24 Status: CARLOS Johnston Num: [id number] Spec Type: Surgical Subm Dr: Gurmeet Muñiz DO Tissues: A Gallbladder (GALLBLADDER) Procedures: Ning GUPTA/Mague L3 Patient: Bia Reyes [id number] (Continued) Signed (signature on file) Miguel Beltrán MD 03/11/24 1719Normal [facility] Physician GroupLaboratory - Chemistry and Chemistry - challengeon 76-31-6811Bffumaa [Mass/Vol]2.5 g/dLLow3.4-5.0[facility] ALP [Catalytic activity/Vol]106 U/X67-791OtrybejlfNewark HospitalALT [Catalytic activity/Vol]47 U/D56-10FopivllvwNewark HospitalAST [Catalytic activity/Vol]29 U/B91-19KlnwbatexNewark HospitalBilirubin [Mass/Vol]1.0 mg/dL0.2-1.0[facility] HospitalCalcium [Mass/Vol]8.2 mg/dLLow8.5-10.1FCorey HospitalChloride [Moles/Vol]105 mmol/L 98-107[facility] HospitalCO2 [Moles/Vol]19.4 mmol/LLow21.0-32.0 [facility] HospitalCreatinine [Mass/Vol]0.91 mg/dL0.70-1.30 [facility] HospitalGFR/1.73 sq M.predicted MDRD (S/P/Bld) [Vol rate/Area]mL/min/{1.73_m2}>=60 mL/min/1.73m 2FCorey Hospital Glucose [Mass/Vol]63 mg/uIVst49-939GxdbvehjmNewark HospitalLipase [Catalytic activity/Vol]25.0 U/L16.0-77.0[facility] Potassium [Moles/Vol]3.6 mmol/L3.5-5.1FCorey HospitalProtein [Mass/Vol]5.9 g/dLLow6.4-8.2FSelect Medical Specialty Hospital - Youngstownodium [Moles/Vol] 139 mmol/V760-775OfiivbtgtNewark HospitalUrea nitrogen [Mass/Vol]9.0 mg/dL7.0-18.0[facility] HospitalUrea nitrogen/Creatinine [Mass ratio]9.9 mg/mgNewark HospitalLaboratory - Hematology and Cell countson 50-45-9647Aehzkqxz granulocytes/100 WBC (Bld)0.4 %0.0-0.5FCorey HospitalLeukocytes [#/volume] corrected for nucleated erythrocytes in Blood by Automated counon 99-47-0365BOD corrected for nucl RBC Auto (Bld) [#/Vol]Leukocytes [#/volume] corrected for nucleated erythrocytes in Blood by Automated coun4.0-11.0[facility] HospitalLymphocytes Auto (Bld) [#/Vol]on 24-09-2610Gzqeyfwfamx (Bld) [#/Vol]Lymphocytes [#/volume] in Blood by Automated count1.2-3.8[facility] HospitalLymphocytes/100 WBC Auto (Bld)on 89-57-2036Ojpyxnrzqgp/100 WBC (Bld)Lymphocytes/100 leukocytes in Blood by Automated count20.5-60.0[facility] HospitalH Auto (RBC) [Entitic mass]on 34-41-2312WLU (RBC) [Entitic mass]MCH [Entitic mass] by Automated count25.9-34.0[facility] HospitalHC Auto (RBC) [Mass/Vol]on 85-32-9405PFPF (RBC) [Mass/Vol]MCHC [Mass/volume] by Automated count29.9-35.2FOhioHealth Shelby HospitalV Auto (RBC) [Entitic vol]on 92-71-7379RMV (RBC) [Entitic vol]MCV [Entitic volume] by Automated countHigh 80.0-94.0[facility] HospitalMonocytes Auto (Bld) [#/Vol]on 03-34-1399Imaspewyq (Bld) [#/Vol]Automated blood monocyte count0.3-0.8[facility] HospitalMonocytes/100 WBC Auto (Bld)on 58-61-5510Fxraaoxeb/100 WBC (Bld)Automated monocyte %1.7-12.0[facility] Neutrophils Auto (Bld) [#/Vol]on 11-36-4640Planfpbkqud (Bld) [#/Vol]Neutrophils [#/volume] in Blood by Automated count1.4-6.5FCorey Hospital Neutrophils/100 WBC Auto (Bld)on 80-14-1367Yzomabhpeyf/100 WBC (Bld)Automated neutrophil %43.0-75.0[facility] HospitalNo Panel Information Ordered By: Chloe Gipson on 98-35-9130FaiHtwkbnDelaware County HospitalNo Panel Informationon 63-56-3444Freoahhlmpw # (Auto)0.0 10 3/uL0.0-0.7FCorey HospitalImmature Granulocyte # (Auto)0.02 10 3/uL0.00-0.03[facility] HospitalPlatelet mean volume Auto (Bld) [Entitic vol]on 55-59-8290Yhdytqss mean volume (Bld) [Entitic vol]Platelet mean volume [Entitic volume] in Blood by Automated count9.5-13.5FCorey Hospital Platelets Auto (Bld) [#/Vol]on 73-03-8633Xjyxzvkdn (Bld) [#/Vol]Platelets [#/volume] in Blood by Automated qldyz575-476QbwqjitboNewark Hospital RBC Auto (Bld) [#/Vol]on 98-20-8137ZFY (Bld) [#/Vol]Erythrocytes [#/volume] in Blood by Automated countLow4.70-6.10[facility] Campuserum or plasma albumin/globulin mass ratioon 70-80-6287Nsnbwux/Globulin [Mass ratio] Serum or plasma albumin/globulin mass ratioNewark Hospital Serum or plasma anion gap determinationon 06-14-7200Kppyi gap [Moles/Vol]Serum or plasma anion gap determinationNewark HospitalBasophils Auto (Bld) [#/Vol]on 68-57-7058Qsigmmmwi (Bld) [#/Vol]Automated basophil count 0.0-0.1FCorey HospitalBasophils/100 WBC Auto (Bld)on 53-66-0967Vfvmpwlxt/100 WBC (Bld)Automated basophil %0.2-2.0[facility] HospitalEosinophils/100 WBC Auto (Bld)on 57-74-4140Hznzrbuvxfk/100 WBC (Bld)Automated eosinophil %Low0.9-7.0[facility] Erythrocyte distribution width Auto (RBC) [Ratio]on 37-59-7187Qxhxeovscgu distribution width (RBC) [Ratio]Erythrocyte distribution width [Ratio] by Automated count11.0-15.0[facility] HospitalEstimated glomerular filtration rate (GFR) non- Americanon 42-24-5590PRA/1.73 sq M.predicted among non-blacks MDRD (S/P/Bld) [Vol rate/Area]Estimated glomerular filtration rate (GFR) non->=60 mL/min/1.73m 2FCorey HospitalGlobulin Calc (S) [Mass/Vol]on 43-11-6183Fsghqmei (S) [Mass/Vol]Serum globulin measurement by calculation (mass/volume)[facility] HospitalHematocrit Auto (Bld) [Volume fraction]on 34-53-0782Cxsmgloewq (Bld) [Volume fraction]Hematocrit [Volume Fraction] of Blood by Automated countLow 42.0-54.0[facility] HospitalHemoglobin [Mass/volume] in Bloodon 66-48-2490Klhrlqyncz (Bld) [Mass/Vol]Hemoglobin [Mass/volume] in BloodLow 14.0-18.0[facility] HospitalLaboratory - Chemistry and Chemistry - challengeon 38-57-7719Fyhlytz [Mass/Vol]2.8 g/dLLow3.4-5.0[facility] HospitalALP [Catalytic activity/Vol]132 U/EPxam26-848HxbhohtxnNewark HospitalALT [Catalytic activity/Vol]70 U/YIwtt12-30JdvmsudatNewark HospitalAST [Catalytic activity/Vol]50 U/RTurn37-45KdysmfjaxNewark HospitalBilirubin [Mass/Vol]0.9 mg/dL0.2-1.0[facility] HospitalBilirubin.direct [Mass/Vol]0.3 mg/dLHigh0.0-0.2FCorey HospitalCalcium [Mass/Vol]7.9 mg/dLLow8.5-10.1FCorey Hospital Chloride [Moles/Vol]104 mmol/W71-673RgfvrsvbsNewark HospitalCO2 [Moles/Vol]20.9 mmol/LLow21.0-32.0[facility] HospitalCreatinine [Mass/Vol]0.86 mg/dL0.70-1.30[facility] HospitalGFR/1.73 sq M.predicted MDRD (S/P/Bld) [Vol rate/Area]mL/min/{1.73_m2}>=60 mL/min/1.73m 2 [facility] HospitalGlucose [Mass/Vol]75 mg/wF22-326YcswmprddNewark HospitalLipase [Catalytic activity/Vol]90.0 U/LHigh16.0-77.0 [facility] HospitalPotassium [Moles/Vol]3.7 mmol/L3.5-5.1FCorey HospitalProtein [Mass/Vol]6.3 g/dLLow6.4-8.2FSelect Medical Specialty Hospital - Youngstownodium [Moles/Vol]136 mmol/T922-186OpargaqreNewark HospitalUrea nitrogen [Mass/Vol]6.0 mg/dLLow7.0-18.0[facility] HospitalUrea nitrogen/Creatinine [Mass ratio]7.0 mg/mgNewark HospitalLaboratory - Hematology and Cell countson 70-78-3004Hffjpnnv granulocytes/100 WBC (Bld)0.3 %0.0-0.5FCorey Hospital Leukocytes [#/volume] corrected for nucleated erythrocytes in Blood by Automated counon 95-78-3528HTX corrected for nucl RBC Auto (Bld) [#/Vol]Leukocytes [#/volume] corrected for nucleated erythrocytes in Blood by Automated coun 4.0-11.0[facility] HospitalLymphocytes Auto (Bld) [#/Vol]on 99-35-0192Lyglhuxwozn (Bld) [#/Vol]Lymphocytes [#/volume] in Blood by Automated count1.2-3.8[facility] HospitalLymphocytes/100 WBC Auto (Bld)on 95-80-2030Mlkgjfcevvu/100 WBC (Bld)Lymphocytes/100 leukocytes in Blood by Automated chwukAun10.5-60.0[facility] HospitalH Auto (RBC) [Entitic mass]on 33-30-4568MUF (RBC) [Entitic mass]MCH [Entitic mass] by Automated count25.9-34.0[facility] HospitalHC Auto (RBC) [Mass/Vol]on 69-67-3354BTTL (RBC) [Mass/Vol]MCHC [Mass/volume] by Automated count29.9-35.2FCorey HospitalMCV Auto (RBC) [Entitic vol]on 96-09-5257DZR (RBC) [Entitic vol]MCV [Entitic volume] by Automated countHigh 80.0-94.0[facility] HospitalMonocytes Auto (Bld) [#/Vol]on 47-12-9160Lhylqmujv (Bld) [#/Vol]Automated blood monocyte count0.3-0.8[facility] HospitalMonocytes/100 WBC Auto (Bld)on 29-67-4841Qbrztkxna/100 WBC (Bld)Automated monocyte %1.7-12.0[facility] Neutrophils Auto (Bld) [#/Vol]on 70-35-4265Cvydbdzavcn (Bld) [#/Vol]Neutrophils [#/volume] in Blood by Automated count1.4-6.5FCorey Hospital Neutrophils/100 WBC Auto (Bld)on 42-99-4809Hixqclfeujy/100 WBC (Bld)Automated neutrophil %43.0-75.0[facility] HospitalNo Panel Informationon 11-91-8296Ahzmqexbcui # (Auto)0.0 10 3/uL0.0-0.7FCorey HospitalImmature Granulocyte # (Auto)0.02 10 3/uL0.00-0.03[facility] HospitalPlatelet mean volume Auto (Bld) [Entitic vol]on 59-18-2926Buizoojl mean volume (Bld) [Entitic vol]Platelet mean volume [Entitic volume] in Blood by Automated count9.5-13.5FCorey HospitalPlatelets Auto (Bld) [#/Vol]on 26-98-9071Rcmsucqzg (Bld) [#/Vol]Platelets [#/volume] in Blood by Automated hvwuq126-331FptjkupteNewark HospitalRBC Auto (Bld) [#/Vol]on 98-29-5806GYV (Bld) [#/Vol]Erythrocytes [#/volume] in Blood by Automated count Low4.70-6.10[facility] Campuserum or plasma albumin/globulin mass ratioon 45-21-0170Oexgqpy/Globulin [Mass ratio]Serum or plasma albumin/globulin mass ratioSumma Health Akron Campuserum or plasma anion gap determinationon 46-12-3665Yaedj gap [Moles/Vol]Serum or plasma anion gap determinationNewark HospitalBasophils Auto (Bld) [#/Vol]on 84-98-9219Vtoociqnj (Bld) [#/Vol]Automated basophil count0.0-0.1FCorey HospitalBasophils/100 WBC Auto (Bld)on 08-72-1200Npewjqygi/100 WBC (Bld)Automated basophil %0.2-2.0[facility] Eosinophils/100 WBC Auto (Bld)on 26-19-3434Vqfjsgyrwrm/100 WBC (Bld)Automated eosinophil %Low0.9-7.0[facility] HospitalErythrocyte distribution width Auto (RBC) [Ratio]on 66-48-8993Mlfehxsrdow distribution width (RBC) [Ratio]Erythrocyte distribution width [Ratio] by Automated count11.0-15.0 Newark HospitalEstimated glomerular filtration rate (GFR) non- Americanon 96-37-0913HKW/1.73 sq M.predicted among non-blacks MDRD (S/P/Bld) [Vol rate/Area]Estimated glomerular filtration rate (GFR) non->=60 mL/min/1.73m 2FCorey HospitalGlobulin Calc (S) [Mass/Vol]on 75-70-4127Lcadhgba (S) [Mass/Vol]Serum globulin measurement by calculation (mass/volume)[facility] HospitalHematocrit Auto (Bld) [Volume fraction]on 23-09-0828Izzcvhazfo (Bld) [Volume fraction]Hematocrit [Volume Fraction] of Blood by Automated kyiymNdr45.0-54.0[facility] HospitalHemoglobin [Mass/volume] in Bloodon 39-73-4610Qiqsssissa (Bld) [Mass/Vol]Hemoglobin [Mass/volume] in WprizQtb59.0-18.0[facility] HospitalLaboratory - Chemistry and Chemistry - challengeon 03-06-2024 Albumin [Mass/Vol]2.5 g/dLLow3.4-5.0[facility] HospitalALP [Catalytic activity/Vol]131 U/YBzwf32-367EkknqsbxbNewark HospitalALT [Catalytic activity/Vol]97 U/MXdlg99-82EpwhiuyvvNewark HospitalAST [Catalytic activity/Vol]82 U/LUhos26-39LfbbvqierNewark Hospital Bilirubin [Mass/Vol]1.0 mg/dL0.2-1.0[facility] HospitalCalcium [Mass/Vol]7.7 mg/dLLow8.5-10.1FCorey HospitalChloride [Moles/Vol]110 mmol/YXdvk69-994AbuobpohzNewark HospitalCO2 [Moles/Vol] 23.3 mmol/L21.0-32.0[facility] HospitalCreatinine [Mass/Vol]0.92 mg/dL0.70-1.30[facility] HospitalGFR/1.73 sq M.predicted MDRD (S/P/Bld) [Vol rate/Area]mL/min/{1.73_m2}>=60 mL/min/1.73m 2FCorey HospitalGlucose [Mass/Vol]76 mg/jP45-115BkscupftxNewark Hospital Lipase [Catalytic activity/Vol]1102.0 U/LCritically high16.0-77.0[facility] HospitalComment on above:RESULTS CALLED TO CHIKIS VICENTE RN @BY Thea Headley at 0634Potassium [Moles/Vol]4.0 mmol/L3.5-5.1FCorey HospitalProtein [Mass/Vol]5.6 g/dLLow6.4-8.2FSelect Medical Specialty Hospital - Youngstownodium [Moles/Vol]141 mmol/H619-978CufmvavoaNewark HospitalUrea nitrogen [Mass/Vol]9.0 mg/dL7.0-18.0[facility] Urea nitrogen/Creatinine [Mass ratio]9.8 mg/mgNewark Hospital Laboratory - Hematology and Cell countson 61-40-0367Ihyureof granulocytes/100 WBC (Bld)0.2 %0.0-0.5FCorey HospitalLeukocytes [#/volume] corrected for nucleated erythrocytes in Blood by Automated counon 03-36-1454RNB corrected for nucl RBC Auto (Bld) [#/Vol]Leukocytes [#/volume] corrected for nucleated erythrocytes in Blood by Automated coun4.0-11.0[facility] HospitalLymphocytes Auto (Bld) [#/Vol]on 41-91-1330Egcwwkbwsck (Bld) [#/Vol]Lymphocytes [#/volume] in Blood by Automated count1.2-3.8[facility] HospitalLymphocytes/100 WBC Auto (Bld)on 03-06-2024 Lymphocytes/100 WBC (Bld)Lymphocytes/100 leukocytes in Blood by Automated count 20.5-60.0[facility] HospitalMCH Auto (RBC) [Entitic mass]on 84-58-8009OEE (RBC) [Entitic mass]MCH [Entitic mass] by Automated count25.9-34.0 [facility] HospitalMCHC Auto (RBC) [Mass/Vol]on 39-59-5785RMDK (RBC) [Mass/Vol]MCHC [Mass/volume] by Automated count29.9-35.2FCorey HospitalMCV Auto (RBC) [Entitic vol]on 25-14-4148UIV (RBC) [Entitic vol] MCV [Entitic volume] by Automated ukcneCgqr30.0-94.0[facility] HospitalMonocytes Auto (Bld) [#/Vol]on 29-31-2630Gczgklrop (Bld) [#/Vol]Automated blood monocyte count0.3-0.8[facility] HospitalMonocytes/100 WBC Auto (Bld)on 53-96-3288Prqjcmvtw/100 WBC (Bld)Automated monocyte %1.7-12.0 [facility] HospitalNeutrophils Auto (Bld) [#/Vol]on 03-06-2024 Neutrophils (Bld) [#/Vol]Neutrophils [#/volume] in Blood by Automated count 1.4-6.5FCorey HospitalNeutrophils/100 WBC Auto (Bld)on 76-33-9018Hniyvcvilbn/100 WBC (Bld)Automated neutrophil %43.0-75.0[facility] HospitalNo Panel Informationon 19-74-9968Fvnmcaytrjw # (Auto)0.0 10 3/uL0.0-0.7FCorey HospitalImmature Granulocyte # (Auto)0.01 10 3/uL0.00-0.03[facility] HospitalPlatelet mean volume Auto (Bld) [Entitic vol]on 15-47-4585Zgqvqysv mean volume (Bld) [Entitic vol]Platelet mean volume [Entitic volume] in Blood by Automated count9.5-13.5FCorey HospitalPlatelets Auto (Bld) [#/Vol]on 06-60-4828Iutjajwsk (Bld) [#/Vol]Platelets [#/volume] in Blood by Automated vgqel444-982FfockazjiNewark HospitalRBC Auto (Bld) [#/Vol]on 24-99-3245DTZ (Bld) [#/Vol]Erythrocytes [#/volume] in Blood by Automated countLow4.70-6.10[facility] Campuserum or plasma albumin/globulin mass ratioon 37-10-4970Ocgsijc/Globulin [Mass ratio]Serum or plasma albumin/globulin mass ratioSumma Health Akron Campuserum or plasma anion gap determinationon 46-81-7146Needb gap [Moles/Vol]Serum or plasma anion gap determinationNewark HospitalBasophils Auto (Bld) [#/Vol]on 88-43-1057Ahzzhygsw (Bld) [#/Vol]Automated basophil count0.0-0.1FCorey HospitalBasophils/100 WBC Auto (Bld)on 72-57-1378Qalhuoggq/100 WBC (Bld)Automated basophil %0.2-2.0[facility] HospitalEosinophils/100 WBC Auto (Bld)on 03-05-2024 Eosinophils/100 WBC (Bld)Automated eosinophil %Low0.9-7.0[facility] HospitalErythrocyte distribution width Auto (RBC) [Ratio]on 03-05-2024 Erythrocyte distribution width (RBC) [Ratio]Erythrocyte distribution width [Ratio] by Automated count11.0-15.0[facility] HospitalEstimated glomerular filtration rate (GFR) non- Americanon 13-80-2929HMO/1.73 sq M.predicted among non-blacks MDRD (S/P/Bld) [Vol rate/Area]Estimated glomerular filtration rate (GFR) non->=60 mL/min/1.73m 2FCorey HospitalGlobulin Calc (S) [Mass/Vol]on 16-24-6444Uldpascq (S) [Mass/Vol] Serum globulin measurement by calculation (mass/volume)[facility] HospitalHematocrit Auto (Bld) [Volume fraction]on 18-14-4799Chfdyssarw (Bld) [Volume fraction]Hematocrit [Volume Fraction] of Blood by Automated count 42.0-54.0[facility] HospitalHemoglobin [Mass/volume] in Bloodon 90-40-7338Dgaiccrnkj (Bld) [Mass/Vol]Hemoglobin [Mass/volume] in Blood14.0-18.0 [facility] HospitalLaboratory - Chemistry and Chemistry - challengeon 08-67-7976Bhfwtvw [Mass/Vol]3.5 g/dL3.4-5.0[facility] HospitalALP [Catalytic activity/Vol]172 U/IBkyl44-177YkjlcktazNewark HospitalALT [Catalytic activity/Vol]177 U/NRffx18-92SnabtincbNewark HospitalAST [Catalytic activity/Vol]188 U/PFbff73-91LjvjseptuNewark HospitalBilirubin [Mass/Vol]3.2 mg/dLHigh0.2-1.0[facility] HospitalCalcium [Mass/Vol]9.5 mg/dL8.5-10.1FCorey Hospital Chloride [Moles/Vol]110 mmol/AGrgv99-700RekqvqvliNewark HospitalCO2 [Moles/Vol]25.7 mmol/L21.0-32.0[facility] HospitalCreatinine [Mass/Vol]1.15 mg/dL0.70-1.30[facility] HospitalGFR/1.73 sq M.predicted MDRD (S/P/Bld) [Vol rate/Area]mL/min/{1.73_m2}>=60 mL/min/1.73m 2 [facility] HospitalGlucose [Mass/Vol]113 mg/aEKptp15-365AejizdocoNewark HospitalLipase [Catalytic activity/Vol]3549.0 U/LCritically high 16.0-77.0[facility] HospitalComment on above:RESULTS CALLED TO ETHEL ADORNORN)-ERPotassium [Moles/Vol]4.3 mmol/L3.5-5.1FCorey HospitalProtein [Mass/Vol]7.3 g/dL6.4-8.2FSelect Medical Specialty Hospital - Youngstownodium [Moles/Vol]145 mmol/Y104-948OfugqfpmuNewark HospitalUrea nitrogen [Mass/Vol]16.0 mg/dL7.0-18.0[facility] HospitalUrea nitrogen/Creatinine [Mass ratio]13.9 mg/mgNewark Hospital Laboratory - Hematology and Cell countson 24-55-5759Csacoloe granulocytes/100 WBC (Bld)0.0 %0.0-0.5FCorey HospitalLeukocytes [#/volume] corrected for nucleated erythrocytes in Blood by Automated counon 08-51-9601EZF corrected for nucl RBC Auto (Bld) [#/Vol]Leukocytes [#/volume] corrected for nucleated erythrocytes in Blood by Automated coun4.0-.0[facility] HospitalLymphocytes Auto (Bld) [#/Vol]on 16-94-4320Tkmtzbhjuum (Bld) [#/Vol]Lymphocytes [#/volume] in Blood by Automated countLow1.2-3.8[facility] HospitalLymphocytes/100 WBC Auto (Bld)on 03-05-2024 Lymphocytes/100 WBC (Bld)Lymphocytes/100 leukocytes in Blood by Automated count Low20.5-60.0[facility] HospitalH Auto (RBC) [Entitic mass]on 85-17-6804QUR (RBC) [Entitic mass]MCH [Entitic mass] by Automated count25.9-34.0 [facility] HospitalMCHC Auto (RBC) [Mass/Vol]on 97-27-1370XQUZ (RBC) [Mass/Vol]MCHC [Mass/volume] by Automated count29.9-35.2FCorey HospitalMCV Auto (RBC) [Entitic vol]on 85-23-3993KYS (RBC) [Entitic vol] MCV [Entitic volume] by Automated fiqyeTvqv80.0-94.0[facility] HospitalMonocytes Auto (Bld) [#/Vol]on 56-19-4049Yrmfilqbu (Bld) [#/Vol]Automated blood monocyte count0.3-0.8[facility] HospitalMonocytes/100 WBC Auto (Bld)on 87-96-2600Idexcknqu/100 WBC (Bld)Automated monocyte %1.7-12.0 [facility] HospitalNeutrophils Auto (Bld) [#/Vol]on 03-05-2024 Neutrophils (Bld) [#/Vol]Neutrophils [#/volume] in Blood by Automated count 1.4-6.5FCorey HospitalNeutrophils/100 WBC Auto (Bld)on 49-66-1336Ryqpzieyzvb/100 WBC (Bld)Automated neutrophil %43.0-75.0[facility] HospitalNo Panel Informationon 43-03-8753Qczyyduiqhn # (Auto)0.0 10 3/uL0.0-0.7FCorey HospitalImmature Granulocyte # (Auto)0.00 10 3/uL0.00-0.03[facility] HospitalTroponin I High Sensitivity9.6 pg/mL4.0-76.1FCorey HospitalComment on above:CUT-OFF POINTS HAVE BEEN ESTABLISHED BASED ON THE FOURTHUNIVERSAL DEFINITION OF MYOCARDIAL INFARCTION. THE UPPERREFERENCE LIMIT (URL) OF TROPONIN, DEFINED THE 99THPERCENTILE OF cTnI DISTRIBUTION IN A REFERENCE POPULATION,HAS BEEN CONFIRMED THE DECISION THRESHOLD FOR MIDIAGNOSIS.99TH PERCENTILE = 76.2 PG/MLNOTE: HIGH-SENSITIVITY TROPONIN ASSAY IS NOT INTENDED TO BEUSED IN ISOLATION BUT SHOULD BE INTERPRETED IN CONJUNCTIONWITH OTHER DIAGNOSTIC AND CLINICAL INFORMATION.Platelet mean volume Auto (Bld) [Entitic vol]on 79-93-9306Porrnskh mean volume (Bld) [Entitic vol]Platelet mean volume [Entitic volume] in Blood by Automated countLow9.5-13.5FCorey HospitalPlatelets Auto (Bld) [#/Vol]on 02-86-8986Xqbkqtzor (Bld) [#/Vol]Platelets [#/volume] in Blood by Automated ubnnh522-870UowqewotcNewark HospitalRBC Auto (Bld) [#/Vol]on 43-99-3675JHH (Bld) [#/Vol]Erythrocytes [#/volume] in Blood by Automated count Low4.70-6.10[facility] Campuserum or plasma albumin/globulin mass ratioon 67-98-4711Dnljcnf/Globulin [Mass ratio]Serum or plasma albumin/globulin mass ratioSumma Health Akron Campuserum or plasma anion gap determinationon 17-13-7019Muszj gap [Moles/Vol]Serum or plasma anion gap determinationNewark HospitalLIPID PROFILEon 03-14-[address] CHOL-HDL RATIO [address] HospitalComment on above:Result Comment: 3.3 - 4.4 LOW RISK 4.4 - 7.1 AVERAGE RISK 7.1 - 11.0 MODERATE RISK >11.0 HIGH RISKPerformed By: #### LIPID, PSASC, CMP #### [facility] [address] [address] Lynne KarenCholesterol [Mass/Vol]186 mg/dLNormal<=200[facility] Comment on above:Performed By: #### LIPID, PSASC, CMP #### [facility] [address] [id number] Lynne KarenCholesterol in HDL [Mass/Vol]56 mg/dLWayne Hospital Comment on above:Performed By: #### LIPID, PSASC, CMP #### [facility] [address] [address] Lynne KarenCholesterol in HDL [Mass/Vol]> or = 60 mg/dl - LOW CARDIOVASCULAR RISK <40 mg/dl - HIGH CARDIOVASCULAR RISKWayne HospitalComment on above:Performed By: #### LIPID, PSASC, CMP #### [facility] [address] [address] Lynne KarenCholesterol in LDL [Mass/Vol]119.8 mg/dLWayne Hospital Comment on above:Performed By: #### LIPID, PSASC, CMP #### [facility] [address] [address] Lynne KarenCholesterol in LDL [Mass/Vol]SEE BELOWWayne Hospital Comment on above:Result Comment: <100 mg/dl OPTIMAL 100 - 129 mg/dl NEAR OR ABOVE OPTIMAL 130 - 159 mg/dl BORDERLINE HIGH 160 - 189 mg/dl HIGH >190 mg/dl VERY HIGHPerformed By: #### LIPID, PSASC, CMP #### [facility] [address] [id number] Lynne KarenCholesterol.total/Cholesterol in HDL [Mass ratio]3.3 {ratio}Normal The Corey HospitalComment on above:Performed By: #### LIPID, PSASC, CMP #### [facility] [address] [address] Lynne KarenTriglyceride [Mass/Vol]51 mg/dLNormal<=150[facility] Comment on above:Performed By: #### LIPID, PSASC, CMP #### [facility] [address] [address] Lynne KarenVLDL CALC10.2 mg/dLNormalThe Corey HospitalComment on above: Performed By: #### LIPID, PSASC, CMP #### [facility] [address] [address] Lynne KarenPROF 14(COMP METB)on 23-12-6205Krkhzgd [Mass/Vol]3.8 g/dLNormal 3.5-5.0The [facility]y HospitalComment on above:Performed By: #### LIPID, PSASC, CMP #### [facility] [address] [address] Lynne KarenAlbumin/Globulin [Mass ratio]0.9 {ratio}NormalLicking Memorial Hospital Comment on above:Performed By: #### LIPID, PSASC, CMP #### [facility] [address] [address] Lynne KarenALP [Catalytic activity/Vol]67 U/UQgywng68-688YraLicking Memorial Hospital Comment on above:Performed By: #### LIPID, PSASC, CMP #### [facility] [address] [address] Lynne KarenALT [Catalytic activity/Vol]29 U/CJmcoma36-25Xza [facility] Comment on above:Performed By: #### LIPID, PSASC, CMP #### [facility] [address] [address] Lynne KarenAnion gap [Moles/Vol]11.9 mmol/LNormalLicking Memorial HospitalComment on above:Performed By: #### LIPID, PSASC, CMP #### [facility] [address] [address] Lynne KarenAST [Catalytic activity/Vol]19 U/LYdupxb25-38Nnx [facility] Comment on above:Performed By: #### LIPID, PSASC, CMP #### [facility] [address] [address] Lynne KarenBilirubin Ql (U)0.6 mg/dLNormal0.2-1.3The [facility]y HospitalComment on above:Performed By: #### LIPID, PSASC, CMP #### [facility] [address] [place] [address] Lynne KarenCalcium [Mass/Vol]9.3 mg/dLNormal8.4-10.2[facility] Comment on above:Performed By: #### LIPID, PSASC, CMP #### [facility] [address] [address] Lynne KarenChloride [Moles/Vol]105 mmol/YCqytfe46-011NevLicking Memorial Hospital Comment on above:Performed By: #### LIPID, PSASC, CMP #### [facility] [address] [address] Lynne KarenCO2 [Moles/Vol]28.6 mmol/KNrbsvw33.0-30.0The [facility] Comment on above:Performed By: #### LIPID, PSASC, CMP #### [facility] [address] [place] [address] Lynne KarenCreatinine [Mass/Vol]0.87 mg/dLNormal0.66-1.25The [facility] Comment on above:Performed By: #### LIPID, PSASC, CMP #### [facility] [address] [place] [address] Lynne KarenEGFR-AF QGJNAHQJ271 mL/min/1.02y8Tbjivq>=60[facility] Comment on above:Performed By: #### LIPID, PSASC, CMP #### [facility] [address] [place] [address] Lynne KarenEGFR-NON AF UMTBAMTQ82 mL/min/1.46s8Vmqotw>=60The [facility] Comment on above:Performed By: #### LIPID, PSASC, CMP #### [facility] [address] [place] [address] Lynne KarenGlobulin (S) [Mass/Vol]3.9 g/dLNormalThe [facility]y HospitalComment on above:Performed By: #### LIPID, PSASC, CMP #### [facility] [address] [address] Lynne KarenGlucose [Mass/Vol]86 mg/vGQnvlsi28-413EegLicking Memorial HospitalComment on above:Performed By: #### LIPID, PSASC, CMP #### [facility] [address] [id number] Lynne KarenPotassium [Moles/Vol]4.7 mmol/LNormal3.4-5.0The [facility] Comment on above:Performed By: #### LIPID, PSASC, CMP #### [facility] [address] [address] Lynne KarenProtein [Mass/Vol]7.7 g/dLNormal6.1-8.2The [facility] HospitalComment on above:Performed By: #### LIPID, PSASC, CMP #### [facility] [address] [address] Lynne KarenSodium [Moles/Vol]141 mmol/RMqtdsd129-348Ovo [facility] Comment on above:Performed By: #### LIPID, PSASC, CMP #### [facility] [address] [address] Lynne KarenUrea nitrogen [Mass/Vol]17.0 mg/dLNormal9.0-20.0[facility] HospitalComment on above:Performed By: #### LIPID, PSASC, CMP #### [facility] [address] [place], [place] [phone] Lynne KarenUrea nitrogen/Creatinine [Mass ratio]19.5 mg/mgNormalThe [facility]y HospitalComment on above:Performed By: #### LIPID, PSASC, CMP #### [facility] [address] [place], [place] [phone] Lynne Lynn Vital Signs Date TimeVital SignValuePerforming AelrxkbfqWoclbnhg31-71-7002 08:25-0400Body fuoapf162.8 cmAudrey Justin TOWEL SORTER Work Phone: [facility]10-20-2025 08:25-0400 Body mass index (BMI) [Ratio]24.8 kg/y5HchnopslAudrey Justin TOWEL SORTER Work Phone: [facility]10-20-2025 08:25-0400 Body fnzynuivxdg73.8 [degF]Audrey Leonisachelenaflower TOWEL SORTER Work Phone: [phone] [place], [place] 5655410-20-2025 08:25-0400 Body rxujrp27.64 kgAudrey Leonrbacher TOWEL SORTER Work Phone: [phone] [place], [place] 5655410-20-2025 08:25-0400 Diastolic blood bpyixhui90 mm[Hg]Audrey Teresar TOWEL SORTER Work Phone: [phone] [place], [place] 5655410-20-2025 08:25-0400 Heart rate68 /minRobertnnifer Edwardrbacher TOWEL SORTER Work Phone: [phone] [place], [place] 5655410-20-2025 08:25-0400 SaO2% (BldA) [Mass fraction]95 %Audrey Leonisacacher TOWEL SORTER Work Phone: [phone])[address] [place], [place] 5655410-20-2025 08:25-0400 Systolic blood rmipgqof401 mm[Hg]Audrey Leonclintonr TOWEL SORTER Work Phone: [phone])[address] [place], [place] 5655407-28-2025 12:47-0400 Diastolic blood lzkiorae18 mm[Hg]Audrey Teresar TOWEL SORTER Work Phone: 1(681)[address] [place], [place] 5655407-28-2025 12:47-0400 Heart rate60 /minRobertnnifer Edwardrbacher TOWEL SORTER Work Phone: [phone])[address] [place], [place] 5655407-28-2025 12:47-0400 Respiratory rate16 /Torri Zaldivaracher TOWEL SORTER Work Phone: [phone])[address] [place], [place] 5655407-28-2025 12:47-0400 SaO2% (BldA) [Mass fraction]98 %Audrey Leonisachelenar TOWEL SORTER Work Phone: 1(263)[address] [place], [place] 5655407-28-2025 12:47-0400 Systolic blood ydugeqwz725 mm[Hg]Audrey Zaldivaracher TOWEL SORTER Work Phone: 1(900)[address] [place], [place] 5655407-28-2025 12:17-0400 Diastolic blood tjaksplh37 mm[Hg]Audrey Teresar TOWEL SORTER Work Phone: [phone])[address]07-28-2025 12:17-0400 Heart rate64 /Torri Zaldivaracher TOWEL SORTER Work Phone: [phone])[address] [place], [place] 5655407-28-2025 12:17-0400 Respiratory rate16 /Torri Zaldivaracher TOWEL SORTER Work Phone: [phone])[address] [place], [place] 5655407-28-2025 12:17-0400 SaO2% (BldA) [Mass fraction]97 %Audrey Teresar TOWEL SORTER Work Phone: [phone])[address] [place], [place] 5655407-28-2025 12:17-0400 Systolic blood lzoiaiyt62 mm[Hg]Audrey Teresar TOWEL SORTER Work Phone: 1(031)[address] [place], [place] 5655407-28-2025 11:45-0400 Body oubckd778.8 cmAudrey Leonrbacher TOWEL SORTER Work Phone: [phone] [place], [place] 5655407-28-2025 11:45-0400 Body byuzxh06.65 kgAudrey Leonrbacher TOWEL SORTER Work Phone: 1([phone] [place], [place] 5655403-31-2025 11:36-0400 Body tsymvu631.8 cmAudrey Leonrbacher TOWEL SORTER Work Phone: 1(635)[address] [place], [place] 5655403-31-2025 11:36-0400 Body mass index (BMI) [Ratio]25.2 kg/j6JxkhbmclAudrey Leonrbacher TOWEL SORTER Work Phone: 1(691)[address] [place], [place] 5655403-31-2025 11:36-0400 Body qrdfga96.83 kgAudrey Leonrbacher TOWEL SORTER Work Phone: 1(499)[address] [place], [place] 5655403-31-2025 11:36-0400 Diastolic blood nbjxubew10 mm[Hg]Audrey Teresar TOWEL SORTER Work Phone: 1(870)[address] [place], [place] 5655403-31-2025 11:36-0400 Heart rate62 /Torri Leonrbacher TOWEL S[employer]TER Work Phone: [facility]03-31-2025 11:36-0400 Respiratory rate20 /minAudrey Leonrbacher TOWEL SORTER Work Phone: [facility]03-31-2025 11:36-0400 SaO2% (BldA) [Mass fraction]97 %Audrey Justin TOWEL SORTER Work Phone: [facility]03-31-2025 11:36-0400 Systolic blood fyxxleay989 mm[Hg]Audrey Justin TOWEL SORTER Work Phone: [facility]01-16-2025 09:56-0500 Body xaawub511.8 cmMichael Grillis DO Work Phone: [phone]01-16-2025 09:56-0500 Body mass index (BMI) [Ratio]24 kg/g9Zlzrtbi Grillis DO Work Phone: [phone])[address]01-16-2025 09:56-0500 Body teatwuvemcf51.6 [degF]Gurmeet Muñiz DO Work Phone: 1([phone])[address]01-16-2025 09:56-0500 Body cpanxu61.2 kgMichael Grillis DO Work Phone: 1(830)723-[address] [place], [place] 2671701-16-2025 09:56-0500 Diastolic blood kaqeuibv95 mm[Hg]Gurmeet Muñiz DO Work Phone: 1([phone])837-[address] [place], [place] 2671701-16-2025 09:56-0500 Heart rate64 /minMichael Grillis DO Work Phone: 1(316)530-[address] [place], [place] 2671701-16-2025 09:56-0500 Respiratory rate20 /minMichael Grillis DO Work Phone: [phone])[address]01-16-2025 09:56-0500 SaO2% (BldA) [Mass fraction]97 %Gurmeet Grillis DO Work Phone: [phone])[address]01-16-2025 09:56-0500 Systolic blood pgcipnnh067 mm[Hg]Gurmeet Coulters DO Work Phone: [phone])[address] [place], [place] 2313901-10-2025 12:52-0500 Diastolic blood qyujruoi16 mm[Hg]Gurmeet Zunigaillis DO Work Phone: [phone])[address] [place], [place] 2313901-10-2025 12:52-0500 Heart rate78 /minMichael Grillis DO Work Phone: [phone])[address] [place], [place] 2313901-10-2025 12:52-0500 Respiratory rate18 /minMichael Grillis DO Work Phone: [phone])[address] [place], [place] 2313901-10-2025 12:52-0500 SaO2% (BldA) [Mass fraction]98 %Gurmeet Coulters DO Work Phone: [phone])[address] [place], [place] 2313901-10-2025 12:52-0500 Systolic blood bpvatcot645 mm[Hg]Gurmeet Coulters DO Work Phone: [phone])[address] [place], [place] 2313901-10-2025 10:35-0500 Body wwpliu486.8 cmMichael Grillis DO Work Phone: [phone])[address] [place], [place] 2313901-10-2025 10:35-0500 Body jitqtx15.84 kgMichael Grillis DO Work Phone: [phone])[address] [place], [place] 2313912-12-2024 15:08-0500 Body yelwgo339.8 cmMichael Grillis DO Work Phone: [phone])[address] [place], [place] 2313912-12-2024 15:08-0500 Body mass index (BMI) [Ratio]22.5 kg/l9Uhculgu Grillis DO Work Phone: [phone])[address] [place], [place] 2313912-12-2024 15:08-0500 Body plurpi15.21 kgMichael Grillis DO Work Phone: [address] [place], [place] 2313912-12-2024 15:08-0500 Diastolic blood ykccbsco37 mm[Hg]Gurmeet Coulters DO Work Phone: [phone])[address]12-12-2024 15:08-0500 Heart rate78 /minGurmeet Zunigaillis DO Work Phone: [phone])[address]12-12-2024 15:08-0500 Respiratory rate20 /minGurmeet Zunigaillis DO Work Phone: [phone])[address] [place], [place] 2313912-12-2024 15:08-0500 SaO2% (BldA) [Mass fraction]96 %Gurmeet Zunigaillis DO Work Phone: [phone])[address]12-12-2024 15:08-0500 Systolic blood nvfoebtg231 mm[Hg]Gurmeet Coulters DO Work Phone: [phone])[address]12-06-2024 11:34-0500 Body dcgtov702.8 cmGurmeet Zunigaillis DO Work Phone: [phone])[address]12-06-2024 11:34-0500 Body mass index (BMI) [Ratio]23 kg/j6MkonwxgGurmeet Zunigaillis DO Work Phone: [phone])[address]12-06-2024 11:34-0500 Body nvdbslytrbq03.5 [degF]Gurmeet Coulters DO Work Phone: [phone])[address]12-06-2024 11:34-0500 Body cvivgv24.74 kgGurmeet Zunigaillis DO Work Phone: [phone])[address]12-06-2024 11:34-0500 Diastolic blood nuuvgnhd70 mm[Hg]Gurmeet Zunigaillis DO Work Phone: [phone])[address]12-06-2024 11:34-0500 Heart rate97 /minGurmeet Zunigaillis DO Work Phone: [phone])[address]12-06-2024 11:34-0500 SaO2% (BldA) [Mass fraction]100 %Gurmeet Coulters DO Work Phone: 1(038)853-[address] [place], [place] 2671712-06-2024 11:34-0500 Systolic blood uixfzzlm659 mm[Hg]Gurmeet Muñiz DO Work Phone: 1(091)[address]11-13-2024 11:59-0500 Body huvvbs352.8 cmChristiana Marquez APRN-BLOOD COLLECTOR Work Phone: 1([phone])764-[address] [place], [place] 8064411-13-2024 11:59-0500Body mass index (BMI) [Ratio]23.76 kg/q8Vpybayi Steven MEDINAN-BLOOD COLLECTOR Work Phone: 1(553)722-[address] [place], [place] 8064411-13-2024 11:59-0500Body qkabzr64.12 kgCarisamobile city hospital Steven MEDINAN-BLOOD COLLECTOR Work Phone: 1(955)289-[address] [place], [place] 8064411-12-2024 09:13-0500Body dwhynn494.8 cmGurmeet Muñiz DO Work Phone: 1(613)[address]11-12-2024 09:13-0500 Body mass index (BMI) [Ratio]24.3 kg/x8HkcmevjGurmeet Coulters DO Work Phone: 1(892)[address]11-12-2024 09:13-0500 Body qpsbdgltydd10.3 [degF]Gurmeet Muñiz DO Work Phone: 1(186)[address]11-12-2024 09:13-0500 Body sastjf79.88 kgGurmeet Coulters DO Work Phone: [phone] [place], [place] 2671711-12-2024 09:13-0500 Diastolic blood tsgxhodm57 mm[Hg]Gurmeet Muñiz DO Work Phone: [phone] [place], [place] 2671711-12-2024 09:13-0500 Heart rate76 /minGurmeet Coulters DO Work Phone: [phone] [address]11-12-2024 09:13-0500 SaO2% (BldA) [Mass fraction]98 %Gurmeet Muñiz DO Work Phone: [phone] [place], [place] 2671711-12-2024 09:13-0500 Systolic blood tlmdisiz365 mm[Hg]Gurmeet Muñiz DO Work Phone: [facility]10-14-2024 11:0400 [facility]anzc443.8 [facility] 11:22-0400Body mass index (BMI) [Ratio]24 kg/h9[facility]dxfmzq[facility]10-14-2024 11:-0400Body waigimjrgsh60.9 [degF][facility]10-14-2024 11:040Body uriubj07.2 kg[facility]10-14-[facility] 11:040Diastolic blood mm[Hg][facility] 02-12-2024 11:0400Heart rate60 /min[facility] 02-12-2024 11:8617YyR2% (BldA) [Mass fraction]98 %[facility]10-14-2024 11:040Systolic blood tujaodla765 mm[Hg][facility] Encounters Encounter DateEncounter [facility] ProviderFacilityStart: 02-17-2025 End: 14-60-5921tzhwnqjrwgYrxacooyJulio Justin APRN Work Phone: [facility]25 End: 96-84-8854Uwxheex encounter procedureAudrey Justin APRN [facility] Work Phone: Start: 03-64-8737Wwy-patient / Non-visitAmy [facility]St[facility] Work Phone: Start: 11-25-2024 End: 60-69-8887iqvwwxseitCrkabooz RohrbacherFacilwadsworth-r[facility] Campustart: [id number]-patient / Non-visitEmma Mcdermott MDTwo [facility] Work Phone: Start: 07-29-2024 End: 33-78-6045cirmuusrcwNhajwzihJulio Justin APRN Work Phone: [facility] Work Phone: Start: 07-29-2024 End: 70-53-0046Tdvuexr encounter procedureAudrey Justin TOWEL SORTER Work Phone: [facility] GroupTrans[facility] Work Phone: Start: 07-25-2024 End: 57-00-6651Qkhlgws encounter procedureAudrey Justin TOWEL SORTER Work Phone: [facility] [address] Work Phone: Start: 07-25-2024 End: 65-87-7316nuensztibqMjmioomp Rohrbacher TOWEL SORTER Work Phone: [facility] Work Phone: Start: 05-16-2024 End: 61-05-5194roanpprezkSEABlanchard Valley [facility] Work Phone: Start: 05-16-2024 End: 68-35-4547Aydpcbp encounter procedureMichael Grillis DO Work Phone: [facility] Physician [facility] Pulmonary Work Phone: Start: 93-81-2767Dtk-patient / Non-visitMichael Grillis DO Work Phone: [facility] GroupTrans[facility] Gastro[facility]ol Work Phone: Start: 05-10-2024 End: 58-01-5227Alsalnamb to same day surgery centerMichael Grillis DO Work Phone: [facility]-Digest[facility] Work Phone: Start: 05-10-2024 End: 62-03-2070tkazhcbdlhBPJCommunity [facility] Work Phone: Start: 06-74-7711ddfylgeomsVVFGrant Hospitaltart: 05-06-2024 End: 42-46-9041Vjigqur encounter procedureMichael Grillis DO Work Phone: [facility]-Pet Scan Work Phone: Start: 05-06-2024 End: 60-78-0509renxvtwaayKTZ STAFFMarion Hospital Ctr Work Phone: Start: 04-11-2024 End: 56-19-4709Vxqluas encounter procedureMichael Grillis DO Work Phone: [facility]Trans[facility] Work Phone: Start: 04-05-2024 End: 97-79-2419Odqupze encounter procedureMichael Grillis DO Work Phone: [facility]-[place] Work Phone: Start: 51-65-3253Nud-patient / Non-visitMichael Grillis DO Work Phone: [facility] GroupHigh[facility] Hospital Work Phone: Start: 02-41-7869Tvt-patient / Non-visitMichael Grillis DO Work Phone: [facility] GroupHighland District Hospital Work Phone: Start: 38-41-5689Ivngbjeccs and management of inpatientMEGHAN [facility] Memorialtart: 03-25-2024 Evaluation and management of inpatientAMANDA ENIXLutheran Hospitaltart: 81-31-3413Hvnuvkktki and management of inpatientALI NAWRAS [facility] Hospitaltart: 89-26-8093Ptnzytfreo and management of inpatientSARMED [facility] Hospitaltart: 50-65-5966Gbc- patient / Non-visitMichael Grillis DO Work Phone: [facility] GroupMart[facility] Work Phone: Start: 03-23-2024 End: 97-38-6975Wutlwrtuiv and management of inpatientIDREES [facility], Beachwoodtart: 84-82-0150Nch-patient / Non-visitMichael Grillis DO Work Phone: [facility] Work Phone: Start: 03-18-2024 End: 09-45-1691Uwqgqv OnlyNot In System Ref ProvProMedica Physicians General SurgeryStart: 03-13-2024 End: 06-58-8537Dalzsf follow up visit related to original Herlinda Marquez TOWEL SORTER-BLOOD COLLECTOR Work Phone: [facility] Physicians General SurgeryComment on above: Status post laparoscopic cholecystectomy (Primary Dx)Start: 03-13-2024 End: 22-84-6156ilikqwcokjDLJMGGB A CARROLLSentara Albemarle Medical Centertart: 03-12-2024 End: 99-64-9647tnredrfdvaGmddify Grillis DO Work Phone: [facility] Work Phone: Start: 03-12-2024 End: 46-31-6614Cyujmie encounter procedureMichael Grillis DO Work Phone: [facility] Work Phone: Start: 03-08-2024 End: 26-43-0370uplosjaqcuODQ [facility] Work Phone: Start: 03-08-2024 End: 97-78-0381Iuyurtsd ReferredMichael Grillis DO Work Phone: [facility] [place] Work Phone: Start: 30-97-6545Hlk-patient / Non-visitMichael Grillis DO Work Phone: [facility] Work Phone: Start: 57-99-6758Udh-patient / Non-visitMichael Grillis DO Work Phone: [facility] Work Phone: Start: 87-20-1895Xob-patient / Non-visitMichael Grillis DO Work Phone: [facility] Work Phone: Start: 33-71-8459Lgd-patient / Non-visitMichael Grillis DO Work Phone: [facility] GroupEvergreenhealth [facility] Work Phone: Start: 02-12-2024 End: 54-24-1478grvqrxefrfTfsodevukMercy Health St[facility] Work Phone: Start: 02-12-2024 End: 57-43-7905Qsyumwi encounter procedureFirsthealth [facility] Physician GroupHighland District Hospital Work Phone: Start: 67-41-7888Dpaemtuem for general adult medical examination without abnormal findingsGeorgetown Behavioral Hospital Start: 03-14-2020 End: 07-43-0075Yutikmd encounter procedureSTEPMOHAWK VALLEY PSYCHIATRIC CENTERFacility:K1Vgmjdheqb for general adult medical examination without abnormal findingsAvita Health System [facility] Hospital Procedures DateProcedureProcedure DetailPerforming ClinicianStart: 20-09-5810VV of chest without contrastJennifer Rohrbacher TOWEL SORTER Work Phone: Start: 36-09-0746Qhypdwopw colonoscopyMichael Grillis DO Work Phone: Start: 80-23-2172Auiqsjlv emission tomography with computed tomographyMichael Grillis DO Work Phone: Start: 81-59-5945Iklli i surg pathology gross examination onlyNot In System Ref ProvStart: 29-11-3992SXDDPIRF LABSNot In System Ref ProvStart: 03-14-2020[object Object]ANNALEE CHINOComment on above:Performed By: #### LIPID, PSASC, CMP #### [facility] [address] [place] [address] Lynne KarenHistory of cholecystectomyHx laparoscopic cholecystectomyMichael Antonino DO Work Phone: History of cholecystectomyStatus post laparoscopic cholecystectomyChristiana Marquez APRN-BLOOD COLLECTOR Work Phone: Plan of Treatment DateCare ActivityDetailAuthorStart: 18-81-3443Aqbvl BMI ScreeningAdult BMI ScreeningProKindred Hospital Lima SystemStart: 72-95-9350Rcfgxvw ScreeningTobacco ScreeningProKettering Health Main Campustart: 73-42-2950IhmjsxyfjSumma Health Akron Campustart: 06-27-5708AngeasczaSumma Health Akron Campustart: 04-15-2024 End: 19-80-9024Gtkgtoq encounter ukowmxpkv54/16/2024 12:00 PM EST Office Visit [facility] [address] [place] [phone] Christiana Marquez, TOWEL SORTER-BLOOD COLLECTOR [address] [place], [place] [id number] [facility] General SurgeryStart: 16-54-1508Vqaosmr referralOhiohealth Riverside [facility] Hospital Work Phone: Start: 83-39-4698Hhaltklxb vaccinationInfluenza VaccineProKindred Hospital Lima SystemStart: 75-22-1121Fahmeianq aortic aneurysm screeningAbdominal Aortic Aneurysm (AAA) ScreenProKindred Hospital Lima SystemStart: 74-43-7343Mdcf Risk ScreeningFall Risk ScreeningSumma Health Barber[facility] Campus SystemStart: 80-37-2727Vxroykbvsduwvl of varicella zoster vaccineZoster (Shingles) Vaccine (1 of 2)[facility] SystemStart: 78-06-9090UFjC,Tdap and Td Vaccines (1 - Tdap)DTaP,Tdap and Td Vaccines (1 - Tdap)[facility] SystemStart: 81-71-3551Rcjuqhmkga ScreeningDepression ScreeningSt. [facility]'s [facility] Comprehensive metabolic 2000 panel - Serum or PlasmaNewark HospitalComprehensive metabolic 2000 panel - Serum or [facility] HospitalCT Chest WO contrastNewark HospitalCT Chest WO contrastNewark HospitalCT Unspecified body regionNewark HospitalPatient EducationOhiohealth [facility] Work Phone: Patient referralOhiohealth Riverside Methodist Hospital Work Phone: [facility] Payers DatePayer CategoryPayerPolicy [id number] 2023Medicare [employer]ED [employer] MEDICARE ADVANTAGE Member Subscriber Plan / Payer (Effective 2022-Present) Name: Ludwin Reyes Member ID: [id number] Relation to Subscriber: Self Name: Ludwin Reyes Subscriber ID: [id number] Payer ID: [id number] (NAIC) Type: Not on file Address: [address] [id number] [id number] [id number] 2..[id number] 2..1.24[id number] 2..1.777454.3.579.2.531 [id number] 2..1.1[id number] 2..1.3[id number] 2..1.263245.3.579.2.531 [id number] 2.16.840.1.498046.3.579.2.531 Social History DateTypeDetailFacilityStart: 02-12-2024 End: 91-97-2312Ehrfalc smoking status NHISCurrent Heavy tobacco smokerSumma Health Akron Campustart: 68-84-5612Vba Assigned At BirthMalThe Christ Hospitaltart: 03-09-2024 End: 92-12-4972JehGubx (finding)[facility] Campustart: 04-11-2024 End: 03-55-2744Lxantbw smoking status NHISCurrent some day smokerSumma Health Akron Campustart: 05-16-2024 End: 68-08-3898Unxxejj smoking status NHISEx-smoker (finding)Newark HospitalHistory of tobacco useCurrent smokerSt. Mary's Medical [facility], [facility] CampusHistory of tobacco useCigarette SmokerSentara Albemarle Medical Centertart: 45-09-1451Amqmddlfu beverage intakeNot AskedSentara Albemarle Medical Centertart: 10-10-2018 End: 81-94-3566Ynjgpjk of Social functionSentara Albemarle Medical Centertart: 10-10-2018 End: 26-04-1172Cdflrhr use panelSt. Mary's Medical Center, Ironton CampusChildcareUnknownPGood Hope Hospitaltart: 29-10-5733Cjgdndd CommentRARELHighsmith-Rainey Specialty Hospitaltart: 06-08-9378Ovg assigned at birthNot on [facility] Goals DatePatient GoalDesired Activity/State Clinical Notes 02-12-2024 to 07-25-2024 Note Date & TqjjVaooSsakwwst85-98-1642 Radiology Diagnostic study noteWADSWORTH-[place] [address] CT Scan Report Signed Patient: Ludwin Reyes MR#: [id number] : 1955 Acct:[id number] Age/Sex: 68 / M ADM Date: 5 Loc: [facility] Room: Type: [facility] Attending Dr: Gallito Kern DO Copies to: [...] and/or kV according to patient size, or u se of iterative reconstruction technique. The heart is within normal limits for size. No pericardial effusion is present. There is minimal coronary disease. There is a small amount of plaque at the thoracic aorta and proximal great vessels. No aneurysm is noted. Similar smallmediastinal lymph nodes are seen. There is mild endplate spurringat the spine. Scarring is again visualized at the lung apices. There is also minor scarring or atelectasis at thelung bases, greater on the left. There is no additional consolidation, pleural effusion or pneumothorax. The tiny somewhat nodular focus the paramediastinal right apex adjacent to the right subclavian artery is unchanged. The elongate pleural based density at the lateral right apex (axial image 13)is also stable. There is an additional potential [...] Lynn Ca M.D.07/25/2024 1:44 PM Dictation Location: [place] [address] Transcribed By: MATTY 07/25/24 1344 Dictated By: Lynn Ca MD 07/25/24 1333 Signed By: 07/25/24 1344 [facility] Work Phone: 1(532) 628-687301-16-2025 Evaluation note* Diagnosis Onset Date Resolution Status Admit Date Cigarette nicotine dependence without co mplication acuteJanuary 2024 9:53amParaseptal emphysemaacuteJanuary 2024 9:53am Solitary pulmonary noduleacuteJanuary 2024 9:53am [facility] Work Phone: 1(594) 936-897501-16-2025 Evaluation note* Diagnosis Onset Date Resolution Status Admit Date Cigarette nicotine dependence without co mplication acuteJanuary 2024 9:53amParaseptal emphysemaacuteJanuary 2024 9:53am Solitary pulmonary noduleacuteJanuary 2024 9:53amCigarette nicotine dependence without complicationacuteMarch 2024 11:31amParaseptal emphysema acuteMarch 2024 11:31amSolitary pulmonary noduleacuteMarch 2024 11:31am [facility] Work Phone: 1(978) 770-539401-10-2025 [place] [address] Colonoscopy Procedure Report Signed Patient: Ludwin Reyes MR#: [id number] : 1955 Acct:[id number] Age/Sex: 68 / M Adm Date: 5 Loc: Room: Type: [facility] Attending Dr: Emma Mcdermott MD Copies to: MD Audrey Triana APRN, ENRIQUE~ Colonoscopy Date/Provider 05/10/2024 Emma Mcdermott MD Colonoscopy [...] was slowly withdrawnwith the findings as below. Cardwell bowel prep score was good. Findings: Cecum: [...] Mcdermott MD 05/10/24 1151 Signed By: 05/10/[address] [place], [place] [address]01-10-2025 [place] [address] Gastroenterology H&P Signed Patient: Ludwin Reyes MR#: [id number] : 1955 Acct:[id number] Age/Sex: 68 / M Adm Date: 5 Loc: Room: Type: [facility] Attending Dr: Emma Mcdermott MD Copies to: MD Audrey Triana APRN, BLOOD COLLECTOR~ Date of Service: 05/10/2024 HISTORY & PHYSICAL: [...] Mcdermott M.D. 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-C Copies to: Audrey Justin APRN, CNP Mark [...] [place] M.D.05/06/2024 4:28 PM Dictation Location: [place] [address] Transcribed By: [facility] 05/06/24 1628 Dictated By: Crow Muir II, MD 05/06/24 162 Signed By: 05/06/24 1628 [facility] Work Phone: 1(791) 370-216811-26-2024 NoteHospital Medicine Discharge Summary Final Discharge Diagnosis: Acute pancreatitis Transaminitis-improving Hyperbilirubinemia Hypertension Nicotine use Recent cholecystectomy x 2 weeks ago Admission Diagnosis: Calculus of common bile duct with obstruction [K80.51] Abdominal pain [R10.9] Hospital course: 68 y.o. male who came from home with past medical history of hypertension and nicotine use presents as a direct admission from [facility] with a chief complaint of right upper [...] diarrhea, chest pain, shortness of breath. At [place], labs were completed showing WBC 7.6, RBC [...] cholecystectomy so GI team was contacted to [facility] for further evaluation. GI was consulted and [...] Dear Dr. Charles primary care provider on file. Ludwin is advised to follow up with [...] was 30 minutes. Signed Dylon Guzman MD [facility] 03/26/2024 1:48 PM CC: No primary care provider on file.[facility] 03-26-2024 NoteGastroenterology/Hepatology Progress Note IDENTIFYING DATA PATIENT: [...] Units 03/26/24 0546 03/25/24 2328 03/25/24 0559 SODIUM mmol/L 134* 132* 136 [...] 6.5 B12/Folate/Iron studies: No results found for: KBNELMGJ14 , FOLATE , IRON , TIBC , UIBC , IRONSAT , FERRITIN Viral Hepatitis No results found for: HEPAIGM , HAV , HEPBSAG , HEPBSAB , HEPBEAB , HEPBIGM , HEPBCAB , HEPBCOREAB , HBVNAT , HCVSCR , HEPCAB , HCVNAT , HCVPCR , HCVTMA Liver workup No results found for: SALBADOR , SMOOTHMUSCAB , CERULOPLSM , G9ORFWPHFOQ , TTGA , IGA , TSH , [...] use presents as a direct admission from [facility] with a chief complaint of right upper [...] fever, chills or shortness of breath. At [place], laboratory studies showed WBC 7.6, RBC 3.87, [...] pancreatitis and potential choledocholithiasis. On admission to [facility], the patient's liver function tests (LFTs) showed a decrease in AST (75 from 132), ALT (72 from 106), and alkaline phosphatase (566 from 721). The total bilirubin improved from 2.9 to 1.6. Lipase was elevated at 587. The patient reports some improvement in pain, describing it as dull in the right upper quadrant (RUQ) with (more content not included)... [facility]11-25-2024 NotePatient: Ludwin Reyes Procedure Summary Date: 03/25/24 Room / Location: [facility] Endoscopy Anesthesia Start: 1421 Anesthesia Stop: [...] PACU per anesthesia protocol. No notable events documented.[facility]11-25-2024 Note Patient: Ludwin Reyes Procedure Summary Date: 03/25/24 Room / Location: [facility] Endoscopy Anesthesia Start: 1421 Anesthesia Stop: 1533 Procedure: ENDOSCOPIC RETROGRADE CHOLANGIOPANCREATOGRAPHY Diagnosis: Calculus of common bile duct with obstruction Scheduled Providers: Deangelo Montero MD; NEERAJ Knox; Eva Nino MD Responsible Provider: Deangelo Montero MD Anesthesia Type: general ASA Status: 3 Anesthesia Post Transport [facility]: room air Patient Monitor: direct observation Transport: uneventful Patient condition is: stable Comments: Patient arousable, VSS, SV well, report to RN, pants/underwear at bedsideUnSelect Medical [facility] - [facility]11-25-2024 NoteAirway Date/Time: 03/25/2024 2:32 PM Urgency: elective Airway not difficult General Information and Staff Patient location during procedure: OR Anesthesiologist: Deangelo Montero MD Resident/WIRE SPIRAL BINDER/NEERAJ: NEERAJ Stovall Performed: other anesthesia staff Learner assisted: Jesu Cade [employer]ometric[employer] Analyst Student Indications and Patient Condition Indications for [...] 0 Additional Comments Edentulous, hard bite block placedChildren's Hospital for Rehabilitation11-25-2024 NotePatient: Ludwin Reyes Procedure Information Date/Time: 03/25/24 1430 Scheduled providers: Deangelo Montero MD; NEERAJ Knox; Eva Nino MD Procedure: ENDOSCOPIC RETROGRADE CHOLANGIOPANCREATOGRAPHY Location: [facility] [place] [facility] Relevant Problems Anesthesia (within normal limits) [...] patient. Plan discussed with NEERAJ. Additional Equipment RequestsUnSelect Medical OhioHealth Rehabilitation Hospital [facility]11-25-2024 Note Hospital Medicine Daily Progress Note - 03/25/2024 10:13 AM; Room: 61/6135- Admission: 03/23/2024 5:11 PM; Length of stay: 2 days THE HOSPITALIST TEAM PREFERS TO USE [employer] FOR NON-URGENT COMMUNICATION 7AM-7PM. IF I DO NOT RESPOND WITHIN 20 MINUTES OR URGENT MATTERS, PLEASE CALL THROUGH THE ROLLER PAINTER. FROM 7PM-7AM, PLEASE PAGE [phone](COVR). Code Status: Full Code Barriers to Discharge: [...] [address] abdomen/pelvis completed at [facility] shows right upper quadrant inflammatory changes involving the common bile duct, small fat filled periumbilical hernia without strangulation, mild lymphadenopathy, likely reactive. -Patient s/p cholecystectomy 2 weeks ago at [facility] -Concerned for retained stone causing transaminiti, hyperbilirubinemia [...] , FREET4 , CORTISOL , FEV1 , FZP4QMA , DLCO , RVSP , HDL , LDL No results found for: [id number] , IRON , TIBC , C3 , [...] or Self Care (01) Signed TANNA CARCAMO [facility] Medicine 03/25/2024 10:13 AMChildren's Hospital for Rehabilitation11-25-2024 Note03/25/24 0946 Admission Assessment Questions Verify insurance [...] Pharmacy Bedside Delivery Status Not Interested (Uses [facility] in [place]) Does the patient have a skilled nursing case manager assigned to them through their insurance? No [...] able to send link and activate MyChart? [facility]11-24-2024 [facility] Daily Progress Note - 03/24/2024 9:42 AM; Room: 6135/6135- Admission: 03/23/2024 5:11 PM; Length of stay: 1 days THE HOSPITALIST TEAM PREFERS TO USE [employer] CHAT FOR NON-URGENT COMMUNICATION 7AM-7PM. IF I DO NOT RESPOND WITHIN 20 MINUTES OR URGENT MATTERS, PLEASE CALL THROUGH THE ROLLER PAINTER. FROM 7PM-7AM, PLEASE PAGE [phone](COVR). Code Status: Full Code Barriers to Discharge: [...] [address] abdomen/pelvis completed at [facility] shows right upper quadrant inflammatory changes involving the common bile duct, small fat filled periumbilical hernia without strangulation, mild lymphadenopathy, likely reactive. -Patient s/p cholecystectomy 2 weeks ago at [facility] -Concerned for retained stone causing transaminiti, hyperbilirubinemia [...] , FREET4 , CORTISOL , FEV1 , FYH0AEJ , DLCO , RVSP , HDL , LDL No results found for: XGVKVQGF08 , IRON , TIBC , C3 , C4 , SALBADOR , CANCA , ASO , PSA , CEA , CA125 , CA199 , AFP , CA153 Imaging No image results found. Discharge Planning Expected Discharge Disposition: Home or Self Care () Signed TANNA CARCAMO [facility] Medicine 03/24/2024 9:42 [facility]11-24-2024 [facility] Teaching GI Service Initial Gastroenterology/Hepatology Consultation Note IDENTIFYING DATA PATIENT: Ludwin Reyes ADMIT DATE: 03/23/2024 TIME OF EVALUATION: 03/24/2024 8:34 AM Reason for Consult: CBD obstruction, needs ERCP, accepted by Dr. Nino HISTORY OF PRESENT ILLNESS Ludwin Reyes is a 68 y.o. male with a past medical history of hypertension and nicotine use presents as a direct admission from [facility] with a chief complaint of right upper [...] fever, chills or shortness of breath. At [place], laboratory studies showed WBC 7.6, RBC 3.87, [...] pancreatitis and potential choledocholithiasis. On admission to [facility], the patient's liver function tests (LFTs) showed [...] TIBC: No results foun (more content not included)...[facility]11-24-2024 [facility] Teaching GI Service Initial Gastroenterology/Hepatology Consultation Note IDENTIFYING DATA PATIENT: Ludwin Reyes ADMIT DATE: 03/23/2024 TIME OF EVALUATION: 03/24/2024 8:34 AM Reason for Consult: CBD obstruction, needs ERCP, accepted by Dr. Nino HISTORY OF PRESENT ILLNESS Ludwin Reyes is a 68 y.o. male with a past medical history of hypertension and nicotine use presents as a direct admission from [facility] with a chief complaint of right upper [...] fever, chills or shortness of breath. At [facility], laboratory studies showed WBC 7.6, RBC 3.87, [...] pancreatitis and potential choledocholithiasis. On admission to [facility], the patient's liver function tests (LFTs) showed [...] TIBC: No results foun (more content not included)...[facility]11-23-2024 NoteCase was discussed with the JAN on 03/23/2024. I agree with the history, physical, assessment, and plan of care. I discussed the findings and therapeutic plan. I agree with the documentation, except for any updates below. Pineda Lakhani MDUnSelect Medical [facility] Rehabilitation [facility]11-23-2024 NoteHospital Medicine History and Physical 03/23/2024 7:49 PM THE HOSPITALIST TEAM PREFERS TO USE [employer] FOR NON-URGENT COMMUNICATION 7AM-7PM. IF I DO NOT RESPOND WITHIN 20 MINUTES OR URGENT MATTERS, PLEASE CALL THROUGH THE ROLLER PAINTER. FROM 7PM-7AM, PLEASE PAGE [phone](COVR). Chief Complaint Direct admission from [facility] with abdominal pain History of Present Illness Ludwin Reyes is an 68 y.o. male who came from home with past medical history of hypertension and nicotine use presents as a direct admission from [facility] with a chief complaint of right upper [...] diarrhea, chest pain, shortness of breath. At [place], labs were completed showing WBC 7.6, RBC [...] cholecystectomy so GI team was contacted to [facility] for further evaluation and they would like [...] use presents as a direct admission from [facility] with a chief complaint of right upper quadrant abdominal pain. #Acute pancreatitis #Transaminitis #Hyperbilirubinemia #Hypertension #Nicotine use -CT abdomen/pelvis completed at [facility] shows right upper quadrant inflammatory changes involving the common bile duct, small fat filled periumbilical hernia without strangulation, mild lymphadenopathy, likely reactive. -Patient s/p cholecystectomy 2 weeks ago at [facility] -Concerned for retained stone causing transaminiti, hyperbilirubinemia [...] ordered as appropr (more content not included)... [facility]11-13-2024 History of Present illness Narrative* RAMIN Link - 03/13/2024 12:15 PM EST Images from [...] Status post laparoscopic cholecystectomy [Z90.49] [facility] L[facility] [place] This note was created with the assistance of a speech recognition program. While intending to generate a timely document that accurately reflects the content of the visit, no guarantee can be provided that every grammatical or spelling mistake has been or will be identified or corrected. Thank you for your understanding. RAMIN Link 03/13/24 1232 documented in [facility] Evaluation note* Diagnosis Onset Date Resolution Status Admit Date Hx laparoscopic cholecystectomy acuteNovember 2023 9:02amHypertensionacuteNovember 2023 9:02am PancreatitisacuteNovember 2023 9:02amGallstoneacuteDecember 2023 11:31amHypertensionacuteDecember 2023 11:31amSolitary pulmonary nodule on lung CTacuteDecember 2023 11:31amCigarette nicotine dependence without complicationacuteDecember 2023 3:00pmParaseptal emphysemaacuteDecember 2023 3:00pmSolitary pulmonary noduleacuteDecember 2023 3:00pm Cigarette nicotine dependence without complicationacuteJanuary 2024 9:53am Paraseptal emphysemaacuteJanuary 2024 9:53amSolitary pulmonary noduleacute May 16, 2024 9:53am [facility] Work Phone: 1(225) 434-646910-14-2024 Evaluation note* Diagnosis Onset Date Resolution Status Admit Date Encounter for smoking cessation counseli ludwig acuteOctober 2023 11:01amMedicare annual wellness visit, initialacute February 12, 2024 11:01amScreening for colon canceracuteOctober 2023 11:01amScreening for deficiency anemiaacuteOctober 2023 11:01amScreening for lung canceracuteOctober 2023 11:01amScreening for metabolic disorder acuteOctober 2023 11:01amScreening for other and unspecified cardiovascular conditionsacuteOctober 2023 11:01amScreening for prostate canceracuteOctober 2023 11:01am [facility] Work Phone: 1(677) 598-611410-14-2024 Evaluation note* Diagnosis Onset Date Resolution Status Admit Date Encounter for smoking cessation counseli ludwig acuteOctober 2023 11:01amMedicare annual wellness visit, initialacute February 12, 2024 11:01amScreening for colon canceracuteOctober 2023 11:01amScreening for deficiency anemiaacuteOctober 2023 11:01amScreening for lung canceracuteOctober 2023 11:01amScreening for metabolic disorder acuteOctober 2023 11:01amScreening for other and unspecified cardiovascular conditionsacuteOctober 2023 11:01amScreening for prostate canceracuteOctober 2023 11:01amHx laparoscopic cholecystectomyacute March 12, 2024 9:02amPancreatitisacuteMarch 12, 2024 9:02am [facility] Work Phone: 1(313) 932-505610-14-2024 Evaluation note* Diagnosis Onset Date Resolution Status Admit Date Encounter for smoking cessation counseli ludwig acuteOctober 2023 11:01amMedicare annual wellness visit, initialacute February 12, 2024 11:01amScreening for colon canceracuteOctober 2023 11:01amScreening for deficiency anemiaacuteOctober 2023 11:01amScreening for lung canceracuteOctober 2023 11:01amScreening for metabolic disorder acuteOctober 2023 11:01amScreening for other and unspecified cardiovascular conditionsacuteOctober 2023 11:01amScreening for prostate canceracuteOctober 2023 11:01amHx laparoscopic cholecystectomyacute March 12, 2024 9:02amHypertensionacuteNovember 2023 9:02am PancreatitisacuteNovember 2023 9:02amGallstoneacuteDecember 2023 11:31amHypertensionacuteDecember 2023 11:31amSolitary pulmonary nodule on lung CTacuteDecember 2023 11:31amCigarette nicotine dependence without complicationacuteDecember 2023 3:00pmParaseptal emphysemaacuteDecember 2023 3:00pmSolitary pulmonary noduleacuteDecember 2023 3:00pm [facility] Work Phone: Evaluation note* Diagnosis Onset Date Resolution Status Medicare annual wellness visit, initial acuteScreening for colon canceracuteScreening for deficiency anemiaacute Screening for metabolic disorderacuteScreening for other and unspecified cardiovascular conditionsacuteScreening for prostate canceracute [facility] Work Phone: Evaluation note* Diagnosis Status post laparoscopic cholecystectomy- Primary Other postprocedural status documented in this encounter [facility] noteNo assessment information available [facility] Work Phone: Evaluation note* Diagnosis Onset Date Resolution Status Admit Date Cigarette nicotine dependence without co mplication acuteOctober 2024 8:19amDecreased hearing of both earsacuteOctober 2024 8:19amHypertensionacuteOctober 2024 8:19amParaseptal emphysemaacute February 17, 2025 8:19amScreening for lung canceracuteOctober 2024 8:19am Screening for prostate canceracuteOctober 2024 8:19amSolitary pulmonary noduleacuteOctober 2024 8:19amSolitary pulmonary nodule on lung CTacute February 17, 2025 8:19am [facility] Work Phone: History and physical note Author Emma [facility]dermott [facility]/TimeJanuary 2024 11:51am [place] [address] Gastroenterology H&P Signed Patient: Ludwin Reyes MR#: [id number] : 1955 Acct:[id number] Age/Sex: 68 / M Adm Date: 5 Loc: Room: Type: [facility] Attending Dr: Emma Mcdermott MD Copies to: MD Audrey Triana APRN, BLOOD COLLECTOR~ Date of Service: 05/10/2024 HISTORY & PHYSICAL: [...] by Emma Mcdermott MD> 05/10/24 1151 [facility] Work Phone: Hospital Discharge instructionsAmbulatory Orders* Referral to Gastroenterology Time Frame: 02/12/24, Location: None Selected [facility] Work Phone: Hospital Discharge instructions Additional Instructions [...] NOT operate machinery such as power tools, lawn mowers, snow blowers, sewing machines, etc. for 24 hours. - [...] years. -Follow up with PCP. -Office number [phone]. [facility] Work Phone: Hospital Discharge instructionsAmbulatory Orders* Referral to Audiology Time Frame: 02/17/25, Location: None Selected * Referral to Pulmonology Time Frame: 02/17/25, Location: None Selected [facility] Work Phone: InstructionsNot on filedocumented in this encounter [facility] SystemInstructionsNot on filedocumented in this encounter [facility] SystemReason for referral (narrative)No reason for referral information availableMar[facility]tr Work Phone: Summary Purpose Family History Relationship Condition Age at Onset Recorded Date/T gabriela mother Malignant neoplasm of colon Unknown fatherMultiple myelomaUnknownbrotherMuscular dystrophyUnknown Advance Directives Advance Directive Response Recorded Date/ [...] Admit Date Encounter for smoking cessation counselniya ludwig February 12, 2024 11:01am Medicare annual [...] :11pm CC Adult Risk Stratification March 2:21pm [facility] follow up March 12 9:02am Reason for Visit Admit Date Encounter for smoking cessation counselniya ludwig February 12, 2024 11:01am Medicare annual [...] :37am CC Adult Risk Stratification March 3:17pm [facility] f/u April 05, 2024 1 1:31am Ref: Edwardrbacher- Abnormal finding of kendall arvizu April 11, 2024 3:00pm [email or web address] May 06, [...] :37am CC Adult Risk Stratification March 3:17pm [facility] f/u April 05, 2024 1 1:31am Ref: [...] :37am CC Adult Risk Stratification March 3:17pm [facility] f/u April 05, 2024 1 1:31am Ref: [place]- Abnormal finding of kendall g April 11, 2024 3:00pm [email or web address] May 06, 2024 10 :30am Screening May 10, 2024 9 :52am Screening May 10, 2024 1 1:50am NAVIGATION OFFICER: 3 wk f/u PET Results May 16, [...] :52am Screening May 10, 2024 1 1:50am NAVIGATION OFFICER: 3 wk f/u PET Results May 16, [...] :52am Screening May 10, 2024 1 1:50am NAVIGATION OFFICER: 3 wk f/u PET Results May 16, 2024 9:53am [email or web address] July 25, 2024 1:0 2pm NAVIGATION OFFICER: 3 mo f/u SPN July 29, 2024 [...] 8:19am Solitary pulmonary nodule on lung CT Jan 8:19am Additional Source Comments (unrecognized sect ion and content) No Status Records FoundNo Status Records FoundNo Status Records FoundNo Status Records Found INFORMATION SOURCE (unrecogn ized section and content) DATE CREATED AUTHOR 03/20/2020 [facility] DATE CREATED AUTHOR AUTHOR'S ORGANIZ ATION 03/15/2024 [facility] DATE CREATED AUTHOR AUTHOR'S ORGANIZ ATION 05/14/2024 [facility] DATE CREATED AUTHOR AUTHOR'S ORGANIZ ATION 12/07/2024 [facility] Care Teams (unrecognized sec tion and content) Team Status: Active Member Role Status Dates Audrey Justin APRN [employer]MI[employer]Y TE[employer]ER-C Primary Care Provider Active Team Status: Inactive Member Role Status Dates Audrey Rohrbacher , [employer]MI[employer] TE[employer]ER-C Primary Care Provider, Attending Provider Active Start: February 12, 2024 End: February 12, 2024 Team Status: Active Member Role Status Dates Audrey Justin APRN [employer] CHEMISTR[employer] TEACHER-C Primary Care Provider, Attending Provider Active Start: March 05, 2024 Team Status: Active Member Role Status Dates Audrey Justin APRN [employer] CHEMI[employer] TEACHER-C Primary Care Provider Active Start: March Murdock Linowarogelio , MDAttending ProviderActiveStart: March 06, 2024 Team Status: Active Member Role Status Dates Audrey Justin APRN [employer] CHEMI[employer] TEACHER-C Primary Care Provider Active Start: March Murdock Fawwad , MDAttending ProviderActiveStart: March 07, 2024 Team Status: Active Member Role Status Dates Audrey Justin APRN [employer] CHEMI[employer] TEACHER-C Primary Care Provider Active Start: March Murdock Linowarogelio , MDAttending ProviderActiveStart: March 08, 2024 Team Status: Inactive Member Role Status Dates Gurmeet Muñiz DO Attending Provider Active Start: March 08, 2024 End: March 08, 2024 Team Status: Active Member Role Status Dates Ana Valdez CMA Attending Provider Active Start: March 08, 2024 Team Status: Active Member Role Status Dates Audrey Justin APRN [employer]MI[employer] TE[employer]ER-C Attending Provider Act shaan Start: March 08, 2024 Team Status: Inactive Member Role Status Dates Audrey Justin APRN [employer] CHEMI[employer] TEACHER-C Primary Care Provider, Attending Provider Active Start: March 12, 2024 End: March 12, 2024 Team Status: Inactive Member Role Status Dates Gurmeet Muñiz DO Attending Provider Active Start: March 08, 2024 End: March 08, 2024NON STAFFPrimary Care ProviderActiveStart: March 08, 2024 End: March 08, 2024 Team Status: Active Member Role Status Dates Audrey Justin APRN [employer] CHEMI[employer] TEACHER-C Primary Care Provider Active Start: March 232023 Ludwin Fuetnes , DOAttending ProviderActiveStart: March 23, 2024 Team Status: Active Member Role Status Dates Audrey Justin APRN [employer] CHEMI[employer] TEACHER-C Primary Care Provider Active Start: March 242023 Leonard Villagomez DOAttending ProviderActiveStart: March 24, 2024 Team Status: Active Member Role Status Dates Audrey Justin APRN [employer] CHEMI[employer] TEACHER-C Primary Care Provider Active Start: March Ana Valdez CMAAttending ProviderActiveStart: April 01, 2024 Team Status: Active Member Role Status Dates Audrey Justin APRN [employer] CHEMISTRY TEACHER-C Primary Care Provider, Attending Provider Active Start: April 02, 2024 Team Status: Inactive Member Role Status Dates Audrey Justin APRN [employer] CHEMISTRY TEACHER-C Primary Care Provider, Attending Provider Active Start: April 05, 2024 End: April 05, 2024 Team Status: Inactive Member Role Status Dates Audrey Justin APRN [employer] CHEMISTRY TEACHER-C Primary Care Provider, Referring Provider Active Start: April 11, 2024 End: April 11, 2024Gallito Kern , DOAttending ProviderActiveStart: April 11, 2024 End: April 11, 2024 Team Status: Inactive Member Role Status Dates Audrey Justin APRN [employer] CHEMISTRY TEACHER-C Primary Care Provider, Attending Provider Active Start: May 06, 2024 End: May 06, 2024 Team Status: Inactive Member Role Status Dates Audrey Justin APRN [employer] CHEMISTRY TEACHER-C Primary Care Provider Active Start: May End: May 10, 2024Imad Asamayco , MDAttending ProviderActiveStart: May 10, 2024 End: May 10, 2024 Team Status: Active Member Role Status Dates Audrey Justin APRN [employer] CHEMI[employer]Y TEACHER-C Primary Care Provider Active Start: May Imad Asaad , MDAttending Provider, Other ProviderActiveStart: May 10, 2024 Team Status: Inactive Member Role Status Dates Audrey Justin APRN [employer] CHEMISTRY TEACHER-C Primary Care Provider Active Start: May End: May 16, 2024Natdeja Kern , DOAttending ProviderActiveStart: May 16, 2024 End: May 16, 2024Team MemberRelationshipSpecialtyStart DateEnd Date Audrey Justin APRN-[employer]IGH [employer]CHO[employer] CHEMISTRY TEACHER [address] [place] [address] [phone] (work) PCP - GeneralNurse Lagfjxmoxyri99/12/24Team MemberRelationshipSpecialtyStart DateEnd Date Audrey Justin APRN-[employer]CHO[employer] CHEMISTRY TEACHER [address] [place] [address] PCP - GeneralNurse Mbbroafpqswc59/12/24 Team Status: Inactive Member Role Status Dates Audrey Justin APRN [employer] CHEMI[employer] TEACHER-C Primary Care Provider Active Start: July 25, 2024 End: July 25, 2024Corazon Brown ProviderActiveStart: July 25, 2024 End: July 25, 2024 Team Status: Inactive Member Role Status Dates Audrey Justin APRN [employer] CHEMISTRY TEACHER-C Primary Care Provider Active Start: July 29, 2024 End: July 29, 2024Corazon Brown ProviderActiveStart: July 29, 2024 End: July 29, 2024 Team Status: Active Member Role Status Dates Audrey Justin APRN [employer] CHEMISTRY TEACHER-C Primary Care Provider Active Start: November 25, 2024 Kehinde Triana ProviderActiveStart: November 25, 2024 Tiffany Triana ProviderActiveStart: November 25, 2024 Team Status: Active Member Role/Relationship Status Dates Audrey uJstin APRN [employer] CHEMISTRY TEACHER-C Primary Care Provider Active Team Status: Active Member Role/Relationship Status Dates Audrey Justin APRN [employer] CHEMISTRY TEACHER-C Primary Care Provider Active Start: November 25, 2024 Kehinde Triana ProviderActiveStart: November 25, 2024 Tiffany Triana ProviderActiveStart: November 25, 2024 Team Status: Active Member Role/Relationship Status Dates Audrey Justin APRN [employer] CHEMISTRY TEACHER-C Primary Care Provider Active Start: November 25, 2024 Simon Oliver ProviderActiveStart: November 25, 2024 Team Status: Inactive Member Role/Relationship Status Dates Audrey Justin APRN [employer] CHEMISTRY TEACHER-C Primary Care Provider Active Start: January End: February 17, 2025Maggienicolette MARCO Justin [employer]IGH SCHOOL CHEMISTRY TEACHER-CAttending ProviderActive Start: February 17, 2025 End: February 17, [...] for Visit (unrecogniz ed section and content) ReasonCommentsPOST-OP VISITPOST [facility] PT ASKED TO BE SEEN SOONER IN [...] BE BASED ON THE PRIMARY CLINICAL RECORDS. [employer] provides no warranty or guarantee of the accuracy or completeness of information in this document.
== END 2025-03-21 10:31 | disposition home or self-care (01) ==
LOC: CT 10:30
PROVIDERS: PCP Nurse Practitioner Family; Visit Provider Nurse Practitioner Family
DX: R91.1 Solitary pulmonary nodule (principal); F17.210 Nicotine dependence, cigarettes, uncomplicated; Z12.2 Encounter for screening for malignant neoplasm of respiratory organs; J44.9 Chronic obstructive pulmonary disease, unspecified
CPT/HCPCS: 71271